=== PATIENT | female | born 1950 | race Caucasian/White ===

== ENCOUNTER 2016-11-11 14:39 | Inpatient (IN) | payer OTHER ==
[~2016-11-11] VITALS: Ht 160 cm; Wt 49.4 kg
[~2016-11-11 14:39] MED LIST: ACET325T96 PO; ALBUAER2 INH; ASPI81TA28 PO; CARV3.122 PO; ERGO1CAP35 PO; FLUT1INH INH; LVQ750 PO; MULT-506 PO; PANT40TA PO; TIOTCAP INH; VENL150C56 PO; VITACAP26 PO; WLLXL300 PO
[2016-11-11] MEDS ORDERED: FENTANYL CITRATE INJ 50 MCG/1 ML 2 ML VIAL IV STA ×2 (14:48→16:26)
[2016-11-11] MEDS ORDERED: VENL225T27 PO (15:14)
[2016-11-11] MEDS ORDERED: VTMD PO (15:14)
[2016-11-11] MEDS ORDERED: CRG625 PO (15:14)
[2016-11-11] MEDS ORDERED: ARFO15NE NEB (15:14)
[2016-11-11 15:21] LABS: BASO % 0.1 %; BASO ABS # 0.01 K/uL (0-0.2); COMPLETE YES; IG% 0.3 %; LYMPH % 3.1 %; MEAN CELL VOLUME 100.3 fL (80-100); MEAN CORPUSCULAR HEMOGLOBIN 30.9 pg (25-34); MEAN CORPUSCULAR HGB CONC 30.8 g/dl (32-36); MEAN PLATELET VOLUME 9.8 fL (7.4-10.4); MONO % 6.9 %; NEUT % 89.6 %; PLATELET COUNT 261 K/uL (130-400); RED BLOOD COUNT 3.59 M/uL (4.2-5.4); WHITE BLOOD COUNT 19.07 K/uL (4.8-10.8)
[2016-11-11 15:40] LABS: ALT/SGPT 21 U/L (12-78); BLOOD UREA NITROGEN 24 mg/dl (7-18); BUN/CREATININE RATIO 47.5 (10-20); CALCIUM 9.6 mg/dl (8.5-10.1); CARBON DIOXIDE 40 mmol/L (21-32); CHLORIDE 91 mmol/L (98-107); CREATININE 0.51 mg/dl (0.60-1.20); GLUCOSE 174 mg/dl (70-99); POTASSIUM 4.5 mmol/L (3.5-5.1); SODIUM 139 mmol/L (136-145)
[2016-11-11 15:43] LABS: ALKALINE PHOSPHATASE 82 U/L (45-117); AST/SGOT 23 U/L (15-37)
--- NOTE | 2016-11-11 15:58 | DIAGNOSTIC IMAGING REPORT ---
CHEST ONE VIEW PORTABLE CLINICAL HISTORY: Fall. COMPARISON STUDY: Chest CT August 08, 2016. FINDINGS: The patient is rotated. Allowing for patient rotation, the cardiomediastinal silhouette is stable. No pneumothorax or pleural effusion is present. Mild interstitial thickening persists. The appearance of the chest is similar to prior exam. IMPRESSION: No change in appearance of the chest. Stable mild reticular interstitial thickening. Electronically signed by: Grzegorz Hernández M.D. 11/11/2016 3:56 PM Dictated Date/Time: 11/11/2016 3:54 PM
--- NOTE | 2016-11-11 16:00 | DIAGNOSTIC IMAGING REPORT ---
AP PELVIS AND RIGHT HIP 3 VIEWS CLINICAL HISTORY: Right hip pain status post trauma COMPARISON STUDY: No previous studies for comparison. FINDINGS: There is an acute intertrochanteric right hip fracture with secondary varus angulation. IMPRESSION: Angulated acute intertrochanteric right hip fracture Electronically signed by: Marco A Romero M.D. 11/11/2016 3:58 PM Dictated Date/Time: 11/11/2016 3:58 PM
[2016-11-11] MEDS ORDERED: ONDANSETRON INJ 2 MG/ML 2 ML VIAL IV PRN (17:15)
[2016-11-11 17:16] LABS: URINE APPEARANCE CLEAR (CLEAR); URINE BILIRUBIN NEG (NEG); URINE COLOR DK YELLOW; URINE EPITHELIAL CELL AUTO 20-30 /lpf (0-5); URINE NITRITE NEG (NEG); URINE PH 6.5 (4.5-7.5); URINE SPECIFIC GRAVITY 1.017 (1.000-1.030); UROBILINOGEN NEG (NEG)
[2016-11-11 17:17] LABS: MANUAL MICROSCOPIC REQUIRED? NO; REVIEW REQ? NO
[2016-11-11] MEDS ORDERED: ERGOCALCIFEROL 50,000 INTER.UNIT CAP PO SCH (18:00)
--- NOTE | 2016-11-11 18:03 | Medical Consult ---
Consultation Date of Consultation: Nov 11, 2016. Attending Physician: Dr. Hayes Reason for Consultation: Right hip fracture History of Present Illness Shante is a pleasant 66 year old female who I have evaluated with Dr. Hayes due to a right hip fracture. She had a ground level fall this morning at 7 am when she was trying to reach something. She denies head trauma and/loss of consciousness. Her pain is well controlled. Denies any numbness or tingling distally. Past Medical/Surgical History Medical Problems: (1) Pneumonia Status: Acute Family History FH: heart disease Hypertension Social History Smoking Status: Smoker Current Status UNK Smokeless Tobacco Use: No Alcohol Use: none Drug Use: none Marital Status: Housing Status: lives with significant other Occupation Status: retired Allergies Coded Allergies: Penicillins (Verified Allergy, Intermediate, HIVES, 01/19/16) LIKELY TOLERATES CEFEPIME, IMIPENEM (SEE ADMISSION 08/13/15) Current Inpatient Medications Current Inpatient Medications Medications (Trade) Dose Ordered Sig/José Miguel Route Start Time Stop Time Status Last Admin Dose Admin Acetaminophen (Tylenol Tab) 650 mg Q4H PRN PO 11/11/16 17:15 12/11/16 17:14 Ondansetron HCl (Zofran Inj) 4 mg Q6H PRN IV 11/11/16 17:15 12/11/16 17:14 Morphine Sulfate (MoRPHine SULFATE INJ) 3 mg Q3H PRN IV 11/11/16 17:30 11/25/16 17:29 UNV Arformoterol Tartrate (Brovana 15MCG/ 2ML Neb Soln) 15 mcg BID INH 11/11/16 21:00 12/11/16 20:59 UNV Aspirin (Ecotrin Tab) 81 mg QAM PO 11/12/16 09:00 12/12/16 08:59 UNV Bupropion HCl (Wellbutrin-Xl Tab) 300 mg QAM PO 11/12/16 09:00 12/12/16 08:59 UNV Carvedilol (Coreg Tab) 6.25 mg BID PO 11/11/16 21:00 12/11/16 20:59 UNV Ergocalciferol (Vitamin D Cap) 50,000 interunit UD PO 11/11/16 17:30 12/11/16 17:29 UNV Multivitamins (Multivitamin Tab) 1 tab QAM PO 11/12/16 09:00 12/12/16 08:59 UNV Pantoprazole Sodium (Protonix Tab) 40 mg HS PO 11/11/16 21:00 12/11/16 20:59 UNV Non-Formulary Medication (Fluticasone Furoate-Vilanterol (Breo Ellipta)) 1 puff BID INH 11/11/16 21:00 12/11/16 20:59 UNV Non-Formulary Medication (Venlafaxine Hcl (Venlafaxine Hcl Er)) 225 mg DAILY PO 11/12/16 09:00 12/12/16 08:59 UNV Heparin Sodium (Porcine) (Heparin Sq 5000 Unit/0.5ml) 5,000 unit Q12 SQ 11/11/16 21:00 12/11/16 20:59 UNV Review of Systems Constitutional: No chills, No fever Respiratory: No shortness of breath Cardiovascular: No chest pain Abdomen: No pain Musculoskeletal: + joint pain, + muscle pain Neurologic: + memory loss Physical Exam Date Time Temp Pulse Resp B/P Pulse Ox O2 Delivery O2 Flow Rate FiO2 11/11/16 16:32 122 20 141/103 100 Nasal Cannula 4.5 11/11/16 14:53 37.5 28 22 150/94 100 Nasal Cannula General Appearance: WD/WN, no apparent distress Head: normocephalic, atraumatic ENT: normal ENT inspection Cardiovascular: regular rate, rhythm, normal peripheral pulses Back: normal inspection Extremities/Musculoskelatal: pelvis stable Neurologic/Psych: no motor/sensory deficits, oriented x 3 Skin: normal color Laboratory Results Last 24 Hours Test 11/11/16 15:05 11/11/16 16:30 White Blood Count 19.07 K/uL Red Blood Count 3.59 M/uL Hemoglobin 11.1 g/dL Hematocrit 36.0 % Mean Corpuscular Volume 100.3 fL Mean Corpuscular Hemoglobin 30.9 pg Mean Corpuscular Hemoglobin Concent 30.8 g/dl Platelet Count 261 K/uL Mean Platelet Volume 9.8 fL Neutrophils (%) (Auto) 89.6 % Lymphocytes (%) (Auto) 3.1 % Monocytes (%) (Auto) 6.9 % Eosinophils (%) (Auto) 0.0 % Basophils (%) (Auto) 0.1 % Neutrophils # (Auto) 17.08 K/uL Lymphocytes # (Auto) 0.60 K/uL Monocytes # (Auto) 1.32 K/uL Eosinophils # (Auto) 0.00 K/uL Basophils # (Auto) 0.01 K/uL RDW Standard Deviation 53.4 fL RDW Coefficient of Variation 14.6 % Immature Granulocyte % (Auto) 0.3 % Immature Granulocyte # (Auto) 0.06 K/uL Sodium Level 139 mmol/L Potassium Level 4.5 mmol/L Chloride Level 91 mmol/L Carbon Dioxide Level 40 mmol/L Anion Gap 8.0 mmol/L Blood Urea Nitrogen 24 mg/dl Creatinine 0.51 mg/dl Est Creatinine Clear Calc Drug Dose 75.0 ml/min Estimated GFR () 114.5 Estimated GFR (Non- 98.8 BUN/Creatinine Ratio 47.5 Random Glucose 174 mg/dl Calcium Level 9.6 mg/dl Total Bilirubin 0.3 mg/dl Direct Bilirubin < 0.1 mg/dl Aspartate Amino Transf (AST/SGOT) 23 U/L Alanine Aminotransferase (ALT/SGPT) 21 U/L Alkaline Phosphatase 82 U/L Total Protein 7.3 gm/dl Albumin 3.1 gm/dl Lipase 74 U/L Urine Color DK YELLOW Urine Appearance CLEAR Urine pH 6.5 Urine Specific [place] 1.017 Urine Protein TRACE Urine Glucose (UA) NEG Urine Ketones TRACE Urine Occult Blood 1+ Urine Nitrite NEG Urine Bilirubin NEG Urine Urobilinogen NEG Urine Leukocyte Esterase NEG Urine WBC (Auto) 1-5 /hpf Urine RBC (Auto) >30 /hpf Urine Hyaline Casts (Auto) 5-10 /lpf Urine Epithelial Cells (Auto) 20-30 /lpf Urine Bacteria (Auto) NEG Assessment & Plan Plan for ORIF with a trochanteric nail tomorrow when clear from medicine. Additional Copies To Hemal Hayes M.D.
--- NOTE | 2016-11-11 18:39 | History and Physical ---
History & Physical Date & Time of Service: Nov 11, 2016 at 18:12 Chief Complaint: Fall, Right Hip Pain Primary Care Physician: Matheus Kirk M.D. History of Present Illness 66 year old female who presents to the ER after suffering a fall and having right hip pain. Patient's memory is poor and history is obtained from the . Patient was walking to the bathroom this morning when she suffered a fall. reports he a heard a thud and found her on the floor. He believes she tripped over her oxygen tubing. Patient denies lightheadedness, dizziness, or loss of coconsciousness. No associated chest pain. Patient has chronic shortness of breath at baseline which is unchanged. She also has a chronic productive cough at baseline which is unchanged. No fevers or chills recently. Patient has a ileostomy in place, output is unchanged. No abdominal pain, nausea , or vomiting. In the ER, patient is found to have right intertrochanteric hip fracture. WBC is 19K, no obvious source of infection is identified. Vitals are stable. Past Medical/Surgical History Medical Problems: (1) CAD (coronary artery disease) Permanent Comment: s/p RCA stent 1998 cath 05/2011 - PDA stenosis 60% Status: Chronic (2) Chronic obstructive lung disease Permanent Comment: severe Status: Chronic (3) COPD, severe Permanent Comment: on chronic 4L O2 Status: Chronic (4) Depression Status: Chronic (5) Diverticulosis of sigmoid colon Permanent Comment: Noted on colonoscopy 2005. Status: Chronic (6) Hyperlipidemia Status: Chronic (7) MRSA bacteremia Status: Resolved (8) Paroxysmal a-fib Status: Chronic (9) Respiratory failure Status: Chronic Surgical Problems: (1) H/O ileostomy Status: Chronic (2) History of cardiac catheterization Status: Resolved (3) History of tonsillectomy Status: Resolved (4) S/P partial colectomy Permanent Comment: for ischemic bowel Status: Chronic (5) S/P splenectomy Status: Chronic (6) Status post tracheostomy Status: Chronic Family History FH: heart disease FATHER ([place] at age 47) FH: pulmonary embolism MOTHER (at age 48) Social History Smoking Status: Former Smoker Alcohol Use: none Marital Status: Housing status: other Immunizations History of Influenza Vaccine: Yes Influenza Vaccine Date: Jul 17, 2016 History of Tetanus Vaccine?: Yes Tetanus Immunization Date: Feb 10, 2014 History of Pneumococcal: Yes Pneumococcal Date: Aug 18, 2007 Multi-Drug Resistant Organisms History of MDRO: Yes Type of MDRO: MRSA Allergies Coded Allergies: Penicillins (Verified Allergy, Intermediate, HIVES, 01/19/16) LIKELY TOLERATES CEFEPIME, IMIPENEM (SEE ADMISSION 08/13/15) Home Medications Scheduled Arformoterol Tartrate (Brovana), 1 VIAL NEB BID Aspirin (Aspirin Ec), 81 MG PO QAM Bupropion HCl (Bupropion HCl Xl), 300 MG PO QAM Carvedilol (Carvedilol), 6.25 MG PO BID Ergocalciferol (Vitamin D), 50,000 UNITS PO WK Fluticasone Furoate-Vilanterol (Breo Ellipta), 1 PUFF INH BID Multivitamin (Multivitamin), 1 TAB PO QAM Pantoprazole (Protonix), 40 MG PO HS Venlafaxine Hcl (Venlafaxine Hcl Er), 225 MG PO DAILY Review of Systems 10 point review of systems was completed with the pertinent positives and negatives noted per the HPI Physical Exam Vital Signs Date Time Temp Pulse Resp B/P Pulse Ox O2 Delivery O2 Flow Rate FiO2 11/11/16 16:32 122 20 141/103 100 Nasal Cannula 4.5 11/11/16 14:53 37.5 28 22 150/94 100 Nasal Cannula General Appearance: no apparent distress Head: normocephalic Eyes: normal inspection ENT: hearing grossly normal Neck: supple, no JVD Respiratory/Chest: no respiratory distress, + crackles (BL bases) Cardiovascular: regular rate, rhythm, no edema, normal peripheral pulses Abdomen/GI: normal bowel sounds, non tender, soft, + pertinent finding ( ileostomy in place, stoma pink, green/brown liquid stool present) Extremities/Musculoskelatal: + pertinent finding (right hip pain with minimal movement) Neurologic/Psych: no motor/sensory deficits, alert, normal mood/affect, oriented x 3, + pertinent finding (forgetful) Skin: normal color, warm/dry Diagnostics Laboratory Results Results Past 24 Hours Test 11/11/16 15:05 11/11/16 16:30 11/11/16 17:47 Range/Units White Blood Count 19.07 4.8-10.8 K/uL Red Blood Count 3.59 4.2-5.4 M/uL Hemoglobin 11.1 12.0-16.0 g/dL Hematocrit 36.0 37-47 % Mean Corpuscular Volume 100.3 80-100 fL Mean Corpuscular Hemoglobin 30.9 25-34 pg Mean Corpuscular Hemoglobin Concent 30.8 32-36 g/dl Platelet Count 261 130-400 K/uL Mean Platelet Volume 9.8 7.4-10.4 fL Neutrophils (%) (Auto) 89.6 % Lymphocytes (%) (Auto) 3.1 % Monocytes (%) (Auto) 6.9 % Eosinophils (%) (Auto) 0.0 % Basophils (%) (Auto) 0.1 % Neutrophils # (Auto) 17.08 1.4-6.5 K/uL Lymphocytes # (Auto) 0.60 1.2-3.4 K/uL Monocytes # (Auto) 1.32 0.11-0.59 K/uL Eosinophils # (Auto) 0.00 0-0.5 K/uL Basophils # (Auto) 0.01 0-0.2 K/uL RDW Standard Deviation 53.4 36.4-46.3 fL RDW Coefficient of Variation 14.6 11.5-14.5 % Immature Granulocyte % (Auto) 0.3 % Immature Granulocyte # (Auto) 0.06 0.00-0.02 K/uL Sodium Level 139 136-145 mmol/L Potassium Level 4.5 3.5-5.1 mmol/L Chloride Level 91 98-107 mmol/L Carbon Dioxide Level 40 21-32 mmol/L Anion Gap 8.0 3-11 mmol/L Blood Urea Nitrogen 24 7-18 mg/dl Creatinine 0.51 0.60-1.20 mg/dl Est Creatinine Clear Calc Drug Dose 75.0 ml/min Estimated GFR () 114.5 Estimated GFR (Non- 98.8 BUN/Creatinine Ratio 47.5 10-20 Random Glucose 174 70-99 mg/dl Calcium Level 9.6 8.5-10.1 mg/dl Total Bilirubin 0.3 0.2-1 mg/dl Direct Bilirubin < 0.1 0-0.2 mg/dl Aspartate Amino Transf (AST/SGOT) 23 15-37 U/L Alanine Aminotransferase (ALT/SGPT) 21 12-78 U/L Alkaline Phosphatase 82 45-117 U/L Total Protein 7.3 6.4-8.2 gm/dl Albumin 3.1 3.4-5.0 gm/dl Lipase 74 73-393 U/L Urine Color DK YELLOW Urine Appearance CLEAR CLEAR Urine pH 6.5 4.5-7.5 Urine Specific [place] 1.017 1.000-1.030 Urine Protein TRACE NEG Urine Glucose (UA) NEG NEG Urine Ketones TRACE NEG Urine Occult Blood 1+ NEG Urine Nitrite NEG NEG Urine Bilirubin NEG NEG Urine Urobilinogen NEG NEG Urine Leukocyte Esterase NEG NEG Urine WBC (Auto) 1-5 0-5 /hpf Urine RBC (Auto) >30 0-4 /hpf Urine Hyaline Casts (Auto) 5-10 0-5 /lpf Urine Epithelial Cells (Auto) 20-30 0-5 /lpf Urine Bacteria (Auto) NEG NEG Microbiology Results 11/11/16 Blood Culture, Concha Batch Pending 11/11/16 Blood Culture, Concha Batch Pending 11/11/16 Urine Culture, Received Pending Diagnostic Radiology HIP/PELVIS XR IMPRESSION: Angulated acute intertrochanteric right hip fracture CXR IMPRESSION: No change in appearance of the chest. Stable mild reticular interstitial thickening. EKG EKG: sinus tachycardia with PACs Impression Assessment and Plan RIGHT HIP FRACTURE - admit to med/surg - fall seems to be mechanical - ortho consulted - patient moderate risk for surgery due to underlying oxygen dependent COPD and CAD - anesthesia and cardio consults placed for pre op evaluation - resting echo ordered, EKG LEUKOCYTOSIS - WBC 19K - no obvious source of infection identified on work up; history negative for suspected infection - CXR unchanged from prior, U/A does not appear infected - urine and blood cultures - ? due to stress response from fall/fracture CAD - no reports of chest pain - s/p RCA stent 1998, cath 2010 - 60% PDA stenosis - continue ASA and beta maycol COPD - saturating well on chronic 4L - no wheezing on exam - continue home inhalers DVT PROPHYLAXIS - SQ heparin, hold after midnight for possible surgery CODE STATUS - Patient is a full code as per my discussion with her and her who is at the bedside. DISPO - In my clinical judgment this beneficiary meets acute admission criteria, established by [facility], that includes being hospitalized through two midnights. Attending Note: Patient is a 66 yr old female with PMH of CAD S/P stent, COPD, chronic Oxygen dependency, HLP, depression presents with history of right hip pain secondary to fall. X ray showed right intertrochanteric hip fracture. She has leucocytosis of 19K with no obvious source of infection. Physical Exam: Vitals signs as noted above General Appearance:Thin, fragile, chronically ill appearing, no apparent distress Head: normocephalic, Atraumatic Eyes: normal inspection, EOMI, PERRL Neck: supple, no JVD, Trachea midline Respiratory/Chest: Decreased breath sounds, mild creps positive. No accessory muscle use Cardiovascular: Tachycardia, S1, S2, No murmur Abdomen/GI:Soft, Non tender, Bowel sounds present Extremities/Musculoskelatal:R hip tenderness, decreased ROM secondary to pain. Neurologic/Psych:AAOX3, grossly no focal neurological deficits Skin:normal color,warm Assessment and Plan: Right Intertrochanteric fracture S/P fall Pain control Gentle IV fluids Ortho consulted Given history of COPD on chronic oxygen dependency, CAD S/p stent Will request for Cardiology and Pulm eval prior to surgery Leukocytosis- no obvious source of infection Check lactate, echo, EKG, cultures I personally reviewed the record. Patient is interviewed and examined at bedside. Patient's care is coordinated with Dannielle Tan CONCRETE MASON. Please refer to the documentation above for details of patient's presentation and for discussion of other issues. VTE Prophylaxis VTE Risk Assessment Done? Y/N: Yes Risk Level: Moderate
[2016-11-11] MEDS: MoRPHine SULFATE 4 MG/ML 1 ML CARP\\VIAL IV PRN ×2 (19:41→22:59)
[2016-11-11 19:45] VITALS: BP 129/87; PULSE 124; TEMP 37.1; O2SAT 99
[2016-11-11 19:48] VITALS: BP 129/87; PULSE 124; TEMP 37.1; O2SAT 99; Ht 160 cm; Wt 49.4 kg
[2016-11-11] MEDS: ARFORMOTEROL TART 15MCG/2ML VIAL INH SCH (20:00)
[2016-11-11 20:15] VITALS: BP 138/83; PULSE 126; O2SAT 100
[2016-11-11] MEDS ORDERED: METOPROLOL TARTRATE 1 MG/ML VIAL IV PRN (20:30)
--- NOTE | 2016-11-11 20:50 | Anesthesiology Progress Note ---
Anesthesia Progress Note Date of Service Nov 11, 2016. Progress Notes The patient is a 66 y/o scheduled for R troch nail tomorrow. The patient fell after tripping while going to the bathroom with no LOC. Her PMH is significant for severe COPD requiring 4 L continuous oxygen, CAD s/p stent, hx afib, dyslipidemia, aortic stenosis, diverticulitis, anemia, and depression. She was admitted in July 2015 with mesenteric ischemia, sepsis, acute on chronic respiratory failure, and had a cardiopulmonary arrest. She had a tracheostomy and PEG tube placed during that admission. She underwent a splenectomy and had an ileostomy as well. The patient is on continuous oxygen but continues to smoke 4 cigarettes/day and has a 50 year smoking history. The patient has no chest pain, but easily becomes SOB and has poor functional status. Her CXR shows NAD with stable interstitial thickening. EKG shows ST with PACs and a rate of 124. An echocardiogram from 03/04 shows EF 60-65, mild LVH, and moderate . Labs are significant for WBC 19, hgb 11.1, Cl 90, bicarb 40, and BUN 24. Current vitals include HR 122, SpO2 99 on 4 L NC, RR 16, temp 37.1, BP 138/83. On exam the patient was lying in bed and appeared to be in mild pain. She has a MP 1 view with slightly limited neck extension. She has dentures. Lungs have decreased BS bilaterally. Heart is tachycardic but muffled. No carotid bruit noted. Her R leg is in traction. The patient is an ASA 4. The patient was consented for both general anesthesia and neuraxial anesthesia as well as invasive monitoring. The risk of prolonged intubation must be weighed against hypotension from neuraxial anesthesia with aortic stenosis. Since the patient was tachycardic, Dr. Ordoñez was called to evaluate the patient. He will treat her tachycardia with beta blockers and transfer her to telemetry for closer monitoring overnight. The patient was counseled to remain NPO after midnight except for sips of water with pills. The medicine team ordered a cardiac consult as well as an echocardiogram which are both pending.
[2016-11-11] MEDS: SODIUM CHLORIDE 0.9% 1000ML 1,000 ML IV SCH (20:59)
[2016-11-11] MEDS ORDERED: HEPARIN SOD 5000 UNIT/0.5 ML CARP SQ SCH (21:00)
[2016-11-11] MEDS: ACETAMINOPHEN 325 MG TAB PO PRN (21:01)
--- NOTE | 2016-11-11 21:01 | EMERGENCY ROOM VISIT NOTE ---
History Report prepared by Edwina: Lindsay Pisano Under the Supervision of: Dr. Chevy Montgomery D.O. First contact with patient: 14:42 Stated Complaint: FALL/ HIP PAIN History of Present Illness The patient is a 66 year old female who presents to the Emergency Room with complaints of right hip pain that has been somewhat constant since a fall that occurred this morning at 7AM. Her pain is worsened with any movement of her right leg. The patient states that she was reaching for something and fell on her backside. She did not hit her head or lose consciousness. The patient wears 4.5 L oxygen at home due to a history of COPD. Pt denies headache, change in vision, fevers, chest pain, nausea, vomiting, diarrhea, pain with urination, and melena. Source of History: patient Onset: this morning at 7AM Position: other (right hip) Timing: constant Modifying Factors (Worsening): movement Associated Symptoms: No LOC, No chest pain, No diarrhea, No fevers, No headache, No nausea, No urinary symptoms, No vomiting Review of Systems See HPI for pertinent positives & negatives. A total of 10 systems reviewed and were otherwise negative. Past Medical & Surgical Medical Problems: (1) CAD (coronary artery disease) (2) Chronic obstructive lung disease (3) COPD, severe (4) Depression (5) Diverticulosis of sigmoid colon (6) Hyperlipidemia (7) MRSA bacteremia (8) Paroxysmal a-fib (9) Respiratory failure Surgical Problems: (1) H/O ileostomy (2) History of cardiac catheterization (3) History of tonsillectomy (4) S/P partial colectomy (5) S/P splenectomy (6) Status post tracheostomy Family History FH: heart disease Hypertension Social History Smoking Status: Current Every Day Smoker Alcohol Use: occasionally Drug Use: none Marital Status: Housing Status: lives with significant other Occupation Status: retired Current/Historical Medications Scheduled Arformoterol Tartrate (Brovana), 1 VIAL NEB BID Aspirin (Aspirin Ec), 81 MG PO QAM Bupropion HCl (Bupropion HCl Xl), 300 MG PO QAM Carvedilol (Carvedilol), 6.25 MG PO BID Ergocalciferol (Vitamin D), 50,000 UNITS PO WK Fluticasone Furoate-Vilanterol (Breo Ellipta), 1 PUFF INH BID Multivitamin (Multivitamin), 1 TAB PO QAM Pantoprazole (Protonix), 40 MG PO HS Venlafaxine Hcl (Venlafaxine Hcl Er), 225 MG PO DAILY Allergies Coded Allergies: Penicillins (Verified Allergy, Intermediate, HIVES, 01/19/16) LIKELY TOLERATES CEFEPIME, IMIPENEM (SEE ADMISSION 08/13/15) Physical Exam Vital Signs Date Time Temp Pulse Resp B/P Pulse Ox O2 Delivery O2 Flow Rate FiO2 11/11/16 17:00 105 18 149/96 99 Nasal Cannula 4.5 11/11/16 16:32 122 20 141/103 100 Nasal Cannula 4.5 11/11/16 14:53 37.5 28 22 150/94 100 Nasal Cannula Physical Exam GENERAL: Laying in bed, moderate distress, holding right hip, on nasal canula oxygen HEAD: normal cephalic, atraumatic EYE EXAM: normal conjunctiva, PERRL and EOM's intact OROPHARYNX: no exudate, no erythema, lips, buccal mucosa, and tongue normal and mucous membranes are moist EARS: TMs clear b/l NECK: supple, no nuchal rigidity, no adenopathy, non-tender CHEST: stable to compression anteriorly and posteriorly LUNGS: clear to auscultation. Normal chest wall mechanics HEART: no murmurs, S1 normal and S2 normal ABDOMEN: abdomen soft, non-tender, normo-active bowel sounds, no masses, no rebound or guarding. PELVIS: Pain to palpation over the right hip. BACK: Back is symmetrical on inspection and there is no deformity, no midline tenderness, no CVA tenderness. UPPER EXTREMITIES: full active and passive range of motion of all joints without tenderness to palpation LOWER EXTREMITIES: Right lower extremity is externally rotated and shortened. Able to plantar and dorsiflex toes. PT is 2/4. Gross sensation is intact. Acute tenderness over the right hip. Left lower extremity - full active and passive range of motion of all joints without tenderness to palpation NEURO EXAM: Alert, follows commands, oriented to year. Medical Decision & Procedures ER Provider Diagnostic Interpretation: Xray results per the radiologist and my interpretation. AP PELVIS AND RIGHT HIP 3 VIEWS CLINICAL HISTORY: Right hip pain status post trauma COMPARISON STUDY: No previous studies for comparison. FINDINGS: There is an acute intertrochanteric right hip fracture with secondary varus angulation. IMPRESSION: Angulated acute intertrochanteric right hip fracture Electronically signed by: Marco A Romero M.D. 11/11/2016 3:58 PM Dictated Date/Time: 11/11/2016 3:58 PM CHEST ONE VIEW PORTABLE CLINICAL HISTORY: Fall. COMPARISON STUDY: Chest CT August 08, 2016. FINDINGS: The patient is rotated. Allowing for patient rotation, the cardiomediastinal silhouette is stable. No pneumothorax or pleural effusion is present. Mild interstitial thickening persists. The appearance of the chest is similar to prior exam. IMPRESSION: No change in appearance of the chest. Stable mild reticular interstitial thickening. Electronically signed by: Grzegorz Hernández M.D. 11/11/2016 3:56 PM Dictated Date/Time: 11/11/2016 3:54 PM Laboratory Results 11/11/16 15:05 Red Blood Count 3.59, Mean Corpuscular Volume 100.3, Mean Corpuscular Hemoglobin 30.9, Mean Corpuscular Hemoglobin Concent 30.8, Mean Platelet Volume 9.8, Neutrophils (%) (Auto) 89.6, Lymphocytes (%) (Auto) 3.1, Monocytes (%) ( Auto) 6.9, Eosinophils (%) (Auto) 0.0, Basophils (%) (Auto) 0.1, Neutrophils # ( Auto) 17.08, Lymphocytes # (Auto) 0.60, Monocytes # (Auto) 1.32, Eosinophils # ( Auto) 0.00, Basophils # (Auto) 0.01 11/11/16 15:05 Test 11/11/16 15:05 11/11/16 16:30 White Blood Count 19.07 K/uL (4.8-10.8) Red Blood Count 3.59 M/uL (4.2-5.4) Hemoglobin 11.1 g/dL (12.0-16.0) Hematocrit 36.0 % (37-47) Mean Corpuscular Volume 100.3 fL (80-100) Mean Corpuscular Hemoglobin 30.9 pg (25-34) Mean Corpuscular Hemoglobin Concent 30.8 g/dl (32-36) Platelet Count 261 K/uL (130-400) Mean Platelet Volume 9.8 fL (7.4-10.4) Neutrophils (%) (Auto) 89.6 % Lymphocytes (%) (Auto) 3.1 % Monocytes (%) (Auto) 6.9 % Eosinophils (%) (Auto) 0.0 % Basophils (%) (Auto) 0.1 % Neutrophils # (Auto) 17.08 K/uL (1.4-6.5) Lymphocytes # (Auto) 0.60 K/uL (1.2-3.4) Monocytes # (Auto) 1.32 K/uL (0.11-0.59) Eosinophils # (Auto) 0.00 K/uL (0-0.5) Basophils # (Auto) 0.01 K/uL (0-0.2) RDW Standard Deviation 53.4 fL (36.4-46.3) RDW Coefficient of Variation 14.6 % (11.5-14.5) Immature Granulocyte % (Auto) 0.3 % Immature Granulocyte # (Auto) 0.06 K/uL (0.00-0.02) Anion Gap 8.0 mmol/L (3-11) Est Creatinine Clear Calc Drug Dose 75.0 ml/min Estimated GFR () 114.5 Estimated GFR (Non- 98.8 BUN/Creatinine Ratio 47.5 (10-20) Calcium Level 9.6 mg/dl (8.5-10.1) Total Bilirubin 0.3 mg/dl (0.2-1) Direct Bilirubin < 0.1 mg/dl (0-0.2) Aspartate Amino Transf (AST/SGOT) 23 U/L (15-37) Alanine Aminotransferase (ALT/SGPT) 21 U/L (12-78) Alkaline Phosphatase 82 U/L (45-117) Total Protein 7.3 gm/dl (6.4-8.2) Albumin 3.1 gm/dl (3.4-5.0) Lipase 74 U/L (73-393) Urine Color DK YELLOW Urine Appearance CLEAR (CLEAR) Urine pH 6.5 (4.5-7.5) Urine Specific [place] 1.017 (1.000-1.030) Urine Protein TRACE (NEG) Urine Glucose (UA) NEG (NEG) Urine Ketones TRACE (NEG) Urine Occult Blood 1+ (NEG) Urine Nitrite NEG (NEG) Urine Bilirubin NEG (NEG) Urine Urobilinogen NEG (NEG) Urine Leukocyte Esterase NEG (NEG) Urine WBC (Auto) 1-5 /hpf (0-5) Urine RBC (Auto) >30 /hpf (0-4) Urine Hyaline Casts (Auto) 5-10 /lpf (0-5) Urine Epithelial Cells (Auto) 20-30 /lpf (0-5) Urine Bacteria (Auto) NEG (NEG) Laboratory results per my review. Medications Administered Medications (Trade) Dose Ordered Sig/José Miguel Route Start Time Stop Time Status Last Admin Dose Admin Fentanyl Citrate (Fentanyl Inj) 75 mcg NOW STAT IV 11/11/16 14:48 11/11/16 14:49 DC 11/11/16 15:27 75 MCG Fentanyl Citrate (Fentanyl Inj) 50 mcg NOW STAT IV 11/11/16 16:26 11/11/16 16:27 DC 11/11/16 17:02 50 MCG ED Course ED COURSE: Vital signs were reviewed and showed tachycardia. The patients medical record was reviewed The above diagnostic studies were performed and reviewed. ED treatments and interventions as stated above. 1442: The patient was evaluated in room B7. A complete history and physical examination was performed. 1448: Ordered Fentanyl Inj 75 mcg IV. 1615: I discussed the case with Dr. Hayes - Orthopedic Surgery. He will evaluate the patient. 1620: Upon reevaluation, the patient is feeling better.I discussed my findings with the patient and she understands and agrees with the treatment plan. Ordered Fentanyl Citrate 50 mcg IV. Based on the patients age, coexisting illnesses, exam and lab findings the decision to treat as an inpatient was made. The patient remained stable while under my care. The patient will be evaluated for further management. 1625: I discussed the case with IVONNE Diana - [facility]. The patient will be evaluated for further management. Medical Decision Differential diagnoses include major intracranial, cervical, spinal, thoracic, abdominal, pelvic and neurologic injury. Fracture, contusion, sprain, strain, laceration, abrasions included as well. Patient is a 58-year-old female who presents the ER status post mechanical fall with severe right hip pain via ALS. On exam she has a shortened and externally rotated right lower extremity. Neurovascularly intact. X-ray show acute right hip fracture. Patient has no other complaints otherwise. No headache or neck pain. No blood thinners. CT head was not performed as she had no loss consciousness and no complaints. Chest x-ray was unremarkable. Labs remarkable for a leukocytosis of 19,000. BMP along with LFTs was unremarkable. Lipase is normal. UA was contaminated but she had no urinary complaints and will not pursue any further. She was on 4.5 L nasal cannula which is her baseline. Case was discussed with orthopedics and admitted to internal medicine for right hip fracture. Consults Time Called: 1610 Consulting Physician: Dr. Hayes - Orthopedic Surgery Returned Call: 1615 I discussed the case with him. He will evaluate the patient. Additional Consults: Time Called: 1620 Consulted Physician: IVONNE Diana - [facility] Returned Call: 1625 Additional Comments: I discussed the case with her. The patient will be evaluated for further management. Impression Primary Impression: Hip fracture, right Additional Impression: Anemia Scribe Attestation The scribe's documentation has been prepared under my direction and personally reviewed by me in its entirety. I confirm that the note above accurately reflects all work, treatment, procedures, and medical decision making performed by me. Departure Information Dispostion Being Evaluated By Hospitalist Referrals Matheus Kirk M.D. (PCP) Problem Qualifiers Primary Impression: Hip fracture, right Encounter type: initial encounter Fracture type: closed Qualified Codes: S72.001A - Fracture of unspecified part of neck of right femur, initial encounter for closed fracture Additional Impression: Anemia Anemia type: unspecified type Qualified Codes: D64.9 - Anemia, unspecified
[2016-11-11 21:35] VITALS: BP 138/83; PULSE 126; TEMP 37.1; O2SAT 100
[2016-11-11] MEDS: CARVEDILOL 6.25 MG TAB PO SCH (22:26)
[2016-11-11] MEDS: PANTOprazole SOD 40 MG TAB PO SCH (22:27)
--- NOTE | 2016-11-11 22:54 | DIAGNOSTIC IMAGING REPORT ---
SINGLE VIEW RIGHT HIP CLINICAL HISTORY: Fracture. FINDINGS: An AP portable view of the right hip is compared to study performed earlier the same day 11/11/2016. The skeletal structures are osteopenic. Again seen is an angulated and comminuted intertrochanteric fracture of the right hip. This is not significantly changed from today's earlier examination. The visualized right hemipelvis appears intact. Overlying soft tissue edema is noted. Mild arthritic change is present in the hip. There is atherosclerotic calcification in the right femoral artery. IMPRESSION: Again seen is a comminuted and angulated intertrochanteric fracture of the right femur with overlying soft tissue edema. Alignment has not significant changed from earlier today. Electronically signed by: True Virgen M.D. 11/11/2016 10:52 PM Dictated Date/Time: 11/11/2016 10:50 PM
--- NOTE | 2016-11-11 22:59 | ORTHOPEDIC CONSULTATION ---
DATE OF CONSULTATION: 11/11/2016 The patient seen and examined with Dr. Majano, orthopedic fellow. For further details, refer to his dictation. He and I saw and evaluated this patient together, and I am in agreement with the plan. Shante is a 66-year-old female who fell at home earlier today. She was brought to the Emergency Room where she was found to have a right hip intertrochanteric fracture. She is currently being admitted to the hospital by medicine. She was not lightheaded or dizzy and denied having any prior history of injuries to the right hip. She complains of pain in the right hip and buttock area. She has a past medical history that is significant for MRSA, severe COPD, bowel obstruction that required an external diversion. She has also had coronary artery disease and has had several heart attacks. ALLERGIES: SHE IS ALLERGIC TO PENICILLIN. She does not recall what surgeries she has had; however, review of the record indicates she has had a tracheostomy, splenectomy, ileostomy and partial colectomy performed. Discussing with her , she also has mild dementia and depression. She continues to smoke, but she does not drink significantly. She was on the ventilator for an extended period of time due to prior lung issues. Her medications are noted on hospital chart. She is not on any blood thinners. PHYSICAL EXAMINATION: GENERAL: She is awake, alert, and oriented to person and time. She knows that she is in the hospital but does not know the name of the hospital. ORTHOPEDIC: She moves all extremities freely except for her right lower extremity which is shortened and externally rotated. Her pulses are dopplerable. Sensation and motor strength is intact ankle and toe plantar flexion and dorsiflexion. She has pain on the right hip. The right leg is shortened and externally rotated. Her thoracic and lumbar spine are nontender. Both upper extremities move freely. The left lower extremity shows good range of motion without pain. There is a colostomy bag over the right lower quadrant of the abdomen. A Benítez catheter is in place. VITAL SIGNS: She is afebrile. Her vital signs are stable. LABORATORY DATA: White count is 19, likely secondary to stress. Hemoglobin 11, hematocrit 36, and platelet count is 261. Her PRP is noted, she has increased CO2 and BUN. Her chest x-ray report is noted. Her hip x-ray shows a shortened fracture involving the intertrochanteric region. This appears to be a simple intertrochanteric fracture. There is generalized osteopenia. There is no arthritis or dislocation present. IMPRESSION: Right intertrochanteric hip fracture. PLAN: She will be admitted to the hospital by medicine. I spoke to the hospitalist, discussed with him recommendation is to perform surgery whenever she is medically stabilized, hopefully this will be tomorrow by afternoon. We will hold her subQ heparin as she has just had a fracture and we will likely be doing surgery sometime early tomorrow. The hospitalist has indicated a cardiology consult. I would also like anesthesia to see the patient at the time. Because she has a history of MRSA, I have ordered vancomycin preoperatively. She will be placed on decubitus precautions, bed rest and will be n.p.o. after midnight. I spoke with the and reviewed with him my findings and recommendations. We reviewed the pros and cons of surgery. Without surgery, she has an increased risk of bedsores, blood clots, embolisms, pain and particularly pneumonia given her compromised pulmonary status. Surgery will help promote upright posture and early mobility. Without surgery, she would have a difficult time ambulating. We reviewed the risks of infection, bleeding, pain, scarring, nerve and blood vessel damage, blood clot, embolism, heart attack, stroke, , malunion, nonunion, hardware failure, fracture. He is in agreement to proceed and will be in tomorrow to sign the permission slip. The patient is booked in the OR provisionally for tomorrow for a long trochanteric nail on her right hip.
[2016-11-11 23:20] VITALS: BP 126/84; PULSE 117; TEMP 37.1; O2SAT 100
[2016-11-11] MEDS: RASPBERRY SYRUP 5 ML UDP PO SCH (23:38)
[2016-11-11] MEDS: VANCOMYCIN HCL 125 MG/2.5ML SOLN PO SCH (23:38)
[2016-11-12] VITALS (11 sets, daily range): BP systolic 99–128; BP diastolic 59–84; PULSE 98–113; TEMP 36.6–37; O2SAT 88–100
[2016-11-12] MEDS ORDERED: OPTIRAY 320 IV PRN
[2016-11-12] MEDS: ACETAMINOPHEN 325 MG TAB PO PRN (00:54)
[2016-11-12] MEDS: MoRPHine SULFATE 4 MG/ML 1 ML CARP\\VIAL IV PRN ×3 (03:33→11:11)
[2016-11-12] MEDS: VANCOMYCIN HCL 125 MG/2.5ML SOLN PO SCH ×3 (05:45→19:34)
[2016-11-12] MEDS: RASPBERRY SYRUP 5 ML UDP PO SCH ×3 (05:45→19:36)
[2016-11-12] MEDS ORDERED: SODIUM CHLORIDE 0.9% IV SCH (06:00)
[2016-11-12] MEDS ORDERED: VANCOMYCIN IV SCH (06:00)
[2016-11-12] MEDS ORDERED: VANCOMYCIN INJ 0 MG in SODIUM CHLORIDE 0.9% 500ML 500 ML IV SCH (06:00)
[2016-11-12] MEDS: ARFORMOTEROL TART 15MCG/2ML VIAL INH SCH ×3 (07:03→19:45)
[2016-11-12 07:21] LABS: HEMATOCRIT 30.6 % (37-47); MEAN CELL VOLUME 97.5 fL (80-100); MEAN CORPUSCULAR HEMOGLOBIN 29.9 pg (25-34); MEAN CORPUSCULAR HGB CONC 30.7 g/dl (32-36); MEAN PLATELET VOLUME 10.1 fL (7.4-10.4); PLATELET COUNT 217 K/uL (130-400); RED BLOOD COUNT 3.14 M/uL (4.2-5.4); WHITE BLOOD COUNT 12.85 K/uL (4.8-10.8)
--- NOTE | 2016-11-12 07:42 | DIAGNOSTIC IMAGING REPORT ---
CT ANGIOGRAM OF THE CHEST CLINICAL HISTORY: Chest pain and tachycardia. History of hip fracture. Possible pulmonary embolus. COMPARISON STUDY: Noncontrast chest CT dated 08/08/2016 TECHNIQUE: Following the IV administration of 93 mL of Optiray-320, CT angiogram of the thorax was performed from the thoracic inlet to the lung bases utilizing the pulmonary embolus protocol. Images are reviewed in the axial, sagittal, and coronal planes. IV contrast was administered without complication. MIP imaging was performed. CT DOSE: 237.38 mGy.cm FINDINGS: There is a 3 mm left renal calculus. No pathologically enlarged axillary mediastinal or hilar lymph nodes were visualized. There was no evidence of thoracic aortic dilatation. There were no pulmonary artery filling defects to indicate acute pulmonary embolism. No pleural effusions are visualized. There is severe pulmonary emphysema. There are areas of bronchial wall thickening and mucous plugging most pronounced within the right lower lobe. There is a tiny right-sided pneumothorax. There are multifocal interstitial and nodular opacities. There is slight increased prominence in a 26 x 9 mm area of architectural distortion involving the superior segment left lower lobe. The previous identified 14 mm left lower lobe pulmonary nodule remains stable. A 14 mm area of architectural distortion within the right upper lobe, is also minimally more prominent. There is a right ninth rib fracture. IMPRESSION: 1. Right ninth rib fracture (not described in the pulmonary report) 2. Small right apical pneumothorax 3. No CT evidence of acute pulmonary embolism 4. Severe pulmonary emphysema 5. There is bronchial wall thickening and mucous plugging most pronounced in the right lower lobe 6. Multifocal interstitial and nodular opacities. Increased prominence of the 26 x 9 mm area of architectural distortion involving the superior segment the left lower lobe. 14 mm area of architectural distortion within the right upper lobe, also slightly more prominent. Stable 14 mm left lower lobe pulmonary nodule. Electronically signed by: Marco A Romero M.D. 11/12/2016 7:40 AM Dictated Date/Time: 11/12/2016 7:31 AM
[2016-11-12 07:50] LABS: CREATININE 0.47 mg/dl (0.60-1.20); POTASSIUM 4.8 mmol/L (3.5-5.1)
[2016-11-12 08:31] LABS: ARTERIAL BLD GAS O2 SATURATION 93.7 % (90-95); ARTERIAL BLOOD GAS BASE EXCESS 14.7 mEq/L (-9-1.8); ARTERIAL BLOOD GAS HCO3 42 mmol/L (19-24); ARTERIAL BLOOD GAS PO2 75 mm/Hg (80-95); ARTERIAL BLOOD GAS pH 7.39 (7.35-7.45)
[2016-11-12 08:32] LABS: ALLEN TEST POS (POS); O2 ADMINISTRATION 2L
--- NOTE | 2016-11-12 08:36 | ECHOCARDIOGRAM REPORT ---
*NOTICE TO RECEIVING DEMOCRAT AGENCY This information is strictly Confidential and protected under [place] law. [place] law prohibits you from making any further disclosure of this information unless further disclosure is expressly permitted by the written consent of the person to whom it pertains or is authorized by law. A general authorization for the release of medical or other information is not sufficient for this purpose. Hospital accepts no responsibility if the information is made available to any other person, INCLUDING THE PATIENT. Interpretation Summary * Name: DANELLE LAURENT Study Date: 11/12/2016 06:27 AM BP: 121/84 mmHg * Patient Location: 33 HR: 106 * : 1950 (M/d/yyyy) Gender: Female Height: 63 in * Age: 66 yrs Ethnicity: [place] Weight: 99 lb * Ordering Physician: SABINE CAMACHO CRNP * Performed By: Odilia Doyle RCS * * Reason For Study: PRE-OP / R HIP FX * BSA: 1.4 m2 * -- Conclusions -- * The left ventricle is normal in size. * There is normal left ventricular wall thickness. * The left ventricular wall motion is normal. * Left ventricular systolic function is normal. * Ejection Fraction = 55-60%. * Aortic valve sclerosis moderate, without significant aortic valvular stenosis. * There is trace mitral regurgitation. * There is mild to moderate tricuspid regurgitation. * There is indirect evidence of mild elevation in right heart pressures. Procedure Details * A complete two-dimensional transthoracic echocardiogram was performed (2D, M-mode, Doppler and color flow Doppler). Left Ventricle * The left ventricle is normal in size. * There is normal left ventricular wall thickness. * Left ventricular systolic function is normal. * Ejection Fraction = 55-60%. * The left ventricular wall motion is normal. Right Ventricle * The right ventricle is normal in size and function. Atria * The left atrial size is normal. * Right atrial size is normal. * No ASD detected; PFO is not assessed. Mitral Valve * The mitral valve anatomy is normal. * There is no mitral valve stenosis. * There is trace mitral regurgitation. Tricuspid Valve * The tricuspid valve anatomy is normal. * There is no tricuspid stenosis. * There is mild to moderate tricuspid regurgitation. * There is indirect evidence of mild elevation in right heart pressures. Aortic Valve * The aortic valve is trileaflet. * Aortic valve sclerosis moderate, without significant aortic valvular stenosis. * No hemodynamically significant valvular aortic stenosis. * No aortic regurgitation is present. Pulmonic Valve * The pulmonic valve is not well visualized. Great Vessels * The aortic root is normal size. Pericardium/Pleural * There is no pericardial effusion. Great Vessels * Normal inferior vena cava diameter and respiratory variation suggests normal central venous pressure. MMode 2D Measurements and Calculations IVSd 0.90 cm IVSs 1.1 cm LVIDd 4.2 cm LVIDs 3.1 cm LVPWd 0.80 cm LVPWs 1.0 cm IVS/LVPW 1.1 FS 24.8 % EDV(Teich) 78.1 ml ESV(Teich) 39.4 ml EF(Teich) 49.6 % EDV(cubed) 73.5 ml ESV(cubed) 31.2 ml EF(cubed) 57.5 % % IVS thick 23.9 % % LVPW thick 26.3 % LV mass(C)d 109.1 grams LV mass(C)dI 76.1 grams/m\S\2 LV mass(C)s 96.4 grams LV mass(C)sI 67.2 grams/m\S\2 SV(Teich) 38.7 ml SI(Teich) 27.0 ml/m\S\2 SV(cubed) 42.3 ml SI(cubed) 29.5 ml/m\S\2 Ao root diam 3.4 cm Ao root area 9.0 cm\S\2 ACS 1.7 cm LA dimension 2.4 cm LA/Ao 0.72 LVOT diam 2.0 cm LVOT area 3.1 cm\S\2 LVAd ap4 19.9 cm\S\2 LVLd ap4 7.1 cm EDV(MOD-sp4) 47.6 ml EDV(sp4-el) 47.6 ml LVAs ap4 13.5 cm\S\2 LVLs ap4 6.0 cm ESV(MOD-sp4) 27.4 ml ESV(sp4-el) 26.1 ml EF(MOD-sp4) 42.4 % EF(sp4-el) 45.3 % LVAd ap2 26.0 cm\S\2 LVLd ap2 7.2 cm EDV(MOD-sp2) 78.6 ml EDV(sp2-el) 79.0 ml LVAs ap2 18.4 cm\S\2 LVLs ap2 6.6 cm ESV(MOD-sp2) 43.6 ml ESV(sp2-el) 43.5 ml EF(MOD-sp2) 44.6 % EF(sp2-el) 44.9 % LVLd %diff 2.5 % EDV(MOD-bp) 60.4 ml LVLs %diff 9.1 % ESV(MOD-bp) 35.0 ml EF(MOD-bp) 42.0 % SV(MOD-sp4) 20.2 ml SI(MOD-sp4) 14.1 ml/m\S\2 SV(MOD-sp2) 35.0 ml SI(MOD-sp2) 24.4 ml/m\S\2 SV(MOD-bp) 25.4 ml SI(MOD-bp) 17.7 ml/m\S\2 SV(sp4-el) 21.5 ml SI(sp4-el) 15.0 ml/m\S\2 SV(sp2-el) 35.5 ml SI(sp2-el) 24.8 ml/m\S\2 Doppler Measurements and Calculations MV E max sharmila 73.2 cm/sec MV A max sharmila 76.2 cm/sec MV E/A 0.96 MV P1/2t max sharmila 88.6 cm/sec MV P1/2t 47.0 msec MVA(P1/2t) 4.7 cm\S\2 MV dec slope 552.4 cm/sec\S\2 MV dec time 0.15 sec Ao V2 max 137.1 cm/sec Ao max PG 7.5 mmHg Ao max PG (full) 5.2 mmHg ARCHIE(V,A) 1.7 cm\S\2 ARCHIE(V,D) 1.7 cm\S\2 AI max sharmila 346.1 cm/sec AI max PG 48.0 mmHg AI dec slope 206.8 cm/sec\S\2 AI P1/2t 490.3 msec LV V1 max PG 2.3 mmHg LV V1 max 76.2 cm/sec PA V2 max 109.9 cm/sec PA max PG 4.8 mmHg TR max sharmila 258.6 cm/sec
[2016-11-12] MEDS ORDERED: LEVALBUTEROL 0.63MG/3 ML NEB INH PRN (08:45)
[2016-11-12] MEDS ORDERED: VENLAFAXINE HCL XR 75 MG CAPXR PO SCH (09:00)
[2016-11-12] MEDS ORDERED: ERGOCALCIFEROL 50,000 INTER.UNIT CAP PO SCH (09:00)
--- NOTE | 2016-11-12 09:14 | PULMONARY CONSULTATION ---
DATE OF CONSULTATION: 11/12/2016 DATE OF CONSULTATION: 11/12/2016. TIME: 8:15 a.m. REPORT OF CONSULTATION: The patient was seen in room 233. She is a 66-year-old female who presented yesterday after suffering a fall. She reportedly was walking into the bathroom when she may have tripped on her oxygen cord. She had severe pain in the area of the right hip. Her heard a thud and found her on the floor. The patient had denied lightheadedness, dizziness or loss of consciousness. She is found to have a right hip fracture. Pulmonary consultation is requested to evaluate preoperatively. The patient has severe COPD. She has oxygen at home that she tells me she does not wear very much. She is not the best historian. Reportedly, her memory is poor. She also has nebulizer treatments that she tells me she does not take regularly. She does take Breo Ellipta regularly. She denies any recent colds. She denies pain on the right side of her chest. In fact, she denies chest pains at all. She is having significant right hip pain. The chart states that the patient has a chronic cough. She denied that to me. She tells me she very seldom coughs. She denies sputum production or hemoptysis. She apparently has had lung disease for many years. She thinks she saw a smash hand in the past but she could not tell me who it was. Her oxygen at home is listed as 4 liters. The patient has been a long-term smoker. She is still smoking approximately 4 cigarettes per day. Much of her life she smoked 1 pack per day for about 50 years. Alcohol use reportedly is none. PAST SURGICAL HISTORY: 1. Cardiac stent. 2. Ileostomy that may have been done for ischemic bowel. 3. Tonsillectomy. 4. Tracheostomy done 2014 when she had an ME reportedly. 5. Questionable history of splenectomy. This was found in her record, but the patient denies having a splenectomy to me. PAST MEDICAL HISTORY: 1. Coronary artery disease. 2. Hyperlipidemia. 3. COPD as noted. 4. Depression. 5. Diverticular disease. 6. History of MRSA bacteremia 7. Paroxysmal atrial fibrillation. 8. Ischemic bowel. FAMILY HISTORY: Father had coronary artery disease at a young age of 47 and mother had a pulmonary embolism at 48. ALLERGIES: PENICILLIN. REVIEW OF SYSTEMS: The patient is a very poor historian. She states she is hungry. She denies nausea or vomiting. Denies urinary complaints. Denies ENT complaints. The other systems have been outlined in the history of present illness. Ten systems were reviewed as much as feasible with this patient. MEDICATIONS AT HOME: 1. Brovana b.i.d. -- patient denies that she takes it regularly. 2. Aspirin 81 mg daily. 3. Bupropion 300 mg daily. 4. Carvedilol 6.25 mg b.i.d. 5. Vitamin D 50,000 units weekly. 6. Breo Ellipta 1 puff b.i.d. 7. Pantoprazole 40 mg at bedtime. 8. Venlafaxine 225 mg daily. PHYSICAL EXAMINATION: GENERAL: The patient is a somewhat cachectic appearing 66-year-old female who was cooperative. She was a bit lethargic but readily arousable. She seemed oriented for the most part. She did give me her wrong age, but she just had a birthday within the past couple of days. HEAD, EYES, EARS, NOSE, AND THROAT: Her pupils were reactive. It appears that she has had cataract surgery, at least on the left. She could not tell me if she did or did not. She may have had right-sided cataract surgery as well. I cannot definitely see a lens. Nares were clear. Mouth exam showed dentures top and bottom. NECK: Palpation of the neck reveals no lymph nodes. CHEST: Was of normal development. There was no apparent palpatory pain on the chest despite the report of a rib fracture. There was no ecchymosis as far as I can see, but I could not examine her posteriorly. She is lying supine and in traction. Temperature is 37. HEART: Rate is 103 per minute. The rhythm is regular. LUNG: Johnson reveal diffusely diminished breath sounds and more so on the right. There is a faint wheeze heard on the right. No wheeze heard on the left. VITAL SIGNS: Saturation was 100% on 4 liter nasal cannula. Her respiratory rate was 14 breaths per minute. Blood pressure most recently was 121/84. ABDOMEN: Inspection of the abdomen reveals a prominent scar and she has an ileostomy in place. Bowel sounds were present. There was no tenderness to palpation. She does have some traction involving the right leg. EXTREMITIES: There was no edema noted. No cyanosis or clubbing was noted. The patient's chest x-ray shows mild reticular interstitial thickening. CAT scan, however, is much more significant. There is a right 9th rib fracture. She has a small right apical pneumothorax. She has severe emphysema. No evidence of pulmonary embolic disease was seen. Bilateral interstitial and nodular opacities are noted. In the area of the left lower lobe was an increased opacification which could reflect atelectasis or infiltrate, however this apparently had been seen previously as per the report. I did not have prior CAT scans available for my review when I saw this CAT scan. She does have stable 14 mm left lower lobe nodule. There appeared to be a calcified granuloma in the right lower lobe. Arterial blood gas has been drawn and is pending. White count today is 12.85. Hemoglobin is 9.4. This reflects a decrease from yesterday's 11.1. Platelets are 217,000. D-dimer was 35,200. Urinalysis showed +1 blood with greater than 30 RBCs. Sodium is 138, potassium 4.8, chloride 93, bicarb 39. BUN was 27 with a creatinine of 0.47. Blood sugar 112. EKG showed a sinus tachycardia. Premature atrial complex was seen. IMPRESSIONS: 1. Right hip fracture. 2. Emphysema -- severe. 3. Chronic respiratory failure. 4. Right pneumothorax. 5. Right ninth rib fracture. 6. Multiple lung nodules. COMMENTS: I am suspecting the patient developed a small pneumothorax after her fall. It may have been related to the rib fracture. She has a history of chronic respiratory failure and at one time had been on a ventilator for an extended stay. Tracheostomy had been done at that time. She obviously is very marginal. Blood gas is pending. I would not recommend doing surgery with general anesthesia. If it is done, it would need to be done with spinal. This may need to wait as she has been on aspirin. I am suspecting she will have a high carbon dioxide level based upon her CO2 on the electrolytes which has been very high. She should have some p.r.n. respiratory treatments ordered. She only has the Brovana at present I believe. I am assuming her blood gases will be abnormal. I think she might benefit from some short-term steroid use around the time of the surgery from a pulmonary perspective. She is not cleared yet until we see the results of the blood gas. Again, I believe she should have this done with spinal anesthesia. Thank you for asking me to assist in her care. We will follow with you postoperatively.
[2016-11-12] MEDS ORDERED: MAGNESIUM SULFATE 1GM / D5W 1 GM in PREMIXED IN D5W 100 ML IV STA (09:34)
[2016-11-12] MEDS ORDERED: METOPROLOL TARTRATE 1 MG/ML VIAL IV STA (10:07)
[2016-11-12] MEDS ORDERED: ASPIRIN 81 MG CHEW PO STA (10:08)
[2016-11-12] MEDS: METHYLPREDNISOLONE IV 40 MG in SYRINGE 0 ML IV SCH ×2 (10:17→20:24)
[2016-11-12] MEDS: BuPROPion XL 300 MG TABCR PO SCH (10:18)
[2016-11-12] MEDS: MULTIVITAMIN TAB PO SCH (10:18)
[2016-11-12] MEDS: CARVEDILOL 6.25 MG TAB PO SCH ×2 (10:19→20:24)
--- NOTE | 2016-11-12 10:23 | CARDIOLOGY CONSULTATION ---
DATE OF CONSULTATION: 11/12/2016 REFERRING PHYSICIAN: Theron Ordoñez MD REASON FOR CONSULTATION: Preoperative risk stratification. CHIEF COMPLAINT ON ADMISSION: Fall, right hip pain. HISTORY OF PRESENT ILLNESS: Shante Ventura is a 66-year-old female who presented to the Emergency Department yesterday after suffering a fall and right hip pain. She is a poor historian, having received intravenous narcotics. According to review of medical record, her heard her hit the ground. He believes that she had tripped over her oxygen tubing. No loss of consciousness, syncope or near syncope reported. The patient denies any recent exertional chest pain or use of sublingual nitroglycerin. She carries a history of prior right coronary artery stenting in 2008 with most recent cardiac catheterization performed in 2010, demonstrating a 60% PDA stenosis. A repeat echo performed during this hospitalization demonstrates normal wall motion. Her ECG demonstrates sinus tachycardia versus ectopic atrial tachycardia with heart rates of approximately 100-110 beats per minute. She noted to have leukocytosis without an obvious source of infection. The patient currently complains of right hip pain. Her CTA of the chest demonstrates a right-sided rib fracture and a small pneumothorax. She denies any chest discomfort. No respiratory distress at rest. Offers no other complaints at this time. REVIEW OF SYSTEMS: The pertinent positives noted above, a comprehensive 10-system review is otherwise negative. PAST MEDICAL HISTORY: 1. Coronary artery disease, status post percutaneous intervention of right coronary artery. 2. Residual 60% right posterior descending artery stenosis noted. 3. Severe underlying chronic obstructive pulmonary disease with active tobacco abuse. 4. Dyslipidemia. 5. Chronic bronchitis. 6. History of GI bleed. 7. Chart history of paroxysmal atrial fibrillation. PAST SURGICAL HISTORY: 1. Ileostomy. 2. Cardiac catheterization. 3. Tonsillectomy. 4. Colectomy, partial. 5. Splenectomy. 6. Tracheostomy. FAMILY HISTORY: Father with myocardial infarction at age 47. Mother with a pulmonary embolus at age 48. SOCIAL HISTORY: Active tobacco abuse, smoking 3-4 cigarettes daily. She is . ALLERGIES: LISTED TO PENICILLIN. HOME MEDICATIONS: 1. Brovana inhaled twice daily. 2. Aspirin 81 mg daily. 3. Bupropion 300 mg daily. 4. Carvedilol 6.25 mg twice daily. 5. Vitamin D 50,000 units weekly. 6. Breo 1 puff b.i.d. 7. Multivitamin daily. 8. Protonix 40 mg daily. 9. Effexor 225 mg daily. LABORATORY DATA: White blood cell count 12.85, hemoglobin is 9.4, and platelet count is 217. ABG, 7.39/71/75/93.7% on 2 liters. Sodium 138, potassium 4.8, chloride 93, CO2 is 39, BUN is 27, and creatinine 0.47. PHYSICAL EXAMINATION: VITAL SIGNS: Temperature is 37 degrees centigrade; pulse 105 beats per minute, tachycardic, and regular; respiratory rate is 18 breaths per minute; blood pressure 128/80 and SaO2 is 100% on 4 liters nasal cannula. GENERAL: NAD, chronically ill and underweight. HEENT: Mucous membranes are dry. No scleral icterus. Conjunctivae are pink. NECK: Supple. There is no JVD, no HJR, and no carotid bruit. HEART: Regular and borderline tachycardic with a normal S1 and S2. There is a 1/6 holosystolic murmur heard at the left sternal border. LUNGS: Demonstrate diminished breath sounds bilaterally without rales, rhonchi, or wheeze. ABDOMEN: Soft and nontender. No rebound or guarding. Normal bowel sounds. EXTREMITIES: Warm and dry. There is no clubbing, cyanosis, or edema. NEUROLOGIC: Demonstrates no focal deficit. Cranial nerves grossly intact. FINAL IMPRESSION: 1. A 66-year-old female considered moderate perioperative cardiovascular risk due to underlying coronary artery disease, which has been clinically stable. No recent angina or use of sublingual nitroglycerin; however, pulmonary status is also a concern due to her severe underlying chronic obstructive pulmonary disease on home oxygen. 2. Preserved left ventricular systolic function with repeat 2D echo, demonstrating no new regional wall motion abnormalities on repeat echo. 3. Elevated resting heart rate with ECG demonstrates ectopic atrial rhythm. 4. Severe underlying chronic obstructive pulmonary disease with active tobacco abuse. 5. Dyslipidemia. PLAN AND RECOMMENDATIONS: The patient will be given 5 mg of IV Lopressor as well as her a.m. dose of aspirin. She has an acute hip fracture, which requires repair. There is no cardiovascular contraindication to surgery at this time; however, heart rate should be monitored closely with the use of intravenous Lopressor for episodes of tachycardia with heart rates in excess of 120 beats per minute. I suspect her heart rate will improve when her pain is controlled. Echocardiogram is stable. No further cardiac testing at this time would lower the patient's overall perioperative risk. I would recommend aspirin be given due to her history of coronary stenting. Thank you for allowing me to take part in the care of your patient. ROCÍO
--- NOTE | 2016-11-12 10:26 | Orthopedic Progress Note ---
Orthopedic Progress Note Date of Service Nov 12, 2016. Subjective Reports: complaints (Hungry, wants to eat.), Denies: SOB, calf pain, chest pain , light headedness, nausea / vomiting Additional Notes: lying in bed, conversive, right thigh hurts. No other areas of pain. Objective N/V intact, capillary refill less than 2 sec., A&O x3, toes mobile, CMS intact traction in place. Date Time Temp Pulse Resp B/P Pulse Ox O2 Delivery O2 Flow Rate FiO2 11/12/16 08:44 37.0 105 18 128/80 100 Nasal Cannula 4.0 11/12/16 07:30 103 14 100 Nasal Cannula 4.0 11/12/16 05:02 Nasal Cannula 4.0 11/12/16 04:02 Nasal Cannula 4.0 11/12/16 03:35 37.0 112 18 121/84 100 Nasal Cannula 4.0 11/12/16 00:02 Nasal Cannula 4.0 11/11/16 23:20 37.1 117 20 126/84 100 Nasal Cannula 4.0 11/11/16 21:35 37.1 126 16 100 4.0 11/11/16 20:15 126 16 138/83 100 Nasal Cannula 4.0 11/11/16 19:48 37.1 124 18 129/87 99 Nasal Cannula 4.0 11/11/16 19:45 37.1 124 18 129/87 99 Nasal Cannula 4.0 11/11/16 18:36 105 18 149/96 100 11/11/16 18:17 122 20 165/93 99 11/11/16 17:00 105 18 149/96 99 Nasal Cannula 4.5 11/11/16 16:32 122 20 141/103 100 Nasal Cannula 4.5 11/11/16 14:53 37.5 28 22 150/94 100 Nasal Cannula Laboratory Results 24 Hours: Test 11/11/16 15:05 11/12/16 06:50 White Blood Count 19.07 K/uL Red Blood Count 3.59 M/uL Hemoglobin 11.1 g/dL 9.4 g/dL Hematocrit 36.0 % 30.6 % Mean Corpuscular Volume 100.3 fL Mean Corpuscular Hemoglobin 30.9 pg Mean Corpuscular Hemoglobin Concent 30.8 g/dl Platelet Count 261 K/uL Mean Platelet Volume 9.8 fL Neutrophils (%) (Auto) 89.6 % Lymphocytes (%) (Auto) 3.1 % Monocytes (%) (Auto) 6.9 % Eosinophils (%) (Auto) 0.0 % Basophils (%) (Auto) 0.1 % Neutrophils # (Auto) 17.08 K/uL Lymphocytes # (Auto) 0.60 K/uL Monocytes # (Auto) 1.32 K/uL Eosinophils # (Auto) 0.00 K/uL Basophils # (Auto) 0.01 K/uL Assessment & Plan Assessment: Right intertrochanteric femur fracture Plan: keep NPO. awaiting cardiology clearance for surgery CT of chest shows rib fracture with small pneumothorax Spoke with anesthesia to make them aware of the pneumothorax and rib fx. continue traction Discharge Planning Discharge Planning: uncertain Pain Management: Morphine
[2016-11-12] MEDS ORDERED: FENTANYL CITRATE INJ 50 MCG/1 ML 2 ML VIAL ONE ×2 (13:05→16:44)
--- NOTE | 2016-11-12 13:22 | Progress Note ---
Medicine Progress Note Date & Time of Visit: Nov 12, 2016 at 13:09. Subjective 66 yo smoker with severe COPD presents with R hip fracture s/p mechanical fall at home She is NPO in preparation for the OR this afternoon, and aside from feeling hungry, her pain is present but controlled. She denies any other symptoms at this time. Objective Last 8 Hrs Date Time Temp Pulse Resp B/P Pulse Ox O2 Delivery O2 Flow Rate FiO2 11/12/16 11:12 36.8 98 18 121/76 95 Nasal Cannula 2.0 11/12/16 10:32 94 2.0 11/12/16 10:22 105 128/80 11/12/16 08:44 37.0 105 18 128/80 100 Nasal Cannula 4.0 11/12/16 08:00 Nasal Cannula 11/12/16 07:30 103 14 100 Nasal Cannula 4.0 Physical Exam: GEN: frail, thin, in no acute distress, alert and appropriate HEENT: NC/AT, normal sclerae CARDIO: tachy, S1/2 heard without m/g/r LUNGS: CTA bilaterally, no crackles, rales or wheezes, good diaphragmatic excursion ABD: +BS, soft, non-tender, non-distended, no rebound or guarding, Colostomy bag in place with foul-smelling odor and loose brown stool EXTREMITY: RP and DP palpable 2+ bilat, no LE swelling or edema, extremities are warm and well-perfused, R leg in traction. Right heel TTP NEURO: CN 2-12 grossly intact, sensation intact throughout, limited exam 2/2 patient in traction MUSC: 5/5 in left leg, could not assess in right leg as it is in traction. Moves upper extremities equally and without restriction. SKIN: warm and dry, some scattered well-healed abrasions on her right forearm. Laboratory Results: Last 24 Hours Test 11/11/16 15:05 11/11/16 16:30 11/11/16 19:00 11/11/16 22:00 White Blood Count 19.07 K/uL Red Blood Count 3.59 M/uL Hemoglobin 11.1 g/dL Hematocrit 36.0 % Mean Corpuscular Volume 100.3 fL Mean Corpuscular Hemoglobin 30.9 pg Mean Corpuscular Hemoglobin Concent 30.8 g/dl Platelet Count 261 K/uL Mean Platelet Volume 9.8 fL Neutrophils (%) (Auto) 89.6 % Lymphocytes (%) (Auto) 3.1 % Monocytes (%) (Auto) 6.9 % Eosinophils (%) (Auto) 0.0 % Basophils (%) (Auto) 0.1 % Neutrophils # (Auto) 17.08 K/uL Lymphocytes # (Auto) 0.60 K/uL Monocytes # (Auto) 1.32 K/uL Eosinophils # (Auto) 0.00 K/uL Basophils # (Auto) 0.01 K/uL RDW Standard Deviation 53.4 fL RDW Coefficient of Variation 14.6 % Immature Granulocyte % (Auto) 0.3 % Immature Granulocyte # (Auto) 0.06 K/uL Sodium Level 139 mmol/L Potassium Level 4.5 mmol/L Chloride Level 91 mmol/L Carbon Dioxide Level 40 mmol/L Anion Gap 8.0 mmol/L Blood Urea Nitrogen 24 mg/dl Creatinine 0.51 mg/dl Est Creatinine Clear Calc Drug Dose 75.0 ml/min Estimated GFR () 114.5 Estimated GFR (Non- 98.8 BUN/Creatinine Ratio 47.5 Random Glucose 174 mg/dl Calcium Level 9.6 mg/dl Total Bilirubin 0.3 mg/dl Direct Bilirubin < 0.1 mg/dl Aspartate Amino Transf (AST/SGOT) 23 U/L Alanine Aminotransferase (ALT/SGPT) 21 U/L Alkaline Phosphatase 82 U/L Total Protein 7.3 gm/dl Albumin 3.1 gm/dl Lipase 74 U/L Urine Color DK YELLOW Urine Appearance CLEAR Urine pH 6.5 Urine Specific Isabella 1.017 Urine Protein TRACE Urine Glucose (UA) NEG Urine Ketones TRACE Urine Occult Blood 1+ Urine Nitrite NEG Urine Bilirubin NEG Urine Urobilinogen NEG Urine Leukocyte Esterase NEG Urine WBC (Auto) 1-5 /hpf Urine RBC (Auto) >30 /hpf Urine Hyaline Casts (Auto) 5-10 /lpf Urine Epithelial Cells (Auto) 20-30 /lpf Urine Bacteria (Auto) NEG 25-Hydroxy Vitamin D Total 81.2 ng/ml D-Dimer > 70214 ug/L FEU Test 11/11/16 22:29 11/12/16 06:50 11/12/16 08:14 Lactic Acid Level 1.3 mmol/L White Blood Count 12.85 K/uL Red Blood Count 3.14 M/uL Hemoglobin 9.4 g/dL Hematocrit 30.6 % Mean Corpuscular Volume 97.5 fL Mean Corpuscular Hemoglobin 29.9 pg Mean Corpuscular Hemoglobin Concent 30.7 g/dl RDW Standard Deviation 52.6 fL RDW Coefficient of Variation 14.6 % Platelet Count 217 K/uL Mean Platelet Volume 10.1 fL Sodium Level 138 mmol/L Potassium Level 4.8 mmol/L Chloride Level 93 mmol/L Carbon Dioxide Level 39 mmol/L Anion Gap 6.0 mmol/L Blood Urea Nitrogen 27 mg/dl Creatinine 0.47 mg/dl Est Creatinine Clear Calc Drug Dose 89.3 ml/min Estimated GFR () 117.6 Estimated GFR (Non- 101.5 BUN/Creatinine Ratio 57.0 Random Glucose 112 mg/dl Calcium Level 9.0 mg/dl Magnesium Level 2.2 mg/dl Arterial Blood pH 7.39 Arterial Blood Partial Pressure CO2 71 mmHg Arterial Blood Partial Pressure O2 75 mm/Hg Arterial Blood HCO3 42 mmol/L Arterial Blood Oxygen Saturation 93.7 % Arterial Blood Base Excess 14.7 mEq/L Arterial Blood Gas Delivery 2L Tristan Test POS Date/Time Source Procedure Growth Status 11/11/16 19:10 Blood Blood Culture Pending Received 11/11/16 19:00 Blood Blood Culture Pending Received 11/11/16 16:30 Urine,Catheterized Urine Culture - Preliminary NO GROWTH - LESS THAN 1,000 COLONIES/... Resulted Assessment & Plan RIGHT HIP FRACTURE - fall seems to be mechanical - ortho consulted and plans for OR this afternoon - patient moderate risk for surgery due to underlying oxygen dependent COPD and CAD - anesthesia, cardio and pulm consults placed for pre op evaluation --she is cleared with recs from all specialists -per pulm q12h steroids ordered abraham-op/DuoNebs PRN -per Cards restarted her aspirin in setting of CAD with prior stent placement. CDIFF INFECTION- cont Vanc PO LEUKOCYTOSIS - WBC 19K improved to 13K today on Vanc PO for c-diff - CXR unchanged from prior, U/A does not appear infected - blood cultures pending - UCx negative - stress from fall/fracture may also be contributing. CAD - no reports of chest pain - s/p RCA stent 1998, cath 2010 - 60% PDA stenosis - continue ASA and beta maycol - Cards consulted and agrees with this plan COPD - saturating well on chronic 4L - no wheezing on exam - management per pulm recs above DVT PROPHYLAXIS - SQ heparin, held for upcoming surgery CODE STATUS Full DO Iraida Dodge Hospitalist Consultants: Pulluis alfredo, Jonathan, Ortho Current Inpatient Medications: Current Inpatient Medications Medications (Trade) Dose Ordered Sig/José Miguel Route Start Time Stop Time Status Last Admin Dose Admin Acetaminophen (Tylenol Tab) 650 mg Q4H PRN PO 11/11/16 17:15 12/11/16 17:14 11/12/16 00:54 650 MG Ondansetron HCl (Zofran Inj) 4 mg Q6H PRN IV 11/11/16 17:15 12/11/16 17:14 Morphine Sulfate (MoRPHine SULFATE INJ) 3 mg Q3H PRN IV 11/11/16 17:30 11/25/16 17:29 11/12/16 11:11 3 MG Arformoterol Tartrate (Brovana 15MCG/ 2ML Neb Soln) 15 mcg BIDR INH 11/11/16 20:00 12/11/16 19:59 11/12/16 07:30 15 MCG Aspirin (Ecotrin Tab) 81 mg QAM PO 11/12/16 09:00 12/12/16 08:59 Future Hold Bupropion HCl (Wellbutrin-Xl Tab) 300 mg QAM PO 11/12/16 09:00 12/12/16 08:59 11/12/16 10:18 300 MG Carvedilol (Coreg Tab) 6.25 mg BID PO 11/11/16 21:00 12/11/16 20:59 11/12/16 10:19 6.25 MG Ergocalciferol (Vitamin D Cap) 50,000 interunit Tu@0900 PO 11/12/16 09:00 12/12/16 08:59 11/12/16 10:20 50,000 INTERUNIT Multivitamins (Multivitamin Tab) 1 tab QAM PO 11/12/16 09:00 12/12/16 08:59 11/12/16 10:18 1 TAB Pantoprazole Sodium (Protonix Tab) 40 mg HS PO 11/11/16 21:00 12/11/16 20:59 11/11/16 22:27 40 MG Miscellaneous Information 1 ea 1 ea QS N/A 11/12/16 00:00 12/12/16 00:00 Vancomycin HCl/ Sodium Chloride (Vancomycin Inj/ Nss 250ml) 263.5 ml @ 125 mls/hr 0600 IV 11/12/16 06:00 11/12/16 18:00 Metoprolol Tartrate 5 mg 5 mg Q6 PRN IV 11/11/16 20:30 12/11/16 20:29 Sodium Chloride (Nss 1000ml) 1,000 ml @ 50 mls/hr Q20H IV 11/11/16 20:30 12/11/16 20:29 11/11/16 20:59 50 MLS/HR Vancomycin HCl (Vancomycin Oral Soln) 125 mg Q6H PO 11/11/16 23:00 11/25/16 22:59 11/12/16 10:17 125 MG Raspberry (Raspberry Syrup 5ml Cup) 5 ml Q6H PO 11/11/16 23:00 11/21/16 22:59 11/12/16 10:17 5 ML Ioversol (Optiray 320) 100 ml UD PRN IV 11/12/16 00:00 11/16/16 00:00 Levalbuterol 0.63 mg 0.63 mg Q4 PRN INH 11/12/16 08:45 12/12/16 08:44 Methylprednisolone Sodium Succinate/ Syringe (Solu-Medrol IV/ Syringe) 0.64 ml @ 1.5 mls/min Q12H IV 11/12/16 09:00 12/12/16 08:59 11/12/16 10:17 1.5 MLS/MIN Venlafaxine HCl (effeXOR EXTENDED REL CAP) 150 mg DAILY PO 11/13/16 09:00 12/13/16 08:59
[2016-11-12] MEDS ORDERED: ALBUMIN HUMAN 5% 12.5 GM/250 ML VIAL IV ONE (15:53)
[2016-11-12] MEDS ORDERED: VASOPRESSIN 20 UNIT/ML VIAL ONE (16:01)
[2016-11-12] MEDS ORDERED: PHENYLEPHRINE HCL INJ 10 MG/ML VIAL ONE (16:15)
[2016-11-12] MEDS ORDERED: BUPIVACAINE 0.5 % 5 MG/1 ML PF 10ML VIAL ONE (16:15)
[2016-11-12] MEDS ORDERED: LIDOCAINE HCL 2% 2 ML VIAL (20MG/ML) ONE (16:22)
[2016-11-12] MEDS ORDERED: PROPOFOL IV EMULSION 10 MG/ML 20 ML VIAL IV ONE (16:22)
--- NOTE | 2016-11-12 17:38 | [facility] Post Operative Brief Note ---
Immediate Operative Summary Operative Date Nov 12, 2016. Pre-Operative Diagnosis RIGHT FRACTURE HIP, intertroch Post-Operative Diagnosis same Procedure(s) Performed TROCHANTERIC NAIL RIGHT FRMUR L0NG. Surgeon DR OLIVER Machine Set Up Technician Surgeon(s) ALEE SLATER Estimated Blood Loss 75 Findings intertroch fracture Specimens 0 Drains 0 Anesthesia spinal with sedation Complication(s) None Disposition Recovery Room / PACU
[2016-11-12] MEDS ORDERED: MAGNESIUM HYDROXIDE SUSP 30 ML UDC PO PRN (18:00)
[2016-11-12] MEDS ORDERED: DiphenhydrAMINE HCL 50 MG/ML VIAL IV PRN (18:00)
[2016-11-12] MEDS ORDERED: ACETAMINOPHEN 325 MG TAB PO PRN (18:00)
[2016-11-12] MEDS ORDERED: METOCLOPRAMIDE HCL INJ 5 MG/ML 2 ML VIAL IV PRN (18:00)
[2016-11-12] MEDS ORDERED: ALUMINUM/MAGNESIUM/SIMETH (MAALOX MAX) 30 ML UDC PO PRN (18:00)
[2016-11-12] MEDS ORDERED: MoRPHine SULFATE 2 MG/ML CARP IV PRN (18:30)
--- NOTE | 2016-11-12 18:41 | Anesthesiology Progress Note ---
Anesthesia Post Op Note Date & Time Nov 12, 2016 at 18:41 Vital Signs Pain Intensity: 0 Vital Signs Past 12 Hours Date Time Temp Pulse Resp B/P Pulse Ox O2 Delivery O2 Flow Rate FiO2 11/12/16 18:25 37.2 97 14 105/68 93 Nasal Cannula 4 11/12/16 18:15 90 15 109/64 99 Nasal Cannula 4 11/12/16 18:05 90 14 114/66 100 Mask 10 11/12/16 17:55 89 18 117/67 100 Mask 10 11/12/16 17:52 36.5 90 12 100 Mask 10 11/12/16 15:11 100 16 105/68 96 Room Air 11/12/16 14:12 Nasal Cannula 2.0 11/12/16 12:00 Nasal Cannula 11/12/16 11:12 36.8 98 18 121/76 95 Nasal Cannula 2.0 11/12/16 10:32 94 2.0 11/12/16 10:22 105 128/80 11/12/16 08:44 37.0 105 18 128/80 100 Nasal Cannula 4.0 11/12/16 08:00 Nasal Cannula 11/12/16 07:30 103 14 100 Nasal Cannula 4.0 Notes Mental Status: alert / awake / arousable, participated in evaluation Pt Amnestic to Procedure: Yes Nausea / Vomiting: adequately controlled Pain: adequately controlled Airway Patency, RR, SpO2: stable & adequate BP & HR: stable & adequate Hydration State: stable & adequate Anesthetic Complications: no major complications apparent
[2016-11-12] MEDS ORDERED: HYDROmorphone INJ 2 MG/ML SYR/VIAL IV PRN (18:45)
[2016-11-12] MEDS ORDERED: ATROPINE SULFATE 0.1 MG/ML 5ML SYR IV PRN (18:45)
[2016-11-12] MEDS ORDERED: ONDANSETRON INJ 2 MG/ML 2 ML VIAL IV PRN (18:45)
[2016-11-12] MEDS: SODIUM CHLORIDE 0.9% 1000ML 1,000 ML IV SCH (19:33)
[2016-11-12] MEDS: ACETAMINOPHEN IV 1,000 MG in EMPTY BAG 0 ML IV SCH (19:36)
[2016-11-12] MEDS: KETOROLAC TROMETHAMINE 15 MG/ML VIAL IV. SCH (19:37)
--- NOTE | 2016-11-12 19:50 | DIAGNOSTIC IMAGING REPORT ---
INTRAOPERATIVE FLUOROSCOPIC IMAGES OF THE RIGHT HIP CLINICAL HISTORY: Right long trochanteric nail. COMPARISON: Pelvis and right hip radiographs November 11, 2016. Fluoroscopy time: 1 minute and 38 seconds. FINDINGS: These 4 fluoroscopic images demonstrate placement of a right femoral internal fixation with trochanteric nail with intramedullary brigid. There is a distal screw. Hardware is intact. Hardware fixates the intertrochanteric fracture of the right femur. Fracture alignment has markedly improved and appears near anatomic. IMPRESSION: Expected findings following internal fixation of the intertrochanteric fracture of the right femur. Electronically signed by: Grzegorz Hernández M.D. 11/12/2016 7:49 PM Dictated Date/Time: 11/12/2016 7:47 PM
[2016-11-12] MEDS: PANTOprazole SOD 40 MG TAB PO SCH (20:25)
[2016-11-12] MEDS: OXYCODONE HCL IR 5 MG TAB (IMMEDIATE RELEASE) PO PRN (20:35)
--- NOTE | 2016-11-12 20:41 | PROGRESS NOTE ---
DATE: 11/12/2016 Postop check. She is afebrile. Her vital signs are stable. She is slightly tachycardic. Her sats are 80-100% on 2 to 5 liters. She is making some urine. There are no new labs. She is resting comfortably in bed. Her dressing is clean and dry. She offers no significant complaint. She does not have palpable pedal pulses that required doppler before. Her right foot is warm and she has normal sensation. She can flex and extend her toes and ankle normally against resistance. IMPRESSION: Chronic obstructive pulmonary disease, severe right hip fracture, coronary artery disease. PLAN: She is doing very well. Continue routine postoperative care, pulmonary toilet. She can be upright sit in a chair, weightbear as tolerated. PT and OT. She will complete a routine course of postop IV antibiotics. DVT prophylaxis with Lovenox. We will continue to monitor. MTDD
--- NOTE | 2016-11-12 21:03 | OPERATIVE REPORT ---
DATE OF OPERATION: 11/12/2016 PREOPERATIVE DIAGNOSIS: Right hip intertrochanteric fracture. POSTOPERATIVE DIAGNOSIS: Same. PROCEDURE: Long trochanteric femoral nail. SURGEON: Dr. Hayes. CONSTRUCTION ESTIMATOR: Robinson Cohn PA-C. No resident or fellow available. ANESTHESIA: Spinal with sedation. INDICATIONS OF PROCEDURE: The patient is a 66-year-old female, status post fall at home resulting in the aforementioned injury. She has a significant health history including C. difficile, history of MRSA, severe COPD, coronary artery disease. She has been seen preoperatively by medicine, pulmonary and cardiology as well as anesthesia. At this time, she is optimized for surgical intervention. PROCEDURE IN DETAIL: Informed consent was obtained. The patient identified as Shante Ventura. She identified the operative site as the right hip. I marked it with my initials. A preop surgical timeout was performed. Her gave verbal consent. She was positioned supine on the OR table after administration of a spinal anesthetic. The left leg was able to be flexed to about 90 degrees comfortably, externally rotated and abducted to allow this type of positioning. The right leg was placed into longitudinal traction with a padded foot boot. A padded perineal post was utilized. The torso was secured to the table with tape. The fracture table was utilized. DVT prophylaxis was not possible intraoperatively, secondary to patient positioning; however, postoperatively, we will begin with chemoprophylaxis under the guidance of medicine and mechanical devices as well as early mobility. Longitudinal traction and slight internal rotation resulted in anatomic alignment of the fracture in both the AP and lateral planes. The patient had a right lower quadrant colostomy bag, which was secured out of the field with a plastic U-drape. The entire right hip and surgical area was then scrubbed for several minutes with chlorhexidine. A shower curtain was utilized after a double prep with ChloraPrep. She received a preop dose of IV vancomycin due to her history of MRSA and ALLERGY TO PENICILLIN. The tip of the greater trochanter was localized and then a longitudinal incision was made extending several centimeters proximal to it. The tip of the greater trochanter was identified fluoroscopically and a guidepin was introduced into the tip of the trochanter in line with the shaft in both the AP and lateral planes and adjusted x1. Thereafter, the large reamer was utilized down to the level of the lesser trochanter. This was followed by insertion of an intramedullary guidewire, which is located within the femur centrally in AP and lateral views. Length was selected at 360. The brigid ended up slightly short, probably because of her increased valgus neck shaft angle. The 12-mm reamer was introduced down the shaft to prepare the way and was easily advanced. The implant was then inserted under hand power and finished off with blows from the mallet. An accessory incision was made and the triple trocar was advanced through the outrigger down to the bone. This was adjusted x2 to be in the center-center position on both the AP and lateral planes, confirmed fluoroscopically. The pin was just below center on the AP, but essentially center on the lateral. Length was selected to be 95. The lateral cortical reamer was utilized followed by the triple reamer and the implant was inserted, within a couple of millimeters of being fully implanted. The tip-apex distance looked to be about 20 and the overall positioning and reduction of the fracture were adequate. The locking bolt was advanced and the proximal jewel gauger was removed. A single distal interlocking screw was inserted in the dynamic slot using the percutaneous perfect twenty-nine palms technique, confirmed AP and lateral fluoroscopically. All wounds were copiously irrigated with sterile saline. The proximal two incisions were closed in layers with 0 for the fascia, 3-0 on the skin. The patient was fairly cachectic. The distal incision was closed with 3-0 Vicryl, prince were utilized on the skin followed by a soft sterile dressing. The patient was then awakened from anesthesia without difficulty and taken to recovery room in stable condition. There were no specimens or complications. Counts were correct at the end of case. Blood loss was approximately 75 mL. At the conclusion of the operation, I spoke to patient's via phone and informed him of my findings. She will be a planned transfer back to the PCU or ICU, depending on what anesthesia thinks is necessary. She will be able to weightbear as tolerated and will have a routine course of postop IV antibiotics, DVT prophylaxis with Lovenox beginning 12 hours postoperatively, if this is okay with her other healthcare providers. The fracture was well reduced in both the AP and lateral planes. The brigid was centrally located. Some compression was applied across the fracture after the implant had been inserted. I attest to the content of the Intraoperative Record and any orders documented therein. Any exceptio ns are noted below.
--- NOTE | 2016-11-12 22:08 | OPERATIVE REPORT ---
DATE OF OPERATION: 11/12/2016 PREOPERATIVE DIAGNOSIS: Right hip intertrochanteric fracture. POSTOPERATIVE DIAGNOSIS: Right hip same. PROCEDURE: Right hip ORIF using trochanteric nail. SURGEON: Dr. Hayes. OIL DEVELOPER: Robinson Cohn PA-C. HISTORY OF PRESENT ILLNESS: This 66-year-old white female presented through the ED on 11/11/2016 after falling at home and tripping over her oxygen cord. Risks and benefits were discussed and she elected to proceed with surgical intervention in hopes of improving her ambulatory outcome. Informed written consent was obtained. OPERATION: The patient was administered spinal anesthetic and then taken to the operating room where she was given sedation. She was prepped and draped in the usual sterile fashion. Please see Dr. Hayes's operative report for specifics of the procedure. I was present for the entire case from initial patient positioning through final wound closure. Assistance was provided in patient positioning, fracture reduction, hemostasis, hardware placement and final wound closure. The patient was taken to the recovery room in satisfactory condition. I attest to the content of the Intraoperative Record and any orders documented therein. Any exceptio ns are noted below.
[2016-11-13] VITALS (14 sets, daily range): BP systolic 105–137; BP diastolic 63–78; PULSE 89–110; TEMP 36.5–37.2; O2SAT 92–99
[2016-11-13] MEDS: VANCOMYCIN HCL 125 MG/2.5ML SOLN PO SCH ×5 (01:25→20:55)
[2016-11-13] MEDS: RASPBERRY SYRUP 5 ML UDP PO SCH ×5 (01:25→20:55)
[2016-11-13] MEDS: KETOROLAC TROMETHAMINE 15 MG/ML VIAL IV. SCH ×3 (01:26→14:46)
[2016-11-13] MEDS ORDERED: VANCOMYCIN IV ONE (02:00)
[2016-11-13] MEDS ORDERED: SODIUM CHLORIDE 0.9% IV ONE (02:00)
[2016-11-13] MEDS: ACETAMINOPHEN IV 1,000 MG in EMPTY BAG 0 ML IV SCH ×2 (05:18→10:44)
[2016-11-13] MEDS: ARFORMOTEROL TART 15MCG/2ML VIAL INH SCH ×2 (07:03→18:57)
[2016-11-13 07:12] LABS: HEMATOCRIT 22.9 % (37-47); MEAN CELL VOLUME 96.2 fL (80-100); MEAN CORPUSCULAR HEMOGLOBIN 30.7 pg (25-34); MEAN CORPUSCULAR HGB CONC 31.9 g/dl (32-36); MEAN PLATELET VOLUME 9.7 fL (7.4-10.4); PLATELET COUNT 167 K/uL (130-400); RED BLOOD COUNT 2.38 M/uL (4.2-5.4); WHITE BLOOD COUNT 14.86 K/uL (4.8-10.8)
[2016-11-13 07:21] LABS: PARTIAL THROMBOPLASTIN RATIO 1.1; PROTHROMBIN TIME (PATIENT) 10.8 SECONDS (9.0-12.0)
[2016-11-13] MEDS: METHYLPREDNISOLONE IV 40 MG in SYRINGE 0 ML IV SCH ×2 (07:33→20:55)
[2016-11-13] MEDS: VENLAFAXINE HCL XR 150 MG CAPXR PO SCH (07:33)
[2016-11-13] MEDS: MULTIVITAMIN TAB PO SCH (07:33)
[2016-11-13] MEDS: BuPROPion XL 300 MG TABCR PO SCH (07:33)
[2016-11-13] MEDS: CARVEDILOL 6.25 MG TAB PO SCH ×2 (07:34→20:55)
[2016-11-13 07:50] LABS: BUN/CREATININE RATIO 47.4 (10-20); CALCIUM 8.2 mg/dl (8.5-10.1); CREATININE 0.38 mg/dl (0.60-1.20); POTASSIUM 4.5 mmol/L (3.5-5.1)
[2016-11-13] MEDS: BOOST PLUS VANILLA PO SCH ×4 (09:08→20:51)
--- NOTE | 2016-11-13 09:30 | PULMONARY PROGRESS NOTE ---
DATE: 11/13/2016 DATE: 11/13/2016. TIME: 9:00 a.m. SUBJECTIVE: The patient feels reasonably well. She underwent her orthopedic surgery for hip repair yesterday and had no major problems as per nursing staff. The patient is slightly short of breath. She has some mild cough. She is bringing up a little yellow mucus. She is not complaining of chest pain. She states she sat up and ate breakfast this morning. OBJECTIVE: GENERAL: The patient looks reasonably comfortable. She appears weak, but she was this way previously. Temperature is 37 degrees. EARS, NOSE, THROAT: Exam is unremarkable. VITAL SIGNS: Heart rate is 92 beats per minute. The rhythm is regular. Blood pressure 127/70. CHEST: Right chest has some mild wheezing. This is more than heard on the left. The breath sounds are somewhat diminished bilaterally. Respiratory rate was only 18 breaths per minute. Saturation this morning was 99% on 2 liters. She has been cut down to 1 liter in order to keep her saturations more towards 90%. We want to stimulate her ventilation. ABDOMEN: Soft and nontender. Bowel sounds were present. She does have an ileostomy. EXTREMITIES: Showed no cyanosis, clubbing or edema. She has not had a chest x-ray postoperatively. White count today is 14.86. Hemoglobin is down to 7.3. Yesterday the hemoglobin was 9.4. Platelets are 167,000. Coags are normal. Electrolytes show sodium 139, potassium 4.5, chloride 97, bicarbonate 38. BUN was 18 with a creatinine of 0.38. IMPRESSIONS: 1. Status post right hip repair. 2. Emphysema. 3. Chronic respiratory failure. 4. Right pneumothorax. 5. Right 9th rib fracture. 6. Lung nodules. 7. Anemia. COMMENTS AND RECOMMENDATIONS: I am going to check an x-ray today to be sure the pneumothorax has not increased. Will continue with the nebulizer treatments, which includes Brovana b.i.d. and levalbuterol p.r.n. We will continue to try and keep her saturations approximately 90%. She is still on methylprednisolone 40 IV q. 12 hours and would continue that.
--- NOTE | 2016-11-13 09:31 | Orthopedic Progress Note ---
Orthopedic Progress Note Date of Service Nov 13, 2016. Subjective Post OP Day: 1 Reports: feeling well, pain controlled w PO medications, Denies: SOB, calf pain , chest pain, complaints, light headedness, nausea / vomiting, using LITERACY EDUCATION PROFESSOR Objective calves soft nontender, N/V intact, capillary refill less than 2 sec., dressing C /D/I, incision C/D/I, A&O x3, toes mobile Date Time Temp Pulse Resp B/P Pulse Ox O2 Delivery O2 Flow Rate FiO2 11/13/16 08:00 37.0 103 18 127/70 99 11/13/16 07:04 102 16 99 Nasal Cannula 2.0 11/13/16 04:25 Nasal Cannula 3.0 11/13/16 03:53 36.7 107 19 105/63 98 Nasal Cannula 3.0 11/13/16 00:40 Nasal Cannula 3.0 11/12/16 23:53 36.6 113 20 99/59 95 Nasal Cannula 3.0 11/12/16 20:18 108 111/80 97 Nasal Cannula 11/12/16 20:00 97 Nasal Cannula 11/12/16 19:45 108 14 100 Nasal Cannula 5.0 11/12/16 19:17 111 104/61 96 Nasal Cannula 4.0 11/12/16 18:45 91 Nasal Cannula 4.0 11/12/16 18:45 36.8 105 16 111/81 88 Nasal Cannula 11/12/16 18:44 97 16 122/70 94 Nasal Cannula 2 11/12/16 18:35 96 16 112/63 95 Nasal Cannula 2 11/12/16 18:25 37.2 97 14 105/68 93 Nasal Cannula 2 11/12/16 18:15 90 15 109/64 99 Nasal Cannula 4 11/12/16 18:05 90 14 114/66 100 Mask 10 11/12/16 17:55 89 18 117/67 100 Mask 10 11/12/16 17:52 36.5 90 12 100 Mask 10 11/12/16 15:11 100 16 105/68 96 Room Air 11/12/16 14:12 Nasal Cannula 2.0 11/12/16 12:00 Nasal Cannula 11/12/16 11:12 36.8 98 18 121/76 95 Nasal Cannula 2.0 11/12/16 10:32 94 2.0 11/12/16 10:22 105 128/80 Laboratory Results 24 Hours: Test 11/13/16 06:56 Hematocrit 22.9 % Hemoglobin 7.3 g/dL Prothromb Time International Ratio 1.0 Prothrombin Time 10.8 SECONDS Assessment & Plan Assessment: Status post Right intertrochanteric femur fracture ORIF POD1 doing well Plan: Continue post op care WBAT Ice right hip PT/OT Resume diet Pain control DVT prophylaxis (Lovenox 30 mg Q24) Dressing changes Discharge planning Discharge Planning Discharge Planning: uncertain Pain Management: Morphine
[2016-11-13] MEDS ORDERED: ACETAMINOPHEN 325 MG TAB PO SCH (10:15)
--- NOTE | 2016-11-13 10:20 | Anesthesiology Progress Note ---
Anesthesia Post Op Note Date & Time Nov 13, 2016 at 10:19 Vital Signs Pain Intensity: 5.0 Vital Signs Past 12 Hours Date Time Temp Pulse Resp B/P Pulse Ox O2 Delivery O2 Flow Rate FiO2 11/13/16 08:00 Nasal Cannula 11/13/16 08:00 37.0 103 18 127/70 99 11/13/16 07:04 102 16 99 Nasal Cannula 2.0 11/13/16 04:25 Nasal Cannula 3.0 11/13/16 03:53 36.7 107 19 105/63 98 Nasal Cannula 3.0 11/13/16 00:40 Nasal Cannula 3.0 11/12/16 23:53 36.6 113 20 99/59 95 Nasal Cannula 3.0 Notes Mental Status: alert / awake / arousable, participated in evaluation Pt Amnestic to Procedure: Yes Nausea / Vomiting: adequately controlled Pain: adequately controlled Airway Patency, RR, SpO2: stable & adequate BP & HR: stable & adequate Hydration State: stable & adequate Neuraxial Anesthesia: was administered, sensory block resolved Anesthetic Complications: no major complications apparent
[2016-11-13] MEDS ORDERED: FUROSEMIDE INJ 20 MG in SYRINGE 0 ML IV SCH (10:30)
[2016-11-13] MEDS: ENOXAPARIN 30 MG/0.3 ML SYR SQ SCH (10:45)
--- NOTE | 2016-11-13 11:08 | DIAGNOSTIC IMAGING REPORT ---
CHEST ONE VIEW PORTABLE HISTORY: f/u on small right pneumothorax COMPARISON: Chest 11/11/2016. FINDINGS: There is again noted a right posterior lateral ninth rib fracture. No pneumothorax is identified. Emphysema. The heart is normal in size. Stable blunting of the bilateral costophrenic sulci. Right lower lobe interstitial thickening persists. IMPRESSION: 1. No pneumothorax identified. Right lateral ninth rib fracture is again noted. 2. Emphysema. 3. Right lower lobe interstitial thickening remains unchanged. Electronically signed by: Bret Wong M.D. 11/13/2016 11:06 AM Dictated Date/Time: 11/13/2016 11:04 AM
--- NOTE | 2016-11-13 12:51 | Progress Note ---
Medicine Progress Note Date & Time of Visit: Nov 13, 2016 at 12:36. Subjective feels well today denies CP, SOB, lightheadedness, abdominal pain Tolerating PO Pain in hip is controlled post-op Objective Last 8 Hrs Date Time Temp Pulse Resp B/P Pulse Ox O2 Delivery O2 Flow Rate FiO2 11/13/16 12:00 Nasal Cannula 11/13/16 11:46 36.8 96 20 105/67 98 11/13/16 08:00 Nasal Cannula 11/13/16 08:00 37.0 103 18 127/70 99 11/13/16 07:04 102 16 99 Nasal Cannula 2.0 Physical Exam: GEN: frail, thin, in no acute distress, alert and appropriate HEENT: NC/AT, normal sclerae CARDIO: tachy, S1/2 heard without m/g/r LUNGS: CTA bilaterally, no crackles, rales or wheezes, good diaphragmatic excursion ABD: +BS, soft, non-tender, non-distended, no rebound or guarding, Colostomy bag in place with formed stool EXTREMITY: RP and DP palpable 2+ bilat, no LE swelling or edema, extremities are warm and well-perfused, R leg in traction. NEURO: CN 2-12 grossly intact, no gross focal deficit MUSC: 5/5 throughout SKIN: warm and dry, some scattered well-healed abrasions on her right forearm. Laboratory Results: Last 24 Hours Test 11/13/16 06:56 White Blood Count 14.86 K/uL Red Blood Count 2.38 M/uL Hemoglobin 7.3 g/dL Hematocrit 22.9 % Mean Corpuscular Volume 96.2 fL Mean Corpuscular Hemoglobin 30.7 pg Mean Corpuscular Hemoglobin Concent 31.9 g/dl RDW Standard Deviation 51.9 fL RDW Coefficient of Variation 14.9 % Platelet Count 167 K/uL Mean Platelet Volume 9.7 fL Nucleated RBC Absolute Count (auto) 0.02 K/uL Nucleated Red Blood Cells % 0.2 % Prothrombin Time 10.8 SECONDS Prothromb Time International Ratio 1.0 Activated Partial Thromboplast Time 28.3 SECONDS Partial Thromboplastin Ratio 1.1 Sodium Level 139 mmol/L Potassium Level 4.5 mmol/L Chloride Level 97 mmol/L Carbon Dioxide Level 38 mmol/L Anion Gap 4.0 mmol/L Blood Urea Nitrogen 18 mg/dl Creatinine 0.38 mg/dl Est Creatinine Clear Calc Drug Dose 115.2 ml/min Estimated GFR () 126.2 Estimated GFR (Non- 108.8 BUN/Creatinine Ratio 47.4 Random Glucose 113 mg/dl Calcium Level 8.2 mg/dl Vitamin B12 Level 283 pg/mL 25-Hydroxy Vitamin D Total 74.0 ng/ml Assessment & Plan RIGHT HIP FRACTURE - s/p mechanical fall--rib fracture - POD#1 ORIF R hip - doing well, acute anemia so will need 2 units of blood this am, however, is asymptomatic - pain is controlled-->on scheduled APAP and PRN Toradol -per pulm q12h steroids ordered abraham-op/DuoNebs PRN -per Cards restarted her aspirin in setting of CAD with prior stent placement--> held in setting of post op anemia PTX s/p fall -possibly 2/2 trauma with assoc rib fracture -stable on oxygen -pulm recs appreciated ANEMIA- -2/2 blood loss post-op -tx 2 U this am with Lasix 20 in between units -also may be some element of dilution with IVF running overnight -pt is eating/drinking well at this time, stopping IVF -trend CBC in am CDIFF INFECTION- cont Vanc PO formed stool seen in colostomy today denies abdominal pain tolerating PO afebrile LEUKOCYTOSIS - WBC 14K in setting of infection, post op stress and steroid use CAD - no reports of chest pain - s/p RCA stent 1998, cath 2010 - 60% PDA stenosis - continue Coreg, hold ASA with plans to restart in am after H/H stable - Cards consulted-appreciate recs COPD-severe - saturating well on chronic 4L - no wheezing on exam - management per pulm recs as above DVT PROPHYLAXIS - Lovenox CODE STATUS Full DO Iraida Dodge Hospitalist Consultants: Pulm, Jonathan, Ortho Current Inpatient Medications: Current Inpatient Medications Medications (Trade) Dose Ordered Sig/José Miguel Route Start Time Stop Time Status Last Admin Dose Admin Acetaminophen (Tylenol Tab) 650 mg Q4H PRN PO 11/11/16 17:15 12/11/16 17:14 11/12/16 00:54 650 MG Ondansetron HCl (Zofran Inj) 4 mg Q6H PRN IV 11/11/16 17:15 12/11/16 17:14 Arformoterol Tartrate (Brovana 15MCG/ 2ML Neb Soln) 15 mcg BIDR INH 11/11/16 20:00 12/11/16 19:59 11/13/16 07:03 15 MCG Aspirin (Ecotrin Tab) 81 mg QAM PO 11/12/16 09:00 12/12/16 08:59 Future Hold Bupropion HCl (Wellbutrin-Xl Tab) 300 mg QAM PO 11/12/16 09:00 12/12/16 08:59 11/13/16 07:33 300 MG Carvedilol (Coreg Tab) 6.25 mg BID PO 11/11/16 21:00 12/11/16 20:59 11/13/16 07:34 6.25 MG Ergocalciferol (Vitamin D Cap) 50,000 interunit Tu@0900 PO 11/12/16 09:00 12/12/16 08:59 11/12/16 10:20 50,000 INTERUNIT Multivitamins (Multivitamin Tab) 1 tab QAM PO 11/12/16 09:00 12/12/16 08:59 11/13/16 07:33 1 TAB Pantoprazole Sodium (Protonix Tab) 40 mg HS PO 11/11/16 21:00 12/11/16 20:59 11/12/16 20:25 40 MG Metoprolol Tartrate 5 mg 5 mg Q6 PRN IV 11/11/16 20:30 12/11/16 20:29 Sodium Chloride (Nss 1000ml) 1,000 ml @ 50 mls/hr Q20H IV 11/11/16 20:30 12/11/16 20:29 11/12/16 19:33 50 MLS/HR Vancomycin HCl (Vancomycin Oral Soln) 125 mg Q6H PO 11/11/16 23:00 11/25/16 22:59 11/13/16 11:33 125 MG Raspberry (Raspberry Syrup 5ml Cup) 5 ml Q6H PO 11/11/16 23:00 11/21/16 22:59 11/13/16 11:33 5 ML Levalbuterol 0.63 mg 0.63 mg Q4 PRN INH 11/12/16 08:45 12/12/16 08:44 Methylprednisolone Sodium Succinate/ Syringe (Solu-Medrol IV/ Syringe) 0.64 ml @ 1.5 mls/min Q12H IV 11/12/16 09:00 12/12/16 08:59 11/13/16 07:33 1.5 MLS/MIN Venlafaxine HCl (effeXOR EXTENDED REL CAP) 150 mg DAILY PO 11/13/16 09:00 12/13/16 08:59 11/13/16 07:33 150 MG Enteral Nutritional Formula (Boost Plus Vanilla) 1 can BID17 PO 11/13/16 09:00 12/13/16 08:59 11/13/16 09:08 1 CAN Ketorolac Tromethamine (Toradol Inj) 15 mg Q6H IV. 11/12/16 19:00 11/13/16 18:59 11/13/16 07:32 15 MG Oxycodone HCl (Roxicodone Immediate Rel Tab) 1-2 TABS FOR PAIN 1 TABLET ... Q4H PRN PO 11/12/16 18:00 11/26/16 17:59 11/12/16 20:35 5 MG Morphine Sulfate 2 mg 2 mg Q1H PRN IV 11/12/16 18:00 11/26/16 17:59 Acetaminophen/ Empty Bag (Ofirmev Iv/ Empty Iv Bag 100ml) 100 ml @ 400 mls/hr Q8H IV 11/12/16 19:00 11/13/16 18:59 11/13/16 10:44 400 MLS/HR Magnesium Hydroxide (Milk Of Magnesia Susp) 30 ml Q6H PRN PO 11/12/16 18:00 12/12/16 17:59 Diphenhydramine HCl (Benadryl Inj) 25 mg Q8H PRN IV 11/12/16 18:00 12/12/16 17:59 Al Hydrox/Mg Hydrox/Simethicone (Maalox Max Susp) 15 ml Q4H PRN PO 11/12/16 18:00 12/12/16 17:59 Metoclopramide HCl (Reglan Inj) 10 mg Q6H PRN IV 11/12/16 18:00 12/12/16 17:59 Enoxaparin Sodium (Lovenox Inj) 30 mg Q24H SQ 11/13/16 08:00 12/13/16 07:59 11/13/16 10:45 30 MG Morphine Sulfate 4 mg 4 mg Q1H PRN IV 11/12/16 18:30 11/26/16 18:29 Furosemide/Syringe (Lasix Inj/ Syringe) 2 ml @ 4 mls/min TODAY@1030 IV 11/13/16 10:30 11/13/16 18:00
--- NOTE | 2016-11-13 14:41 | CARDIOLOGY PROGRESS NOTE ---
DATE: 11/13/2016 DATE: 11/13/2016. SUBJECTIVE: The patient is seen and examined at the bedside. Tolerated surgery. Postoperative anemia noted. Currently receiving transfusion of packed red blood cells. The patient denies chest pain or unusual shortness of breath. Telemetry demonstrates ectopic atrial rhythm. REVIEW OF SYSTEMS: Pertinent positives noted above. Four system review including cardiovascular, pulmonary, gastroenterologic and neurologic systems otherwise negative. LABORATORY DATA: Sodium 139, potassium 4.5, chloride 97, CO2 38, BUN is 18, creatinine is 0.38. PT is 10.8, INR is 1.0. White blood cell count 14.86, hemoglobin is 7.3, platelet count is 167. PHYSICAL EXAMINATION: VITAL SIGNS: Temperature is 36.8 degrees centigrade, pulse is 95 beats per minute and regular, respiratory rate is 12 breaths per minute, blood pressure 107/67. SAO2 is 98% on 3 liters nasal cannula. GENERAL: Chronically ill, cachectic. HEAD, EYES, EARS, NOSE, AND THROAT: Mucous membranes dry. No scleral icterus. Conjunctivae pink. NECK: Supple without JVD or HJR. No carotid bruit. HEART: Regular with a borderline tachycardic with a normal S1 and S2. No murmur, rub or gallop. LUNGS: Demonstrate diminished breath sounds bilaterally with mild end expiratory wheezing. ABDOMEN: Soft, nontender. No rebound or guarding. EXTREMITIES: Warm and dry without clubbing, cyanosis or edema. NEUROLOGIC EXAMINATION: Demonstrates no focal motor deficit. FINAL IMPRESSION: 1. A 66-year-old female who is postoperative day 1 right hip open reduction and internal fixation. 2. Postoperative anemia -- currently receiving transfusion of packed red blood cells. 3. Ectopic atrial rhythm. 4. Chronic coronary disease with history of prior right coronary artery stenting and residual right posterior descending artery stenosis -- clinically stable. 5. Severe chronic obstructive pulmonary disease with active tobacco abuse. PLAN AND RECOMMENDATIONS: Recommend beta-maycol be continued uninterrupted in addition to aspirin. It appears aspirin has been placed on hold. We will restart if hemoglobin stabilizes post transfusion. Recommend maintaining hemoglobin greater than 8.0 grams per deciliter given history of underlying coronary disease. No further cardiac testing or medication changes at this time.
--- NOTE | 2016-11-13 18:46 | PROGRESS NOTE ---
DATE: 11/13/2016 Subjective: Resting comfortably in bed. She was able to get out of bed and stand with assistance. Her pain is well controlled. Otherwise, no problems are noted. She is afebrile. Her vital signs are stable. Her O2 sats are greater than 94% on 3 liters. She is significantly anemic today and received 2 units of blood. Her hematocrit was 23. White count is 14, likely secondary to stress and steroids. PHYSICAL EXAMINATION: Her thigh is soft, dressing is clean and dry. There is no abnormal swelling. Both feet are warm. Pulses are not palpable. This is preexisting preoperatively. She has intact sensation and can flex and extend her ankle and toes normally against resistance. IMPRESSION: Severe chronic obstructive pulmonary disease, right hip intertrochanteric fracture, coronary artery disease. PLAN: Continues to do well. She can weightbear as tolerated using a walker. Will plan on changing her dressing tomorrow. Lovenox is being used for DVT prophylaxis.
[2016-11-13] MEDS: PANTOprazole SOD 40 MG TAB PO SCH (20:55)
[2016-11-13] MEDS: OXYCODONE HCL IR 5 MG TAB (IMMEDIATE RELEASE) PO PRN (21:30)
[2016-11-14] VITALS (7 sets, daily range): BP systolic 121–169; BP diastolic 70–92; PULSE 72–118; TEMP 36.5–36.8; O2SAT 92–100
[2016-11-14] MEDS: VANCOMYCIN HCL 125 MG/2.5ML SOLN PO SCH ×4 (05:37→23:57)
[2016-11-14] MEDS: RASPBERRY SYRUP 5 ML UDP PO SCH ×4 (05:37→23:57)
--- NOTE | 2016-11-14 06:27 | Clinical Documentation Query ---
NEREIDA Newberry : CLINICAL DOCUMENTATION QUERY Patient is a 66 year old female who on 11/12 underwent trochanteric nailing of right femur. Preoperative hemoglobin and hematocrit were 11.1 g/dl and 36.0%. POD #1 repeat values were 7.3 g/dl and 22.9%. Patient was transfused 2 units of PRBC's. Documentation of this matter includes "She is significantly anemic today and received 2 units of blood." Please clarify as clinically appropriate. Thank you. In your clinical opinion is this patient being managed for: (xx ) Acute blood loss anemia ( ) Other explanation of clinical findings (Please Explain) ( ) Unable to determine (Please Define) ( ) Need to Discuss ( ) Not Agree The medical record reflects the following clinical findings, treatment, and risk factors. Clinical Indicators: As above Treatment: Transfusion of PRBC's, serial hematology, I/O Risk Factors: Fracture, trauma, surgery Please clarify and document your clinical opinion in the progress notes and discharge summary. Terms such as "probable", "suspected", "likely", "questionable", "possible", or "still to be ruled out" are acceptable. IF IN AGREEMENT, YOU MUST DOCUMENT ABOVE DIAGNOSTIC STATEMENT IN DAILY PROGRESS NOTES AND DISCHARGE SUMMARY. This document is not part of the patient's record. Thank You, César Pennington RN [phone]
[2016-11-14 06:39] LABS: HEMATOCRIT 31.8 % (37-47); MEAN CORPUSCULAR HGB CONC 33.3 g/dl (32-36); MEAN PLATELET VOLUME 10.5 fL (7.4-10.4); PLATELET COUNT 173 K/uL (130-400); RED BLOOD COUNT 3.42 M/uL (4.2-5.4); WHITE BLOOD COUNT 16.07 K/uL (4.8-10.8)
[2016-11-14] MEDS: ARFORMOTEROL TART 15MCG/2ML VIAL INH SCH ×2 (07:04→19:08)
[2016-11-14] MEDS: BuPROPion XL 300 MG TABCR PO SCH (07:33)
[2016-11-14] MEDS: CARVEDILOL 6.25 MG TAB PO SCH ×2 (07:33→20:17)
[2016-11-14] MEDS: CYANOCOBALAMIN 100 MCG TAB (VIT B-12) PO SCH (07:33)
[2016-11-14] MEDS: MULTIVITAMIN TAB PO SCH (07:33)
[2016-11-14] MEDS: VENLAFAXINE HCL XR 150 MG CAPXR PO SCH (07:33)
[2016-11-14] MEDS: OXYCODONE HCL IR 5 MG TAB (IMMEDIATE RELEASE) PO PRN (07:37)
[2016-11-14] MEDS: ASPIRIN 81 MG ECTAB PO SCH (09:00)
--- NOTE | 2016-11-14 10:46 | PULMONARY PROGRESS NOTE ---
DATE: 11/14/2016 TIME: 10:15 a.m. SUBJECTIVE: The patient is generally feeling well. She denies any respiratory distress. She does notice now pain in the right lateral chest area. I suspect this is from the rib fracture that was found on the right ninth rib. She had not noticed this previously, but I think she is noticing it more now because she is not on as many pain medicines. She has some cough with very little sputum production. She has not done anything in terms of significant exertion. She has set up off the side of the bed, but otherwise nothing. OBJECTIVE: GENERAL: The patient appears comfortable. She is more alert than she had been. VITAL SIGNS: She is afebrile. Temperature is 36.5. EARS, NOSE, THROAT: Unremarkable. Heart rate is 94 per minute. The rhythm is regular. Blood pressure is 151/87. LUNGS: Auscultation of the lung vásquez revealed wheezes, greater on the left today than on the right. The right-sided breath sounds are modestly diminished. Oxygen saturation is 99% on 3 liters. We still need to try and keep the oxygen saturations more towards 90. ABDOMEN: Soft and nontender. Good bowel sounds are heard. EXTREMITIES: Shows no edema, cyanosis or clubbing. White count today is 16.07. Hemoglobin is 10.6. This is increased from yesterday 7.3 after transfusions. Chest x-ray done yesterday demonstrated the right 9th rib fracture and there was no pneumothorax seen. IMPRESSIONS: 1. Status post right hip fracture -- repaired. 2. Emphysema. 3. Chronic respiratory failure. 4. Right pneumothorax. 5. Right 9th rib fracture. 6. Lung nodules. RECOMMENDATIONS: Would continue with her nebulizer treatments as currently ordered. I believe she needs the treatments regularly and p.r.n. I believe the steroids could be changed to oral and I will make that change. Continue with good overall pulmonary toilet including incentive spirometry. ROCÍO
--- NOTE | 2016-11-14 11:45 | Orthopedic Progress Note ---
Orthopedic Progress Note Date of Service Nov 14, 2016. Subjective Post OP Day: 2 Reports: complaints (Rght thigh pain), Denies: SOB, calf pain, chest pain, light headedness, nausea / vomiting Additional Notes: Has not been out of bed yet today, but was out yesterday. Objective calves soft nontender, N/V intact, capillary refill less than 2 sec., dressing C /D/I, A&O x3, toes mobile, CMS intact Pt is laying in bed Date Time Temp Pulse Resp B/P Pulse Ox O2 Delivery O2 Flow Rate FiO2 11/14/16 08:00 Nasal Cannula 3.0 11/14/16 07:37 36.5 94 22 151/87 99 Nasal Cannula 3.0 11/14/16 07:01 72 16 98 Nasal Cannula 2.0 11/14/16 04:15 Nasal Cannula 3.0 11/14/16 04:00 36.6 94 18 146/79 99 Nasal Cannula 3.0 11/14/16 00:10 Nasal Cannula 3.0 11/13/16 23:53 36.9 97 18 133/63 92 Nasal Cannula 3.0 11/13/16 20:50 Nasal Cannula 3.0 11/13/16 19:32 36.8 109 20 135/74 96 Nasal Cannula 2.0 11/13/16 18:57 110 16 97 Nasal Cannula 2.0 11/13/16 16:34 36.5 89 18 118/76 96 11/13/16 16:00 Nasal Cannula 11/13/16 15:34 36.6 105 18 137/71 97 11/13/16 15:09 36.6 106 20 133/78 97 Nasal Cannula 2.0 11/13/16 15:04 37.2 97 18 125/77 96 11/13/16 14:16 36.7 97 18 117/70 11/13/16 13:16 36.5 96 18 129/75 94 11/13/16 12:16 36.8 106 18 107/67 98 11/13/16 12:00 Nasal Cannula 11/13/16 11:46 36.8 96 20 105/67 98 Laboratory Results 24 Hours: Test 11/14/16 05:30 Hematocrit 31.8 % Hemoglobin 10.6 g/dL Assessment & Plan Assessment: Status post Right intertrochanteric femur fracture ORIF POD2 Plan: Continue post op care WBAT Ice right hip PT/OT Resume diet Pain control DVT prophylaxis (Lovenox 30 mg Q24) Dressing changes Discharge planning Discharge Planning Discharge Planning: uncertain Pain Management: Morphine
[2016-11-14] MEDS: METHYLPREDNISOLONE IV 40 MG in SYRINGE 0 ML IV SCH (11:57)
[2016-11-14] MEDS: BOOST PLUS VANILLA PO SCH ×4 (11:57→18:24)
--- NOTE | 2016-11-14 16:17 | Progress Note ---
Medicine Progress Note Date & Time of Visit: Nov 14, 2016 at 16:07. Subjective Doing well today Mentions that her hip is more sore after recent manipulation by therapist Feeling improved Denies trouble breathing overnight-on reduced oxygen level, pulm following. Denies abdominal discomfort Tolerating PO Objective Last 8 Hrs Date Time Temp Pulse Resp B/P Pulse Ox O2 Delivery O2 Flow Rate FiO2 11/14/16 12:00 Nasal Cannula 3.0 11/14/16 11:50 36.8 84 28 121/70 97 Nasal Cannula 3.0 Physical Exam: GEN: frail, thin, in no acute distress, alert and appropriate HEENT: NC/AT, normal sclerae CARDIO: tachy, S1/2 heard without m/g/r LUNGS: CTA bilaterally, no crackles, rales or wheezes, good diaphragmatic excursion ABD: +BS, soft, non-tender, non-distended, no rebound or guarding, Colostomy bag in place with formed stool EXTREMITY: RP and DP palpable 2+ bilat, no LE swelling or edema, extremities are warm and well-perfused. Gauze dressing covering incision on lateral right leg, wound appears to be healing well. Xeroform gauze over wound. NEURO: CN 2-12 grossly intact, no gross focal deficit MUSC: no gross focal deficit SKIN: warm and dry, some scattered well-healed abrasions on her right forearm. Laboratory Results: Last 24 Hours Test 11/14/16 05:30 White Blood Count 16.07 K/uL Red Blood Count 3.42 M/uL Hemoglobin 10.6 g/dL Hematocrit 31.8 % Mean Corpuscular Volume 93.0 fL Mean Corpuscular Hemoglobin 31.0 pg Mean Corpuscular Hemoglobin Concent 33.3 g/dl RDW Standard Deviation 53.2 fL RDW Coefficient of Variation 15.7 % Platelet Count 173 K/uL Mean Platelet Volume 10.5 fL Nucleated RBC Absolute Count (auto) 0.06 K/uL Nucleated Red Blood Cells % 0.3 % Assessment & Plan RIGHT HIP FRACTURE - s/p mechanical fall--rib fracture - POD#2 ORIF R hip - doing well, acute anemia - 2 units of blood 11/13. Good response, 7.01/09--> 10.6/32 and tachycardia has improved. - pain is controlled-->on scheduled APAP and PRN Toradol -per pulm IV steroids changed to pred 40mg PO daily -cont sched and PRN Duonebs -per Cards restarted her aspirin in setting of CAD with prior stent placement COPD-severe - saturating well on chronic 2-3L - no wheezing on exam - management per pulm recs as above PTX s/p fall -possibly 2/2 trauma with assoc rib fracture -stable on oxygen -pulm recs appreciated ANEMIA- -2/2 blood loss post-op -tx 2 U with good response as above. -also may be some element of dilution with IVF -good response as noted above. CDIFF INFECTION- cont Vanc PO formed stool seen in colostomy today denies abdominal pain tolerating PO afebrile LEUKOCYTOSIS - WBC 16K from 14K yest in setting of infection, post-op stress and steroid use CAD - no reports of chest pain - s/p RCA stent 1998, cath 2010 - 60% PDA stenosis - continue Coreg, cont ASA - Cards consulted-appreciate recs DVT PROPHYLAXIS - Lovenox CODE STATUS Full [facility] Consultants: Herb, Jonathan, Ortho Current Inpatient Medications: Current Inpatient Medications Medications (Trade) Dose Ordered Sig/José Miguel Route Start Time Stop Time Status Last Admin Dose Admin Acetaminophen (Tylenol Tab) 650 mg Q4H PRN PO 11/11/16 17:15 12/11/16 17:14 11/12/16 00:54 650 MG Ondansetron HCl (Zofran Inj) 4 mg Q6H PRN IV 11/11/16 17:15 12/11/16 17:14 Arformoterol Tartrate (Brovana 15MCG/ 2ML Neb Soln) 15 mcg BIDR INH 11/11/16 20:00 12/11/16 19:59 11/14/16 07:04 15 MCG Aspirin (Ecotrin Tab) 81 mg QAM PO 11/12/16 09:00 12/12/16 08:59 Future hold Bupropion HCl (Wellbutrin-Xl Tab) 300 mg QAM PO 11/12/16 09:00 12/12/16 08:59 11/14/16 07:33 300 MG Carvedilol (Coreg Tab) 6.25 mg BID PO 11/11/16 21:00 12/11/16 20:59 11/14/16 07:33 6.25 MG Ergocalciferol (Vitamin D Cap) 50,000 interunit Tu@0900 PO 11/12/16 09:00 12/12/16 08:59 11/12/16 10:20 50,000 INTERUNIT Multivitamins (Multivitamin Tab) 1 tab QAM PO 11/12/16 09:00 12/12/16 08:59 11/14/16 07:33 1 TAB Pantoprazole Sodium (Protonix Tab) 40 mg HS PO 11/11/16 21:00 12/11/16 20:59 11/13/16 20:55 40 MG Metoprolol Tartrate (Lopressor Iv) 5 mg Q6 PRN IV 11/11/16 20:30 12/11/16 20:29 Vancomycin HCl (Vancomycin Oral Soln) 125 mg Q6H PO 11/11/16 23:00 11/25/16 22:59 11/14/16 11:53 125 MG Raspberry (Raspberry Syrup 5ml Cup) 5 ml Q6H PO 11/11/16 23:00 11/21/16 22:59 11/14/16 11:53 5 ML Levalbuterol 0.63 mg 0.63 mg Q4 PRN INH 11/12/16 08:45 12/12/16 08:44 Methylprednisolone Sodium Succinate/ Syringe (Solu-Medrol IV/ Syringe) 0.64 ml @ 1.5 mls/min Q12H IV 11/12/16 09:00 11/14/16 23:00 11/14/16 11:57 1.5 MLS/MIN Venlafaxine HCl (effeXOR EXTENDED REL CAP) 150 mg DAILY PO 11/13/16 09:00 12/13/16 08:59 11/14/16 07:33 150 MG Enteral Nutritional Formula (Boost Plus Vanilla) 1 can BID17 PO 11/13/16 09:00 12/13/16 08:59 11/14/16 11:57 1 CAN Oxycodone HCl (Roxicodone Immediate Rel Tab) 1-2 TABS FOR PAIN 1 TABLET ... Q4H PRN PO 11/12/16 18:00 11/26/16 17:59 11/14/16 07:37 10 MG Morphine Sulfate (MoRPHine SULFATE INJ) 2 mg Q1H PRN IV 11/12/16 18:00 11/26/16 17:59 Magnesium Hydroxide (Milk Of Magnesia Susp) 30 ml Q6H PRN PO 11/12/16 18:00 12/12/16 17:59 Diphenhydramine HCl (Benadryl Inj) 25 mg Q8H PRN IV 11/12/16 18:00 12/12/16 17:59 Al Hydrox/Mg Hydrox/Simethicone (Maalox Max Susp) 15 ml Q4H PRN PO 11/12/16 18:00 12/12/16 17:59 Metoclopramide HCl (Reglan Inj) 10 mg Q6H PRN IV 11/12/16 18:00 12/12/16 17:59 Enoxaparin Sodium (Lovenox Inj) 30 mg Q24H SQ 11/13/16 08:00 12/13/16 07:59 Future hold 11/13/16 10:45 30 MG Morphine Sulfate (MoRPHine SULFATE INJ) 4 mg Q1H PRN IV 11/12/16 18:30 11/26/16 18:29 Cyanocobalamin (Vitamin B-12 Tab) 100 mcg QAM PO 11/14/16 09:00 12/14/16 08:59 11/14/16 07:33 100 MCG Prednisone (PredniSONE TAB) 40 mg DAILY PO 11/15/16 09:00 12/15/16 08:59
[2016-11-14] MEDS ORDERED: OXYC-57 PO (16:42)
[2016-11-14] MEDS ORDERED: LVNIS30 SQ (16:42)
--- NOTE | 2016-11-14 16:53 | Discharge Instructions ---
Discharge Instructions Admission Reason for Admission: Hip Fracture Discharge Discharge Diagnosis / Problem: s/p right long troch femoral nail Discharge Goals Goal(s): Decrease discomfort, Improve function, Increase independence Activity Recommendations Activity Level: Up Ad Damaris, Ambulates in room, Self Positioning, OOB In Chair, Assistance Required, Bedside Commode Therapies: Physical Therapy, Weight Bearing Status (as tolerated with walker), Occupational Therapy Weightbearing Status: Right weightbearing (as tolerated) Exercise/Sports Limitations: none Shower/Bathe: keep incision dry . 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 Percocet - Take, as directed, when you need it, every four to six hours to control your pain. 2. Iron Sulfate - Take two times each day for two weeks after surgery, to help you replace the blood loss from surgery. 3. Lovenox - Thins your blood to lessen the chance of forming a blood clot. * The most common side effects of pain medicine and iron are nausea and constipation. If nausea or constipation is too much of a problem or if you have any questions about your new medicines or doses, call [facility] at . We will try to help you manage these issues. Narcotic Pain Medication Post-Operatively has a high tendency to cause constipation. Signs, Symptoms, and Causes Constipation is when you are not passing stool as often as you normally do. Your stool becomes hard and dry, and it is difficult to pass. You might feel bloated and have pain, or you might have to strain when you try to go. Some medicines, including narcotics, can make you constipated. You can also get constipated if you are not getting enough fiber, using the bathroom as soon as you feel the urge to go, or getting enough exercise. Try to get to know your normal bowel movement pattern, so that you can keep constipation from getting worse. How to Prevent Constipation Drink more water and eat more fiber. Try these things to relieve your constipation: * Do not skip meals. * Avoid processed or fast foods, such as white breads, pastries, doughnuts, sausage. fast-food burgers, potato chips, and Georgian fries. Many foods are good natural "laxatives" that will help you move your bowels. High-fiber foods help waste move through your body. Add foods with fiber to your diet slowly because eating more fiber can cause gas Drink 8 to10 cups of liquids, especially water, every day. Most fruits will help ease constipation. Berries, peaches, apricots, plums, raisins, rhubarb, and prunes are just some that may help. Do not peel fruits that have edible skins, since a lot of the fiber is in their skins. Choose breads, crackers, pasta, pancakes, and waffles made with whole grains, or make your own. Use brown rice or wild rice instead of white rice. Eat high- fiber cereals. Vegetables can also add fiber to your diet. Some high-fiber vegetables are asparagus, broccoli, corn. squash, and potatoes (with the skin still on). Salads made with lettuce, spinach, and cabbage will also help. Legumes (navy beans, kidney beans, chick peas, soy beans, and lentils), peanuts , walnuts, and almonds will also add fiber to your diet. Other foods you can eat are: * Fish, chicken, turkey, or other lean meats. These do not have fiber, but they will not make constipation worse. * Snacks such as raisin cookies, fig bars, and popcorn. You can also sprinkle 1 or 2 teaspoons of bran flakes, ground flax seeds, wheat bran, or psyllium on foods such as yogurt, cereal, and soup. Or, add them to your smoothie. Immediately after surgery, if you are taking pain medications, we recommend that you start taking stool softeners and a gentle laxative. You can buy stool softeners at any pharmacy. They will help you pass stool more easily. Your doctor may prescribe a laxative to relieve your constipation. It may be a pill or liquid. Do NOT take it if you have severe stomach pain, nausea, or vomiting. It should start to work in 2 to 5 days. * As long as you take pain medication, you will most likely need to take a laxative. * Always drink plenty of water (8 to 10 cups a day) when you are using laxatives. * Store your laxative medicine safely in a medicine cabinet, where children cannot get to it. * Take the laxative as directed, daily as needed. Try to stop laxatives within 2 -3 weeks after surgery. Some Examples: * Stool Softeners: Colace, vegetables, Metamucil, Citrucel, any type of food roughage. * Laxatives: Sennakot tablets, Miralax, Milk of Magnesia, Dulcolax, and so on. We recommend trying the gentle laxatives before going to the strong ones (i.e. ExLax). Some people get a rash, nausea, or sore throat while taking laxatives. Women who are or breast-feeding and children under age 6 should NOT take laxatives. Bulk-forming laxatives such as Metamucil or Perdiem can help pull water into your intestines and make your stools more bulky. VERY IMPORTANT TO READ AND REVIEW" Blood Clots and Blood Thinning Medicine: * You are given Lovenox during the immediate post-operative period to lessen the risk of blood clots forming in your legs and/or lungs. Pain: * You are given a prescription for pain medicine. You should take it, as directed, when you need it, especially before physical therapy and before going to bed. Pain that interferes with sleep is very common and can last several months. * You will likely need pain medicine for the first two to four weeks. It will not stop all of the pain. The pain will lessen and as you feel better, you may change to milder pain medicine such as Tylenol. * The most common side effects of pain medicine are nausea and constipation, so don't take more than you need. Physical Therapy: * Aggressive physical therapy is not usually needed. You will learn to take care of yourself safely and walk. * In some cases, the public health social worker at the hospital will arrange to have a therapist come to your house for the first couple of weeks to help you learn these skills. * You need to practice on your own or with the help of a family member as needed. * When you learn these skills, most of the therapy can be done on your own. Home Exercise: * You were shown a series of exercises in the hospital. Do these exercises three to four times each day including the exercises you were shown in physical therapy. Walking: * Get up and walk several times each day. For the first four weeks, try not to stand or walk for more than one hour at a time. If you do stand or walk for more than one hour, you will not hurt anything, but your leg will likely swell. * As you feel comfortable, you may change from the walker or crutches to a cane and then to independent walking. SELF CARE INSTRUCTIONS AFTER HIP SURGERY car riding to a minimum for at least one month after surgery. B. Your balance may be shaky for a while. Use crutches or a walker until directed by your doctor. C. Use hand rails when walking on stairs. D. Wear low heeled shoes with non-slip soles. E. Be sure that your floors are free of things that could trip you - throw rugs , electrical cords, small objects. Avoid wet and waxed floors, especially with crutches and canes. F. Try to walk several times a day with rest periods between. G. Continue with all the exercises taught to you in the hospital. Again, make walking a part of your daily routine. TEDs/Elastic Stockings: * The white elastic stockings help limit swelling and prevent blood clots from forming in your legs. The more you wear them, the more they work. * Wear them for two weeks. It is OK to remove them to rest your legs or bathe. Prevention of Infection: * Take antibiotics one hour before any dental cleaning, dental work, urological procedure, gastrointestinal procedure or any invasive surgery in order to prevent your new joint from getting infected. (See pre-op instruction sheet ) * You may get the antibiotics from the doctor performing the procedure or you may call our office at before and we will call in a prescription to the pharmacy of your choice. Things to Watch For: * Drainage from the incision site that starts three or more days after your surgery. * Severely increased leg pain or swelling. * Increased redness at the incision site. * Fever above 102 degrees Fahrenheit. * Unusual chest pain or shortness of breath. * Unusual pain or burning with urination. Call [facility] at with any of the above problems or if you have any questions about your medicines or recovery. Follow-up Visit: Make an appointment to see your doctor about two weeks after surgery for a progress check and staple removal by calling the office at . Avoid all tobacco products. If you need help to stop smoking, call [facility] FREE QUITLINE at . This is a free call. Current Hospital Diet Patient's current hospital diet: AHA Diet (Heart Healthy) Discharge Diet Recommended Diet: AHA Diet (Heart Healthy) Procedures Procedures Performed: TROCHANTERIC NAIL RIGHT FEMUR L0NG. Pending Studies Studies pending at discharge: no Physician Orders On Transfer Dressing Changes: please perform daily dressing changes POLST Discussion: without POLST completion Medical Emergencies . Who to Call and When: Medical Emergencies: If at any time you feel your situation is an emergency, please call 911 immediately. . Non-Emergent Contact Non-Emergency issues call your: Primary Care Provider . . "Provider Documentation" section prepared by Juan Ibanez. Core Measure Problem Core Measures: VTE VTE Core Measures Date of VTE Diagnosis: Nov 14, 2016 Time of VTE Diagnosis: 17:00 Reason no anticoag overlap I/P: Treatment provided - N/A Reason no anticoag overlap @DC: Treatment provided - N/A [place] Drug Monitoring Program Search Results: no issues identified
--- NOTE | 2016-11-14 18:14 | PROGRESS NOTE ---
DATE: 11/14/2016 SUBJECTIVE: The patient is resting comfortably in bed. No problems are noted. She is afebrile. Her vital signs are stable. Urine output is adequate. White count is 16, decreasing; hemoglobin up to 11; hematocrit 32; platelets 173. She can bend her knee to 90 degrees, but cannot do a leg raise. Her foot is warm. Her distal neurovascular function and strength otherwise are intact. Her thigh is soft. Dressing is changed. The incisions are benign. There is some scant bloody drainage, no erythema or swelling. IMPRESSION: Chronic obstructive pulmonary disease, coronary artery disease, right hip fracture, acute blood loss anemia requiring a transfusion. PLAN: The patient is doing well. She has been up with physical therapy. I would recommend that she go to [facility] or [facility]. She will need to follow up with my office 2 weeks post-discharge for wound check and staple removal. She can weightbear as tolerated using a walker and should not ambulate independently. Will continue Lovenox for DVT prophylaxis for a period of 4-6 weeks, depending on her activity level.
--- NOTE | 2016-11-14 18:25 | PROGRESS NOTE ---
DATE: 11/14/2016 CARDIOLOGY FOLLOWUP SUBJECTIVE: The patient is seen and examined at the bedside. She received 2 units of packed red blood cells yesterday. Her hemoglobin is stable today. Notes significant dyspnea when transferring from commode to the bed. Nursing concern regarding fall risk. Denies chest pain at this time. Telemetry demonstrates ectopic atrial rhythm. REVIEW OF SYSTEMS: Pertinent positives noted above and a 4-system reviewed including cardiovascular, pulmonary, musculoskeletal, and neurologic systems otherwise negative. LABORATORY DATA: White blood cell count 16.07, hemoglobin 10.6, platelet count is 173. Sodium 139, potassium 4.5, chloride 97, CO2 is 38, BUN is 18, creatinine is 0.38. PHYSICAL EXAMINATION: VITAL SIGNS: Temperature is 36.5 degrees centigrade, pulse is 85 beats per minute and regular, respiratory rate is 24 breaths per minute, blood pressure 169/92. SaO2 92% on 2 liters nasal cannula. GENERAL: NAD, cachectic, awake and alert. HEENT: Mucous membranes are dry. No scleral icterus. NECK: Supple without JVD or hepatojugular reflux. No carotid bruit. HEART: Regular with a normal S1 and S2; no murmur, rub or gallop. LUNGS: Demonstrate diminished breath sounds bilaterally without rales, rhonchi, or wheeze. ABDOMEN: Soft, nontender. No rebound or guarding. EXTREMITIES: Warm and dry without clubbing or cyanosis. No edema noted. NEUROLOGIC: Demonstrates no focal motor deficit. FINAL IMPRESSION: 1. Postoperative day #2 right hand open reduction and internal fixation. 2. Postoperative anemia - resolved status post transfusion 2 units packed red blood cells. 3. Ectopic atrial rhythm - stable. 4. Chronic coronary artery disease - clinically stable. 5. Severe chronic obstructive pulmonary disease with active tobacco abuse. PLAN AND RECOMMENDATIONS: Continue current cardiovascular medications including beta-maycol, aspirin. Effexor has been reduced to 150 mg daily due to tachycardia. Recommend she continue this reduced dose as an outpatient. A repeat ECG will be performed in the a.m. Otherwise, no further cardiac testing is indicated. I will sign off at this time. Please call with questions. Thank you for allowing me to take part in the care of your patient.
[2016-11-14] MEDS: PANTOprazole SOD 40 MG TAB PO SCH (20:17)
[2016-11-14] MEDS: MoRPHine SULFATE 2 MG/ML CARP IV PRN (23:59)
[2016-11-15] VITALS (12 sets, daily range): BP systolic 117–161; BP diastolic 73–92; PULSE 94–113; TEMP 36.5–36.9; O2SAT 92–100
[2016-11-15] MEDS: VANCOMYCIN HCL 125 MG/2.5ML SOLN PO SCH ×4 (05:03→22:34)
[2016-11-15] MEDS: RASPBERRY SYRUP 5 ML UDP PO SCH ×4 (05:03→22:34)
[2016-11-15] MEDS: MoRPHine SULFATE 2 MG/ML CARP IV PRN ×2 (05:15→08:22)
[2016-11-15 06:10] LABS: HEMATOCRIT 32.5 % (37-47); MEAN CELL VOLUME 94.8 fL (80-100); MEAN CORPUSCULAR HEMOGLOBIN 31.5 pg (25-34); MEAN CORPUSCULAR HGB CONC 33.2 g/dl (32-36); MEAN PLATELET VOLUME 10.2 fL (7.4-10.4); PLATELET COUNT 217 K/uL (130-400); RED BLOOD COUNT 3.43 M/uL (4.2-5.4); WHITE BLOOD COUNT 15.36 K/uL (4.8-10.8)
[2016-11-15 06:46] LABS: BUN/CREATININE RATIO 47.4 (10-20); CALCIUM 8.6 mg/dl (8.5-10.1); CREATININE 0.36 mg/dl (0.60-1.20); POTASSIUM 3.9 mmol/L (3.5-5.1)
[2016-11-15] MEDS: ARFORMOTEROL TART 15MCG/2ML VIAL INH SCH (07:27)
[2016-11-15] MEDS: VENLAFAXINE HCL XR 150 MG CAPXR PO SCH (08:12)
[2016-11-15] MEDS: CARVEDILOL 6.25 MG TAB PO SCH ×2 (08:13→20:38)
[2016-11-15] MEDS: BuPROPion XL 300 MG TABCR PO SCH (08:13)
[2016-11-15] MEDS: ASPIRIN 81 MG ECTAB PO SCH (08:13)
[2016-11-15] MEDS: CYANOCOBALAMIN 100 MCG TAB (VIT B-12) PO SCH (08:13)
[2016-11-15] MEDS: ENOXAPARIN 30 MG/0.3 ML SYR SQ SCH (08:14)
[2016-11-15] MEDS: MULTIVITAMIN TAB PO SCH (08:14)
[2016-11-15] MEDS: BOOST PLUS VANILLA PO SCH ×4 (08:14→18:59)
[2016-11-15] MEDS ORDERED: LVNIS30 SQ (08:24)
--- NOTE | 2016-11-15 08:32 | Progress Note ---
Orthopedic SOAP Note Subjective Date of Service: Nov 15, 2016. Post OP Day: 3 Reports: feeling well, pain controlled w PO medications, Denies: SOB, calf pain , chest pain, complaints, light headedness, nausea / vomiting, using BATH TESTER Problem List Medical Problems: (1) Anemia Status: Acute (2) Hip fracture, right Status: Acute (3) Pneumonia Status: Acute Objective calves soft nontender, N/V intact, capillary refill less than 2 sec., dressing C /D/I, incision C/D/I, A&O x3, toes mobile Date Time Temp Pulse Resp B/P Pulse Ox O2 Delivery O2 Flow Rate FiO2 11/15/16 07:33 36.6 105 20 148/92 97 Nasal Cannula 2.0 11/15/16 07:27 105 16 98 Nasal Cannula 2.0 11/15/16 04:00 Nasal Cannula 1.0 11/15/16 03:59 36.6 98 19 161/73 98 Nasal Cannula 2.0 11/15/16 00:28 36.8 99 19 148/84 98 Nasal Cannula 2.0 11/14/16 23:59 Nasal Cannula 1.0 11/14/16 20:03 Nasal Cannula 3.0 11/14/16 19:46 36.5 108 24 151/90 100 Nasal Cannula 2.0 11/14/16 19:08 118 16 96 Nasal Cannula 3.0 11/14/16 16:00 Nasal Cannula 3.0 11/14/16 15:19 36.5 108 24 169/92 92 Nasal Cannula 2.0 11/14/16 12:00 Nasal Cannula 3.0 11/14/16 11:50 36.8 84 28 121/70 97 Nasal Cannula 3.0 Laboratory Results 24 Hours: Test 11/15/16 05:32 Hematocrit 32.5 % Hemoglobin 10.8 g/dL Assessment Status post Right intertrochanteric femur fracture ORIF POD3 Plan Continue post op care WBAT with walker and assist Ice right hip PT/OT Resume diet Pain control DVT prophylaxis (Lovenox 30 mg Q24) x 4-6 weeks Dressing changed Discharge planning 2 week follow up with Dr. Hayes at [facility] for staple removal Transfer on Friday11/16/16 after PT and approval to facility
[2016-11-15] MEDS: OXYCODONE HCL IR 5 MG TAB (IMMEDIATE RELEASE) PO PRN ×2 (10:07→18:58)
--- NOTE | 2016-11-15 11:00 | Cardiology Follow-Up ---
Subjective General Date of Service: Nov 15, 2016. Pt evaluation today including: conversation w/ patient, conversation w/ family , physical exam, chart review, lab review, review of studies, review of inpatient medication list History of Present Illness The patient is a 66 year old female seen in follow-up. Denies chest discomfort. Chronic dyspnea on exertion and baseline shortness of breath unchanged. Remains in an ectopic atrial rhythm both on telemetry and ECG. No signs of further blood loss. Offers no complaints this time. Allergies Coded Allergies: Penicillins (Verified Allergy, Intermediate, HIVES, 01/19/16) LIKELY TOLERATES CEFEPIME, IMIPENEM (SEE ADMISSION 08/13/15) Social History Smoking Status: Current Every Day Smoker Hx Tobacco Use In Past Year?: Yes Hx Alcohol Use - Type And Amou: No Hx Substance Use - Type And Am: No Problem List Medical Problems: (1) Anemia Status: Acute (2) Hip fracture, right Status: Acute (3) Pneumonia Status: Acute Review of Systems Respiratory: + dyspnea on exertion, No cough, No dyspnea at rest, No hemoptysis , No shortness of breath, No sputum, No wheezing Cardiac: No PND, No chest pain, No claudication, No edema, No orthopnea Physical Exam Vital Signs Last Vital Signs Documentation Date Time Temp Pulse Resp B/P Pulse Ox O2 Delivery O2 Flow Rate FiO2 11/15/16 08:00 97 Nasal Cannula 2.0 11/15/16 07:33 36.6 105 20 148/92 Physical Exam Constitutional: General Apperance: cachectic Level of Distress: chronically ill Ambulation: ambulating normally ENMT: normal ENT inspection Neck: supple, trachea midline Lungs: Auscultation: no wheezing, no rales/crackles, no rhonchi, decreased breath sounds Cardiovascular: Heart Auscultation: RRR, normal S1, normal S2, no murmurs Abdomen: Inspection & Palpation: soft, non-distended, no tenderness, guarding & rebound Extremities: no cyanosis, no edema, no clubbing, no ulcers Neurologic: Gait & Station: pertinent finding (no focal motor deficit) Cranial Nerves: grossly intact Assessment and Plan Assessment and Plan FINAL IMPRESSION: 1. Postoperative day #3 right hand open reduction and internal fixation. 2. Postoperative anemia - resolved status post transfusion 2 units packed red blood cells. 3. Ectopic atrial rhythm - stable. 4. Chronic coronary artery disease - stable without recurrent angina. 5. Severe chronic obstructive pulmonary disease with active tobacco abuse. PLAN AND RECOMMENDATIONS: Patient will continue current cardiovascular medications including beta maycol and aspirin. Recommend Effexor be continued at a reduced dose of 150 mg daily as an outpatient due to intermittent tachycardia. No further cardiac testing at this time. Smoking cessation advised. I will see her for routine outpatient follow-up in the cardiology clinic in one month. No further cardiac testing at this time. Laboratory Results Last 24 Hours Test 11/15/16 05:32 White Blood Count 15.36 K/uL Red Blood Count 3.43 M/uL Hemoglobin 10.8 g/dL Hematocrit 32.5 % Mean Corpuscular Volume 94.8 fL Mean Corpuscular Hemoglobin 31.5 pg Mean Corpuscular Hemoglobin Concent 33.2 g/dl RDW Standard Deviation 53.6 fL RDW Coefficient of Variation 15.4 % Platelet Count 217 K/uL Mean Platelet Volume 10.2 fL Sodium Level 138 mmol/L Potassium Level 3.9 mmol/L Chloride Level 95 mmol/L Carbon Dioxide Level 38 mmol/L Anion Gap 5.0 mmol/L Blood Urea Nitrogen 17 mg/dl Creatinine 0.36 mg/dl Est Creatinine Clear Calc Drug Dose 116.6 ml/min Estimated GFR () 128.4 Estimated GFR (Non- 110.8 BUN/Creatinine Ratio 47.4 Random Glucose 79 mg/dl Calcium Level 8.6 mg/dl
--- NOTE | 2016-11-15 11:04 | Progress Note ---
Medicine Progress Note Date & Time of Visit: Nov 15, 2016 at 10:58. Subjective Having more right rib pain with coughing Pt is a chronic cougher 2/2 COPD and this is her chronic cough without any changes She denies increased work of breathing on 2L NC currently She reports pain in her ribs>hip pain. She had some morphine this morning. She denies abdominal pain She is otherwise doing well Awaiting authorization at rehab Objective Last 8 Hrs Date Time Temp Pulse Resp B/P Pulse Ox O2 Delivery O2 Flow Rate FiO2 11/15/16 08:00 97 Nasal Cannula 2.0 11/15/16 07:33 36.6 105 20 148/92 97 Nasal Cannula 2.0 11/15/16 07:27 105 16 98 Nasal Cannula 2.0 11/15/16 04:00 Nasal Cannula 1.0 11/15/16 03:59 36.6 98 19 161/73 98 Nasal Cannula 2.0 Physical Exam: GEN: frail, thin, in no acute distress, alert and appropriate, sitting at bedside chair HEENT: NC/AT, normal sclerae CARDIO: tachy, S1/2 heard without m/g/r LUNGS: CTA bilaterally, no crackles, rales or wheezes, good diaphragmatic excursion ABD: +BS, soft, non-tender, non-distended, no rebound or guarding, Colostomy bag in place with formed stool EXTREMITY: RP and DP palpable 2+ bilat, no LE swelling or edema, extremities are warm and well-perfused. Gauze dressing covering incision on lateral right leg, wound appears to be healing well. Xeroform gauze over wound. NEURO: CN 2-12 grossly intact, no gross focal deficit MUSC: no gross focal deficit SKIN: warm and dry, some scattered well-healed abrasions on her right forearm. Laboratory Results: Last 24 Hours Test 11/15/16 05:32 White Blood Count 15.36 K/uL Red Blood Count 3.43 M/uL Hemoglobin 10.8 g/dL Hematocrit 32.5 % Mean Corpuscular Volume 94.8 fL Mean Corpuscular Hemoglobin 31.5 pg Mean Corpuscular Hemoglobin Concent 33.2 g/dl RDW Standard Deviation 53.6 fL RDW Coefficient of Variation 15.4 % Platelet Count 217 K/uL Mean Platelet Volume 10.2 fL Sodium Level 138 mmol/L Potassium Level 3.9 mmol/L Chloride Level 95 mmol/L Carbon Dioxide Level 38 mmol/L Anion Gap 5.0 mmol/L Blood Urea Nitrogen 17 mg/dl Creatinine 0.36 mg/dl Est Creatinine Clear Calc Drug Dose 116.6 ml/min Estimated GFR () 128.4 Estimated GFR (Non- 110.8 BUN/Creatinine Ratio 47.4 Random Glucose 79 mg/dl Calcium Level 8.6 mg/dl Assessment & Plan RIGHT HIP FRACTURE - s/p mechanical fall--rib fracture - POD#3 ORIF R hip - doing well, acute anemia - 2 units of blood 11/13. Good response, 7.3--> 10.6/32 and tachycardia has improved. Hb stable - pain is worse 2/2 chronic cough irritating the ribs-->on scheduled APAP and PRN Toradol and was given morphine today--asking for more, gave PO narc -cont pred 40mg PO daily per Pulm -cont sched and PRN Duonebs -per Cards restarted her aspirin in setting of CAD with prior stent placement COPD-severe - saturating well on chronic 2-3L - no wheezing on exam - management per pulm recs as above PTX s/p fall -possibly 2/2 trauma with assoc rib fracture -stable on oxygen -appreciate pulm following ANEMIA- -2/2 blood loss post-op -tx 2 U with good response as above. Stable -also may have been some element of dilution with IVF given prior to recheck -good response as noted above. CDIFF INFECTION- cont Vanc PO formed stool seen in colostomy today denies abdominal pain tolerating PO afebrile LEUKOCYTOSIS - WBC 16K from 15K today in setting of infection, post-op stress and steroid use CAD - no reports of chest pain - s/p RCA stent 1998, cath 2010 - 60% PDA stenosis - continue Coreg, cont ASA - Cards consulted-appreciate recs DVT PROPHYLAXIS - Lovenox CODE STATUS Full Dispo: to medical floor, to rehab tomorrow DO Iraida Dodge Hospitalist Consultants: Pulm, Jonathan, Ortho Current Inpatient Medications: Current Inpatient Medications Medications (Trade) Dose Ordered Sig/José Miguel Route Start Time Stop Time Status Last Admin Dose Admin Acetaminophen (Tylenol Tab) 650 mg Q4H PRN PO 11/11/16 17:15 12/11/16 17:14 11/12/16 00:54 650 MG Ondansetron HCl (Zofran Inj) 4 mg Q6H PRN IV 11/11/16 17:15 12/11/16 17:14 Arformoterol Tartrate (Brovana 15MCG/ 2ML Neb Soln) 15 mcg BIDR INH 11/11/16 20:00 12/11/16 19:59 11/15/16 07:27 15 MCG Aspirin (Ecotrin Tab) 81 mg QAM PO 11/12/16 09:00 12/12/16 08:59 Future hold 11/15/16 08:13 81 MG Bupropion HCl (Wellbutrin-Xl Tab) 300 mg QAM PO 11/12/16 09:00 12/12/16 08:59 11/15/16 08:13 300 MG Carvedilol (Coreg Tab) 6.25 mg BID PO 11/11/16 21:00 12/11/16 20:59 11/15/16 08:13 6.25 MG Ergocalciferol (Vitamin D Cap) 50,000 interunit Tu@0900 PO 11/12/16 09:00 12/12/16 08:59 11/12/16 10:20 50,000 INTERUNIT Multivitamins (Multivitamin Tab) 1 tab QAM PO 11/12/16 09:00 12/12/16 08:59 11/15/16 08:14 1 TAB Pantoprazole Sodium (Protonix Tab) 40 mg HS PO 11/11/16 21:00 12/11/16 20:59 11/14/16 20:17 40 MG Metoprolol Tartrate (Lopressor Iv) 5 mg Q6 PRN IV 11/11/16 20:30 12/11/16 20:29 Vancomycin HCl (Vancomycin Oral Soln) 125 mg Q6H PO 11/11/16 23:00 11/25/16 22:59 11/15/16 05:03 125 MG Raspberry (Raspberry Syrup 5ml Cup) 5 ml Q6H PO 11/11/16 23:00 11/21/16 22:59 11/15/16 05:03 5 ML Levalbuterol (Xopenex 0.63 Mg/ 3 Ml Neb) 0.63 mg Q4 PRN INH 11/12/16 08:45 12/12/16 08:44 Venlafaxine HCl (effeXOR EXTENDED REL CAP) 150 mg DAILY PO 11/13/16 09:00 12/13/16 08:59 11/15/16 08:12 150 MG Enteral Nutritional Formula (Boost Plus Vanilla) 1 can BID17 PO 11/13/16 09:00 12/13/16 08:59 11/15/16 08:14 1 CAN Oxycodone HCl (Roxicodone Immediate Rel Tab) 1-2 TABS FOR PAIN 1 TABLET ... Q4H PRN PO 11/12/16 18:00 11/26/16 17:59 11/15/16 10:07 10 MG Morphine Sulfate (MoRPHine SULFATE INJ) 2 mg Q1H PRN IV 11/12/16 18:00 11/26/16 17:59 11/15/16 08:22 2 MG Magnesium Hydroxide (Milk Of Magnesia Susp) 30 ml Q6H PRN PO 11/12/16 18:00 12/12/16 17:59 Diphenhydramine HCl (Benadryl Inj) 25 mg Q8H PRN IV 11/12/16 18:00 12/12/16 17:59 Al Hydrox/Mg Hydrox/Simethicone (Maalox Max Susp) 15 ml Q4H PRN PO 11/12/16 18:00 12/12/16 17:59 Metoclopramide HCl (Reglan Inj) 10 mg Q6H PRN IV 11/12/16 18:00 12/12/16 17:59 Enoxaparin Sodium (Lovenox Inj) 30 mg Q24H SQ 11/13/16 08:00 12/13/16 07:59 Future hold 11/15/16 08:14 30 MG Morphine Sulfate (MoRPHine SULFATE INJ) 4 mg Q1H PRN IV 11/12/16 18:30 11/26/16 18:29 Cyanocobalamin (Vitamin B-12 Tab) 100 mcg QAM PO 11/14/16 09:00 12/14/16 08:59 11/15/16 08:13 100 MCG Prednisone (PredniSONE TAB) 40 mg DAILY PO 11/15/16 09:00 12/15/16 08:59 11/15/16 08:13 40 MG
--- NOTE | 2016-11-15 12:09 | PULMONARY PROGRESS NOTE ---
DATE: 11/15/2016 DATE: 11/15/2016. TIME: 11:45 a.m. SUBJECTIVE: The patient is still having a lot of pain in the area of the right rib fracture. This is primarily with coughing. She states she is still expectorating mucus. She does not feel more short of breath than normal. Nurses believe she has been a little more congested today. OBJECTIVE: GENERAL: The patient is comfortable at rest. VITAL SIGNS: Temperature 36.9. EARS, NOSE, THROAT: Unremarkable. HEART: Heart rate 94 per minute. Lung vásquez were showing mild to moderate rhonchi bilaterally. CHEST: Respiratory rate 20 breaths per minute. Blood pressure 117/76. Saturation 96% on 2 liters. EXTREMITIES: Showed no peripheral edema. There was no cyanosis or clubbing. White count today is 15.36. Hemoglobin 10.8. Platelets 217,000. Electrolytes show sodium 138, potassium 3.9, chloride 95, bicarbonate 38. BUN is 17 with a creatinine of 0.36. IMPRESSIONS: 1. Status post right hip fracture -- repaired. 2. Emphysema. 3. Chronic respiratory failure. 4. Small right pneumothorax. 5. Right 9th rib fracture. 6. Lung nodules. COMMENTS: The patient's respiratory status is not quite as good as it had been. She feels she is still about at her baseline. She is a bit congested. I suggested that she try and support the right side of her chest when she is getting ready to cough in order to diminish her pain. She will need pain medications on a fairly regular basis. A little bit of pain medicine will certainly help her to tolerate her coughing better and thereby clear her secretions. On the other hand, we must be cautious because of her chronic CO2 elevation. Overall, she is reasonably stable. I would continue with the prednisone for now at 40 mg daily. She is on the Brovana. She also has levalbuterol as needed and I would have a low threshold to give her treatments if she is tight.
[2016-11-15] MEDS: PANTOprazole SOD 40 MG TAB PO SCH (20:38)
[2016-11-15 22:07] LABS: BUN/CREATININE RATIO 47.4 (10-20); CALCIUM 8.3 mg/dl (8.5-10.1); CREATININE 0.53 mg/dl (0.60-1.20); POTASSIUM 4.3 mmol/L (3.5-5.1)
[2016-11-16] MEDS: VANCOMYCIN HCL 125 MG/2.5ML SOLN PO SCH ×4 (05:34→22:40)
[2016-11-16] MEDS: RASPBERRY SYRUP 5 ML UDP PO SCH ×4 (05:34→22:40)
[2016-11-16] MEDS: OXYCODONE HCL IR 5 MG TAB (IMMEDIATE RELEASE) PO PRN (06:27)
[2016-11-16] MEDS: ARFORMOTEROL TART 15MCG/2ML VIAL INH SCH ×2 (07:26→20:38)
[2016-11-16] MEDS: ENOXAPARIN 30 MG/0.3 ML SYR SQ SCH (07:27)
[2016-11-16] MEDS: CARVEDILOL 6.25 MG TAB PO SCH ×2 (07:28→21:48)
[2016-11-16] MEDS: VENLAFAXINE HCL XR 150 MG CAPXR PO SCH (07:29)
[2016-11-16] MEDS: CYANOCOBALAMIN 100 MCG TAB (VIT B-12) PO SCH (07:29)
[2016-11-16] MEDS: MULTIVITAMIN TAB PO SCH (07:29)
[2016-11-16] MEDS: ASPIRIN 81 MG ECTAB PO SCH (07:29)
[2016-11-16] MEDS: BuPROPion XL 300 MG TABCR PO SCH (07:29)
[2016-11-16 07:30] VITALS: BP 138/83; PULSE 93; PULSE 96; TEMP 36.9; O2SAT 99
[2016-11-16] MEDS: BOOST PLUS VANILLA PO SCH ×4 (07:50→19:00)
[2016-11-16 08:13] LABS: HEMATOCRIT 34.7 % (37-47); MEAN CELL VOLUME 96.1 fL (80-100); MEAN CORPUSCULAR HEMOGLOBIN 31.3 pg (25-34); MEAN CORPUSCULAR HGB CONC 32.6 g/dl (32-36); PLATELET COUNT 269 K/uL (130-400); RED BLOOD COUNT 3.61 M/uL (4.2-5.4); WHITE BLOOD COUNT 13.86 K/uL (4.8-10.8)
[2016-11-16] MEDS: MoRPHine SULFATE 2 MG/ML CARP IV PRN (09:06)
--- NOTE | 2016-11-16 11:55 | Orthopedic Progress Note ---
Orthopedic Progress Note Date of Service Nov 16, 2016. Subjective Post OP Day: 4 Reports: feeling well, Denies: SOB, calf pain, chest pain, complaints, light headedness, nausea / vomiting Additional Notes: sitting in bed with hip and knee flexed at bedside Objective calves soft nontender, N/V intact, capillary refill less than 2 sec., dressing C /D/I, incision C/D/I, A&O x3, toes mobile, CMS intact wounds are dry Date Time Temp Pulse Resp B/P Pulse Ox O2 Delivery O2 Flow Rate FiO2 11/16/16 08:00 Nasal Cannula 2.0 11/16/16 07:30 96 16 99 Nasal Cannula 3.5 11/16/16 07:30 36.9 93 20 138/83 99 Nasal Cannula 2.0 11/16/16 00:30 Nasal Cannula 3.0 11/15/16 23:52 36.5 94 14 120/76 100 Nasal Cannula 3.0 11/15/16 21:04 94 18 96 Nasal Cannula 2.0 11/15/16 20:40 102 146/74 11/15/16 16:30 Nasal Cannula 2.0 11/15/16 15:28 36.7 100 18 130/79 97 Nasal Cannula 2.0 11/15/16 12:00 Nasal Cannula 2.0 Laboratory Results 24 Hours: Test 11/16/16 07:45 Hematocrit 34.7 % Hemoglobin 11.3 g/dL Assessment & Plan Assessment: Status post Right intertrochanteric femur fracture ORIF POD4 Plan: Continue post op care WBAT with walker and assist Ice right hip PT/OT Pain control po as needed DVT prophylaxis (Lovenox 30 mg Q24) x 4-6 weeks Dressing changed Discharge planning uncertain. waiting on insurance auth to determine placement [facility] 2 week follow up [address]. Hayes at [facility] for staple removal Discharge Planning Discharge Planning: uncertain Pain Management: Morphine
[2016-11-16] MEDS: OXYCODONE/ACETAMINOPHEN 7.5-325 TAB PO PRN ×2 (12:08→19:00)
--- NOTE | 2016-11-16 14:40 | Progress Note ---
Medicine Progress Note Date & Time of Visit: Nov 16, 2016 at 13:01. Subjective 66 yo F with severe COPD, apical PTX, depression dependent on medications, who is s/p R hip ORIF performed on 11/12 Breathing is at baseline Rib pain worsened by chronic cough in setting of severe COPD Hip pain is controlled and she has been WB with assistance. Blood counts have remained stable since transfusion a couple of days ago Denies any other issues at this time She is tolerating the reduced dose of Effexor will recommend stopping her ergocalciferol as 25OH is 74. Spoke with CM who are still working on authorization to rehab Still denies abdominal pain in setting of c-diff and tolerating PO Objective Last 8 Hrs Date Time Temp Pulse Resp B/P Pulse Ox O2 Delivery O2 Flow Rate FiO2 11/16/16 08:00 Nasal Cannula 2.0 11/16/16 07:30 96 16 99 Nasal Cannula 3.5 11/16/16 07:30 36.9 93 20 138/83 99 Nasal Cannula 2.0 Physical Exam: GEN: frail, thin, in no acute distress, alert and appropriate, sitting at bedside chair HEENT: NC/AT, normal sclerae CARDIO: reg rate, S1/2 heard without m/g/r LUNGS: CTA bilaterally, no crackles, rales or wheezes, good diaphragmatic excursion but poor air movement ABD: +BS, soft, non-tender, non-distended, no rebound or guarding, Colostomy bag in place with formed stool EXTREMITY: no LE swelling or edema, extremities are warm and well-perfused. Gauze dressing covering incision on lateral right leg, c/d/i NEURO: CN 2-12 grossly intact, no gross focal deficit MUSC: no gross focal deficit SKIN: warm and dry, some scattered well-healed abrasions on her right forearm. Laboratory Results: Last 24 Hours Test 11/15/16 21:30 11/16/16 07:45 Sodium Level 140 mmol/L Potassium Level 4.3 mmol/L Chloride Level 94 mmol/L Carbon Dioxide Level 40 mmol/L Anion Gap 6.0 mmol/L Blood Urea Nitrogen 25 mg/dl Creatinine 0.53 mg/dl Est Creatinine Clear Calc Drug Dose 79.2 ml/min Estimated GFR () 113.1 Estimated GFR (Non- 97.6 BUN/Creatinine Ratio 47.4 Random Glucose 82 mg/dl Calcium Level 8.3 mg/dl White Blood Count 13.86 K/uL Red Blood Count 3.61 M/uL Hemoglobin 11.3 g/dL Hematocrit 34.7 % Mean Corpuscular Volume 96.1 fL Mean Corpuscular Hemoglobin 31.3 pg Mean Corpuscular Hemoglobin Concent 32.6 g/dl RDW Standard Deviation 52.7 fL RDW Coefficient of Variation 15.0 % Platelet Count 269 K/uL Mean Platelet Volume 10.0 fL Nucleated RBC Absolute Count (auto) 0.05 K/uL Nucleated Red Blood Cells % 0.4 % Assessment & Plan RIGHT HIP FRACTURE - s/p mechanical fall--rib fracture - POD#4 ORIF R hip - doing well, acute anemia - 2 units of blood 11/13. Good response, 7.3/--> 10.6/32 and tachycardia has improved. Hb stable at 11.3/34.7 - pain is worse 2/2 chronic cough irritating the ribs-->had problem with morphine yesterday but Oxy and APAP have been helpful. Changed pain control to Percocet PRN -cont pred 40mg PO daily per Pulm with q5day taper wean down as outpatient -cont sched and PRN Duonebs -per Cards restarted her aspirin in setting of CAD with prior stent placement COPD-severe - saturating well on chronic 2L - keep O2 between 90-92% at goal, wean down on oxygen if saturation is >94% - no wheezing on exam - management per pulm recs as above PTX s/p fall -possibly 2/2 trauma with assoc rib fracture -stable on oxygen -appreciate pulm following ANEMIA- -2/2 blood loss post-op -tx 2 U with good response as above. Stable -also may have been some element of dilution with IVF given prior to recheck CDIFF INFECTION- cont Vanc PO formed stool seen in colostomy today denies abdominal pain tolerating PO afebrile LEUKOCYTOSIS - WBC 15K from 14K today in setting of infection, post-op stress and steroid use CAD-stable - no reports of chest pain - s/p RCA stent 1998, cath 2010 - 60% PDA stenosis - continue Coreg, cont ASA - Cards consulted-appreciate recs DVT PROPHYLAXIS - Lovenox CODE STATUS Full Dispo: to rehab once approved DO Iraida Dodge Hospitalist Consultants: Pulm, Cards, Ortho Current Inpatient Medications: Current Inpatient Medications Medications (Trade) Dose Ordered Sig/José Miguel Route Start Time Stop Time Status Last Admin Dose Admin Acetaminophen (Tylenol Tab) 650 mg Q4H PRN PO 11/11/16 17:15 12/11/16 17:14 11/12/16 00:54 650 MG Ondansetron HCl (Zofran Inj) 4 mg Q6H PRN IV 11/11/16 17:15 12/11/16 17:14 Arformoterol Tartrate (Brovana 15MCG/ 2ML Neb Soln) 15 mcg BIDR INH 11/11/16 20:00 12/11/16 19:59 11/16/16 07:26 15 MCG Aspirin (Ecotrin Tab) 81 mg QAM PO 11/12/16 09:00 12/12/16 08:59 Future hold 11/16/16 07:29 81 MG Bupropion HCl (Wellbutrin-Xl Tab) 300 mg QAM PO 11/12/16 09:00 12/12/16 08:59 11/16/16 07:29 300 MG Carvedilol (Coreg Tab) 6.25 mg BID PO 11/11/16 21:00 12/11/16 20:59 11/16/16 07:28 6.25 MG Ergocalciferol (Vitamin D Cap) 50,000 interunit Tu@0900 PO 11/12/16 09:00 12/12/16 08:59 11/12/16 10:20 50,000 INTERUNIT Multivitamins (Multivitamin Tab) 1 tab QAM PO 11/12/16 09:00 12/12/16 08:59 11/16/16 07:29 1 TAB Pantoprazole Sodium (Protonix Tab) 40 mg HS PO 11/11/16 21:00 12/11/16 20:59 11/15/16 20:38 40 MG Metoprolol Tartrate (Lopressor Iv) 5 mg Q6 PRN IV 11/11/16 20:30 12/11/16 20:29 Vancomycin HCl (Vancomycin Oral Soln) 125 mg Q6H PO 11/11/16 23:00 11/25/16 22:59 11/16/16 10:39 125 MG Raspberry (Raspberry Syrup 5ml Cup) 5 ml Q6H PO 11/11/16 23:00 11/21/16 22:59 11/16/16 10:39 5 ML Levalbuterol (Xopenex 0.63 Mg/ 3 Ml Neb) 0.63 mg Q4 PRN INH 11/12/16 08:45 12/12/16 08:44 Venlafaxine HCl (effeXOR EXTENDED REL CAP) 150 mg DAILY PO 11/13/16 09:00 12/13/16 08:59 11/16/16 07:29 150 MG Morphine Sulfate (MoRPHine SULFATE INJ) 2 mg Q1H PRN IV 11/12/16 18:00 11/26/16 17:59 11/16/16 09:06 2 MG Magnesium Hydroxide (Milk Of Magnesia Susp) 30 ml Q6H PRN PO 11/12/16 18:00 12/12/16 17:59 Diphenhydramine HCl (Benadryl Inj) 25 mg Q8H PRN IV 11/12/16 18:00 12/12/16 17:59 Al Hydrox/Mg Hydrox/Simethicone (Maalox Max Susp) 15 ml Q4H PRN PO 11/12/16 18:00 12/12/16 17:59 Metoclopramide HCl (Reglan Inj) 10 mg Q6H PRN IV 11/12/16 18:00 12/12/16 17:59 Enoxaparin Sodium (Lovenox Inj) 30 mg Q24H SQ 11/13/16 08:00 12/13/16 07:59 Future hold 11/16/16 07:27 30 MG Morphine Sulfate (MoRPHine SULFATE INJ) 4 mg Q1H PRN IV 11/12/16 18:30 11/26/16 18:29 Cyanocobalamin (Vitamin B-12 Tab) 100 mcg QAM PO 11/14/16 09:00 12/14/16 08:59 11/16/16 07:29 100 MCG Prednisone (PredniSONE TAB) 40 mg DAILY PO 11/15/16 09:00 12/15/16 08:59 11/16/16 07:28 40 MG Enteral Nutritional Formula (Boost Plus Vanilla) 1 can BIDM PO 11/15/16 17:45 12/15/16 17:44 11/16/16 07:50 1 CAN Oxycodone/ Acetaminophen (Percocet 7.5-325MG Tab) 1 tab Q6H PRN PO 11/16/16 12:00 11/30/16 11:59 11/16/16 12:08 1 TAB
[2016-11-16 14:41] VITALS: BP 123/74; PULSE 94; O2SAT 98
[2016-11-16 16:10] VITALS: O2SAT 98
[2016-11-16] MEDS: ACETAMINOPHEN 325 MG TAB PO PRN (16:16)
[2016-11-16 21:47] VITALS: BP 115/71; PULSE 99
[2016-11-16] MEDS: PANTOprazole SOD 40 MG TAB PO SCH (21:48)
[2016-11-16 23:38] VITALS: BP 112/71; PULSE 95; TEMP 37.1; O2SAT 97
[2016-11-17] MEDS: OXYCODONE/ACETAMINOPHEN 7.5-325 TAB PO PRN ×2 (02:40→08:49)
[2016-11-17] MEDS: VANCOMYCIN HCL 125 MG/2.5ML SOLN PO SCH ×4 (04:15→22:40)
[2016-11-17] MEDS: RASPBERRY SYRUP 5 ML UDP PO SCH ×4 (04:15→22:40)
[2016-11-17 07:32] VITALS: PULSE 96; O2SAT 97
[2016-11-17 07:50] VITALS: BP 102/68; PULSE 96; TEMP 36.8; O2SAT 95
[2016-11-17] MEDS: ARFORMOTEROL TART 15MCG/2ML VIAL INH SCH ×2 (08:11→19:40)
[2016-11-17] MEDS: BOOST PLUS VANILLA PO SCH ×4 (08:43→18:39)
[2016-11-17] MEDS: ASPIRIN 81 MG ECTAB PO SCH (08:43)
[2016-11-17] MEDS: ENOXAPARIN 30 MG/0.3 ML SYR SQ SCH (08:43)
[2016-11-17] MEDS: CARVEDILOL 6.25 MG TAB PO SCH (08:45)
[2016-11-17] MEDS: BuPROPion XL 300 MG TABCR PO SCH (08:45)
[2016-11-17] MEDS: VENLAFAXINE HCL XR 150 MG CAPXR PO SCH (08:45)
[2016-11-17] MEDS: CYANOCOBALAMIN 100 MCG TAB (VIT B-12) PO SCH (08:45)
[2016-11-17] MEDS: MULTIVITAMIN TAB PO SCH (08:45)
--- NOTE | 2016-11-17 13:23 | PULMONARY PROGRESS NOTE ---
DATE: 11/17/2016 TIME: 12:50 p.m. SUBJECTIVE: The patient remains a little bit short of breath. She feels that she is about like she usually as at home. She is somewhat congested. She has some cough with no significant sputum. She is still bothered by the rib pain on the right side related to her fracture. She is hoping to get out to rehab tomorrow. OBJECTIVE: VITAL SIGNS: Temperature is 36.8. Last evening, temperature was 37.1. Heart rate 96 per minute. Blood pressure 102/68. Respiratory rate 20 breaths per minute. ENT: Unremarkable. CHEST: Mild wheeze and rhonchi are heard bilaterally with prolongation to the expiratory phase of respirations. Oxygen saturation is 95% on 2 liters. ABDOMEN: Soft and nontender. EXTREMITIES: Showing no edema. There is a dressing over the right hip area. LABORATORY STUDIES: No laboratory studies are done today. IMPRESSIONS: 1. Status post right hip fracture and open reduction internal fixation. 2. Emphysema. 3. Chronic respiratory failure. 4. Small right pneumothorax. 5. Right 9th rib fracture. 6. Lung nodules. COMMENTS AND RECOMMENDATIONS: The patient remains modestly congested. She, however, feels that she is at her baseline. If she stays this well, I have no objection to her going to an outpatient rehab facility soon. I discussed her case yesterday with Dr. Lew. The steroids can be tapered gradually. She likely should have a follow up CAT scan of the chest in about 3 months because of the lung nodules noted previously. Perhaps this has already been arranged, that is unknown with certainty. She did have a CAT scan done previously on 08/08/2016, I do not know the circumstances of that. She should continue with her nebulizer treatments after she is discharged. She has been on Brovana twice a day and levalbuterol as needed.
--- NOTE | 2016-11-17 14:13 | Progress Note ---
Medicine Progress Note Date & Time of Visit: Nov 17, 2016 at 13:02. Subjective Pt reports persistent pain from her ribs Pain in hip is there but controlled She is feeling a headache, also, and we discussed that her posture is hunched and she is holding her shoulder up in a tense posture--this may be contributing? Percocet 7.5 was added for pain yesterday, however, the patient is saying this is not very effective She denies abdominal pain and reports that her breathing and cough are at baseline Seen by pulm this morning who agrees with current plan of lond-term steroid taper Tolerating PO AFebrile overnight Ambulating with assistance Objective Last 8 Hrs Date Time Temp Pulse Resp B/P Pulse Ox O2 Delivery O2 Flow Rate FiO2 11/17/16 08:19 Room Air 11/17/16 07:50 36.8 96 20 102/68 95 Nasal Cannula 2.0 11/17/16 07:32 96 16 97 Nasal Cannula 2.0 Physical Exam: GEN: frail, thin, in no acute distress, alert and appropriate, sitting at bedside chair HEENT: NC/AT, normal sclerae CARDIO: tachy, S1/2 heard without m/g/r LUNGS: CTA bilaterally, no crackles, rales or wheezes, good diaphragmatic excursion but poor air movement ABD: +BS, soft, non-tender, non-distended, no rebound or guarding, Colostomy bag in place EXTREMITY: no LE swelling or edema, extremities are warm and well-perfused. Gauze dressing covering incision on lateral right leg, c/d/i NEURO: CN 2-12 grossly intact, no gross focal deficit MUSC: no gross focal deficit SKIN: warm and dry and as above Assessment & Plan RIGHT HIP FRACTURE - s/p mechanical fall--rib fracture - POD#5 ORIF R hip - doing well, acute anemia - 2 units of blood 11/13. Good response, 7.3/23--> 10.6/32 and tachycardia has improved. Hb stable at 11.3/34.7 - pain is worse 2/2 chronic cough irritating the ribs-->had problem with morphine but Oxy and APAP have been helpful. Changed pain control to Percocet 7.5 PRN on 11/17-->pt states this is effective but not lasting very long--> increased to 10 q4h prn. Also giving her one shot of toradol to see if this helps some with her discomfort. -cont pred 40mg PO daily per Pulm with q5day taper wean down as outpatient -cont sched and PRN Duonebs -per Cards restarted her aspirin in setting of CAD with prior stent placement -cont ambulating/PT efforts per Ortho TACHYCARDIA: likely multifactorial 2/2 pain and discomfort from current rib fracture, high dose steroid use, side effect of velafaxine (already reduced this admission to 150mg daily). As patient is expected to have pain long-term ( 4-6 weeks) and she will be on steroids long-term, I have increased her Coreg to 12.5mg PO BID. Cont to monitor. HEADACHE: intermittent, patient is holding her shoulders in a tense posture and has been for the last several days. Ordered K-pad as I feel this is related to tension. May also be a side effect from the steroids, however, we need to continue these. COPD-severe - saturating well on chronic 2L - keep O2 between 90-92% at goal, wean down on oxygen if saturation is >94% - no wheezing on exam - management per pulm recs as above PTX s/p fall -possibly 2/2 trauma with assoc rib fracture -stable on oxygen -appreciate pulm following ANEMIA- -2/2 blood loss post-op -tx 2 U with good response as above. Stable -also may have been some element of dilution with IVF given prior to recheck CDIFF INFECTION- cont Vanc PO formed stool seen in colostomy today denies abdominal pain tolerating PO afebrile LEUKOCYTOSIS: Improved in setting of infection, post-op stress and steroid use CAD-stable - no reports of chest pain - s/p RCA stent 1998, cath 2010 - 60% PDA stenosis - continue Coreg, cont ASA -Cards following DVT PROPHYLAXIS - Lovenox CODE STATUS Full Dispo: to rehab once approved DO Iraida Dodge Hospitalist Consultants: Pulm, Jonathan, Ortho Current Inpatient Medications: Current Inpatient Medications Medications (Trade) Dose Ordered Sig/José Miguel Route Start Time Stop Time Status Last Admin Dose Admin Acetaminophen (Tylenol Tab) 650 mg Q4H PRN PO 11/11/16 17:15 12/11/16 17:14 11/16/16 16:16 650 MG Ondansetron HCl (Zofran Inj) 4 mg Q6H PRN IV 11/11/16 17:15 12/11/16 17:14 Arformoterol Tartrate (Brovana 15MCG/ 2ML Neb Soln) 15 mcg BIDR INH 11/11/16 20:00 12/11/16 19:59 11/17/16 08:11 15 MCG Aspirin (Ecotrin Tab) 81 mg QAM PO 11/12/16 09:00 12/12/16 08:59 Future hold 11/17/16 08:43 81 MG Bupropion HCl (Wellbutrin-Xl Tab) 300 mg QAM PO 11/12/16 09:00 12/12/16 08:59 11/17/16 08:45 300 MG Multivitamins (Multivitamin Tab) 1 tab QAM PO 11/12/16 09:00 12/12/16 08:59 11/17/16 08:45 1 TAB Pantoprazole Sodium (Protonix Tab) 40 mg HS PO 11/11/16 21:00 12/11/16 20:59 11/16/16 21:48 40 MG Vancomycin HCl (Vancomycin Oral Soln) 125 mg Q6H PO 11/11/16 23:00 11/25/16 22:59 11/17/16 12:50 125 MG Raspberry (Raspberry Syrup 5ml Cup) 5 ml Q6H PO 11/11/16 23:00 11/21/16 22:59 11/17/16 12:50 5 ML Levalbuterol (Xopenex 0.63 Mg/ 3 Ml Neb) 0.63 mg Q4 PRN INH 11/12/16 08:45 12/12/16 08:44 Venlafaxine HCl (effeXOR EXTENDED REL CAP) 150 mg DAILY PO 11/13/16 09:00 12/13/16 08:59 11/17/16 08:45 150 MG Magnesium Hydroxide (Milk Of Magnesia Susp) 30 ml Q6H PRN PO 11/12/16 18:00 12/12/16 17:59 Diphenhydramine HCl (Benadryl Inj) 25 mg Q8H PRN IV 11/12/16 18:00 12/12/16 17:59 Al Hydrox/Mg Hydrox/Simethicone (Maalox Max Susp) 15 ml Q4H PRN PO 11/12/16 18:00 12/12/16 17:59 Metoclopramide HCl (Reglan Inj) 10 mg Q6H PRN IV 11/12/16 18:00 12/12/16 17:59 Enoxaparin Sodium (Lovenox Inj) 30 mg Q24H SQ 11/13/16 08:00 12/13/16 07:59 Future hold 11/17/16 08:43 30 MG Cyanocobalamin (Vitamin B-12 Tab) 100 mcg QAM PO 11/14/16 09:00 12/14/16 08:59 11/17/16 08:45 100 MCG Prednisone (PredniSONE TAB) 40 mg DAILY PO 11/15/16 09:00 12/15/16 08:59 11/17/16 08:45 40 MG Enteral Nutritional Formula (Boost Plus Vanilla) 1 can BIDM PO 11/15/16 17:45 12/15/16 17:44 11/17/16 08:43 1 CAN Oxycodone/ Acetaminophen (Percocet 7.5-325MG Tab) 1 tab Q6H PRN PO 11/16/16 12:00 11/30/16 11:59 11/17/16 08:49 1 TAB Carvedilol (Coreg Tab) 12.5 mg BID PO 11/17/16 21:00 12/17/16 20:59
[2016-11-17] MEDS ORDERED: KETOROLAC TROMETHAMINE 30 MG/ML VIAL IV STA (14:21)
[2016-11-17 14:52] VITALS: BP 99/64; PULSE 95; TEMP 37; O2SAT 95
[2016-11-17 19:41] VITALS: PULSE 110; O2SAT 95
[2016-11-17] MEDS: CARVEDILOL 12.5 MG TAB PO SCH (21:00)
[2016-11-17 21:17] VITALS: BP 95/63; PULSE 98
[2016-11-17] MEDS: PANTOprazole SOD 40 MG TAB PO SCH (21:19)
[2016-11-17 22:58] VITALS: BP 131/75; PULSE 103; TEMP 37.2; O2SAT 96
[2016-11-17] MEDS: ACETAMINOPHEN 325 MG TAB PO PRN (23:43)
[2016-11-18] MEDS: OXYCODONE/ACETAMINOPHEN 10/325MG TAB PO PRN ×3 (02:19→14:03)
[2016-11-18] MEDS: VANCOMYCIN HCL 125 MG/2.5ML SOLN PO SCH ×2 (05:37→14:28)
[2016-11-18] MEDS: RASPBERRY SYRUP 5 ML UDP PO SCH ×2 (05:37→14:28)
[2016-11-18 08:06] VITALS: PULSE 96; O2SAT 97
[2016-11-18] MEDS: ARFORMOTEROL TART 15MCG/2ML VIAL INH SCH (08:08)
[2016-11-18 08:26] VITALS: BP 117/68; PULSE 90; TEMP 37.2; O2SAT 95
[2016-11-18] MEDS: BOOST PLUS VANILLA PO SCH ×2 (08:44)
[2016-11-18] MEDS: ENOXAPARIN 30 MG/0.3 ML SYR SQ SCH (08:44)
[2016-11-18] MEDS: CARVEDILOL 12.5 MG TAB PO SCH (08:45)
[2016-11-18] MEDS: VENLAFAXINE HCL XR 150 MG CAPXR PO SCH (08:45)
[2016-11-18] MEDS: ASPIRIN 81 MG ECTAB PO SCH (08:45)
[2016-11-18] MEDS: MULTIVITAMIN TAB PO SCH (08:46)
[2016-11-18] MEDS: CYANOCOBALAMIN 100 MCG TAB (VIT B-12) PO SCH (08:46)
[2016-11-18] MEDS: BuPROPion XL 300 MG TABCR PO SCH (08:46)
--- NOTE | 2016-11-18 11:34 | Pulmonology Progress Note ---
Pulmonary Progress Note Date of Service Nov 18, 2016. Attending Remberto Cerda Subjective Patient notes sever fatigue and pleurisy with SOB with excerption Objective Patient with no signs of respirtory failure/fatiuge during our converastion but on changing psotions in bed notable pain and associated SOB VS: reviewed and WNL RESP: mild-moderate rhnochi greatest at the basis CARD: RRR no M/R/G ABD: soft non tender Medications: 1.Prednisone 40mg QD 2.Xopenex Neb 3.Vancomycin 4.Bronvana PFT 01/18/15 FEV1/FVC: 59 FEV1: 0.42/19% RV: 5.55/306% Assessment & Plan 66y/o female with very sever COPD FEV1: 19%: 1) Pulmonary Nodules/Infiltrates: Notable change in patient's CT of the thorax since 07/2016 with small right sided PTX, and diffuse infiltrates/nodules greatest change in the superior segment on the LLL. These will require f/u by CT in the next 6-8 weeks for evaluation of resolution or possible 3 months with work-up if still present. 2) PTX: < 5% of the right sabra-thorax involved with no acute intervention required but f/u with repeat CT of the thorax is indicated. 3) COPD: continue current regimen but will add MANA at this time. Data Medications: Current Inpatient Medications Medications (Trade) Dose Ordered Sig/José Miguel Route Start Time Stop Time Status Last Admin Dose Admin Acetaminophen (Tylenol Tab) 650 mg Q4H PRN PO 11/11/16 17:15 12/11/16 17:14 11/17/16 23:43 650 MG Ondansetron HCl (Zofran Inj) 4 mg Q6H PRN IV 11/11/16 17:15 12/11/16 17:14 Arformoterol Tartrate (Brovana 15MCG/ 2ML Neb Soln) 15 mcg BIDR INH 11/11/16 20:00 12/11/16 19:59 11/18/16 08:08 15 MCG Aspirin (Ecotrin Tab) 81 mg QAM PO 11/12/16 09:00 12/12/16 08:59 Future hold 11/18/16 08:45 81 MG Bupropion HCl (Wellbutrin-Xl Tab) 300 mg QAM PO 11/12/16 09:00 12/12/16 08:59 11/18/16 08:46 300 MG Multivitamins (Multivitamin Tab) 1 tab QAM PO 11/12/16 09:00 12/12/16 08:59 11/18/16 08:46 1 TAB Pantoprazole Sodium (Protonix Tab) 40 mg HS PO 11/11/16 21:00 12/11/16 20:59 11/17/16 21:19 40 MG Vancomycin HCl (Vancomycin Oral Soln) 125 mg Q6H PO 11/11/16 23:00 11/25/16 22:59 11/18/16 05:37 125 MG Raspberry (Raspberry Syrup 5ml Cup) 5 ml Q6H PO 11/11/16 23:00 11/21/16 22:59 11/18/16 05:37 5 ML Levalbuterol (Xopenex 0.63 Mg/ 3 Ml Neb) 0.63 mg Q4 PRN INH 11/12/16 08:45 12/12/16 08:44 Venlafaxine HCl (effeXOR EXTENDED REL CAP) 150 mg DAILY PO 11/13/16 09:00 12/13/16 08:59 11/18/16 08:45 150 MG Magnesium Hydroxide (Milk Of Magnesia Susp) 30 ml Q6H PRN PO 11/12/16 18:00 12/12/16 17:59 Diphenhydramine HCl (Benadryl Inj) 25 mg Q8H PRN IV 11/12/16 18:00 12/12/16 17:59 11/17/16 21:24 25 MG Al Hydrox/Mg Hydrox/Simethicone (Maalox Max Susp) 15 ml Q4H PRN PO 11/12/16 18:00 12/12/16 17:59 Metoclopramide HCl (Reglan Inj) 10 mg Q6H PRN IV 11/12/16 18:00 12/12/16 17:59 Enoxaparin Sodium (Lovenox Inj) 30 mg Q24H SQ 11/13/16 08:00 12/13/16 07:59 Future hold 11/18/16 08:44 30 MG Cyanocobalamin (Vitamin B-12 Tab) 100 mcg QAM PO 11/14/16 09:00 12/14/16 08:59 11/18/16 08:46 100 MCG Prednisone (PredniSONE TAB) 40 mg DAILY PO 11/15/16 09:00 12/15/16 08:59 11/18/16 08:45 40 MG Enteral Nutritional Formula (Boost Plus Vanilla) 1 can BIDM PO 11/15/16 17:45 12/15/16 17:44 11/18/16 08:44 1 CAN Carvedilol (Coreg Tab) 12.5 mg BID PO 11/17/16 21:00 12/17/16 20:59 11/18/16 08:45 12.5 MG Oxycodone/ Acetaminophen (Percocet 10-325MG Tab) 1 tab Q4H PRN PO 11/17/16 14:00 12/01/16 13:59 11/18/16 08:57 1 TAB I & O: 24-Hour Column 11/18/16 08:00 Intake Total 300 ml Output Total 1075 ml Balance -775 ml Vital Signs: Date Time Temp Pulse Resp B/P Pulse Ox O2 Delivery O2 Flow Rate FiO2 11/18/16 08:26 37.2 90 18 117/68 95 Nasal Cannula 2.0 11/18/16 08:06 96 16 97 Nasal Cannula 2.0 11/17/16 23:15 Nasal Cannula 2.0 11/17/16 22:58 37.2 103 16 131/75 96 Nasal Cannula 2.0 11/17/16 21:17 98 95/63 11/17/16 19:41 110 16 95 Nasal Cannula 2.0 11/17/16 15:15 Nasal Cannula 2.0 11/17/16 14:52 37.0 95 18 99/64 95 Nasal Cannula 2.0
[2016-11-18] MEDS ORDERED: PRD20 PO (12:33)
[2016-11-18] MEDS ORDERED: OXYC-88 PO (12:33)
[2016-11-18] MEDS ORDERED: CRG125 PO (12:33)
[2016-11-18] MEDS ORDERED: VNCS125 PO (12:33)
[2016-11-18] MEDS ORDERED: EFFSR150 PO (12:33)
[2016-11-18] MEDS ORDERED: NUTR-977 PO (12:33)
[2016-11-18] MEDS ORDERED: VTMB12100 PO (12:33)
[2016-11-18] MEDS ORDERED: XPNINS1255 INH (12:37)
[2016-11-18] MEDS ORDERED: ATRINS INH (12:37)
--- NOTE | 2016-11-18 12:49 | Discharge Instructions ---
Discharge Instructions Admission Reason for Admission: Hip Fracture Discharge Discharge Diagnosis / Problem: Hip fracture, COPD, Pneumothorax, C. difficile colitis Discharge Goals Goal(s): Improve function, Increase independence, Prevent Disease Progression Activity Recommendations Activity Limitations: as noted below (per rehab staff and Ortho instructions on activity) . Instructions / Follow-Up Instructions / Follow-Up Please take all medications as prescribed. Per Pulmonology (Dr. Bertrand) you will need a prolonged taper of prednisone and good followup within 1-2 weeks after discharge from rehab facility. Additionally, it was recommended that your nebulizer treatments be continued. You will need a repeat Chest CT scan in 6-8 weeks to re-evaluate some nodules in your lungs. Your PCP or lung doctor will be able to set this up for you. Smoking cessation is STRONGLY advised at this point Continue oxygen at current dose to maintain saturation between 90%-92% at rest. You will need to follow up with Cardiology with in one month of discharge (Dr. Ayon). Follow all Orthopedic recommendations attached in additional instruction sheet including continue weight-bearing as tolerated with walker and assist, ice applied to right hip as instructed, PT/OT daily, Lovenox shots daily to prevent blood clots post-operatively for designated length of time, follow-up in [address] Hemal Hayes to get prince removed from incision site. Please call [facility] to get this appointment set up. You have an appointment with Dr. Kirk for 11/22 @ 5490 to review all changes made during this hospitalization and ensure you are progressing well. Please bring all paperwork with you and arrive 15 minutes early. It was a pleasure taking care of you! Call if you have any questions or problems. You can reach a [facility] hospitalist on duty at [facility] 24 hours a day by calling [phone]. Take care of yourself. Carrol Lew, [facility] Hospitalist Current Hospital Diet Patient's current hospital diet: AHA Diet (Heart Healthy) Discharge Diet Recommended Diet: AHA Diet (Heart Healthy) Procedures Procedures Performed: TROCHANTERIC NAIL RIGHT FEMUR L0NG. Pending Studies Studies pending at discharge: no Medical Emergencies . Who to Call and When: Medical Emergencies: If at any time you feel your situation is an emergency, please call 911 immediately. . Non-Emergent Contact Non-Emergency issues call your: Primary Care Provider . . "Provider Documentation" section prepared by Carrol Lew. VTE Core Measure Inpt VTE Proph given/why not?: Enoxaparin (Lovenox)SQ [place] Drug Monitoring Program Search Results: patient reviewed within database, no issues identified
[2016-11-18] MEDS ORDERED: IPRATROPIUM BROMIDE NEB SOLN 0.02% 2.5 ML VIAL INH SCH (15:00)
[2016-11-18] MEDS ORDERED: LEVALBUTEROL 1.25MG/0.5ML NEB INH SCH (15:00)
[2016-11-18] MEDS ORDERED: LEVALBUTEROL/IPRATROPIUM NEB INH SCH (15:00)
[2016-11-18 16:00] VITALS: BP 117/68; PULSE 90; TEMP 37.2; O2SAT 95
[2016-11-18 16:17] VITALS: BP 121/71; PULSE 91; TEMP 36.7; O2SAT 95
[2016-11-18] MEDS: ACETAMINOPHEN 325 MG TAB PO PRN (16:30)
--- NOTE | 2016-11-24 10:15 | Discharge Summary ---
Discharge Summary Admission Date: Nov 11, 2016 at 17:10 Discharge Date: Nov 16, 2016 Discharge Disposition: care home facility Principal Diagnosis: Mechanical fall with subsequent R hip fracture and R rib fracture with pneumothorax R hip fracture s/p R hip ORIF using trochanteric nail on 11/12/16 Anemia 2/2 acute blood loss post-op Tachycardia-resolved Severe COPD-on chronic oxygen Clostridium difficile infection Leukocytosis Chronic CAD Procedures: Right hip ORIF with trochanteric nail on 11/12/16 Vaccinations: None. Consultations: Pulm, Cards, Ortho Pending Studies/Follow-Up: See instructions below Medication Reconciliation New Medications: Carvedilol (Carvedilol) 12.5 Mg Tab 12.5 MG PO BID for 30 Days, #60 TAB Cyanocobalamin (Vitamin B-12) 100 Mcg Tab 100 MCG PO QAM for 30 Days, #30 TAB Enoxaparin (Lovenox) 30 Mg/0.3 Ml Inj 30 MG SQ Q24H for 35 Days Enteral Nutrition Formula (Ensure Plus Vanilla) 1 Can Liqd 1 CAN PO BIDM for 7 Days, #14 CAN Ipratropium [place] (Ipratropium Zelienople) 0.5 Mg/2.5 Ml Nebu 0.5 MG INH Q6R for 7 Days, #28 EA Levalbuterol (Levalbuterol) 1.25 Mg/0.5 Ml Nebu 1.25 MG INH Q6R for 7 Days, #28 Oxycodone/Acetaminophen 10MG/325MG (Oxycodone/Acetaminophen 10MG/325MG) 1 Tab Tab 1 TAB PO Q6H PRN for Pain for 7 Days, #28 TAB Do not exceed more than 3000mg of Acetaminophen from all sources. Prednisone (Prednisone) 20 Mg Tab 40 MG PO UD for 20 Days, #30 TAB 40mg daily x 5 days, then 30mg daily x 5 days, then 20mg x 5 days, then 10mg x 5 days, then stop. Vancomycin HCl (Vancomycin HCl) 125 Mg/2.5 Ml Susp 125 MG PO Q6H for 7 Days, #28 EA please cont for 7 more days, then stop, thx Venlafaxine Hcl (Effexor Extended Rel) 150 Mg Capcr 150 MG PO DAILY for 30 Days, #30 CAP Continued Medications: Arformoterol Tartrate (Brovana) 15 Mcg/2 Ml Neb 1 VIAL NEB BID, 11 Refills Aspirin (Aspirin Ec) 81 Mg Tab 81 MG PO QAM Bupropion HCl (Bupropion HCl Xl) 300 Mg Tabcr 300 MG PO QAM for 30 Days, #30 TAB 0 Refills Fluticasone Furoate-Vilanterol (Breo Ellipta) 1 Inh Inh 1 PUFF INH BID Multivitamin (Multivitamin) Tab 1 TAB PO QAM, TAB Pantoprazole (Protonix) 40 Mg Tab 40 MG PO HS, TAB Discontinued Medications: Carvedilol (Carvedilol) 6.25 Mg Tab 6.25 MG PO BID, #60 Ergocalciferol (Vitamin D) 50,000 Interunit Cap 81471 UNITS PO WK, #4 TAKES ON TUESDAYS Venlafaxine Hcl (Venlafaxine Hcl Er) 225 Mg Tab 225 MG PO DAILY, #30 Admission Information HPI (per Admitting provider): 66 year old female who presents to the ER after suffering a fall and having right hip pain. Patient's memory is poor and history is obtained from the . Patient was walking to the bathroom this morning when she suffered a fall. reports he a heard a thud and found her on the floor. He believes she tripped over her oxygen tubing. Patient denies lightheadedness, dizziness, or loss of coconsciousness. No associated chest pain. Patient has chronic shortness of breath at baseline which is unchanged. She also has a chronic productive cough at baseline which is unchanged. No fevers or chills recently. Patient has a ileostomy in place, output is unchanged. No abdominal pain, nausea , or vomiting. In the ER, patient is found to have right intertrochanteric hip fracture. WBC is 19K, no obvious source of infection is identified. Vitals are stable. Physical Exam (per Admitting): General Appearance: no apparent distress Head: normocephalic Eyes: normal inspection ENT: hearing grossly normal Neck: supple, no JVD Respiratory/Chest: no respiratory distress, + crackles (BL bases) Cardiovascular: regular rate, rhythm, no edema, normal peripheral pulses Abdomen/GI: normal bowel sounds, non tender, soft, + pertinent finding ( ileostomy in place, stoma pink, green/brown liquid stool present) Extremities/Musculoskelatal: + pertinent finding (right hip pain with minimal movement) Neurologic/Psych: no motor/sensory deficits, alert, normal mood/affect, oriented x 3, + pertinent finding (forgetful) Skin: normal color, warm/dry Hospital Course RIGHT HIP FRACTURE - s/p mechanical fall--rib fracture - s/p Right hip ORIF using trochanteric nail on 11/12 - doing well, acute anemia post-op- 2 units of blood 11/13. Good response, 7.3/ 23-->10.6/32 and tachycardia has improved. Hb stable at 11.3/34.7 - pain is worse 2/2 chronic cough irritating the ribs-->had problem with morphine but Oxy and APAP have been helpful. Changed pain control to Percocet 7.5 PRN on 11/17-->pt states this is effective but not lasting very long--> increased to 10 q4h prn. Also giving her one shot of toradol to see if this helps some with her discomfort-->stayed with the increased percocet as preferred by pt -cont pred 40mg PO daily per Pulm with q5day taper wean down as outpatient -cont sched and PRN Duonebs -per Cards restarted her aspirin in setting of CAD with prior stent placement -cont ambulating/PT efforts per Ortho TACHYCARDIA: likely multifactorial 2/2 pain and discomfort from current rib fracture, high dose steroid use, side effect of velafaxine (already reduced this admission to 150mg daily). As patient is expected to have pain long-term ( 4-6 weeks) and she will be on steroids long-term, I have increased her Coreg to 12.5mg PO BID. Cont to monitor. HEADACHE: intermittent, patient is holding her shoulders in a tense posture and has been for the last several days. Ordered K-pad as I feel this is related to tension. May also be a side effect from the steroids, however, we need to continue these in the setting of severe lung disease COPD-severe - saturating well on chronic 2L - keep O2 between 90-92% at goal, wean down on oxygen if saturation is >94% - no wheezing on exam - management per pulm recs as above PTX s/p fall -possibly 2/2 trauma with assoc rib fracture -stable on oxygen -appreciate pulm following -she will need outpatient pulm follow-up at discharge from SNF ANEMIA- -2/2 blood loss post-op -tx 2 U with good response as above. Stable -also may have been some element of dilution with IVF given prior to recheck -H/H at discharge was 11.3/34.7 CDIFF INFECTION- cont Vanc PO formed stool seen in colostomy today denies abdominal pain tolerating PO afebrile LEUKOCYTOSIS: Improved in setting of infection, post-op stress and steroid use CAD-stable - no reports of chest pain - s/p RCA stent 1998, cath 2010 - 60% PDA stenosis - continue Coreg, cont ASA -Cards following On day of discharge she was hemodynamycally stable and afebrile. She was asymptomatic aside from her expected rib pain with coughing to clear secretions (at baseline) and expected incisional pain post-op. Her physical exam revealed lungs that were clear to auscultation bilaterally and normal heart exam. She was frail and appeared older than her stated age. She was ambulatory with a walker and assistance and was tolerating PO with formed stool in colostomy bag. She was discharged to SNF in good condition for additional rehab efforts post op. Total time spent on discharge = 60 minutes This includes examination of the patient, discharge planning, medication reconciliation, and communication with other providers. Discharge Instructions Discharge Instructions Admission Reason for Admission: Hip Fracture Discharge Discharge Diagnosis / Problem: Hip fracture, COPD, Pneumothorax, C. difficile colitis Discharge Goals Goal(s): Improve function, Increase independence, Prevent Disease Progression Activity Recommendations Activity Limitations: as noted below (per rehab staff and Ortho instructions on activity) . Instructions / Follow-Up Instructions / Follow-Up Please take all medications as prescribed. Per Pulmonology (Dr. Bertrand) you will need a prolonged taper of prednisone and good followup within 1-2 weeks after discharge from rehab facility. Additionally, it was recommended that your nebulizer treatments be continued. You will need a repeat Chest CT scan in 6-8 weeks to re-evaluate some nodules in your lungs. Your PCP or lung doctor will be able to set this up for you. Smoking cessation is STRONGLY advised at this point Continue oxygen at current dose to maintain saturation between 90%-92% at rest. You will need to follow up with Cardiology with in one month of discharge (Dr. Ayon). Follow all Orthopedic recommendations attached in additional instruction sheet including continue weight-bearing as tolerated with walker and assist, ice applied to right hip as instructed, PT/OT daily, Lovenox shots daily to prevent blood clots post-operatively for designated length of time, follow-up in [address] Hemal Hayes to get prince removed from incision site. Please call [facility] to get this appointment set up. You have an appointment with Dr. Kirk for 11/22 @ 1050 to review all changes made during this hospitalization and ensure you are progressing well. Please bring all paperwork with you and arrive 15 minutes early. It was a pleasure taking care of you! Call if you have any questions or problems. You can reach a [facility] hospitalist on duty at [facility] 24 hours a day by calling [phone]. Take care of yourself. Carrol Lew, DO [facility] Hospitalist Additional Copies To Matheus Kirk M.D.
[2017-02-25] MEDS ORDERED: TIOT1SPR PO (23:39)
[2017-02-25] MEDS ORDERED: FLUT1INH7 PO (23:41)
[2017-02-25] MEDS ORDERED: OMEP20CA9 PO (23:42)
[2017-02-25] MEDS ORDERED: VNTHFA/IN INH (23:57)
[2017-02-26] MEDS ORDERED: ASCO500C43 PO
[2017-02-26] MEDS ORDERED: NITR0.4S UT
[2017-02-26] MEDS ORDERED: MULT-506 PO
[2017-02-26] MEDS ORDERED: CYAN100T6 PO (00:02)
== END 2016-11-18 17:00 | DRG 956 ==
LOC: ENRESERVDT → ENRESERVTM → EDBD 14:39 → C.EDB 14:41 → C.MSN 17:10 → C.2T 22:00 → EDBEDREQSVC 11-15 11:24 → C.MSN 11-15 14:41
PROVIDERS: ADMIT Internal Medicine; ATTEND Hospitalist
PROC: 0QS606Z Reposition Right Upper Femur with Intramedullary Internal Fixation Device, Open Approach (ICD-10-PCS; principal; 2016-11-12 08:00)
DX: S72.144A Nondisplaced intertrochanteric fracture of right femur, initial encounter for closed fracture (principal); S27.0XXA Traumatic pneumothorax, initial encounter; J96.10 Chronic respiratory failure, unspecified whether with hypoxia or hypercapnia; S22.31XA Fracture of one rib, right side, initial encounter for closed fracture; A04.7 Enterocolitis due to Clostridium difficile; D62 Acute posthemorrhagic anemia; I25.10 Atherosclerotic heart disease of native coronary artery without angina pectoris; F32.9 Major depressive disorder, single episode, unspecified; I48.0 Paroxysmal atrial fibrillation; E78.5 Hyperlipidemia, unspecified; D72.829 Elevated white blood cell count, unspecified; J44.9 Chronic obstructive pulmonary disease, unspecified; I25.2 Old myocardial infarction; R91.8 Other nonspecific abnormal finding of lung field; W01.0XXA Fall on same level from slipping, tripping and stumbling without subsequent striking against object, initial encounter; Y92.009 Unspecified place in unspecified non-institutional (private) residence as the place of occurrence of the external cause; F17.210 Nicotine dependence, cigarettes, uncomplicated; R00.0 Tachycardia, unspecified; R51 Headache; T43.215A Adverse effect of selective serotonin and norepinephrine reuptake inhibitors, initial encounter; T38.0X5A Adverse effect of glucocorticoids and synthetic analogues, initial encounter; I49.1 Atrial premature depolarization; I25.82 Chronic total occlusion of coronary artery; F03.90 Unspecified dementia, unspecified severity, without behavioral disturbance, psychotic disturbance, mood disturbance, and anxiety; Z93.3 Colostomy status; Z88.0 Allergy status to penicillin; Z87.19 Personal history of other diseases of the digestive system; Z86.14 Personal history of Methicillin resistant Staphylococcus aureus infection; Z99.81 Dependence on supplemental oxygen; Z90.49 Acquired absence of other specified parts of digestive tract; Z90.81 Acquired absence of spleen; Z95.5 Presence of coronary angioplasty implant and graft; Z93.0 Tracheostomy status; Z79.82 Long term (current) use of aspirin; Z79.51 Long term (current) use of inhaled steroids; Z79.899 Other long term (current) drug therapy

== ENCOUNTER → 2016-11-26 | Outpatient (CLI) | payer OTHER ==
[~2016-11-26] MED LIST changes: -ACET325T96 PO; -ALBUAER2 INH; +ARFO15NE INH; +ARFO15NE NEB; +ASCO500C43 PO; +ATRINS INH; -CARV3.122 PO; +CRG125 PO; +CYAN100T6 PO; +EFFSR150 PO; -ERGO1CAP35 PO; +FLUT1INH7 PO; +LVNIS30 SQ; -LVQ750 PO; +MIRT15TA3 PO; +NITR0.4S UT; +NUTR-1048 PO; +NUTR-977 PO; +OMEP20CA9 PO; +OXYC-88 PO; +PRD20 PO; +PRED10TA PO; +TIOT1SPR PO; -TIOTCAP INH; -VENL150C56 PO; -VITACAP26 PO; +VNCS125 PO; +VNTHFA/IN INH; +VTMB12100 PO; +VTMD PO; +XPNINS NEB; +XPNINS1255 INH
== END | disposition home or self-care (01) ==
LOC: C.RDSM 07:29
PROVIDERS: ATTEND Physical Medicine & Rehabilitation Sports Medicine
DX: M25.551 Pain in right hip (principal)

== ENCOUNTER → 2016-11-27 | Outpatient (CLI) | payer OTHER ==
[2016-11-27 08:28] LABS: BASO % 0.1 %; BASO ABS # 0.02 K/uL (0-0.2); COMPLETE YES; EOS % 2.1 %; HEMATOCRIT 34.3 % (37-47); IG% 0.3 %; LYMPH % 15.5 %; LYMPH ABS # 2.31 K/uL (1.2-3.4); MEAN CORPUSCULAR HEMOGLOBIN 31.4 pg (25-34); MEAN CORPUSCULAR HGB CONC 32.1 g/dl (32-36); MONO % 10.9 %; NEUT % 71.1 %; PLATELET COUNT 504 K/uL (130-400)
== END ==
LOC: C.LABCC 08:15
PROVIDERS: ATTEND Internal Medicine
DX: D64.9 Anemia, unspecified (principal)

== ENCOUNTER → 2016-12-02 | Outpatient (CLI) | payer OTHER ==
[2016-12-02 09:30] LABS: BASO % 0.1 %; BASO ABS # 0.02 K/uL (0-0.2); COMPLETE YES; EOS % 1.9 %; HEMATOCRIT 34.9 % (37-47); IG% 0.3 %; LYMPH % 16.3 %; LYMPH ABS # 2.33 K/uL (1.2-3.4); MEAN CELL VOLUME 99.1 fL (80-100); MEAN CORPUSCULAR HEMOGLOBIN 32.1 pg (25-34); MEAN CORPUSCULAR HGB CONC 32.4 g/dl (32-36); MEAN PLATELET VOLUME 8.7 fL (7.4-10.4); NEUT % 71.4 %; PLATELET COUNT 428 K/uL (130-400); RED BLOOD COUNT 3.52 M/uL (4.2-5.4); WHITE BLOOD COUNT 14.27 K/uL (4.8-10.8)
== END ==
LOC: C.LABCC 08:50
PROVIDERS: ATTEND Internal Medicine
DX: D72.829 Elevated white blood cell count, unspecified (principal)

== ENCOUNTER → 2016-12-27 | Outpatient (CLI) | payer OTHER | END | disposition home or self-care (01) | LOC: C.RDSM 10:45 | PROVIDERS: ATTEND Physical Medicine & Rehabilitation Sports Medicine | DX: S72.141A Displaced intertrochanteric fracture of right femur, initial encounter for closed fracture (principal); X58.XXXA Exposure to other specified factors, initial encounter ==

== ENCOUNTER → 2017-01-16 | Outpatient (CLI) | payer OTHER ==
--- NOTE | 2017-01-16 10:02 | DIAGNOSTIC IMAGING REPORT ---
CT SCAN OF THE CHEST WITHOUT IV CONTRAST CLINICAL HISTORY: Pulmonary nodule follow-up. COMPARISON STUDY: Chest CT scans dated 11/12/2016 and 01/02/2015. TECHNIQUE: CT scan of the thorax was performed from the thoracic inlet to the upper abdomen. Images are reviewed in the axial, sagittal, and coronal planes. IV contrast was not administered for this examination. CT DOSE: 177.88 mGycm FINDINGS: Thyroid: Imaged portions of the thyroid gland are normal in size and attenuation. Thoracic aorta: There is atherosclerotic calcification of the thoracic aorta, which is normal in caliber and demonstrates standard 3-vessel arch anatomy. Heart: The heart is normal in size and without pericardial effusion. The coronary arteries are densely calcified. Lungs and pleural spaces: Advanced emphysema is observed with biapical scarring. The trachea is clear. Fluid/secretions are present within the right bronchus intermedius. There is patchy airspace consolidation at the right lung base and a trace right pleural effusion. Milder patchy changes are seen at the left lung base. There are numerous tiny calcified granulomas. An irregular linear opacity in the left lower lobe seen on image #149 has decreased in size from 11/12/2016, likely representing atelectasis and scar. Bilateral upper lobe opacities are similar to previous, greater on the right. These are nonmass-like, and the largest measures 1.8 cm as seen on image #96. Mediastinum: There are scattered subcentimeter mediastinal lymph nodes. These are not pathologically enlarged by size criteria. Katia: Not well assessed without IV contrast. Axillae: There is no axillary lymphadenopathy. Upper abdomen: A 3 mm nonobstructing calculus is noted in the right kidney. An additional punctate nonobstructing calculus is seen in the left kidney. Partially visualized upper abdominal viscera is otherwise within normal limits. Skeletal structures: The skeletal structures are osteopenic. There is a mild superior endplate compression deformity of L1. Mild degenerative change and hyperkyphosis is seen in the thoracic spine. No lytic or blastic bony lesions are seen. There is callous formation from a healing right-sided ninth rib fracture as seen on image #215. Soft tissues: The patient is cachectic. IMPRESSION: 1. Advanced emphysema. 2. There is patchy airspace consolidation at the right lung base, with additional patchy opacities identified at the left lung base. This suggests an infectious/inflammatory pneumonitis, possible related to aspiration. Clinical correlation will be required. 3. There is a trace right pleural effusion. 4. Irregular airspace opacities in the left lower lobe have decreased in size and thickness from 11/12/2016. Irregular bilateral upper lobe airspace opacities, greater on the right are nonmasslike and overall similar in appearance to previous. These likely represent foci of scarring/atelectasis. An additional precautionary follow-up examination in 3 months time is recommended for reassessment. 5. Small bilateral nonobstructing kidney stones. 6. Additional findings as above. Electronically signed by: True Virgen M.D. 01/16/2017 10:00 AM Dictated Date/Time: 01/16/2017 9:50 AM
== END | disposition home or self-care (01) ==
LOC: C.CTS 09:29
PROVIDERS: ATTEND Physician Assistant
DX: R91.8 Other nonspecific abnormal finding of lung field (principal)

== ENCOUNTER 2017-02-25 22:33 | Inpatient (IN) | payer OTHER ==
[~2017-02-25] VITALS: Ht 160 cm; Wt 92.7 kg
[~2017-02-25 22:33] MED LIST changes: -ARFO15NE INH; -ASCO500C43 PO; -ASPI81TA28 PO; -CYAN100T6 PO; -FLUT1INH7 PO; -MIRT15TA3 PO; -NITR0.4S UT; -NUTR-1048 PO; -OMEP20CA9 PO; -PRED10TA PO; -TIOT1SPR PO; -VNTHFA/IN INH; -VTMD PO; -XPNINS NEB
--- NOTE | 2017-02-25 23:00 | EMERGENCY ROOM VISIT NOTE ---
History Report prepared by Edwina: Newton Anderson Under the Supervision of: Dr. Himanshu Tena M.D. First contact with patient: 22:50 Chief Complaint: FALL Stated Complaint: FALL/NASAL PAIN History of Present Illness The patient is a 66 year old female who presents to the Emergency Room via ambulance with complaints of a sudden fall occurring prior to arrival. The patient states that she tripped and fell, and she was lying on the ground for about a minute, then her called the ambulance for her. The patient states that she fell and hit her face, though she denies any shoulder pain, knee pain, wrist pain, and urinary symptoms. The patient states that she does not really remember falling. She is currently on blood thinners. Source of History: patient Onset: prior to arrival Position: other (global) Quality: other (fall) Timing: other (sudden) Associated Symptoms: No urinary symptoms Review of Systems See HPI for pertinent positives & negatives. A total of 10 systems reviewed and were otherwise negative. Past Medical & Surgical Medical Problems: (1) CAD (coronary artery disease) (2) Chronic obstructive lung disease (3) CO2 retention (4) COPD, severe (5) Depression (6) Diverticulosis of sigmoid colon (7) Fall (8) Hyperlipidemia (9) MRSA bacteremia (10) Paroxysmal a-fib (11) Respiratory failure Surgical Problems: (1) H/O ileostomy (2) History of cardiac catheterization (3) History of tonsillectomy (4) S/P partial colectomy (5) S/P splenectomy (6) Status post tracheostomy Family History FH: heart disease FATHER ([place] at age 47) FH: pulmonary embolism MOTHER (at age 48) Social History Smoking Status: Current Every Day Smoker Alcohol Use: occasionally Drug Use: none Marital Status: Housing Status: lives with significant other Occupation Status: retired Current/Historical Medications Scheduled Arformoterol Tartrate (Brovana), 15 MCG INH BID Ascorbic Acid (Vitamin C 500 mg), 1 TAB PO DAILY Aspirin (Aspirin Ec), 81 MG PO QAM Bupropion HCl (Bupropion HCl Xl), 300 MG PO QAM Carvedilol (Carvedilol), 12.5 MG PO BID Cyanocobalamin (Vitamin B12 100 Mcg), 100 MCG PO DAILY Ergocalciferol (Vitamin D), 50,000 INTER.UNIT PO WK Fluticasone Furoate-Vilanterol (Breo Ellipta 200-25 Mcg/INH), 1 PUFF PO DAILY Mirtazapine (Remeron), 15 MG PO HS Multivitamin (Multivitamin), 1 TAB PO DAILY Nutritional Supplements (Prosource), 30 ML PO QID Omeprazole (Prilosec), 20 MG PO HS Tiotropium [place] Monohydrate (Spiriva Respimat), 2 PUFFS PO DAILY Venlafaxine Hcl (Effexor Extended Rel), 150 MG PO DAILY Scheduled PRN Albuterol Hfa (Ventolin Hfa), 2 PUFFS INH Q6 PRN for SOB/Wheezing Levalbuterol (Levalbuterol HCl), 1 AMP NEB Q6 PRN for SOB/Wheezing Nitroglycerin (Nitrostat), 0.4 MG UT UD PRN for Chest Pain Allergies Coded Allergies: Penicillins (Verified Allergy, Intermediate, HIVES, 02/25/17) LIKELY TOLERATES CEFEPIME, IMIPENEM (SEE ADMISSION 08/13/15) Physical Exam Vital Signs Date Time Temp Pulse Resp B/P Pulse Ox O2 Delivery O2 Flow Rate FiO2 02/26/17 03:35 92 93 30 02/26/17 03:30 90 22 131/84 91 BiPAP 02/26/17 02:12 80 02/26/17 02:00 83 20 96/58 99 02/26/17 01:36 88 18 90 Nasal Cannula 4.0 02/26/17 01:03 81 18 96 02/26/17 01:00 107/63 02/26/17 00:41 129/75 02/26/17 00:10 133/76 02/25/17 23:33 71 18 100 02/25/17 23:30 108/73 02/25/17 23:20 117/72 02/25/17 23:03 77 20 97 02/25/17 22:54 69 02/25/17 22:38 35.6 56 18 139/72 98 Nasal Cannula 3.0 02/25/17 22:36 139/72 Physical Exam GENERAL: Patient is elderly/frail appearing, mildly sleepy but awakens to verbal commands. HEENT: Bruising over the bridge of the nose and swelling, normocephalic atraumatic, mucous membranes moist, no nasal congestion, no scleral icterus. NECK: No stridor, no adenopathy, no meningismus, trachea is midline. LUNGS: Junky cough and mild bilateral wheezing (patient states chronic). No dyspnea. No wheeze, no rhonchi. HEART: Regular rate and rhythm. No murmurs, rubs, gallops appreciated. ABDOMEN: Ostomy. Soft, nontender, bowel sounds positive, no masses appreciated, no peritonitis. BACK: No midline tenderness, no CVA tenderness EXTREMITIES: Normal motion all extremities, no cyanosis, no edema. NEUROLOGIC: GCS 14. Alert and oriented, no acute motor or sensory deficits, no focal weakness, cranial nerves grossly intact. SKIN: Has a skin tear of the left wrist. No rash, no jaundice, no diaphoresis. Medical Decision & Procedures ER Provider Diagnostic Interpretation: X ray results are stated below per my interpretation. 1 View Chest: Emphysema/COPD findings. No infiltrate. No effusion 1 View Pelvis: Arthritic changes. No fracture. No dislocation. CT results as stated below per interpretation by me and the radiologist: CT HEAD: Evaluation slightly limited by motion/streak artifact. No evidence of acute intracranial hemorrhage or mass effect. Left forehead soft tissue swelling. No displaced skull fracture. CT FACIAL: Acute fracture right nasal bone. Small fracture fragment at anterior nasal spine. Paranasal sinuses and mastoid air cells are clear. CT C SPINE: No evidence of fracture. Multilevel degenerative changes. Mild retrolisthesis of C3 on C4 and C4 on C5. Carotid calcifications. Emphysema. Laboratory Results 02/26/17 00:08 Red Blood Count 3.96, Mean Corpuscular Volume 109.3, Mean Corpuscular Hemoglobin 31.3, Mean Corpuscular Hemoglobin Concent 28.6, Mean Platelet Volume 10.7, Neutrophils (%) (Auto) 73.6, Lymphocytes (%) (Auto) 14.7, Monocytes (%) ( Auto) 10.2, Eosinophils (%) (Auto) 1.1, Basophils (%) (Auto) 0.3, Neutrophils # (Auto) 5.86, Lymphocytes # (Auto) 1.17, Monocytes # (Auto) 0.81, Eosinophils # ( Auto) 0.09, Basophils # (Auto) 0.02 02/25/17 23:20 Test 02/25/17 23:20 02/26/17 00:08 02/26/17 00:47 Anion Gap -7.0 mmol/L (3-11) Est Creatinine Clear Calc Drug Dose 97.8 ml/min Estimated GFR () 122.1 Estimated GFR (Non- 105.3 BUN/Creatinine Ratio 53.5 (10-20) Calcium Level 9.9 mg/dl (8.5-10.1) Magnesium Level 1.8 mg/dl (1.8-2.4) Total Bilirubin 0.1 mg/dl (0.2-1) Direct Bilirubin < 0.1 mg/dl (0-0.2) Aspartate Amino Transf (AST/SGOT) 17 U/L (15-37) Alanine Aminotransferase (ALT/SGPT) 20 U/L (12-78) Alkaline Phosphatase 87 U/L (45-117) Total Creatine Kinase 63 U/L (26-192) Troponin I < 0.015 ng/ml (0-0.045) Total Protein 7.5 gm/dl (6.4-8.2) Albumin 3.0 gm/dl (3.4-5.0) Lipase 282 U/L (73-393) White Blood Count 7.96 K/uL (4.8-10.8) Red Blood Count 3.96 M/uL (4.2-5.4) Hemoglobin 12.4 g/dL (12.0-16.0) Hematocrit 43.3 % (37-47) Mean Corpuscular Volume 109.3 fL (80-100) Mean Corpuscular Hemoglobin 31.3 pg (25-34) Mean Corpuscular Hemoglobin Concent 28.6 g/dl (32-36) Platelet Count 204 K/uL (130-400) Mean Platelet Volume 10.7 fL (7.4-10.4) Neutrophils (%) (Auto) 73.6 % Lymphocytes (%) (Auto) 14.7 % Monocytes (%) (Auto) 10.2 % Eosinophils (%) (Auto) 1.1 % Basophils (%) (Auto) 0.3 % Neutrophils # (Auto) 5.86 K/uL (1.4-6.5) Lymphocytes # (Auto) 1.17 K/uL (1.2-3.4) Monocytes # (Auto) 0.81 K/uL (0.11-0.59) Eosinophils # (Auto) 0.09 K/uL (0-0.5) Basophils # (Auto) 0.02 K/uL (0-0.2) RDW Standard Deviation 57.2 fL (36.4-46.3) RDW Coefficient of Variation 14.3 % (11.5-14.5) Immature Granulocyte % (Auto) 0.1 % Immature Granulocyte # (Auto) 0.01 K/uL (0.00-0.02) Arterial Blood pH 7.25 (7.35-7.45) Arterial Blood Partial Pressure CO2 118 mmHg (35-46) Arterial Blood Partial Pressure O2 119 mm/Hg (80-95) Arterial Blood HCO3 50 mmol/L (19-24) Arterial Blood Oxygen Saturation 97.3 % (90-95) Arterial Blood Base Excess 17.7 mEq/L (-9-1.8) Arterial Blood Gas Delivery 3L Tristan Test POS (POS) Laboratory results as reviewed by me. Medications Administered Medications (Trade) Dose Ordered Sig/José Miguel Route Start Time Stop Time Status Last Admin Dose Admin Methylprednisolone Sodium Succinate (Solu-Medrol IV) 125 mg NOW STAT IV 02/26/17 01:25 02/26/17 01:26 DC 02/26/17 01:31 125 MG Albuterol/ Ipratropium (Duoneb) 12 ml ONE ONCE INH 02/26/17 01:30 02/26/17 01:31 DC 02/26/17 01:36 12 ML ED Course 2250: The patient was evaluated in room C3. A complete history and physical exam was performed. 0125: Solu-Medrol 125mg IV 0128: I reevaluated the patient, and she was resting 0130: DuoNeb 12ml INH 0135: I discussed the patient's case with Dr. Roman. He is going to evaluate the patient for further treatment. Medical Decision Differential: Sepsis, Infectious (UTI/Pneumonia/Meningitis/etc), Metabolic/ Electrolyte Abnormality, Cardiac, Hepatic, Endocrine, Toxicologic, Neurologic, amongst other pathologies entertained. 66 yr old unwell female arrives for evaluation s/p fall. Lung exam poor on arrival though she states she feels like her breathing is at baseline. Labs reveal hypercapnea confirmed by ABG with mild acidosis. Likely secondary to retaining with worsening COPD and would suspect this is cause of fall. CT head/ face/neck without acute findings other than nasal fracture. CXR without acute infiltrate. Mild hypothermia though no fever and not acutely septic appearing. Pelv xray without fracture. Will need to come in for further treatment. Will initially treat with nebs/steroids and with nasal fracture will try to avoid bipap unless nebs ineffective. Consults Time Called: 0128 Consulting Physician: Dr. Roman Returned Call: 0135 I discussed the patient's case with Dr. Roman. He is going to evaluate the patient for further treatment Impression Primary Impression: Hypercapnic respiratory failure Additional Impressions: Fall Nasal fracture Skin tear Scribe Attestation The scribe's documentation has been prepared under my direction and personally reviewed by me in its entirety. I confirm that the note above accurately reflects all work, treatment, procedures, and medical decision making performed by me. Departure Information Dispostion Being Evaluated By Hospitalist Matheus Mendieta M.D. (PCP) Patient Instructions My [facility] Problem Qualifiers Primary Impression: Hypercapnic respiratory failure Chronicity: acute on chronic Qualified Codes: J96.22 - Acute and chronic respiratory failure with hypercapnia Additional Impressions: Fall Encounter type: initial encounter Qualified Codes: W19.XXXA - Unspecified fall, initial encounter Nasal fracture Encounter type: initial encounter Fracture type: closed Qualified Codes: S02.2XXA - Fracture of nasal bones, initial encounter for closed fracture
[2017-02-25] MEDS ORDERED: MIRT15TA3 PO (23:39)
[2017-02-25 23:53] LABS: ALT/SGPT 20 U/L (12-78); AST/SGOT 17 U/L (15-37); BLOOD UREA NITROGEN 22 mg/dl (7-18); BUN/CREATININE RATIO 53.5 (10-20); CALCIUM 9.9 mg/dl (8.5-10.1); CHLORIDE 91 mmol/L (98-107); CREATININE 0.42 mg/dl (0.60-1.20); GLUCOSE 98 mg/dl (70-99); MAGNESIUM 1.8 mg/dl (1.8-2.4); POTASSIUM 4.3 mmol/L (3.5-5.1); SODIUM 141 mmol/L (136-145)
[2017-02-25 23:56] LABS: ALKALINE PHOSPHATASE 87 U/L (45-117)
[2017-02-25] MEDS ORDERED: VTMD PO (23:56)
[2017-02-26] VITALS (15 sets, daily range): BP systolic 87–164; BP diastolic 51–79; PULSE 88–110; TEMP 36.5–36.9; O2SAT 55–100; Ht 160 cm; Wt 92.7 kg
[2017-02-26] MEDS ORDERED: NUTR-1048 PO
[2017-02-26] MEDS ORDERED: XPNINS NEB (00:02)
[2017-02-26] MEDS ORDERED: ARFO15NE INH (00:02)
[2017-02-26 00:13] LABS: CARBON DIOXIDE 57 mmol/L (21-32)
[2017-02-26 00:34] LABS: BASO % 0.3 %; BASO ABS # 0.02 K/uL (0-0.2); COMPLETE YES; EOS % 1.1 %; HEMATOCRIT 43.3 % (37-47); IG% 0.1 %; LYMPH % 14.7 %; LYMPH ABS # 1.17 K/uL (1.2-3.4); MEAN CELL VOLUME 109.3 fL (80-100); MEAN CORPUSCULAR HEMOGLOBIN 31.3 pg (25-34); MEAN CORPUSCULAR HGB CONC 28.6 g/dl (32-36); MEAN PLATELET VOLUME 10.7 fL (7.4-10.4); MONO % 10.2 %; NEUT % 73.6 %; PLATELET COUNT 204 K/uL (130-400); RED BLOOD COUNT 3.96 M/uL (4.2-5.4); WHITE BLOOD COUNT 7.96 K/uL (4.8-10.8)
[2017-02-26 00:56] LABS: ARTERIAL BLD GAS O2 SATURATION 97.3 % (90-95); ARTERIAL BLOOD GAS BASE EXCESS 17.7 mEq/L (-9-1.8); ARTERIAL BLOOD GAS HCO3 50 mmol/L (19-24); ARTERIAL BLOOD GAS PO2 119 mm/Hg (80-95); ARTERIAL BLOOD GAS pH 7.25 (7.35-7.45)
[2017-02-26 00:57] LABS: ALLEN TEST POS (POS); O2 ADMINISTRATION 3L
[2017-02-26] MEDS ORDERED: METHYLPREDNISOLONE 125 MG VIAL IV STA (01:25)
[2017-02-26] MEDS ORDERED: ALBUT/IPRATROP 3MG/0.5MG NEB 3 ML VIAL INH ONE (01:30)
[2017-02-26] MEDS ORDERED: ALBUTEROL HFA 8 GM INHALER INH PRN (03:00)
[2017-02-26] MEDS ORDERED: LEVALBUTEROL/IPRATROPIUM NEB INH PRN (03:00)
[2017-02-26] MEDS ORDERED: ONDANSETRON INJ 2 MG/ML 2 ML VIAL IV PRN (03:00)
[2017-02-26] MEDS ORDERED: MAGNESIUM HYDROXIDE SUSP 30 ML UDC PO PRN (03:00)
[2017-02-26] MEDS ORDERED: NITROGLYCERIN 0.4 MG SL PER TAB CHARGE SL PRN (03:00)
[2017-02-26] MEDS ORDERED: NITROGLYCERIN 0.4 MG SL PER TAB CHARGE UT PRN (03:00)
[2017-02-26] MEDS ORDERED: ALUMINUM/MAGNESIUM/SIMETH (MAALOX MAX) 30 ML UDC PO PRN (03:00)
[2017-02-26] MEDS ORDERED: LEVALBUTEROL/IPRATROPIUM NEB INH SCH (03:00)
[2017-02-26] MEDS ORDERED: IPRATROPIUM BROMIDE NEB SOLN 0.02% 2.5 ML VIAL INH PRN (06:45)
[2017-02-26] MEDS ORDERED: LEVALBUTEROL 0.63MG/3 ML NEB INH PRN (06:45)
--- NOTE | 2017-02-26 06:57 | DIAGNOSTIC IMAGING REPORT ---
CHEST ONE VIEW PORTABLE CLINICAL HISTORY: Generalized Weakness COMPARISON STUDY: Chest radiograph January 16, 2017. FINDINGS: There is no pneumothorax or pleural effusion. Emphysema is noted. Cardiac size is normal. Mediastinal contours are normal. There is no evidence of pulmonary edema. Mild asymmetric interstitial thickening within the right lung is unchanged. A few irregular densities are unchanged. A minimally displaced right ninth rib fracture is noted. IMPRESSION: 1. No significant change in asymmetric interstitial thickening and irregular opacities within the right lung since chest CT of January 16, 2017. 2. Minimally displaced right ninth rib fracture, likely subacute to acute. Electronically signed by: Grzegorz Hernández M.D. 02/26/2017 6:55 AM Dictated Date/Time: 02/26/2017 6:51 AM
--- NOTE | 2017-02-26 06:58 | DIAGNOSTIC IMAGING REPORT ---
PELVIS 1 OR 2 VIEW ROUTINE CLINICAL HISTORY: Fall, trauma COMPARISON STUDY: Pelvis radiograph November 26, 2016. FINDINGS: The sacroiliac joints and symphysis pubis are intact. There is a right lower quadrant ostomy. A right femoral trochanteric nail is in place. Hardware is partially imaged. No acute fracture within the pelvis or hips is identified. IMPRESSION: No acute fracture within the pelvis or hips status post previous proximal right femoral internal fixation. Electronically signed by: Grzegorz Hernández M.D. 02/26/2017 6:56 AM Dictated Date/Time: 02/26/2017 6:55 AM
[2017-02-26 07:08] LABS: ARTERIAL BLD GAS O2 SATURATION 92.9 % (90-95); ARTERIAL BLOOD GAS BASE EXCESS 19.3 mEq/L (-9-1.8); ARTERIAL BLOOD GAS HCO3 49 mmol/L (19-24); ARTERIAL BLOOD GAS PO2 66 mm/Hg (80-95); ARTERIAL BLOOD GAS pH 7.39 (7.35-7.45)
--- NOTE | 2017-02-26 07:09 | HISTORY & PHYSICAL EXAMINATION ---
DATE OF ADMISSION: 02/26/2017 CHIEF COMPLAINT: Status post fall and injury to the face. HISTORY OF PRESENT ILLNESS: This is a 66-year-old female with past medical history significant for severe COPD; CAD, status post RCA stent; depression; hyperlipidemia; MRSA bacteremia; paroxysmal atrial fibrillation; history of chronic respiratory failure presents with a fall at home. The patient says she was trying to get up from the bed and fell on her face. She did not lose consciousness. Denies any chest pain or shortness of breath or nausea. The patient is somewhat lethargic, but opens her eyes on calling, can tell her name and can tell place but cannot tell the date and time. ABGs show CO2 retention in the ER. Currently saturating okay on oxygen, hemodynamically stable. Denies any complaints at this time, could not get much history from the patient as the patient is going back to sleep. ALLERGIES: TO PENICILLIN. PAST MEDICAL HISTORY: As mentioned above. PAST SURGICAL HISTORY: Status post ileostomy, history of cardiac catheterization, history of tonsillectomy, status post partial colectomy for ischemic bowel, status post splenectomy, and status post tracheostomy. MEDICATIONS: The patient is on Spiriva, Respimat 2.5 mcg 2 puffs b.i.d., Coreg 12.5 mg p.o. b.i.d., omeprazole 20 mg p.o. daily, mirtazapine 15 mg p.o. at bedtime, cyanocobalamin 100 mcg p.o. daily, albuterol 0.63 nebulization every 6 hours p.r.n., Brovana 15 mcg inhalation b.i.d.,venlafaxine 150 mg p.o. daily, vitamin D 50,000 units p.o. q. weekly, prednisone rescue kit, Breo Ellipta 100/25 mcg inhalation daily, Wellbutrin-XL 300 mg p.o. daily, Ventolin HFA 2 puffs p.r.n., aspirin 81 mg p.o. daily, nutrition supplements ProSource 30 mL p.o. q.i.d., nitroglycerin 0.4 mg sublingual p.r.n., multivitamins p.o. daily, and vitamin C 500 mg p.o. daily. FAMILY HISTORY: Father had ND at age of 47. Mother had pulmonary embolism at the age of 48. SOCIAL HISTORY: Former smoker. No alcohol use. . REVIEW OF SYSTEMS: As per HPI. Rest of review of systems is not obtainable. PHYSICAL EXAMINATION: GENERAL: The patient seems old and frail. VITAL SIGNS: Temperature 35.6, pulse 80, respiratory rate 18, blood pressure 107/76, oxygen 90% on 4 liters. HEENT: No pallor, no icterus. Pupils equal, round, and reactive to light. Head showing some blood in the nostrils and the mouth region. NECK: No JVD, no neck masses, no carotid bruits. CARDIOVASCULAR: S1, S2 heard, regular rate and rhythm, no murmur, no gallop. RESPIRATORY SYSTEM: Clear to auscultation bilaterally. Bilateral diminished breath sounds. No wheezing, no crackles. ABDOMEN: Soft, bowel sounds present. Nontender. No distention. CENTRAL NERVOUS SYSTEM: Drowsy, oriented x2. Nonfocal. EXTREMITIES: No edema. No erythema. LABS: WBC 7.9, hemoglobin 12.4, hematocrit 43.3, platelets 204. Sodium 141, potassium 4.8, chloride 91, bicarbonate 27, BUN 22, creatinine 0.4, serum glucose 98, calcium 9.9, magnesium 1.8, total bilirubin 0.1, direct bilirubin 0.1, direct bilirubin 0.1, AST 70, ALT 20, alkaline phosphatase 87. Troponin less than 0.015. Lipase 282. ABG; pH 7.25, pCO2 118, pO2 119, bicarb 50, on 3 liters 97%. Chest x-ray, no acute findings seen. CT head, cervical spine CT, pelvis x-ray the maxillofacial CT unofficial report is unremarkable. EKG shows sinus rhythm sinus rhythm with sins arrhythmia at a rate of 68, no acute ST changes seen. ASSESSMENT AND PLAN: This is a 66-year-old female who presents with fall, most likely secondary to CO2 retention. lethargy, mostly CO2 narcosis; chronic obstructive pulmonary disease, possible exacerbation. Continue Brovana, Ellipta, Spiriva, neb Xopenex atc and p.r.n., IV Solu-Medrol 40 b.i.d. BiPAP as tolerated. The patient has some facial injuries. Repeat ABG in the a.m. Consult pulmonary for further recommendations. 2 Acute on chronic respiratory failure secondary to chronic obstructive pulmonary disease exacerbation, treatment and management as above. 3 History of coronary artery disease, status post stent placement. Continue Coreg and aspirin. 4 Depression on Effexor, and Wellbutrin. 5 Hypertension, on Coreg. Monitor the blood pressure. 6 History of ischemic colon, status post colectomy and placement of ileostomy. 7 History of falls in the past with closed hip fracture. PT, OT when patient is more stable. 8. Deep venous thrombosis prophylaxis, SCDs for now. Disposition: Admit to tele floor. PT and OT prior to discharge. Social service for discharge planning. Code status, level 1 for now. To be discussed when the patient is more awake. MTDD
[2017-02-26] MEDS: LEVALBUTEROL 1.25MG/0.5ML NEB INH SCH ×3 (07:10→19:52)
[2017-02-26] MEDS: IPRATROPIUM BROMIDE NEB SOLN 0.02% 2.5 ML VIAL INH SCH ×3 (07:10→19:52)
[2017-02-26 07:12] LABS: ALLEN TEST POS (POS); O2 ADMINISTRATION 3L
--- NOTE | 2017-02-26 07:12 | DIAGNOSTIC IMAGING REPORT ---
CT OF THE HEAD WITHOUT CONTRAST CLINICAL HISTORY: Generalized weakness. Fall. COMPARISON STUDY: No previous studies for comparison. TECHNIQUE: Helical axial images of the head were obtained without IV contrast. Automated exposure control was utilized for the study. FINDINGS: This study is mildly compromised by motion artifact. No acute intracranial hemorrhage, midline shift or mass effect is present. Ventricular system is normal. Basilar cisterns are patent. There are no extra-axial collections. Periventricular white matter hypodensity suggests small vessel disease. There is no calvarial fracture. Mastoid air cells are clear. Minimally displaced acute right nasal bone fracture. IMPRESSION: 1. No acute intracranial findings. 2. No calvarial fracture. 3. Acute minimally displaced right nasal bone fracture. Electronically signed by: Grzegorz Hernández M.D. 02/26/2017 7:11 AM Dictated Date/Time: 02/26/2017 7:07 AM
--- NOTE | 2017-02-26 07:20 | DIAGNOSTIC IMAGING REPORT ---
MAXILLOFACIAL CT WITHOUT CONTRAST CLINICAL HISTORY: Fall, significant nasal contusion COMPARISON STUDY: Sinus CT September 10, 2015. TECHNIQUE: A maxillofacial CT was performed without IV contrast. Coronal and sagittal reformats were viewed. FINDINGS: There is an acute minimally displaced right nasal bone fracture. There is mild soft tissue swelling. Orbital floors are intact. Alignment of the temporomandibular joints is anatomic. No skull base fractures are identified. IMPRESSION: Acute minimally displaced right nasal bone fracture. Electronically signed by: Grzegorz Hernández M.D. 02/26/2017 7:19 AM Dictated Date/Time: 02/26/2017 7:17 AM
--- NOTE | 2017-02-26 07:29 | DIAGNOSTIC IMAGING REPORT ---
CERVICAL SPINE CT CT DOSE: HISTORY: Neck pain. fall, head injury TECHNIQUE: Multiaxial CT images of the cervical spine were performed and reformatted in the sagittal and coronal plane without the use of contrast. COMPARISON: None. FINDINGS: No fractures. Moderate degenerative disease throughout the majority of the cervical spine with 2 mm of retrolisthesis of C3 on C4 and C4 on C5. This is likely due to long-standing degenerative change. Emphysema. Prevertebral soft tissues and the C1-C2 interval are intact. No pneumothorax. IMPRESSION: No fractures within the cervical spine. Electronically signed by: Bret Wong M.D. 02/26/2017 7:27 AM Dictated Date/Time: 02/26/2017 7:24 AM
[2017-02-26] MEDS ORDERED: ARFORMOTEROL TART 15MCG/2ML VIAL INH SCH (08:00)
[2017-02-26] MEDS: METHYLPREDNISOLONE IV 40 MG in SYRINGE 0 ML IV SCH ×2 (08:51→20:36)
[2017-02-26] MEDS: VENLAFAXINE HCL XR 150 MG CAPXR PO SCH (08:52)
[2017-02-26] MEDS: CYANOCOBALAMIN 100 MCG TAB (VIT B-12) PO SCH (08:52)
[2017-02-26] MEDS: MULTIVITAMIN TAB PO SCH (08:52)
[2017-02-26] MEDS: ASPIRIN 81 MG ECTAB PO SCH (08:53)
[2017-02-26] MEDS: BuPROPion XL 300 MG TABCR PO SCH (08:56)
[2017-02-26] MEDS: CARVEDILOL 12.5 MG TAB PO SCH ×2 (08:56→20:35)
[2017-02-26] MEDS: PROSOURCE NOCARB 30ML/PKT PO SCH ×2 (08:57→13:16)
[2017-02-26] MEDS: TIOTROPIUM BROMIDE 5 PUFF/90 MCG INH INH SCH (08:57)
--- NOTE | 2017-02-26 09:32 | Progress Note ---
Internal Med Progress Note Date of Service: February 26, 2017. Provider Documentation: SUBJECTIVE: Patient is seen and examined at bedside. Reports having intermittent cough. Denies any chest pain, SOB. Has minimal left sided pleuritic pain at the site of rib fracture. Family at bedside. Mental status at baseline. Admits to missing meds intermittently and understands the consequence of continued smoking. OBJECTIVE: Vital Signs-as noted below Physical Exam: General Appearance:Thin, fragile, no apparent distress Head: normocephalic, Atraumatic Eyes: normal inspection, EOMI, PERRL ENT: R nasal bone mild tender, in bandage Neck: supple, Trachea midline Respiratory/Chest: Decreased breath sounds, Minimal wheezes Cardiovascular: S1, S2, No murmur Abdomen/GI:Soft, Non tender, Bowel sounds present Extremities/Musculoskelatal:normal inspection, no edema Neurologic/Psych:AAOX3, grossly no focal neurological deficits Skin: normal color, warm Lab data as noted below. ASSESSMENT & PLAN: Fall/Lethargy: Lethargy secondary to CO2 Narcosis:Resolved H/O multiple falls: Had closed hip fracture in the past Obtained Nasal fracture secondary to fall, denies LOC 9th R rib fracture: likely subacute CT head: No acute intracranial findings PT/OT Fall precautions Acute Hypercarbic respiratory failure Acute on chronic COPD exacerbation: Chronic Oxygen dependency: 3.5 L at baseline Admits to non compliance with meds and is current smoker Continue bronchodilators, Solu-Medrol, Oxygen support Pulmonology consulted Counselled to quit smoking H/O coronary artery disease, status post stent placement. Continue Coreg and aspirin. Depression: Stable Continue Effexor, Wellbutrin. Hypertension: Continue Coreg Monitor H/O Ischemic colon: S/P colectomy and placement of ileostomy Stable H/O Ectopic Atrial Rhythm: Continue Aspirin, BB DVT Px: SCDs for now CODE STATUS: Full Code Disposition: Social service consulted for discharge planning. PT/OT PROCEDURES: CT Head; 1. No acute intracranial findings. 2. No calvarial fracture. 3. Acute minimally displaced right nasal bone fracture. Vital Signs: Date Time Temp Pulse Resp B/P Pulse Ox O2 Delivery O2 Flow Rate FiO2 02/26/17 07:34 100 Nasal Cannula 3.0 02/26/17 07:16 36.7 104 18 117/70 100 Nasal Cannula 3.0 02/26/17 07:10 103 18 97 Nasal Cannula 3.0 02/26/17 06:00 36.6 110 24 132/74 94 Nasal Cannula 3.0 02/26/17 05:30 101 20 122/66 100 02/26/17 03:35 92 93 30 02/26/17 03:30 90 22 131/84 91 BiPAP 02/26/17 02:12 80 02/26/17 02:00 83 20 96/58 99 02/26/17 01:36 88 18 90 Nasal Cannula 4.0 02/26/17 01:03 81 18 96 02/26/17 01:00 107/63 02/26/17 00:41 129/75 02/26/17 00:10 133/76 02/25/17 23:33 71 18 100 02/25/17 23:30 108/73 02/25/17 23:20 117/72 02/25/17 23:03 77 20 97 02/25/17 22:54 69 02/25/17 22:38 35.6 56 18 139/72 98 Nasal Cannula 3.0 02/25/17 22:36 139/72 Lab Results: Results Past 24 Hours Test 02/25/17 23:20 02/26/17 00:08 02/26/17 00:47 02/26/17 06:57 Range/Units Sodium Level 141 136-145 mmol/L Potassium Level 4.3 3.5-5.1 mmol/L Chloride Level 91 98-107 mmol/L Carbon Dioxide Level 57 21-32 mmol/L Anion Gap -7.0 3-11 mmol/L Blood Urea Nitrogen 22 7-18 mg/dl Creatinine 0.42 0.60-1.20 mg/dl Est Creatinine Clear Calc Drug Dose 97.8 ml/min Estimated GFR () 122.1 Estimated GFR (Non- 105.3 BUN/Creatinine Ratio 53.5 10-20 Random Glucose 98 70-99 mg/dl Calcium Level 9.9 8.5-10.1 mg/dl Magnesium Level 1.8 1.8-2.4 mg/dl Total Bilirubin 0.1 0.2-1 mg/dl Direct Bilirubin < 0.1 0-0.2 mg/dl Aspartate Amino Transf (AST/SGOT) 17 15-37 U/L Alanine Aminotransferase (ALT/SGPT) 20 12-78 U/L Alkaline Phosphatase 87 45-117 U/L Total Creatine Kinase 63 26-192 U/L Troponin I < 0.015 0-0.045 ng/ml Total Protein 7.5 6.4-8.2 gm/dl Albumin 3.0 3.4-5.0 gm/dl Lipase 282 73-393 U/L White Blood Count 7.96 4.8-10.8 K/uL Red Blood Count 3.96 4.2-5.4 M/uL Hemoglobin 12.4 12.0-16.0 g/dL Hematocrit 43.3 37-47 % Mean Corpuscular Volume 109.3 80-100 fL Mean Corpuscular Hemoglobin 31.3 25-34 pg Mean Corpuscular Hemoglobin Concent 28.6 32-36 g/dl Platelet Count 204 130-400 K/uL Mean Platelet Volume 10.7 7.4-10.4 fL Neutrophils (%) (Auto) 73.6 % Lymphocytes (%) (Auto) 14.7 % Monocytes (%) (Auto) 10.2 % Eosinophils (%) (Auto) 1.1 % Basophils (%) (Auto) 0.3 % Neutrophils # (Auto) 5.86 1.4-6.5 K/uL Lymphocytes # (Auto) 1.17 1.2-3.4 K/uL Monocytes # (Auto) 0.81 0.11-0.59 K/uL Eosinophils # (Auto) 0.09 0-0.5 K/uL Basophils # (Auto) 0.02 0-0.2 K/uL RDW Standard Deviation 57.2 36.4-46.3 fL RDW Coefficient of Variation 14.3 11.5-14.5 % Immature Granulocyte % (Auto) 0.1 % Immature Granulocyte # (Auto) 0.01 0.00-0.02 K/uL Arterial Blood pH 7.25 7.39 7.35-7.45 Arterial Blood Partial Pressure CO2 118 82 35-46 mmHg Arterial Blood Partial Pressure O2 119 66 80-95 mm/Hg Arterial Blood HCO3 50 49 19-24 mmol/L Arterial Blood Oxygen Saturation 97.3 92.9 90-95 % Arterial Blood Base Excess 17.7 19.3 -9-1.8 mEq/L Arterial Blood Gas Delivery 3L 3L Tristan Test POS POS POS
[2017-02-26 11:38] LABS: CKMB/CK RATIO 5.4 (0-3.0)
--- NOTE | 2017-02-26 12:07 | PULMONARY CONSULTATION ---
DATE OF CONSULTATION: 02/26/2017 TIME: 10:20 a.m. REPORT OF CONSULTATION: The patient was seen in room 280, bed 2. She is a 66-year-old female who yesterday suffered a fall at home. She apparently had gotten out from her bed and was walking and she fell. She does not recall circumstances why she fell. She does not believe that she passed out. She was brought to the ER for evaluation. This is the second fall for this patient at least. In October of this year, she suffered a right hip fracture after falling at home. She had a right 9th rib fracture at the same time and a small right pneumothorax at that time. The patient has severe COPD. She has a longstanding history of smoking and she continues to smoke. She admits that she is noncompliant with her nebulizer at home. She was found to have a severely abnormal blood gas. Her pH was 7.25 with a pCO2 of 118 and a pO2 of 119 on 3 liter nasal cannula. BiPAP was tried in the ER, but she had marked difficulty tolerating it because of her nasal fracture. It is not clear how long she was on the BiPAP, but apparently not very long. However, her blood gases subsequently improved. A repeat blood gas at 07:00 a.m. showed a pH of 7.39 with a pCO2 of 82 and a pO2 of 66. Clearly, she has chronic elevation of the carbon dioxide levels due to severe COPD. The patient is a very poor historian. She is not oriented in certain aspects. She knows who she is and she actually recognizes my face from having seen me before. However, she could not tell me the day of the week, time of the month, or the year. She also was incorrect telling me her age. PAST SURGICAL HISTORY: 1. Cardiac stent. 2. Ileostomy. 3. Tonsillectomy. 4. Tracheostomy approximately 2014. PAST MEDICAL HISTORY: 1. Coronary artery disease. 2. Hyperlipidemia. 3. COPD. 4. Depression. 5. Diverticular disease. 6. History of MRSA. 7. Paroxysmal atrial fibrillation. 8. Ischemic bowel. FAMILY HISTORY: Father at age 47 of coronary artery disease. Mother at age 48 of pulmonary embolism. ALLERGIES: PENICILLIN. SOCIAL HISTORY: The patient has been a long-term smoker. I could not find out from her exact amount, but she says she is just having a few cigarettes per day now. Most of her life, she smoked about a pack a day for 50 years. Alcohol use is none. REVIEW OF SYSTEMS: This was not possible to obtain. The patient is a poor historian. I do not think she is a reliable historian. The only thing she is complaining about is the nasal pain. MEDICATIONS: At home, 1. Albuterol inhaler p.r.n. 2. Brovana b.i.d. - the patient is not complaint. 3. Ascorbic acid 1 daily. 4. Aspirin 81 mg daily. 5. Bupropion 300 mg daily. 6. Carvedilol 12.5 mg b.i.d. 7. B12 at 100 mcg daily. 8. Vitamin D 50,000 units weekly. 9. Breo Ellipta 1 puff daily - it is uncertain if she is taking this or not. 10. Nebs with levalbuterol -- apparently not taking. 11. Mirtazapine 15 mg at bedtime. 12. Nitro p.r.n. 13. Omeprazole 20 mg at bedtime. 14. Tiotropium daily. 15. Venlafaxine 150 mg daily. PHYSICAL EXAMINATION: GENERAL: The patient is a 66-year-old female who looks older than her chronologic age. She was disoriented as noted above. She did not appear in any distress. She was pleasant. VITAL SIGNS: Temperature is 36.7. Weight is only 41 kilograms with a BMI of 16. Heart rate is 96 per minute. The rhythm is regular. Blood pressure is 117/70. Respiratory rate is 22 breaths per minute. HEENT: Pupils were reactive. Nares were clear. Mouth exam showed an absence of teeth. Her nose has an area of bruise or ecchymosis on the bridge. Mouth exam showed no erythema or exudate. CHEST: Showed diminished excursions. Inspiratory and expiratory rhonchi were heard bilaterally both anteriorly and posteriorly, but she did not look in distress. Her oxygen saturation reportedly was 100% on 3 liters. However, she had an ear pulse oximeter that was not attached properly at least when I saw her. ABDOMEN: Soft. She has an ileostomy. Bowel sounds were present. No masses were palpable. EXTREMITIES: Showed no cyanosis, clubbing or edema. They do have heel boots on the patient. DIAGNOSTIC STUDIES: X-ray of the pelvis showed no fracture. There was evidence of prior right hip surgery. CAT scan of the maxillofacial area showed an acute minimally displaced right nasal bone fracture. CAT scan of the head showed no acute intracranial findings. Chest x-ray showed asymmetric interstitial thickening and irregular opacities in the right lung. There is a minimally displaced right rib fracture, but this had been seen as far back as October. Cervical spine CT showed no fractures. LABORATORY DATA: Blood study showed a white count of 7.96, hemoglobin 12.4, and platelets 204,000. Electrolytes show sodium 141, potassium 4.3, chloride 91, and bicarbonate 57. BUN is 22 with a creatinine of 0.42. Liver functions were normal. Total protein 7.5 with albumin 3.0. Lipase is 282, which is within the limits of normal. IMPRESSION: 1. Acute on chronic respiratory failure with hypercarbia. 2. Status post fall. 3. Chronic obstructive pulmonary disease -- severe. 4. Nasal fracture. 5. Ninth rib fracture -- likely chronic from October of 2006. COMMENTS AND RECOMMENDATIONS: The patient's blood gases were improved despite the fact that she apparently could not wear the BiPAP very much. Unfortunately, we likely do not have alternative masks that could be utilized for the BiPAP. I believe we should try this again later today. Perhaps some padding could be used on her nose as a trial. We would suggest the BiPAP at 12/6 and to put it on for 1 or 2 hours at that time during the day and then see if she tolerates it at night. She will probably need followup blood gases in a day or 2. I believe we should keep her oxygen saturations between 86% and 90%. This may help stimulate ventilation. I would suggest discontinuing the Brovana in light of the fact that we are giving her respiratory treatments on a regular basis every 6 hours. I do not believe that the Brovana will act much under those circumstances. The patient has been having abnormalities in the right chest seen on CAT scan. This was checked last in December and I believe this is supposed to be checked again in 3 months after that. Apparently there are questions if the patient can go home again in light of her debilitation and recurrent falls. Thank you for asking me to assist in her care. ROCÍO
[2017-02-26 16:17] LABS: URINE APPEARANCE CLEAR (CLEAR); URINE BILIRUBIN NEG (NEG); URINE COLOR DK YELLOW; URINE EPITHELIAL CELL AUTO >30 /lpf (0-5); URINE NITRITE NEG (NEG); URINE PH 6.5 (4.5-7.5); URINE SPECIFIC GRAVITY 1.025 (1.000-1.030); UROBILINOGEN NEG (NEG); ZZUR CULT IF INDIC CLEAN CATCH NO
[2017-02-26 16:23] LABS: MANUAL MICROSCOPIC REQUIRED? NO; REVIEW REQ? YES
[2017-02-26] MEDS: BOOST PLUS VANILLA PO SCH ×2 (17:18)
[2017-02-26] MEDS ORDERED: NON-FORMULARY PATIENT'S OWN MED PO PRN (18:15)
[2017-02-26 19:33] LABS: CKMB/CK RATIO 4.6 (0-3.0)
[2017-02-26] MEDS: PANTOprazole SOD 40 MG TAB PO SCH (20:35)
[2017-02-26] MEDS: MIRTAZAPINE TAB 15 MG TAB PO SCH (20:35)
[2017-02-27] VITALS (10 sets, daily range): BP systolic 122–159; BP diastolic 71–85; PULSE 76–95; TEMP 36.5–36.7; O2SAT 92–99
[2017-02-27] MEDS: LEVALBUTEROL 1.25MG/0.5ML NEB INH SCH ×4 (01:36→19:05)
[2017-02-27] MEDS: IPRATROPIUM BROMIDE NEB SOLN 0.02% 2.5 ML VIAL INH SCH ×4 (01:36→19:05)
[2017-02-27 06:56] LABS: COMPLETE YES; HEMATOCRIT 42.8 % (37-47); IG% 0.2 %; LYMPH % 9.5 %; LYMPH ABS # 1.14 K/uL (1.2-3.4); MEAN CELL VOLUME 102.6 fL (80-100); MEAN CORPUSCULAR HGB CONC 29.2 g/dl (32-36); MEAN PLATELET VOLUME 10.5 fL (7.4-10.4); MONO % 6.4 %; NEUT % 83.9 %; PLATELET COUNT 206 K/uL (130-400); RED BLOOD COUNT 4.17 M/uL (4.2-5.4); WHITE BLOOD COUNT 12.06 K/uL (4.8-10.8)
[2017-02-27 07:06] LABS: BUN/CREATININE RATIO 63.1 (10-20); CREATININE 0.36 mg/dl (0.60-1.20); MAGNESIUM 2.1 mg/dl (1.8-2.4); POTASSIUM 4.4 mmol/L (3.5-5.1)
[2017-02-27 07:10] LABS: CALCIUM 9.2 mg/dl (8.5-10.1)
[2017-02-27] MEDS: BOOST PLUS VANILLA PO SCH ×4 (08:00→17:54)
[2017-02-27] MEDS ORDERED: NON-FORMULARY PATIENT'S OWN MED PO SCH (09:00)
[2017-02-27] MEDS ORDERED: RAMIPRIL 10 MG CAP PO SCH (09:00)
[2017-02-27] MEDS: VENLAFAXINE HCL XR 150 MG CAPXR PO SCH (09:05)
[2017-02-27] MEDS: ASPIRIN 81 MG ECTAB PO SCH (09:05)
[2017-02-27] MEDS: BuPROPion XL 300 MG TABCR PO SCH (09:06)
[2017-02-27] MEDS: CARVEDILOL 12.5 MG TAB PO SCH ×2 (09:06→21:24)
[2017-02-27] MEDS: CYANOCOBALAMIN 100 MCG TAB (VIT B-12) PO SCH (09:06)
[2017-02-27] MEDS: TIOTROPIUM BROMIDE 5 PUFF/90 MCG INH INH SCH (09:06)
[2017-02-27] MEDS: FLUTICASONE FUROATE-VILANTEROL 60 PUFFS INH INH SCH (09:07)
--- NOTE | 2017-02-27 09:10 | Clinical Documentation Query ---
QUERY 1 OF [address] LIRIANO, In your clinical opinion is this patient being managed for: ( X ) Encephalopathy ( ) Other explanation of clinical findings (Please Explain) ( ) Unable to determine (Please Define) ( ) Need to Discuss ( ) Not Agree The medical record reflects the following clinical findings, treatment, and risk factors. Clinical Indicators: 66 yo female presented after a fall that she does not really remember. GCS 14 at time of ER arrival. H/P describes pt as somewhat lethargic/drowsy and oriented x 2. ABG 7.25/118/119. Treatment: tele monitoring, O2 support/BIPAP when tolerated, pulmonary consult, IV solumedrol, nebs, repeat ABG's Risk Factors: acute hypercapnic respiratory failure, severe COPD with exacerbation QUERY 2 OF 2 In your clinical opinion is this patient being managed for: (X ) Severe protein-calorie malnutrition ( ) Other explanation of clinical findings (Please Explain) ( ) Unable to determine (Please Define) ( ) Need to Discuss ( ) Not Agree The medical record reflects the following clinical findings, treatment, and risk factors. Clinical Indicators:Pt is described as frail/thin. Has had a 17% (19 lb) wt loss over the past 4 months. Dcs Engineer noted skin tenting and hypermetabolic state associated with severe COPD and pt with a decreased appetite. Treatment: dietary consult, regular diet with boost plus mixed with ice cream BID, provide multivitamins, B12 supplement. Risk Factors: chronic respiratory failure, COPD Chronic Severe Malnutrition Criteria: (2 criteria needed) Energy intake: <75% of estimated energy requirement for > 1 month Wt loss: >5% in 1 month, > 7.5% in 3 months, >10% in 6 months, >20% in 1 year Body fat: severe loss of SQ fat from the orbits, triceps or fat overlying the ribs Muscle mass: severe muscle wasting at the temples, clavicles, shoulders, interosseous spaces, scapula, thigh, calf Fluid accumulation: severe localized or generalized edema of the extremities, vulva, scrotum-wt loss may be masked by edema Please clarify and document your clinical opinion in the progress notes and discharge summary. Terms such as "probable", "suspected", "likely", "questionable", "possible", or "still to be ruled out" are acceptable. IF IN AGREEMENT, YOU MUST DOCUMENT ABOVE DIAGNOSTIC STATEMENT IN DAILY PROGRESS NOTES AND DISCHARGE SUMMARY. This document is not part of the patient's record. Thank You, Alize Naqvi RN [phone]
[2017-02-27] MEDS: METHYLPREDNISOLONE IV 40 MG in SYRINGE 0 ML IV SCH (09:35)
[2017-02-27] MEDS: MULTIVITAMIN TAB PO SCH (09:38)
--- NOTE | 2017-02-27 10:10 | PULMONARY PROGRESS NOTE ---
DATE: 02/27/2017 DATE: 02/27/2017. TIME: 9:50 a.m. SUBJECTIVE: The patient is feeling better today. She is less short of breath. The patient's memory remains poor. She cannot remember if they tried BiPAP on her or not. Nursing staff tells me that she would not wear the BiPAP either at all or not for very long. In general, she seems more alert today. She is not complaining of shortness of breath or cough. She claims her appetite is good. OBJECTIVE: GENERAL: The patient was sleeping when I entered the room, but she awakened readily. She was cooperative and alert. Temperature is 36.5. EARS, NOSE, THROAT: Exam is unchanged from yesterday. HEART: Heart rate is 91 per minute. VITAL SIGNS: Blood pressure is 159/85. LUNGS: Lung vásquez revealed mild rales and mild rhonchi bilaterally. The rhonchi was less than yesterday and she is not as tight as yesterday. Her oxygen saturation is 92% on 4 liters. Apparently they did have to increase her oxygen during the nighttime when she was desaturating. ABDOMEN: Soft and nontender. EXTREMITIES: Showed no cyanosis, clubbing or edema. The patient's nose still shows an area of ecchymosis on the bridge. LABORATORY DATA: White count today is 12.06. Hemoglobin is 12.5. Platelets are 206,000. Electrolytes show sodium 139, potassium 4.4, chloride 91, bicarb 49. BUN is 23 with a creatinine of 0.36. IMPRESSIONS: 1. Respiratory failure -- acute on chronic with hypercarbia. 2. Severe chronic obstructive pulmonary disease. 3. Nasal fracture. 4. Right 9th rib fracture -- likely occurred in October as it was seen on prior CAT scan. COMMENTS AND RECOMMENDATIONS: The patient is improving. We seemingly are not able to use the BiPAP. The patient is starting to get anxious about going home. Yesterday, however, she told me that she might not be able to go home. She does require a lot of care. Her [id number] spoke to me about her status. She is a [employer] employee. She indicates that the patient is not able to do anything much for herself at home. She does continue to smoke. She corroborates that the patient is noncompliant in using her nebulizer treatments at home. The patient is a full code. She previously had an extended episode of respiratory failure including tracheostomy. She would be at high risk for the same thing again if she would deteriorate and end up on a ventilator. The family may wish to consider the code status. I did not discuss this with the patient directly, but if she is alert tomorrow I think it is reasonable to try and do that. I think the steroids can again be decreased. Probably in 24 hours she could be tapered over to oral. Would continue the every 6 hour neb treatments.
--- NOTE | 2017-02-27 12:15 | Progress Note ---
Internal Med Progress Note Date of Service: February 27, 2017. Provider Documentation: SUBJECTIVE: Patient is seen and examined at bedside. Complains of intermittent productive cough. SOB is improving. Denies any chest pain. Mental status at baseline. Offers no other complaints. OBJECTIVE: Vital Signs-as noted below Physical Exam: General Appearance:Thin, fragile, no apparent distress Head: normocephalic, Atraumatic Eyes: normal inspection, EOMI, PERRL ENT: R nasal bone mild tender, in bandage Neck: supple, Trachea midline Respiratory/Chest: Decreased breath sounds, CTA Cardiovascular: S1, S2, No murmur Abdomen/GI:Soft, Non tender, Bowel sounds present Extremities/Musculoskelatal:normal inspection, no edema Neurologic/Psych:AAOX3, grossly no focal neurological deficits Skin: normal color, warm Lab data as noted below. ASSESSMENT & PLAN: Fall/Lethargy: Encephalopathy secondary to CO2 Narcosis:Resolved H/O multiple falls: Had closed hip fracture in the past Obtained Nasal fracture secondary to fall, denies LOC 9th R rib fracture: likely subacute (From Oct 2016) CT head: No acute intracranial findings PT/OT Fall precautions Acute Hypercarbic respiratory failure Acute on chronic COPD exacerbation: Chronic Oxygen dependency: 3.5 L at baseline Admits to non compliance with meds and is current smoker Continue bronchodilators, Solu-Medrol, Oxygen support Continue steroid taper Appreciate Pulmonology input Counselled to quit smoking Leukocytosis likely secondary to steroids H/O coronary artery disease, status post stent placement. Continue Coreg and aspirin. Depression: Stable Continue Effexor, Wellbutrin. Hypertension: Continue Coreg Monitor H/O Ischemic colon: S/P colectomy and placement of ileostomy Stable H/O Ectopic Atrial Rhythm: Continue Aspirin, BB Severe Protein Calorie Malnutrition: BMI:16.8 Continue Nutrition per French Teacher DVT Px: SCDs for now CODE STATUS: Full Code Disposition: Social service consulted for discharge planning. PT/OT PROCEDURES: CT Head; 1. No acute intracranial findings. 2. No calvarial fracture. 3. Acute minimally displaced right nasal bone fracture. Vital Signs: Date Time Temp Pulse Resp B/P Pulse Ox O2 Delivery O2 Flow Rate FiO2 02/27/17 15:26 36.5 82 18 126/71 96 Nasal Cannula 2.0 02/27/17 14:16 84 14 96 Nasal Cannula 2.0 02/27/17 12:00 95 Nasal Cannula 2.0 40 02/27/17 11:23 36.7 95 18 150/83 95 Nasal Cannula 2.0 02/27/17 08:00 Nasal Cannula 2.0 02/27/17 07:50 36.5 91 20 159/85 92 Nasal Cannula 4.0 02/27/17 07:27 81 14 99 Nasal Cannula 4.0 02/27/17 04:00 Nasal Cannula 5.0 02/27/17 03:10 36.5 85 18 150/82 95 Nasal Cannula 2.0 02/27/17 01:36 76 14 97 Nasal Cannula 2.0 02/27/17 00:00 Nasal Cannula 2.0 02/26/17 23:30 36.5 88 18 134/79 90 Nasal Cannula 2.0 02/26/17 20:12 100 Nasal Cannula 2.0 02/26/17 20:00 Nasal Cannula 2.0 02/26/17 19:52 104 15 55 Nasal Cannula 2.0 02/26/17 19:28 36.8 103 20 164/52 91 Nasal Cannula 2.0 Lab Results: Results Past 24 Hours Test 02/26/17 19:04 02/27/17 06:23 Range/Units Total Creatine Kinase 57 26-192 U/L Creatine Kinase MB 2.6 0.5-3.6 ng/ml Creatine Kinase MB Ratio 4.6 0-3.0 Troponin I < 0.015 0-0.045 ng/ml White Blood Count 12.06 4.8-10.8 K/uL Red Blood Count 4.17 4.2-5.4 M/uL Hemoglobin 12.5 12.0-16.0 g/dL Hematocrit 42.8 37-47 % Mean Corpuscular Volume 102.6 80-100 fL Mean Corpuscular Hemoglobin 30.0 25-34 pg Mean Corpuscular Hemoglobin Concent 29.2 32-36 g/dl Platelet Count 206 130-400 K/uL Mean Platelet Volume 10.5 7.4-10.4 fL Neutrophils (%) (Auto) 83.9 % Lymphocytes (%) (Auto) 9.5 % Monocytes (%) (Auto) 6.4 % Eosinophils (%) (Auto) 0.0 % Basophils (%) (Auto) 0.0 % Neutrophils # (Auto) 10.13 1.4-6.5 K/uL Lymphocytes # (Auto) 1.14 1.2-3.4 K/uL Monocytes # (Auto) 0.77 0.11-0.59 K/uL Eosinophils # (Auto) 0.00 0-0.5 K/uL Basophils # (Auto) 0.00 0-0.2 K/uL RDW Standard Deviation 55.3 36.4-46.3 fL RDW Coefficient of Variation 14.7 11.5-14.5 % Immature Granulocyte % (Auto) 0.2 % Immature Granulocyte # (Auto) 0.02 0.00-0.02 K/uL Nucleated RBC Absolute Count (auto) 0.02 0-0 K/uL Nucleated Red Blood Cells % 0.1 % Sodium Level 139 136-145 mmol/L Potassium Level 4.4 3.5-5.1 mmol/L Chloride Level 91 98-107 mmol/L Carbon Dioxide Level 49 21-32 mmol/L Anion Gap -1.0 3-11 mmol/L Blood Urea Nitrogen 23 7-18 mg/dl Creatinine 0.36 0.60-1.20 mg/dl Est Creatinine Clear Calc Drug Dose 101.5 ml/min Estimated GFR () 128.4 Estimated GFR (Non- 110.8 BUN/Creatinine Ratio 63.1 10-20 Random Glucose 108 70-99 mg/dl Calcium Level 9.2 8.5-10.1 mg/dl Magnesium Level 2.1 1.8-2.4 mg/dl
[2017-02-27] MEDS: ACETAMINOPHEN 325 MG TAB PO PRN (12:27)
[2017-02-27] MEDS: MIRTAZAPINE TAB 15 MG TAB PO SCH (21:24)
[2017-02-27] MEDS: METHYLPREDNISOLONE IV 20 MG in SYRINGE 0 ML IV SCH (21:24)
[2017-02-27] MEDS: PANTOprazole SOD 40 MG TAB PO SCH (21:24)
[2017-02-28] VITALS (10 sets, daily range): BP systolic 106–165; BP diastolic 64–89; PULSE 80–107; TEMP 36.3–36.7; O2SAT 90–100
[2017-02-28] MEDS: IPRATROPIUM BROMIDE NEB SOLN 0.02% 2.5 ML VIAL INH SCH ×3 (02:39→20:31)
[2017-02-28] MEDS: LEVALBUTEROL 1.25MG/0.5ML NEB INH SCH ×3 (02:40→20:31)
[2017-02-28 07:21] LABS: BASO % 0.1 %; BASO ABS # 0.01 K/uL (0-0.2); COMPLETE YES; HEMATOCRIT 40.6 % (37-47); IG% 0.2 %; LYMPH % 10.4 %; MEAN CELL VOLUME 101.5 fL (80-100); MEAN CORPUSCULAR HEMOGLOBIN 30.3 pg (25-34); MEAN CORPUSCULAR HGB CONC 29.8 g/dl (32-36); MEAN PLATELET VOLUME 10.4 fL (7.4-10.4); MONO % 9.2 %; NEUT % 80.1 %; PLATELET COUNT 182 K/uL (130-400); WHITE BLOOD COUNT 12.56 K/uL (4.8-10.8)
[2017-02-28 07:51] LABS: BUN/CREATININE RATIO 63.7 (10-20); CALCIUM 8.9 mg/dl (8.5-10.1); CREATININE 0.33 mg/dl (0.60-1.20); MAGNESIUM 2.1 mg/dl (1.8-2.4); POTASSIUM 4.4 mmol/L (3.5-5.1)
[2017-02-28] MEDS: BOOST PLUS VANILLA PO SCH ×4 (08:00→20:41)
[2017-02-28] MEDS: CYANOCOBALAMIN 100 MCG TAB (VIT B-12) PO SCH (08:44)
[2017-02-28] MEDS: ASPIRIN 81 MG ECTAB PO SCH (08:44)
[2017-02-28] MEDS: CARVEDILOL 12.5 MG TAB PO SCH ×2 (08:44→20:40)
[2017-02-28] MEDS: BuPROPion XL 300 MG TABCR PO SCH (08:44)
[2017-02-28] MEDS: MULTIVITAMIN TAB PO SCH (08:44)
[2017-02-28] MEDS: VENLAFAXINE HCL XR 150 MG CAPXR PO SCH (08:44)
[2017-02-28] MEDS: METHYLPREDNISOLONE IV 20 MG in SYRINGE 0 ML IV SCH (08:45)
[2017-02-28] MEDS: FLUTICASONE FUROATE-VILANTEROL 60 PUFFS INH INH SCH (08:46)
[2017-02-28] MEDS: TIOTROPIUM BROMIDE 5 PUFF/90 MCG INH INH SCH (08:47)
--- NOTE | 2017-02-28 10:50 | PULMONARY PROGRESS NOTE ---
DATE: 02/28/2017 PULMONARY PROGRESS NOTE TIME: 10:25 a.m. SUBJECTIVE: The patient does not offer any specific complaints. Her was with her during this evaluation. Apparently her appetite here is better than it had been at home. The patient has very little insight into the severity of her problems. She is not complaining of cough or shortness of breath. Her tells me that she has had multiple falls at home. She did fall in the winter and had a fractured hip and now she has fallen and has a broken nose. She has fallen on other times she states as well. He tells me that the patient essentially refuses to take her nebulizer treatments at home. In here, she has been refusing BiPAP. Her strength is obviously marginal. OBJECTIVE: GENERAL: The patient looks comfortable. She was cooperative and alert. VITAL SIGNS: Temperature is 36.5, heart rate is 90 per minute, blood pressure is 146/85, respiratory rate was 16 breaths per minute and not labored. Her oximetry showed saturations of 100% on 2 liters. EARS, NOSE, THROAT EXAMINATION: Unremarkable. HEART: The rhythm is regular and was normal sinus. LUNGS: Her breath sounds reveal wheezing on inspiration and expiration. BREASTS: Her breasts are more sallow than normal. ABDOMEN: Soft. She has an ileostomy bag. Bowel sounds were present. EXTREMITIES: Showed no cyanosis, clubbing or edema. LABORATORY DATA: White count today is 12.56. Hemoglobin is 12.1. Platelets are 182,000. Sodium is 140, potassium 4.4, chloride 94, bicarbonate 49. BUN is 21 with a creatinine of 0.33. ASSESSMENT: 1. Acute on chronic respiratory failure with hypercarbia. 2. Chronic obstructive pulmonary disease - severe. 3. Nasal fracture secondary to a fall. 4. Subacute 9th rib fracture. COMMENTS AND RECOMMENDATIONS: The patient is difficult to care for because she has been somewhat noncompliant historically and in here. She does not agree to wear BiPAP. I believe at this point we can change her steroids over to oral. We will start her on 40 mg of prednisone. We need to have physical therapy, increase her activity. She obviously has a high fall risk at home. The patient is asking when she can go home. Obviously, depends upon her strength level on how comfortable we feel that she is not going to fall. I think we should check another ABG tomorrow. I am doubtful she will be compliant with respiratory treatments, etc. at home. Case was discussed with the patient and her . Perhaps we should discuss with them the code status in light of the fact she is a full resuscitation at present.
--- NOTE | 2017-02-28 12:36 | Progress Note ---
Internal Med Progress Note Date of Service: February 28, 2017. Provider Documentation: SUBJECTIVE: Patient is seen and examined at bedside. Offers no complaints. Denies any chest pain, SOB, cough. Eager to get discharged. Non compliant with BiPAP use as recommended. OBJECTIVE: Vital Signs-as noted below Physical Exam: General Appearance:Thin, fragile, no apparent distress Head: normocephalic, Atraumatic Eyes: normal inspection, EOMI, PERRL ENT: R nasal bone mild tender, in bandage Neck: supple, Trachea midline Respiratory/Chest: Decreased breath sounds, CTA Cardiovascular: S1, S2, No murmur Abdomen/GI:Soft, Non tender, Bowel sounds present Extremities/Musculoskelatal:normal inspection, no edema Neurologic/Psych:AAOX3, grossly no focal neurological deficits Skin: normal color, warm Lab data as noted below. ASSESSMENT & PLAN: Fall/Lethargy: Encephalopathy secondary to CO2 Narcosis:Resolved H/O multiple falls: Had closed hip fracture in the past Obtained Nasal fracture secondary to fall, denies LOC 9th R rib fracture: likely subacute (From Oct 2016) CT head: No acute intracranial findings PT/OT Fall precautions Acute Hypercarbic respiratory failure Acute on chronic COPD exacerbation: Chronic Oxygen dependency: 3.5 L at baseline but non compliant Admits to non compliance with meds and is current smoker Continue bronchodilators, Solu-Medrol, Oxygen support Continue steroid taper Appreciate Pulmonology input Counselled to quit smoking Leukocytosis likely secondary to steroids: stable Non compliant with BiPAP Planned for ABG in AM Taper oxygen to maintain Sats: 88-92% H/O coronary artery disease, status post stent placement. Continue Coreg and aspirin. Depression: Stable Continue Effexor, Wellbutrin. 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 PT/OT Needs Placement: Likely to [facility] PROCEDURES: CT Head; 1. No acute intracranial findings. 2. No calvarial fracture. 3. Acute minimally displaced right nasal bone fracture. Vital Signs: Date Time Temp Pulse Resp B/P Pulse Ox O2 Delivery O2 Flow Rate FiO2 02/28/17 11:53 36.7 80 18 115/77 95 02/28/17 08:00 Nasal Cannula 2.0 02/28/17 07:41 36.5 90 16 146/85 100 2.0 02/28/17 07:34 91 18 98 Nasal Cannula 3.0 02/28/17 04:46 36.7 97 18 165/89 99 Nasal Cannula 3.0 02/28/17 04:00 Nasal Cannula 2.0 02/28/17 00:00 Nasal Cannula 2.0 02/28/17 00:00 36.4 91 18 119/72 98 Nasal Cannula 3.0 02/27/17 20:00 Nasal Cannula 2.0 02/27/17 19:55 36.7 91 18 122/75 98 Nasal Cannula 2.0 02/27/17 19:05 88 18 96 Nasal Cannula 2.0 02/27/17 16:00 Nasal Cannula 2.0 02/27/17 15:26 36.5 82 18 126/71 96 Nasal Cannula 2.0 02/27/17 14:16 84 14 96 Nasal Cannula 2.0 Lab Results: Results Past 24 Hours Test 02/28/17 06:46 Range/Units White Blood Count 12.56 4.8-10.8 K/uL Red Blood Count 4.00 4.2-5.4 M/uL Hemoglobin 12.1 12.0-16.0 g/dL Hematocrit 40.6 37-47 % Mean Corpuscular Volume 101.5 80-100 fL Mean Corpuscular Hemoglobin 30.3 25-34 pg Mean Corpuscular Hemoglobin Concent 29.8 32-36 g/dl Platelet Count 182 130-400 K/uL Mean Platelet Volume 10.4 7.4-10.4 fL Neutrophils (%) (Auto) 80.1 % Lymphocytes (%) (Auto) 10.4 % Monocytes (%) (Auto) 9.2 % Eosinophils (%) (Auto) 0.0 % Basophils (%) (Auto) 0.1 % Neutrophils # (Auto) 10.06 1.4-6.5 K/uL Lymphocytes # (Auto) 1.30 1.2-3.4 K/uL Monocytes # (Auto) 1.16 0.11-0.59 K/uL Eosinophils # (Auto) 0.00 0-0.5 K/uL Basophils # (Auto) 0.01 0-0.2 K/uL RDW Standard Deviation 56.4 36.4-46.3 fL RDW Coefficient of Variation 15.2 11.5-14.5 % Immature Granulocyte % (Auto) 0.2 % Immature Granulocyte # (Auto) 0.03 0.00-0.02 K/uL Nucleated RBC Absolute Count (auto) 0.03 0-0 K/uL Nucleated Red Blood Cells % 0.2 % Sodium Level 140 136-145 mmol/L Potassium Level 4.4 3.5-5.1 mmol/L Chloride Level 94 98-107 mmol/L Carbon Dioxide Level 49 21-32 mmol/L Anion Gap -3.0 3-11 mmol/L Blood Urea Nitrogen 21 7-18 mg/dl Creatinine 0.33 0.60-1.20 mg/dl Est Creatinine Clear Calc Drug Dose 116.7 ml/min Estimated GFR () 132.1 Estimated GFR (Non- 114.0 BUN/Creatinine Ratio 63.7 10-20 Random Glucose 80 70-99 mg/dl Calcium Level 8.9 8.5-10.1 mg/dl Magnesium Level 2.1 1.8-2.4 mg/dl
[2017-02-28] MEDS ORDERED: LEValbuterol HFA 15GM INHALER INH SCH (18:00)
[2017-02-28] MEDS ORDERED: IPRATROPIUM BROMIDE HFA INHALER INH SCH (18:00)
[2017-02-28] MEDS: MIRTAZAPINE TAB 15 MG TAB PO SCH (20:40)
[2017-02-28] MEDS: PANTOprazole SOD 40 MG TAB PO SCH (20:41)
[2017-02-28] MEDS ORDERED: IPRATROPIUM BROMIDE NEB SOLN 0.02% 2.5 ML VIAL INH SCH (21:00)
[2017-02-28] MEDS ORDERED: LEVALBUTEROL 1.25MG/0.5ML NEB INH SCH (21:00)
[2017-03-01] VITALS (11 sets, daily range): BP systolic 109–135; BP diastolic 73–86; PULSE 79–108; TEMP 36.3–37; O2SAT 92–93
[2017-03-01] MEDS: IPRATROPIUM BROMIDE NEB SOLN 0.02% 2.5 ML VIAL INH SCH ×4 (01:55→18:55)
[2017-03-01] MEDS: LEVALBUTEROL 1.25MG/0.5ML NEB INH SCH ×4 (01:55→18:55)
[2017-03-01] MEDS: FLUTICASONE FUROATE-VILANTEROL 60 PUFFS INH INH SCH (09:14)
[2017-03-01] MEDS: TIOTROPIUM BROMIDE 5 PUFF/90 MCG INH INH SCH (09:15)
[2017-03-01] MEDS: MULTIVITAMIN TAB PO SCH (09:16)
[2017-03-01] MEDS: CARVEDILOL 12.5 MG TAB PO SCH ×2 (09:16→19:56)
[2017-03-01] MEDS: VENLAFAXINE HCL XR 150 MG CAPXR PO SCH (09:16)
[2017-03-01] MEDS: ASPIRIN 81 MG ECTAB PO SCH (09:17)
[2017-03-01] MEDS: CYANOCOBALAMIN 100 MCG TAB (VIT B-12) PO SCH (09:17)
[2017-03-01] MEDS: BuPROPion XL 300 MG TABCR PO SCH (09:17)
[2017-03-01] MEDS: BOOST PLUS VANILLA PO SCH ×4 (09:31→17:36)
[2017-03-01 09:41] LABS: COMPLETE YES; EOS % 0.1 %; HEMATOCRIT 41.6 % (37-47); IG% 0.2 %; LYMPH % 11.8 %; LYMPH ABS # 1.54 K/uL (1.2-3.4); MEAN CELL VOLUME 99.8 fL (80-100); MEAN CORPUSCULAR HEMOGLOBIN 31.9 pg (25-34); MEAN PLATELET VOLUME 10.8 fL (7.4-10.4); MONO % 7.5 %; NEUT % 80.4 %; PLATELET COUNT 219 K/uL (130-400); RED BLOOD COUNT 4.17 M/uL (4.2-5.4)
[2017-03-01 09:52] LABS: ARTERIAL BLD GAS O2 SATURATION 92.5 % (90-95); ARTERIAL BLOOD GAS BASE EXCESS 10.1 mEq/L (-9-1.8); ARTERIAL BLOOD GAS HCO3 37 mmol/L (19-24); ARTERIAL BLOOD GAS PO2 68 mm/Hg (80-95); ARTERIAL BLOOD GAS pH 7.42 (7.35-7.45)
[2017-03-01 09:53] LABS: ALLEN TEST POS (POS); O2 ADMINISTRATION 1 L
[2017-03-01 10:21] LABS: BUN/CREATININE RATIO 45.8 (10-20); CREATININE 0.48 mg/dl (0.60-1.20); MAGNESIUM 1.8 mg/dl (1.8-2.4); POTASSIUM 3.7 mmol/L (3.5-5.1)
[2017-03-01 10:25] LABS: CALCIUM 9.2 mg/dl (8.5-10.1)
--- NOTE | 2017-03-01 13:32 | Progress Note ---
Internal Med Progress Note Date of Service: March 01, 2017. Provider Documentation: SUBJECTIVE: Patient is seen and examined at bedside. States feeling well. Offers no complaints. Denies chest pain, SOB, cough. Non compliant with BiPAP use as recommended. OBJECTIVE: Vital Signs-as noted below Physical Exam: General Appearance:Thin, fragile, no apparent distress Head: normocephalic, Atraumatic Eyes: normal inspection, EOMI, PERRL ENT: R nasal bone mild tender Neck: supple, Trachea midline Respiratory/Chest: Decreased breath sounds, CTA Cardiovascular: S1, S2, No murmur Abdomen/GI:Soft, Non tender, Bowel sounds present Extremities/Musculoskelatal:normal inspection, no edema Neurologic/Psych:AAOX3, grossly no focal neurological deficits Skin: normal color, warm Lab data as noted below. ASSESSMENT & PLAN: Fall/Lethargy: Encephalopathy secondary to CO2 Narcosis:Resolved H/O multiple falls: Had closed hip fracture in the past Obtained Nasal fracture secondary to fall, denies LOC 9th R rib fracture: likely subacute (From Oct 2016) CT head: No acute intracranial findings PT/OT Fall precautions Acute Hypercarbic respiratory failure Acute on chronic COPD exacerbation: Chronic Oxygen dependency: 3.5 L at baseline but non compliant Admits to non compliance with meds and is current smoker Continue bronchodilators, Solu-Medrol, Oxygen support Continue steroid taper Appreciate Pulmonology input Counselled to quit smoking Leukocytosis likely secondary to steroids: stable Non compliant with BiPAP Taper oxygen to maintain Sats: 88-92% May need to be discharged on nebulizers H/O coronary artery disease, status post stent placement. Continue Coreg and aspirin. Depression: Stable Continue Effexor, Wellbutrin. 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 PT/OT Plan to discharge to SNF once Insurance auth. approved. PROCEDURES: CT Head; 1. No acute intracranial findings. 2. No calvarial fracture. 3. Acute minimally displaced right nasal bone fracture. Vital Signs: Date Time Temp Pulse Resp B/P Pulse Ox O2 Delivery O2 Flow Rate FiO2 03/01/17 11:40 36.5 94 20 123/81 93 03/01/17 08:00 Nasal Cannula 1.0 03/01/17 07:39 36.4 88 20 135/83 93 03/01/17 07:10 88 18 93 Nasal Cannula 1.0 03/01/17 04:31 36.3 87 20 109/73 92 2.0 03/01/17 04:00 Nasal Cannula 1.0 03/01/17 01:55 79 18 93 Nasal Cannula 1.0 03/01/17 00:01 Nasal Cannula 1.0 02/28/17 23:30 36.3 95 19 106/64 90 Nasal Cannula 1.0 02/28/17 20:31 107 18 96 Nasal Cannula 2.0 02/28/17 20:00 Nasal Cannula 1.0 02/28/17 19:26 36.5 105 20 120/76 94 Nasal Cannula 2.0 02/28/17 16:00 Nasal Cannula 1.0 02/28/17 15:13 36.6 90 20 126/81 96 02/28/17 14:10 94 Lab Results: Results Past 24 Hours Test 03/01/17 09:30 Range/Units White Blood Count 13.00 4.8-10.8 K/uL Red Blood Count 4.17 4.2-5.4 M/uL Hemoglobin 13.3 12.0-16.0 g/dL Hematocrit 41.6 37-47 % Mean Corpuscular Volume 99.8 80-100 fL Mean Corpuscular Hemoglobin 31.9 25-34 pg Mean Corpuscular Hemoglobin Concent 32.0 32-36 g/dl Platelet Count 219 130-400 K/uL Mean Platelet Volume 10.8 7.4-10.4 fL Neutrophils (%) (Auto) 80.4 % Lymphocytes (%) (Auto) 11.8 % Monocytes (%) (Auto) 7.5 % Eosinophils (%) (Auto) 0.1 % Basophils (%) (Auto) 0.0 % Neutrophils # (Auto) 10.45 1.4-6.5 K/uL Lymphocytes # (Auto) 1.54 1.2-3.4 K/uL Monocytes # (Auto) 0.97 0.11-0.59 K/uL Eosinophils # (Auto) 0.01 0-0.5 K/uL Basophils # (Auto) 0.00 0-0.2 K/uL RDW Standard Deviation 54.2 36.4-46.3 fL RDW Coefficient of Variation 15.0 11.5-14.5 % Immature Granulocyte % (Auto) 0.2 % Immature Granulocyte # (Auto) 0.03 0.00-0.02 K/uL Arterial Blood pH 7.42 7.35-7.45 Arterial Blood Partial Pressure CO2 58 35-46 mmHg Arterial Blood Partial Pressure O2 68 80-95 mm/Hg Arterial Blood HCO3 37 19-24 mmol/L Arterial Blood Oxygen Saturation 92.5 90-95 % Arterial Blood Base Excess 10.1 -9-1.8 mEq/L Arterial Blood Gas Delivery 1 L Tristan Test POS POS Sodium Level 139 136-145 mmol/L Potassium Level 3.7 3.5-5.1 mmol/L Chloride Level 96 98-107 mmol/L Carbon Dioxide Level 36 21-32 mmol/L Anion Gap 7.0 3-11 mmol/L Blood Urea Nitrogen 22 7-18 mg/dl Creatinine 0.48 0.60-1.20 mg/dl Est Creatinine Clear Calc Drug Dose 121.3 ml/min Estimated GFR () 116.8 Estimated GFR (Non- 100.8 BUN/Creatinine Ratio 45.8 10-20 Random Glucose 184 70-99 mg/dl Calcium Level 9.2 8.5-10.1 mg/dl Magnesium Level 1.8 1.8-2.4 mg/dl
--- NOTE | 2017-03-01 14:10 | PULMONARY PROGRESS NOTE ---
DATE: 03/01/2017 DATE: 03/01/2017. TIME: 12:40 p.m. SUBJECTIVE: The patient is feeling better. She is just wishing she were home. She feels less short of breath. The patient has not ambulated with PT today. She said she walked just a short distance yesterday. Obviously strength is an important thing for her with her history of falling. OBJECTIVE: GENERAL: The patient appeared comfortable and in no distress. HEART: Heart rate was 90 per minute. The rhythm was regular and it was normal sinus on telemetry. VITAL SIGNS: Temperature was 36.5. Respiratory rate was 20 breaths per minute and not labored. Blood pressure 123/81. LUNGS: Lung vásquez revealed mild rhonchi bilaterally with some coarse rales. Saturation was 93% on nasal cannula at 1 liter. ABDOMEN: Soft and nontender. EXTREMITIES: Showed no edema. Her skin is getting dry. LABORATORY DATA: The patient did have an arterial blood gas this morning. This has continued to improve. The pH is normalized at 7.42. The pCO2 is 58 and it had been 82 on 02/26/2017 and as high as 118 when she was first admitted on 02/26/2017. The pO2 today is 68 and that was on 1 liter of oxygen. Electrolytes today show sodium of 139, potassium 3.7, chloride 96, bicarbonate 36. The previous bicarbonate was 49. The BUN is 22 with a creatinine of 0.48. IMPRESSIONS: 1. Acute on chronic respiratory failure with hypercarbia. 2. Chronic obstructive pulmonary disease with exacerbation. 3. Nasal fracture. COMMENTS AND RECOMMENDATIONS: The patient is overall much improved. Her blood gases are probably back to baseline. The patient will not wear the BiPAP. At this point in time, I believe she needs significant strengthening. She remains a fall risk. She wants to go home. The patient needs to be strongly encouraged to use her nebulizer treatments regularly. These should be 4 times per day when she goes home. I spoke with the patient about her code status. She wants to be a full code at this time. We discussed the fact that she had been on a tracheostomy in the past and that would be possible once again if she was on a respirator. Nonetheless, at this point she would like to have all measures taken. Her respiratory status is fairly stable. I will see her again only if specifically requested. We would be more than happy to see her again if requested.
[2017-03-01] MEDS: PANTOprazole SOD 40 MG TAB PO SCH (19:56)
[2017-03-01] MEDS: MIRTAZAPINE TAB 15 MG TAB PO SCH (21:43)
[2017-03-02] VITALS (8 sets, daily range): BP systolic 107–142; BP diastolic 72–84; PULSE 82–100; TEMP 36.5–36.8; O2SAT 90–95
[2017-03-02] MEDS: IPRATROPIUM BROMIDE NEB SOLN 0.02% 2.5 ML VIAL INH SCH ×4 (02:10→19:30)
[2017-03-02] MEDS: LEVALBUTEROL 1.25MG/0.5ML NEB INH SCH ×4 (02:11→19:30)
[2017-03-02 06:27] LABS: CREATININE 0.42 mg/dl (0.60-1.20); POTASSIUM 4.2 mmol/L (3.5-5.1)
[2017-03-02] MEDS: FLUTICASONE FUROATE-VILANTEROL 60 PUFFS INH INH SCH (08:27)
[2017-03-02] MEDS: TIOTROPIUM BROMIDE 5 PUFF/90 MCG INH INH SCH (08:28)
[2017-03-02] MEDS: CARVEDILOL 12.5 MG TAB PO SCH ×2 (08:29→20:31)
[2017-03-02] MEDS: VENLAFAXINE HCL XR 150 MG CAPXR PO SCH (08:29)
[2017-03-02] MEDS: ASPIRIN 81 MG ECTAB PO SCH (08:29)
[2017-03-02] MEDS: BOOST PLUS VANILLA PO SCH ×4 (08:29→17:22)
[2017-03-02] MEDS: CYANOCOBALAMIN 100 MCG TAB (VIT B-12) PO SCH (08:30)
[2017-03-02] MEDS: MULTIVITAMIN TAB PO SCH (08:30)
[2017-03-02] MEDS: BuPROPion XL 300 MG TABCR PO SCH (08:31)
[2017-03-02] MEDS: ACETAMINOPHEN 325 MG TAB PO PRN ×2 (08:42→20:35)
--- NOTE | 2017-03-02 15:20 | Progress Note ---
Internal Med Progress Note Date of Service: March 02, 2017. Provider Documentation: SUBJECTIVE: seen and examined at bedside. No significant change from yesterday. Offers no complaints. Denies chest pain. SOB and cough seemed to be at baseline. Po intake improved. Family at bedside. OBJECTIVE: Vital Signs-as noted below Physical Exam: General Appearance:Thin, fragile, no apparent distress Head: normocephalic, Atraumatic Eyes: normal inspection, EOMI, PERRL ENT: R nasal bone mild tender Neck: supple, Trachea midline Respiratory/Chest: Decreased breath sounds, mild expiratory wheezes Cardiovascular: S1, S2, No murmur Abdomen/GI:Soft, Non tender, Bowel sounds present Extremities/Musculoskelatal:normal inspection, no edema Neurologic/Psych:AAOX3, grossly no focal neurological deficits Skin: normal color, warm Lab data as noted below. ASSESSMENT & PLAN: Fall/Lethargy: Encephalopathy secondary to CO2 Narcosis:Resolved H/O multiple falls: Had closed hip fracture in the past Obtained Nasal fracture secondary to fall, denies LOC 9th R rib fracture: likely subacute (From Oct 2016) CT head: No acute intracranial findings PT/OT Fall precautions Acute Hypercarbic respiratory failure Acute on chronic COPD exacerbation: Chronic Oxygen dependency: 3.5 L at baseline but non compliant Admits to non compliance with meds and is current smoker Continue bronchodilators, Solu-Medrol, Oxygen support Continue steroid taper Appreciate Pulmonology input Counselled to quit smoking Leukocytosis likely secondary to steroids: stable Non compliant with BiPAP Taper oxygen to maintain Sats: 88-92% May need to be discharged on nebulizers Currently saturating 94% on 1L H/O coronary artery disease, status post stent placement. Continue Coreg and aspirin. Depression: Stable Continue Effexor, Wellbutrin. 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 PT/OT Plan to discharge to SNF once Insurance auth. approved. PROCEDURES: CT Head; 1. No acute intracranial findings. 2. No calvarial fracture. 3. Acute minimally displaced right nasal bone fracture. Vital Signs: Date Time Temp Pulse Resp B/P Pulse Ox O2 Delivery O2 Flow Rate FiO2 03/02/17 15:06 36.8 96 18 116/75 94 Nasal Cannula 1.0 03/02/17 14:10 92 18 94 Nasal Cannula 1.5 03/02/17 08:31 36.5 84 20 142/84 90 03/02/17 08:00 Nasal Cannula 1.0 03/02/17 07:21 82 18 95 Nasal Cannula 1.5 03/02/17 00:14 36.7 98 18 123/78 92 Nasal Cannula 2.0 03/01/17 23:59 Nasal Cannula 1.0 03/01/17 20:00 Nasal Cannula 1.0 03/01/17 19:56 108 123/75 03/01/17 18:55 84 18 93 Nasal Cannula 1.5 03/01/17 18:00 37.0 107 18 126/77 93 Nasal Cannula 1.0 03/01/17 16:37 36.7 90 20 93 1.0 03/01/17 16:00 Nasal Cannula 1.0 Lab Results: Results Past 24 Hours Test 03/02/17 05:09 Range/Units Sodium Level 140 136-145 mmol/L Potassium Level 4.2 3.5-5.1 mmol/L Chloride Level 97 98-107 mmol/L Carbon Dioxide Level 40 21-32 mmol/L Anion Gap 3.0 3-11 mmol/L Blood Urea Nitrogen 24 7-18 mg/dl Creatinine 0.42 0.60-1.20 mg/dl Est Creatinine Clear Calc Drug Dose 138.7 ml/min Estimated GFR () 122.1 Estimated GFR (Non- 105.3 BUN/Creatinine Ratio 56.0 10-20 Random Glucose 68 70-99 mg/dl Calcium Level 9.0 8.5-10.1 mg/dl Magnesium Level 2.0 1.8-2.4 mg/dl
[2017-03-02] MEDS: PANTOprazole SOD 40 MG TAB PO SCH (20:31)
[2017-03-02] MEDS: MIRTAZAPINE TAB 15 MG TAB PO SCH (20:42)
[2017-03-03] VITALS (7 sets, daily range): BP systolic 108–127; BP diastolic 73–82; PULSE 85–93; TEMP 36.9–37; O2SAT 93–96
[2017-03-03] MEDS: LEVALBUTEROL 1.25MG/0.5ML NEB INH SCH ×4 (01:51→19:06)
[2017-03-03] MEDS: IPRATROPIUM BROMIDE NEB SOLN 0.02% 2.5 ML VIAL INH SCH ×4 (01:51→19:06)
[2017-03-03] MEDS: CARVEDILOL 12.5 MG TAB PO SCH ×2 (08:57→20:32)
[2017-03-03] MEDS: MULTIVITAMIN TAB PO SCH (08:58)
[2017-03-03] MEDS: CYANOCOBALAMIN 100 MCG TAB (VIT B-12) PO SCH (08:58)
[2017-03-03] MEDS: VENLAFAXINE HCL XR 150 MG CAPXR PO SCH (08:58)
[2017-03-03] MEDS: ASPIRIN 81 MG ECTAB PO SCH (08:58)
[2017-03-03] MEDS: BuPROPion XL 300 MG TABCR PO SCH (08:58)
[2017-03-03] MEDS: BOOST PLUS VANILLA PO SCH ×4 (08:59→17:00)
[2017-03-03] MEDS: FLUTICASONE FUROATE-VILANTEROL 60 PUFFS INH INH SCH (08:59)
[2017-03-03] MEDS: TIOTROPIUM BROMIDE 5 PUFF/90 MCG INH INH SCH (08:59)
[2017-03-03] MEDS: ACETAMINOPHEN 325 MG TAB PO PRN ×2 (09:04→20:36)
--- NOTE | 2017-03-03 13:49 | Progress Note ---
Internal Med Progress Note Date of Service: March 03, 2017. Provider Documentation: SUBJECTIVE: seen and examined at bedside. States feeling well. Offers no complaints. States having chronic intermittent dry cough. Denies chest pain, SOB, wheezing. PO intake improved. OBJECTIVE: Vital Signs-as noted below Physical Exam: General Appearance:Thin, fragile, no apparent distress Head: normocephalic, Atraumatic Eyes: normal inspection, EOMI, PERRL ENT: R nasal bone mild tender Neck: supple, Trachea midline Respiratory/Chest: Decreased breath sounds, mild expiratory wheezes Cardiovascular: S1, S2, No murmur Abdomen/GI:Soft, Non tender, Bowel sounds present Extremities/Musculoskelatal:normal inspection, no edema Neurologic/Psych:AAOX3, grossly no focal neurological deficits Skin: normal color, warm Lab data as noted below. ASSESSMENT & PLAN: Fall/Lethargy: Encephalopathy secondary to CO2 Narcosis:Resolved H/O multiple falls: Had closed hip fracture in the past Obtained Nasal fracture secondary to fall, denies LOC 9th R rib fracture: likely subacute (From Oct 2016) CT head: No acute intracranial findings PT/OT Fall precautions Acute Hypercarbic respiratory failure Acute on chronic COPD exacerbation: Chronic Oxygen dependency: 3.5 L at baseline but non compliant Admits to non compliance with meds and is a current smoker Continue bronchodilators, Solu-Medrol, Oxygen support Continue steroid taper Appreciate Pulmonology input Counselled to quit smoking Leukocytosis likely secondary to steroids: stable Non compliant with BiPAP secondary to claustrophobia Taper oxygen to maintain Sats: 88-92% May need to be discharged on nebulizers Currently saturating 94-96% on 1L H/O coronary artery disease, status post stent placement. Continue Coreg and aspirin. Depression: Stable Continue Effexor, Wellbutrin. 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 PT/OT PROCEDURES: CT Head; 1. No acute intracranial findings. 2. No calvarial fracture. 3. Acute minimally displaced right nasal bone fracture. Vital Signs: Date Time Temp Pulse Resp B/P Pulse Ox O2 Delivery O2 Flow Rate FiO2 03/03/17 08:30 Nasal Cannula 1.0 03/03/17 07:31 36.9 93 16 122/82 96 Nasal Cannula 2.0 03/03/17 07:05 91 18 95 Nasal Cannula 1.5 03/02/17 23:59 Nasal Cannula 1.0 03/02/17 23:55 36.8 100 20 112/72 94 Nasal Cannula 2.0 03/02/17 20:30 107/74 03/02/17 20:26 90 18 94 Nasal Cannula 1.5 03/02/17 20:00 Nasal Cannula 1.0 03/02/17 16:00 Nasal Cannula 1.0 03/02/17 15:06 36.8 96 18 116/75 94 Nasal Cannula 1.0
[2017-03-03] MEDS ORDERED: PRED10TA PO (14:08)
--- NOTE | 2017-03-03 14:11 | Discharge Instructions ---
Discharge Instructions Date of Service March 03, 2017. Admission Reason for Admission: Co2 Retention, Fall Discharge Discharge Diagnosis / Problem: COPD Exacarbation, Fall Discharge Goals Goal(s): Decrease discomfort, Improve function Activity Recommendations Activity Limitations: resume your previous activity Exercise/Sports Limitations: as tolerated . Instructions / Follow-Up Instructions / Follow-Up Follow up with on 03/07/17 at 2:00pm Follow up with your Inside Account Executive on 03/07/17 at 11:00AM Use inhalers/Nebulizers regularly Quit smoking as advised Complete the prednisone taper course as prescribed Current Hospital Diet Patient's current hospital diet: Regular Diet Discharge Diet Recommended Diet: Regular Diet Pending Studies Studies pending at discharge: no Medical Emergencies . Who to Call and When: Medical Emergencies: If at any time you feel your situation is an emergency, please call 911 immediately. . Non-Emergent Contact Non-Emergency issues call your: Primary Care Provider, Inside Account Executive Call Non-Emergent contact if: you have a fever, your pain is not controlled, your pain is worsening, your pain is unusual for you, you have any medication questions . . "Provider Documentation" section prepared by Theron Ordoñez. . VTE Core Measure Inpt VTE Proph given/why not?: SCD's
[2017-03-03] MEDS ORDERED: ATRINS INH (14:25)
[2017-03-03] MEDS ORDERED: XPNINS1255 INH (14:25)
--- NOTE | 2017-03-03 14:36 | Discharge Summary ---
Discharge Summary Date of Service March 03, 2017. Discharge Summary Admission Date: February 26, 2017 at 03:04 Discharge Disposition: Home with services Principal Diagnosis: COPD Exacerbation, Fall Procedures: CT head: 1. No acute intracranial findings. 2. No calvarial fracture. 3. Acute minimally displaced right nasal bone fracture. Pelvic X ray: No acute fracture within the pelvis or hips status post previous proximal right femoral internal fixation. Maxillofacial CT: Acute minimally displaced right nasal bone fracture. CXR: 1. No significant change in asymmetric interstitial thickening and irregular opacities within the right lung since chest CT of January 16, 2017. 2. Minimally displaced right ninth rib fracture, likely subacute to acute C-Spine CT: No fractures within the cervical spine. Consultations: Pulmonology Pending Studies/Follow-Up: Follow up with on 03/07/17 at 2:00pm Follow up with your Analysis Analyst on 03/07/17 at 11:00AM Use inhalers/Nebulizers regularly Quit smoking as advised Complete the prednisone taper course as prescribed Medication Reconciliation New Medications: Prednisone Tab (Prednisone) 10 Mg Tab 10 MG PO UD for 10 Days, #10 TAB Start taking 20 mg daily for 3 days and then 10 mg daily for 3 days and 5mg daily for 4 days and stop Ipratropium [place] (Ipratropium [place]) 0.5 Mg/2.5 Ml Nebu 0.5 MG INH Q6R for 30 Days, #30 1 Refill Levalbuterol (Levalbuterol) 1.25 Mg/0.5 Ml Nebu 1.25 MG INH Q6R for 30 Days, #30 2 Refills Continued Medications: Albuterol Hfa (Ventolin Hfa) 200 Puffs/92219 Mcg Aers 2 PUFFS INH Q6 PRN for SOB/Wheezing, #1 INHALER Ascorbic Acid (Vitamin C 500 mg) 1 Chw Chw 1 TAB PO DAILY Aspirin (Aspirin Ec) 81 Mg Tab 81 MG PO QAM Bupropion HCl (Bupropion HCl Xl) 300 Mg Tabcr 300 MG PO QAM for 30 Days, #30 TAB 0 Refills Carvedilol (Carvedilol) 12.5 Mg Tab 12.5 MG PO BID for 30 Days, #60 TAB Cyanocobalamin (Vitamin B12 100 Mcg) 100 Mcg Tab 100 MCG PO DAILY, TAB Ergocalciferol (Vitamin D) 50,000 Interunit Cap 70246 INTER.UNIT PO WK tuesdays Fluticasone Furoate-Vilanterol (Breo Ellipta 200-25 Mcg/INH) 1 Inh Inh 1 PUFF PO DAILY Levalbuterol (Levalbuterol HCl) 0.63 Mg/3 Ml Nebu 1 AMP NEB Q6 PRN for SOB/Wheezing Mirtazapine (Remeron) 15 Mg Tab 15 MG PO HS Multivitamin (Multivitamin) Tab 1 TAB PO DAILY, TAB Nitroglycerin (Nitrostat) 0.4 Mg Sub 0.4 MG UT UD PRN for Chest Pain, BTL Nutritional Supplements (Prosource) 1 Liq Liq 30 ML PO QID Omeprazole (Prilosec) 20 Mg Cap 20 MG PO HS Tiotropium [place] Monohydrate (Spiriva Respimat) 2.5 Mcg/Act Spr 2 PUFFS PO DAILY Venlafaxine Hcl (Effexor Extended Rel) 150 Mg Capcr 150 MG PO DAILY for 30 Days, #30 CAP Discontinued Medications: Arformoterol Tartrate (Brovana) 15 Mcg/2 Ml Neb 15 MCG INH BID, INHALER Admission Information HPI (per Admitting provider): CHIEF COMPLAINT: Status post fall and injury to the face. HISTORY OF PRESENT ILLNESS: This is a 66-year-old female with past medical history significant for severe COPD; CAD, status post RCA stent; depression; hyperlipidemia; MRSA bacteremia; paroxysmal atrial fibrillation; history of chronic respiratory failure presents with a fall at home. The patient says she was trying to get up from the bed and fell on her face. She did not lose consciousness. Denies any chest pain or shortness of breath or nausea. The patient is somewhat lethargic, but opens her eyes on calling, can tell her name and can tell place but cannot tell the date and time. ABGs show CO2 retention in the ER. Currently saturating okay on oxygen, hemodynamically stable. Denies any complaints at this time, could not get much history from the patient as the patient is going back to sleep. Physical Exam (per Admitting): PHYSICAL EXAMINATION: GENERAL: The patient seems old and frail. VITAL SIGNS: Temperature 35.6, pulse 80, respiratory rate 18, blood pressure 107/76, oxygen 90% on 4 liters. HEENT: No pallor, no icterus. Pupils equal, round, and reactive to light. Head showing some blood in the nostrils and the mouth region. NECK: No JVD, no neck masses, no carotid bruits. CARDIOVASCULAR: S1, S2 heard, regular rate and rhythm, no murmur, no gallop. RESPIRATORY SYSTEM: Clear to auscultation bilaterally. Bilateral diminished breath sounds. No wheezing, no crackles. ABDOMEN: Soft, bowel sounds present. Nontender. No distention. CENTRAL NERVOUS SYSTEM: Drowsy, oriented x2. Nonfocal. EXTREMITIES: No edema. No erythema. Hospital Course Fall/Lethargy: Encephalopathy secondary to CO2 Narcosis:Resolved H/O multiple falls: Had closed hip fracture in the past Obtained Nasal fracture secondary to fall, denies LOC 9th R rib fracture: likely subacute (From Oct 2016) CT head: No acute intracranial findings PT/OT Fall precautions Denied for SNF placement. Plan to discharge home with home health and home PT Acute Hypercarbic respiratory failure Acute on chronic COPD exacerbation: Chronic Oxygen dependency: 3.5 L at baseline but non compliant Admits to non compliance with meds and is a current smoker Continue bronchodilators, Solu-Medrol, Oxygen support Continue steroid taper Appreciate Pulmonology input Counselled to quit smoking Leukocytosis likely secondary to steroids: stable Non compliant with BiPAP secondary to claustrophobia Taper oxygen to maintain Sats: 88-92% Plan to be discharged on nebulizers per recommendations from Pulmonology Currently saturating 96% on 1L H/O coronary artery disease, status post stent placement. Continue Coreg and aspirin. Depression: Stable Continue Effexor, Wellbutrin. Hypertension: Continue Coreg Monitor H/O Ischemic colon: S/P colectomy and placement of ileostomy Stable H/O Ectopic Atrial Rhythm: Continue Aspirin, BB Severe Protein Calorie Malnutrition: BMI:16.8 Continue Nutrition per Financial Institution Vice President DVT Px: SCDs for now CODE STATUS: Full Code Disposition: Patient was denied for SNF facility placement Plan to discharge home with home health and home PT today Follow up with on 03/07/17 at 2:00pm Follow up with your Analysis Analyst as advised Use inhalers regularly Quit smoking as advised Complete the prednisone taper course as prescribed PROCEDURES: CT Head; 1. No acute intracranial findings. 2. No calvarial fracture. 3. Acute minimally displaced right nasal bone fracture. Total time spent on discharge = 33 minutes This includes examination of the patient, discharge planning, medication reconciliation, and communication with other providers. Discharge Instructions Discharge Instructions Date of Service March 03, 2017. Admission Reason for Admission: Co2 Retention, Fall Discharge Discharge Diagnosis / Problem: COPD Exacerbation, Fall Discharge Goals Goal(s): Decrease discomfort, Improve function Activity Recommendations Activity Limitations: resume your previous activity Exercise/Sports Limitations: as tolerated . Instructions / Follow-Up Instructions / Follow-Up Follow up with on 03/07/17 at 2:00pm Follow up with your Analysis Analyst on 03/07/17 at 11:00AM Use inhalers/Nebulizers regularly Quit smoking as advised Complete the prednisone taper course as prescribed Current Hospital Diet Patient's current hospital diet: Regular Diet Discharge Diet Recommended Diet: Regular Diet Pending Studies Studies pending at discharge: no Medical Emergencies . Who to Call and When: Medical Emergencies: If at any time you feel your situation is an emergency, please call 911 immediately. . Non-Emergent Contact Non-Emergency issues call your: Primary Care Provider, Analysis Analyst Call Non-Emergent contact if: you have a fever, your pain is not controlled, your pain is worsening, your pain is unusual for you, you have any medication questions . . "Provider Documentation" section prepared by Theron Ordoñez. . VTE Core Measure Inpt VTE Proph given/why not?: SCD's <Electronically signed by Theron Ordoñez MD> Signed: 03/04/17 1111 Signed: The status of this report is Signed * If report status is Draft, the document has not been finalized by the responsible provider.
[2017-03-03] MEDS: PANTOprazole SOD 40 MG TAB PO SCH (20:31)
[2017-03-03] MEDS: MIRTAZAPINE TAB 15 MG TAB PO SCH (20:31)
[2017-03-04] VITALS: BP 111/69; PULSE 85; TEMP 36.5; O2SAT 94
[2017-03-04] MEDS: LEVALBUTEROL 1.25MG/0.5ML NEB INH SCH ×2 (01:36→08:09)
[2017-03-04] MEDS: IPRATROPIUM BROMIDE NEB SOLN 0.02% 2.5 ML VIAL INH SCH ×2 (01:36→08:09)
[2017-03-04 03:00] VITALS: O2SAT 94
[2017-03-04 07:14] LABS: BUN/CREATININE RATIO 111.8 (10-20); CALCIUM 8.8 mg/dl (8.5-10.1); CREATININE 0.25 mg/dl (0.60-1.20); MAGNESIUM 2.1 mg/dl (1.8-2.4)
[2017-03-04 07:31] VITALS: BP 127/79; PULSE 83; TEMP 36.9; O2SAT 93
[2017-03-04 08:09] VITALS: PULSE 88; O2SAT 96
[2017-03-04] MEDS: VENLAFAXINE HCL XR 150 MG CAPXR PO SCH (08:14)
[2017-03-04] MEDS: BOOST PLUS VANILLA PO SCH ×2 (08:15)
[2017-03-04] MEDS: CARVEDILOL 12.5 MG TAB PO SCH (08:15)
[2017-03-04] MEDS: BuPROPion XL 300 MG TABCR PO SCH (08:16)
[2017-03-04] MEDS: TIOTROPIUM BROMIDE 5 PUFF/90 MCG INH INH SCH (08:16)
[2017-03-04] MEDS: CYANOCOBALAMIN 100 MCG TAB (VIT B-12) PO SCH (08:16)
[2017-03-04] MEDS: MULTIVITAMIN TAB PO SCH (08:16)
[2017-03-04] MEDS: ASPIRIN 81 MG ECTAB PO SCH (08:17)
[2017-03-04] MEDS: FLUTICASONE FUROATE-VILANTEROL 60 PUFFS INH INH SCH (08:17)
--- NOTE | 2017-03-04 10:57 | Progress Note ---
Internal Med Progress Note Date of Service: March 04, 2017. Provider Documentation: SUBJECTIVE: seen and examined at bedside. Clinically no significant change from yesterday. Doing well. Offers no complaints. States having chronic intermittent dry cough. Denies chest pain, SOB, wheezing. Family at bedside. OBJECTIVE: Vital Signs-as noted below Physical Exam: General Appearance:Thin, fragile, no apparent distress Head: normocephalic, Atraumatic Eyes: normal inspection, EOMI, PERRL ENT: R nasal bone mild tender Neck: supple, Trachea midline Respiratory/Chest: Decreased breath sounds, mild expiratory wheezes Cardiovascular: S1, S2, No murmur Abdomen/GI:Soft, Non tender, Bowel sounds present Extremities/Musculoskelatal:normal inspection, no edema Neurologic/Psych:AAOX3, grossly no focal neurological deficits Skin: normal color, warm Lab data as noted below. ASSESSMENT & PLAN: Fall/Lethargy: Encephalopathy secondary to CO2 Narcosis:Resolved H/O multiple falls: Had closed hip fracture in the past Obtained Nasal fracture secondary to fall, denies LOC 9th R rib fracture: likely subacute (From Oct 2016) CT head: No acute intracranial findings PT/OT Fall precautions Denied for SNF placement. Plan to discharge home with home health and home PT Acute Hypercarbic respiratory failure Acute on chronic COPD exacerbation: Chronic Oxygen dependency: 3.5 L at baseline but non compliant Admits to non compliance with meds and is a current smoker Continue bronchodilators, Solu-Medrol, Oxygen support Continue steroid taper Appreciate Pulmonology input Counselled to quit smoking Leukocytosis likely secondary to steroids: stable Non compliant with BiPAP secondary to claustrophobia Taper oxygen to maintain Sats: 88-92% Plan to be discharged on nebulizers per recommendations from Pulmonology Currently saturating 96% on 1L H/O coronary artery disease, status post stent placement. Continue Coreg and aspirin. Depression: Stable Continue Effexor, Wellbutrin. Hypertension: Continue Coreg Monitor H/O Ischemic colon: S/P colectomy and placement of ileostomy Stable H/O Ectopic Atrial Rhythm: Continue Aspirin, BB Severe Protein Calorie Malnutrition: BMI:16.8 Continue Nutrition per Cash Applications Coordinator DVT Px: SCDs for now CODE STATUS: Full Code Disposition: Patient was denied for SNF facility placement Plan to discharge home with home health and home PT today Follow up with on 03/07/17 at 2:00pm Follow up with your Voyage Management System Operator as advised Use inhalers regularly Quit smoking as advised Complete the prednisone taper course as prescribed PROCEDURES: CT Head; 1. No acute intracranial findings. 2. No calvarial fracture. 3. Acute minimally displaced right nasal bone fracture. Vital Signs: Date Time Temp Pulse Resp B/P Pulse Ox O2 Delivery O2 Flow Rate FiO2 03/04/17 08:09 88 18 96 Nasal Cannula 1.0 03/04/17 07:31 36.9 83 16 127/79 93 Nasal Cannula 1.0 03/04/17 03:00 94 Nasal Cannula 1.0 03/04/17 03:00 94 Nasal Cannula 1.0 03/04/17 00:00 36.5 85 18 111/69 94 Nasal Cannula 1.5 03/04/17 00:00 Nasal Cannula 1.0 03/03/17 19:06 89 18 95 Nasal Cannula 1.0 03/03/17 16:00 93 Nasal Cannula 1.0 40 03/03/17 15:54 37.0 85 18 108/73 93 Nasal Cannula 1.0 03/03/17 14:38 36.9 87 18 95 Nasal Cannula 03/03/17 14:16 87 18 95 Nasal Cannula 1.0 Lab Results: Results Past 24 Hours Test 03/04/17 06:00 Range/Units Sodium Level 141 136-145 mmol/L Potassium Level 4.0 3.5-5.1 mmol/L Chloride Level 102 98-107 mmol/L Carbon Dioxide Level 36 21-32 mmol/L Anion Gap 3.0 3-11 mmol/L Blood Urea Nitrogen 28 7-18 mg/dl Creatinine 0.25 0.60-1.20 mg/dl Est Creatinine Clear Calc Drug Dose 233.0 ml/min Estimated GFR () 144.8 Estimated GFR (Non- 124.9 BUN/Creatinine Ratio 111.8 10-20 Random Glucose 71 70-99 mg/dl Calcium Level 8.8 8.5-10.1 mg/dl Magnesium Level 2.1 1.8-2.4 mg/dl
[2017-09-17] MEDS ORDERED: NITR0.4S UT
[2017-09-17] MEDS ORDERED: MULT-506 PO
[2017-09-17] MEDS ORDERED: ASCO500C43 PO
[2017-09-17] MEDS ORDERED: CYAN100T6 PO (00:02)
[2017-09-17] MEDS ORDERED: ASPI81TA28 PO (09:29)
[2017-09-22] MEDS ORDERED: PRD10 OR (15:06)
== END 2017-03-04 12:52 | disposition home health service (06) | DRG 189 ==
LOC: ENRESERVTM → ENRESERVDT → EDBD 22:33 → C.EDC 22:36 → UNDOADMIN 02-26 03:04 → C.MED 02-26 03:04 → C.4E 03-01 18:26 → C.MED 03-01 18:26
PROVIDERS: ADMIT Internal Medicine; ATTEND Internal Medicine
DX: J96.22 Acute and chronic respiratory failure with hypercapnia (principal); G93.49 Other encephalopathy; E43 Unspecified severe protein-calorie malnutrition; J44.1 Chronic obstructive pulmonary disease with (acute) exacerbation; Z68.1 Body mass index [BMI] 19.9 or less, adult; S02.2XXA Fracture of nasal bones, initial encounter for closed fracture; S61.512A Laceration without foreign body of left wrist, initial encounter; Z91.81 History of falling; Z99.81 Dependence on supplemental oxygen; Z91.14 Patient's other noncompliance with medication regimen; F17.200 Nicotine dependence, unspecified, uncomplicated; I25.10 Atherosclerotic heart disease of native coronary artery without angina pectoris; Z95.5 Presence of coronary angioplasty implant and graft; F32.9 Major depressive disorder, single episode, unspecified; Z79.899 Other long term (current) drug therapy; Z93.2 Ileostomy status; Z79.82 Long term (current) use of aspirin; I49.1 Atrial premature depolarization; I11.9 Hypertensive heart disease without heart failure; I48.0 Paroxysmal atrial fibrillation; Z86.14 Personal history of Methicillin resistant Staphylococcus aureus infection; Z82.49 Family history of ischemic heart disease and other diseases of the circulatory system; W18.09XA Striking against other object with subsequent fall, initial encounter; Y92.003 Bedroom of unspecified non-institutional (private) residence as the place of occurrence of the external cause; Y99.8 Other external cause status

== ENCOUNTER → 2017-03-07 | Outpatient (CLI) | payer OTHER ==
[~2017-03-07] MED LIST changes: -ARFO15NE NEB; +ASCO500C43 PO; +ASPI81TA28 PO; +ATRINSX INH; +BUPRTAB51 PO; +CALCTAB5 PO; +CARV12.5 PO; +CHOL100027 PO; +CYAN100T6 PO; -FLUT1INH INH; +FLUT1INH7 PO; +LPT40 PO; -LVNIS30 SQ; +MIRT15TA3 PO; +NITR0.4S UT; +NUTR-1048 PO; -NUTR-977 PO; +OMEP20CA9 PO; -OXYC-88 PO; -PANT40TA PO; +PRD10 OR; -PRD20 PO; +PRED10TA PO; +TIOT1SPR PO; +VENL150C56 PO; -VNCS125 PO; +VNTHFA/IN INH; -VTMB12100 PO; +VTMD PO; +XPNINS NEB; +XPNINS125 INFIL
--- NOTE | 2017-03-07 11:31 | DIAGNOSTIC IMAGING REPORT ---
CHEST 2 VIEWS ROUTINE CLINICAL HISTORY: J44.9 Advanced COPDR05 Chronic [id number] Abnormal chest xrayRAD cough. Dyspnea. COMPARISON STUDY: 02/26/2017 FINDINGS: Mild emphysematous change. Trace pleural fluid both lung bases. Fracture right ninth rib unchanged. No evidence for pneumothorax. IMPRESSION: Trace pleural fluid both lung bases combined with mild bibasilar atelectatic change. Mild chronic interstitial prominence unaltered. Electronically signed by: Matheus Russell M.D. 03/07/2017 11:30 AM Dictated Date/Time: 03/07/2017 11:28 AM
== END | disposition home or self-care (01) ==
LOC: C.RADBBURG 11:07
PROVIDERS: ATTEND Physician Assistant
DX: J44.9 Chronic obstructive pulmonary disease, unspecified (principal); R05 Cough; R93.8 Abnormal findings on diagnostic imaging of other specified body structures

== ENCOUNTER → 2017-07-07 | Outpatient (CLI) | payer OTHER ==
[~2017-07-07] MED LIST changes: -ATRINSX INH; -BUPRTAB51 PO; -CALCTAB5 PO; -CARV12.5 PO; -CHOL100027 PO; -LPT40 PO; -PRD10 OR; -PRED10TA PO; -VENL150C56 PO; -XPNINS125 INFIL
--- NOTE | 2017-07-07 12:49 | DIAGNOSTIC IMAGING REPORT ---
CT OF THE CHEST WITHOUT IV CONTRAST CLINICAL HISTORY: Respiratory distress. Shortness of breath. Pulmonary nodules. COMPARISON STUDY: Chest CT January 16, 2017 and chest radiograph March 07, 2017. CT DOSE: 205.79 mGycm TECHNIQUE: Axial images of the chest were obtained without IV contrast. Images were reviewed in the axial, sagittal, and coronal planes. IV contrast was not administered for this examination. A dose lowering technique was utilized adhering to the principles of ALARA. FINDINGS: No enlarged axillary, mediastinal or hilar lymph nodes are present. The size of the heart is normal. There is no pericardial effusion. The central airways are patent. Severe emphysema is noted. Lungs are suboptimally assessed due to respiratory motion. Mild multifocal airspace opacities are noted within the lower lobes, greater on the right. Slight improvement is noted when compared to exam of January 16, 2017. Previously described bilateral irregular upper lobe densities have slightly improved. The findings favor multifocal scarring. There are no new pulmonary nodules. No pneumothorax or pleural effusion is present. An old mild L1 compression fracture is present. Note is made of a 3 mm right renal calculus. IMPRESSION: 1. Severe emphysema. 2. Mild bilateral lower lobe airspace opacities with scattered tree-in-bud nodules, greater on the right. The findings favor a mild infectious process. 3. Slight improvement in previously described bilateral irregular upper lobe opacities which favor scarring. 4. Mild bronchial wall thickening and multifocal mucus plugging, more pronounced within the lower lobes. Electronically signed by: Grzegorz Hernández M.D. 07/07/2017 12:48 PM Dictated Date/Time: 07/07/2017 12:37 PM
== END | disposition home or self-care (01) ==
LOC: C.CTS 12:10
PROVIDERS: ATTEND Physician Assistant
DX: R06.02 Shortness of breath (principal); R06.00 Dyspnea, unspecified; R91.8 Other nonspecific abnormal finding of lung field; J43.9 Emphysema, unspecified

== ENCOUNTER 2017-09-17 17:55 | Inpatient (IN) | payer OTHER ==
[~2017-09-17] VITALS: Ht 160 cm; Wt 38.7 kg
[~2017-09-17 17:55] MED LIST changes: -FLUT1INH7 PO; -OMEP20CA9 PO; -TIOT1SPR PO; -VNTHFA/IN INH
--- NOTE | 2017-09-17 18:20 | EMERGENCY ROOM VISIT NOTE ---
History Report prepared by Edwina: Coy Villalta Under the Supervision of: Dr. Jasmyn Turner M.D. First contact with patient: 18:13 Chief Complaint: ELBOW PAIN/INJURY Stated Complaint: FALL, SKIN TEAR TO R WRIST & ARM, HIT HEAD History of Present Illness The patient is a 66 year old female with a history of MRSA who presents to the Emergency Room with complaints of a sudden mechanical fall that occurred this morning. Per the nursing staff, the fall was witnessed by family, and the patient fell onto the ground, hitting the left side of her head and face, and has resulting skin tears on her right elbow and wrist. The patient did fall 2 days ago, and hit the right side of her face. She denies any loss of consciousness or vomiting. Per the nursing staff, the patient's oxygen saturation is 99%. The patient takes an Aspirin daily. She does have an ostomy. Source of History: patient, nursing staff Onset: This morning Position: other (global - fall) Quality: other (mechanical) Timing: other (sudden) Associated Symptoms: No LOC, No vomiting Note: Associated symptoms: Hit left side of head and face. Skin tears to right elbow and wrist. Review of Systems See HPI for pertinent positives & negatives. A total of 10 systems reviewed and were otherwise negative. Past Medical & Surgical Medical Problems: (1) Ambulatory dysfunction (2) CAD (coronary artery disease) (3) Chronic obstructive lung disease (4) CO2 retention (5) COPD, severe (6) Depression (7) Diverticulosis of sigmoid colon (8) Fall (9) Hyperlipidemia (10) MRSA bacteremia (11) Paroxysmal a-fib (12) Respiratory failure Surgical Problems: (1) H/O ileostomy (2) History of cardiac catheterization (3) History of tonsillectomy (4) S/P partial colectomy (5) S/P splenectomy (6) Status post tracheostomy Family History FH: heart disease FATHER (MD at age 47) FH: pulmonary embolism MOTHER (at age 48) Social History Smoking Status: Current Every Day Smoker Alcohol Use: occasionally Drug Use: none Marital Status: Housing Status: lives with significant other Occupation Status: retired Current/Historical Medications Scheduled Ascorbic Acid (Vitamin C 500 mg), 1 TAB PO DAILY Aspirin (Aspirin Ec), 81 MG PO QAM Atorvastatin (Atorvastatin Calcium), 40 MG PO DAILY Bupropion (Wellbutrin-Xl), 300 MG PO DAILY Calcium Carbonate (Caltrate 600), 1 TAB PO DAILY Carvedilol (Coreg), 12.5 MG PO BID Cholecalciferol (Vitamin D 1000 Unit), 1,000 INTER.UNIT PO DAILY Cyanocobalamin (Vitamin B12 100 Mcg), 100 MCG PO DAILY Fluticasone Furoate-Vilanterol (Breo Ellipta 200-25 Mcg/INH), 1 PUFF PO DAILY Ipratropium [place] (Atrovent 0.02% Soln), 1 UNIT INH QID Levalbuterol (Levalbuterol HCl), 1 DOSE INFIL Q6 Multivitamin (Multivitamin), 1 TAB PO DAILY Omeprazole (Prilosec), 20 MG PO HS Tiotropium [place] (Spiriva Respimat), 2 PUFFS PO DAILY Venlafaxine Hcl (Effexor Extended Rel), 150 MG PO DAILY Scheduled PRN Albuterol Hfa (Ventolin Hfa), 2 PUFFS INH Q6 PRN for SOB/Wheezing Nitroglycerin (Nitrostat), 0.4 MG UT UD PRN for Chest Pain Allergies Coded Allergies: Penicillins (Verified Allergy, Intermediate, HIVES, 02/25/17) LIKELY TOLERATES CEFEPIME, IMIPENEM (SEE ADMISSION 08/13/15) Physical Exam Vital Signs Date Time Temp Pulse Resp B/P (MAP) Pulse Ox O2 Delivery O2 Flow Rate FiO2 09/17/17 23:46 98 20 108/70 97 Nasal Cannula 3.0 09/17/17 22:39 100 15 98 Nasal Cannula 3.0 09/17/17 22:27 100 09/17/17 22:00 101 22 116/65 97 Nasal Cannula 3.0 09/17/17 21:05 36.7 102 22 139/78 98 Nasal Cannula 3.0 09/17/17 19:05 99 22 124/68 90 Nasal Cannula 2.5 09/17/17 18:18 99 Nasal Cannula 4.0 09/17/17 18:08 36.4 84 18 108/84 99 Nasal Cannula 4.0 Physical Exam Vital signs reviewed. General: Chronically ill-appearing, thin, 66 year old female, on nasal cannula, in no significant distress. HEENT: No scleral icterus, PERRLA, neck supple. Atraumatic. Cardiovascular: Regular rate and rhythm, no extra sounds. Pulmonary: Distant lung sounds, otherwise clear. Abdomen: Soft, nontender, nondistended, positive bowel sounds. Colostomy noted to the right abdomen Musculoskeletal: Skin tear to right elbow with no active bleeding, left eyebrow hematoma. Neurologic: Patient awake alert and answers most questions appropriately, generally weak. Moves all extremities equally. Skin: Warm, dry, no rash Medical Decision & Procedures ER Provider Diagnostic Interpretation: Radiology results as stated below per my review and radiologist interpretation: HEAD WITHOUT CONTRAST (CT) CLINICAL HISTORY: 66 years-old Female with fall, CHI. Acute head injury status post fall TECHNIQUE: Multiple axial CT images of the head were obtained without contrast. A dose lowering technique was utilized adhering to the principles of ALARA. CT DOSE: 909.11 mGy.cm COMPARISON: CT head 02/26/2017. FINDINGS: Exam is mildly motion degraded. Note is made of cavum septum lucidum. Mild atrophy with chronic microvascular ischemic changes. No acute intracranial hemorrhage, midline shift, mass, large territorial ischemia or abnormal extra-axial collection. The calvarium is intact. The paranasal sinuses, mastoid air cells, and middle ear cavities are clear. Defect of the cartilaginous nasal septum is unchanged and may be postsurgical, or post traumatic. Prior bilateral cataract repair. IMPRESSION: 1. Mildly motion degraded study without acute intracranial abnormality. 2. No calvarial fracture. The above report was generated using voice recognition software. It may contain grammatical, syntax or spelling errors. Electronically signed by: Reid Odell M.D. 09/17/2017 7:47 PM Dictated Date/Time: 09/17/2017 7:43 PM R ELBOW MIN 3 VIEWS ROUTINE HISTORY: 66 years-old Female right elbow trauma acute right elbow pain status post fall COMPARISON: None available TECHNIQUE: 3 views of the right elbow FINDINGS: There is mild marginal spurring about the elbow, greatest at the medial epicondyles. Bones are mildly demineralized. No acute fracture, dislocation or joint effusion. IMPRESSION: Mild degenerative changes without acute fracture or dislocation. The above report was generated using voice recognition software. It may contain grammatical, syntax or spelling errors. Electronically signed by: Reid Odell M.D. 09/17/2017 7:22 PM Dictated Date/Time: 09/17/2017 7:21 PM CHEST ONE VIEW PORTABLE HISTORY: 66 years-old Female fall acute chest injury status post fall COMPARISON: Chest radiograph 03/07/2017, CT chest 07/07/2017 TECHNIQUE: Portable AP view of the chest FINDINGS: Patient is slightly rotated to the right. Cardiac silhouette is within normal limits. There is atherosclerosis of the aorta. Emphysema with chronic interstitial opacities and hyperinflation redemonstrated. Reticular opacities of the perihilar distributions and lung bases appear slightly progressed from comparison studies. Bones of the chest appear grossly intact. There are degenerative changes of the spine and shoulders. IMPRESSION: 1. Emphysema with chronic scarring. Interstitial opacities of the lung bases suggest areas of atelectasis/scarring or pneumonitis, slightly worsened from comparison studies. 2. No pneumothorax. The above report was generated using voice recognition software. It may contain grammatical, syntax or spelling errors. Electronically signed by: Reid Odell M.D. 09/17/2017 7:27 PM Dictated Date/Time: 09/17/2017 7:25 PM Laboratory Results Test 09/17/17 19:20 09/17/17 20:20 Magnesium Level 1.8 mg/dl (1.8-2.4) Total Bilirubin 0.3 mg/dl (0.2-1) Direct Bilirubin < 0.1 mg/dl (0-0.2) Aspartate Amino Transf (AST/SGOT) 17 U/L (15-37) Alanine Aminotransferase (ALT/SGPT) 21 U/L (12-78) Alkaline Phosphatase 110 U/L (45-117) Total Protein 7.2 gm/dl (6.4-8.2) Albumin 2.9 gm/dl (3.4-5.0) Urine Color YELLOW Urine Appearance CLOUDY (CLEAR) Urine pH 6.0 (4.5-7.5) Urine Specific [place] 1.020 (1.000-1.030) Urine Protein TRACE (NEG) Urine Glucose (UA) NEG (NEG) Urine Ketones NEG (NEG) Urine Occult Blood 2+ (NEG) Urine Nitrite NEG (NEG) Urine Bilirubin NEG (NEG) Urine Urobilinogen NEG (NEG) Urine Leukocyte Esterase MODERATE (NEG) Urine WBC (Auto) >30 /hpf (0-5) Urine RBC (Auto) 10-30 /hpf (0-4) Urine Hyaline Casts (Auto) 5-10 /lpf (0-5) Urine Epithelial Cells (Auto) 20-30 /lpf (0-5) Urine Bacteria (Auto) 4+ (NEG) Laboratory results per my review. Medications Administered Medications (Trade) Dose Ordered Sig/José Miguel Route Start Time Stop Time Status Last Admin Dose Admin Levofloxacin (Levaquin / D5W) 500 mg NOW ONCE IV 09/17/17 22:15 09/17/17 22:16 DC 09/17/17 22:21 500 MG Ipratropium [place] (Atrovent 0.02% 0.5MG/2.5ML Neb) 0.5 mg NOW STAT INH 09/17/17 22:09 09/17/17 22:10 DC 09/17/17 22:38 0.5 MG Levalbuterol (Xopenex 1.25MG/ 0.5ML Neb) 1.25 mg NOW STAT INH 09/17/17 22:09 09/17/17 22:10 DC 09/17/17 22:38 1.25 MG ECG Indication: other (fall) Rate (beats per minute): 97 Rhythm: normal sinus Findings: no acute ischemic change (no obvious), no ectopy (no obvious), other (poor quality baseline) ED Course 1813: Past medical records reviewed. The patient was evaluated in room C11B. A complete history and physical examination was performed. 2114: Ordered Levaquin Tab 500 mg PO. 2149: Upon reevaluation, the patient is resting comfortably. I discussed laboratory and radiographic results with her. She verbalized agreement of the treatment plan. The patient will be evaluated for further management and care. 2199: I reviewed the patient's case with Dr. Epi [place]. He will evaluate the patient for further management. Medical Decision Differential diagnosis: Intracranial injury, cervical spine injury, intrathoracic injury, intra- abdominal injury, musculoskeletal injury. This patient was evaluated and appeared to be in no significant distress. IV access was obtained and laboratory work was drawn. Patient was placed on the electronic device monitor and found to be in a normal sinus rhythm without evidence of acute ischemia. Laboratory work is fairly unrevealing. Urinalysis is concerning for infection. Chest x-ray reveals bilateral atelectasis versus infiltrate. She has severe COPD and continues to smoke. She does wear home oxygen. Patient has an allergy to penicillins. She was given 500 mg of IV Levaquin for both urinary and lung coverage. After case management discussed the situation with the patient's , he states she has been falling frequently and is total care. He does not think it is safe for her to return home. At this time the patient will be evaluated by the hospitalist service for further management. She may require placement after hospitalization. Medication Reconcilliation Current Medication List: was personally reviewed by me Blood Pressure Screening Patient's blood pressure: Normal blood pressure Consults Time Called: 2154 Consulting Physician: Dr. Epi [place] Returned Call: 2199 I reviewed the patient's case with Dr. Epi [place]. He will evaluate the patient for further management. Impression Primary Impression: Skin tear of right elbow without complication Additional Impressions: Closed head injury UTI (urinary tract infection) Scribe Attestation The scribe's documentation has been prepared under my direction and personally reviewed by me in its entirety. I confirm that the note above accurately reflects all work, treatment, procedures, and medical decision making performed by me. Departure Information Dispostion Being Evaluated By Hospitalist Referrals Matheus Kirk M.D. (PCP) Patient Instructions My [facility] Problem Qualifiers
[2017-09-17] MEDS ORDERED: CALCTAB5 PO (19:02)
[2017-09-17] MEDS ORDERED: CHOL100027 PO (19:02)
[2017-09-17] MEDS ORDERED: ATRINSX INH (19:02)
[2017-09-17] MEDS ORDERED: LPT40 PO (19:02)
[2017-09-17] MEDS ORDERED: VENL150C56 PO (19:02)
[2017-09-17] MEDS ORDERED: CARV12.5 PO (19:02)
[2017-09-17] MEDS ORDERED: BUPRTAB51 PO (19:02)
[2017-09-17] MEDS ORDERED: XPNINS125 INFIL (19:04)
--- NOTE | 2017-09-17 19:24 | DIAGNOSTIC IMAGING REPORT ---
R ELBOW MIN 3 VIEWS ROUTINE HISTORY: 66 years-old Female right elbow trauma acute right elbow pain status post fall COMPARISON: None available TECHNIQUE: 3 views of the right elbow FINDINGS: There is mild marginal spurring about the elbow, greatest at the medial epicondyles. Bones are mildly demineralized. No acute fracture, dislocation or joint effusion. IMPRESSION: Mild degenerative changes without acute fracture or dislocation. The above report was generated using voice recognition software. It may contain grammatical, syntax or spelling errors. Electronically signed by: Reid Odell M.D. 09/17/2017 7:22 PM Dictated Date/Time: 09/17/2017 7:21 PM
--- NOTE | 2017-09-17 19:28 | DIAGNOSTIC IMAGING REPORT ---
CHEST ONE VIEW PORTABLE HISTORY: 66 years-old Female fall acute chest injury status post fall COMPARISON: Chest radiograph 03/07/2017, CT chest 07/07/2017 TECHNIQUE: Portable AP view of the chest FINDINGS: Patient is slightly rotated to the right. Cardiac silhouette is within normal limits. There is atherosclerosis of the aorta. Emphysema with chronic interstitial opacities and hyperinflation redemonstrated. Reticular opacities of the perihilar distributions and lung bases appear slightly progressed from comparison studies. Bones of the chest appear grossly intact. There are degenerative changes of the spine and shoulders. IMPRESSION: 1. Emphysema with chronic scarring. Interstitial opacities of the lung bases suggest areas of atelectasis/scarring or pneumonitis, slightly worsened from comparison studies. 2. No pneumothorax. The above report was generated using voice recognition software. It may contain grammatical, syntax or spelling errors. Electronically signed by: Reid Odell M.D. 09/17/2017 7:27 PM Dictated Date/Time: 09/17/2017 7:25 PM
[2017-09-17 19:43] LABS: BASO % 0.1 %; BASO ABS # 0.01 K/uL (0-0.2); COMPLETE YES; EOS % 0.8 %; HEMATOCRIT 37.6 % (37-47); IG% 0.2 %; LYMPH % 10.1 %; LYMPH ABS # 0.96 K/uL (1.2-3.4); MEAN CELL VOLUME 105.9 fL (80-100); MEAN CORPUSCULAR HEMOGLOBIN 32.7 pg (25-34); MEAN CORPUSCULAR HGB CONC 30.9 g/dl (32-36); MEAN PLATELET VOLUME 10.1 fL (7.4-10.4); MONO % 10.2 %; NEUT % 78.6 %; PLATELET COUNT 269 K/uL (130-400); RED BLOOD COUNT 3.55 M/uL (4.2-5.4); WHITE BLOOD COUNT 9.48 K/uL (4.8-10.8)
--- NOTE | 2017-09-17 19:48 | DIAGNOSTIC IMAGING REPORT ---
HEAD WITHOUT CONTRAST (CT) CLINICAL HISTORY: 66 years-old Female with fall, CHI. Acute head injury status post fall TECHNIQUE: Multiple axial CT images of the head were obtained without contrast. A dose lowering technique was utilized adhering to the principles of ALARA. CT DOSE: 909.11 mGy.cm COMPARISON: CT head 02/26/2017. FINDINGS: Exam is mildly motion degraded. Note is made of cavum septum lucidum. Mild atrophy with chronic microvascular ischemic changes. No acute intracranial hemorrhage, midline shift, mass, large territorial ischemia or abnormal extra-axial collection. The calvarium is intact. The paranasal sinuses, mastoid air cells, and middle ear cavities are clear. Defect of the cartilaginous nasal septum is unchanged and may be postsurgical, or post traumatic. Prior bilateral cataract repair. IMPRESSION: 1. Mildly motion degraded study without acute intracranial abnormality. 2. No calvarial fracture. The above report was generated using voice recognition software. It may contain grammatical, syntax or spelling errors. Electronically signed by: Reid Odell M.D. 09/17/2017 7:47 PM Dictated Date/Time: 09/17/2017 7:43 PM
[2017-09-17 20:27] LABS: ALKALINE PHOSPHATASE 110 U/L (45-117); ALT/SGPT 21 U/L (12-78); AST/SGOT 17 U/L (15-37); BLOOD UREA NITROGEN 21 mg/dl (7-18); BUN/CREATININE RATIO 41.2 (10-20); CALCIUM 9.2 mg/dl (8.5-10.1); CHLORIDE 84 mmol/L (98-107); CREATININE 0.51 mg/dl (0.60-1.20); GLUCOSE 94 mg/dl (70-99); MAGNESIUM 1.8 mg/dl (1.8-2.4); POTASSIUM 4.6 mmol/L (3.5-5.1); SODIUM 132 mmol/L (136-145)
[2017-09-17 20:39] LABS: URINE APPEARANCE CLOUDY (CLEAR); URINE BILIRUBIN NEG (NEG); URINE COLOR YELLOW; URINE EPITHELIAL CELL AUTO 20-30 /lpf (0-5); URINE NITRITE NEG (NEG); UROBILINOGEN NEG (NEG); ZZUR CULT IF INDIC CLEAN CATCH YES
[2017-09-17 20:41] LABS: MANUAL MICROSCOPIC REQUIRED? NO; REVIEW REQ? NO
[2017-09-17 20:44] LABS: CARBON DIOXIDE 51 mmol/L (21-32)
[2017-09-17] MEDS ORDERED: LEVOFLOXACIN 250 MG TAB PO ONE (21:15)
[2017-09-17] MEDS ORDERED: LEVALBUTEROL/IPRATROPIUM NEB INH STA (22:03)
[2017-09-17] MEDS ORDERED: LEVALBUTEROL 1.25MG/0.5ML NEB INH STA (22:09)
[2017-09-17] MEDS ORDERED: IPRATROPIUM BROMIDE NEB SOLN 0.02% 2.5 ML VIAL INH STA (22:09)
[2017-09-17] MEDS ORDERED: LEVAQUIN 500MG / 100ML D5W IV ONE (22:15)
[2017-09-17 22:39] VITALS: PULSE 100; O2SAT 98
[2017-09-17] MEDS ORDERED: TIOT1SPR PO (23:39)
[2017-09-17] MEDS ORDERED: FLUT1INH7 PO (23:41)
[2017-09-17] MEDS ORDERED: OMEP20CA9 PO (23:42)
[2017-09-17] MEDS ORDERED: VNTHFA/IN INH (23:57)
[2017-09-18] VITALS (8 sets, daily range): BP systolic 102–137; BP diastolic 69–85; PULSE 88–101; TEMP 36.4–36.9; O2SAT 94–100; Ht 160 cm; Wt 38.7 kg
[2017-09-18 00:11] LABS: ARTERIAL BLD GAS O2 SATURATION 90.9 % (90-95); ARTERIAL BLOOD GAS BASE EXCESS 21.4 mEq/L (-9-1.8); ARTERIAL BLOOD GAS HCO3 51 mmol/L (19-24); ARTERIAL BLOOD GAS PO2 64 mm/Hg (80-95); ARTERIAL BLOOD GAS pH 7.37 (7.35-7.45)
[2017-09-18 00:12] LABS: ALLEN TEST POS (POS); O2 ADMINISTRATION 3 L
[2017-09-18] MEDS ORDERED: ACETAMINOPHEN 325 MG TAB PO PRN (00:30)
[2017-09-18] MEDS ORDERED: TRAMADOL HCL 50 MG TAB PO PRN (00:30)
[2017-09-18] MEDS ORDERED: IV FLUIDS COMPLETED PRN (00:30)
[2017-09-18] MEDS ORDERED: LEVALBUTEROL/IPRATROPIUM NEB INH PRN (00:30)
[2017-09-18] MEDS ORDERED: NITROGLYCERIN 0.4 MG SL PER TAB CHARGE UT PRN (00:30)
[2017-09-18] MEDS ORDERED: IPRATROPIUM BROMIDE NEB SOLN 0.02% 2.5 ML VIAL INH PRN (01:30)
[2017-09-18] MEDS ORDERED: LEVALBUTEROL 1.25MG/0.5ML NEB INH PRN (01:30)
[2017-09-18] MEDS: IPRATROPIUM BROMIDE NEB SOLN 0.02% 2.5 ML VIAL INH SCH ×6 (03:00→21:00)
[2017-09-18] MEDS: LEVALBUTEROL 1.25MG/0.5ML NEB INH SCH ×6 (03:00→21:00)
[2017-09-18] MEDS ORDERED: LEVALBUTEROL/IPRATROPIUM NEB INH SCH ×2 (03:00→09:00)
[2017-09-18] MEDS ORDERED: SODIUM CHLORIDE 0.9% 1000ML 1,000 ML IV ONE (03:30)
[2017-09-18] MEDS ORDERED: METHYLPREDNISOLONE IV 40 MG in SYRINGE 0 ML IV STA (03:32)
[2017-09-18] MEDS ORDERED: DOXYCYCLINE IV 100 MG in DEXTROSE 5% 100ML 100 ML IV STA (03:33)
[2017-09-18] MEDS ORDERED: LEVALBUTEROL/IPRATROPIUM NEB INH ONE (04:04)
[2017-09-18] MEDS ORDERED: IPRATROPIUM BROMIDE NEB SOLN 0.02% 2.5 ML VIAL INH STA (04:13)
[2017-09-18] MEDS ORDERED: LEVALBUTEROL 1.25MG/0.5ML NEB INH STA (04:13)
[2017-09-18 06:12] LABS: ARTERIAL BLD GAS O2 SATURATION 97.3 % (90-95); ARTERIAL BLOOD GAS BASE EXCESS 19.5 mEq/L (-9-1.8); ARTERIAL BLOOD GAS HCO3 49 mmol/L (19-24); ARTERIAL BLOOD GAS PO2 113 mm/Hg (80-95); ARTERIAL BLOOD GAS pH 7.36 (7.35-7.45)
[2017-09-18 06:13] LABS: ALLEN TEST POS (POS); O2 ADMINISTRATION 45%
[2017-09-18 06:26] LABS: BASO % 0.1 %; BASO ABS # 0.01 K/uL (0-0.2); COMPLETE YES; EOS % 0.4 %; IG% 0.3 %; LYMPH % 5.7 %; LYMPH ABS # 0.63 K/uL (1.2-3.4); MEAN CELL VOLUME 104.5 fL (80-100); MEAN CORPUSCULAR HEMOGLOBIN 30.7 pg (25-34); MEAN CORPUSCULAR HGB CONC 29.4 g/dl (32-36); MEAN PLATELET VOLUME 10.1 fL (7.4-10.4); NEUT % 88.5 %; PLATELET COUNT 249 K/uL (130-400); RED BLOOD COUNT 3.35 M/uL (4.2-5.4); WHITE BLOOD COUNT 10.99 K/uL (4.8-10.8)
[2017-09-18 06:49] LABS: CALCIUM 8.5 mg/dl (8.5-10.1); CREATININE 0.26 mg/dl (0.60-1.20); POTASSIUM 4.1 mmol/L (3.5-5.1)
[2017-09-18] MEDS: ASPIRIN 81 MG ECTAB PO SCH (08:51)
[2017-09-18] MEDS: MULTIVITAMIN TAB PO SCH (08:51)
[2017-09-18] MEDS: NICOTINE 7 MG/24 HR TDSY TD SCH (08:51)
[2017-09-18] MEDS: VENLAFAXINE HCL XR 150 MG CAPXR PO SCH (08:52)
[2017-09-18] MEDS: CARVEDILOL 12.5 MG TAB PO SCH ×2 (08:52→20:42)
[2017-09-18] MEDS: BuPROPion XL 300 MG TABCR PO SCH (08:52)
[2017-09-18] MEDS: ATORVASTATIN 40 MG TAB PO SCH (08:52)
[2017-09-18] MEDS: ENOXAPARIN 30 MG/0.3 ML SYR SQ SCH (08:55)
--- NOTE | 2017-09-18 10:20 | HISTORY & PHYSICAL EXAMINATION ---
DATE OF ADMISSION: 09/17/2017 PATIENT'S PRIMARY CARE DOCTOR: Dr. Kirk History was obtained from the patient's and records. Patient is not a reliable historian secondary to some disorientation. CHIEF COMPLAINT: Fall, as per patient. HISTORY OF PRESENT ILLNESS: Medical history is significant for chronic respiratory failure secondary to COPD on home O2, chronic diastolic heart failure with EF of 55%, CAD status post stenting, ongoing tobacco abuse, mood disorder, ischemic colitis status post surgery, chronic anemia (baseline hemoglobin of 11), hypertension, chronic hyponatremia as per records and history of MRSA. Recent confinement was in last February 2017 for COPD exacerbation. As per patient's , the patient has been falling a lot at home alone of late. Px has not been telling of falls. Patient sleeping all the time as per . Usual disorientation and refusing to eat. Patient's has been finding it increasingly difficult to take care of the patient at home. Patient's thinks the patient may have undiagnosed dementia. This morning , patient had a witnessed mechanical fall where she fell to the ground hitting the right side of her head and right arm. Patient noted bruising on the right upper extremity: Patient denies chest pain, shortness of breath or unusual cough symptoms. She denies bladder discomfort or burning. No syncope. At the Emergency Room, the patient was given Levaquin for possible UTI. MEDICAL HISTORY: As above. SURGERIES: She has had bowel surgery, tonsillectomy, and tracheostomy. HOME MEDICATIONS: Include; albuterol, cholecalciferol, cyanocobalamin, ipratropium bromide, albuterol ascorbic acid, calcium carbonate, Tiotropium aspirin, atorvastatin, bupropion, Coreg, fluticasone, multivitamins, nitroglycerin, omeprazole and Effexor. ALLERGIES: TO PENICILLIN. FAMILY HISTORY: Heart disease. 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 PHYSICAL EXAMINATION: VITAL SIGNS: Blood pressure was noted to be 124/68, pulse rate 99, RR 22, temperature 36.7 and sats 90 on two liters. GENERAL: Noted to be in minimal respiratory distress, hyposthenic and disoriented (chronic as per ) SKIN: Pallor, warm. HEENT: Pale palpebral conjuctivae. No ptosis. Dry buccal mucosa. Nasal cannula in place NECK: No JVD. Supple, healed tracheostomy scar. CHEST: Decreased breath sounds. Has occasional wheeze. HEART: Regular rate and rhythm. No murmur. ABDOMEN: Soft and nontender. Ostomy is noted. EXTREMITIES: Has dressing on the right upper extremity. No edema, no tenderness and gross deformities noted. NEUROLOGIC: Coherent, disoriented. No facial asymmetry. Gait and stance are not assessed. LABORATORIES: Hemoglobin was noted to be 11.6, hematocrit 37.6, white cell count 9.4 and platelets of 269. Sodium was noted to be 130, potassium 4.6, chloride 84, CO2 51, BUN 21, creatinine 0.5 and glucose was noted to be 94. ABG; pH 7.37, pCO2 91, pO2 64 and 90 on three liters Chest x-ray showed emphysema with chronic scarring, worsening pneumonitis lung bases. no pneumothorax. CT head; no acute pathology. R Elbow x-ray; mild degenerative changes. UA; WBCs, esterase positive, occult blood, epithelial cells and hyaline casts. ASSESSMENT: 1. Acute on chronic hypoxemic, hypercapnic respiratory failure secondary to chronic obstructive pulmonary disease exacerbation. Ongoing tobacco abuse. No sepsis. Patient presenting with some respiratory distress although denies symptoms. 2. Possible dementia as per . Worsening functional disability 3. Chronic diastolic heart failure as per records. Patient slightly on the dry side. 4. Coronary artery disease status post stenting. 5. hx ischemic colitis status post bowel surgery 6. Chronic anemia, hemoglobin at baseline. 7. Malnutrition, low body mass index. 8. Chronic hyponatremia 9. hx MRSA PLAN: F BiPAP trial, Follow-up ABG Doxycycline nebs, steroids, Pulmonary consult for respiratory failure Nicotine patch PT/OT evaluation Nutrition consult for low BMI. Social service RE discharge planning. Patient's is finding it increasingly difficult to take care of the patient at home. DVT prophylaxis, Lovenox subcu. Patient is a DNR as per . Patient's requesting for updates from providers. Mr. Christoph Ventura at [phone]. [facility]
--- NOTE | 2017-09-18 13:42 | PULMONARY CONSULTATION ---
DATE OF CONSULTATION: 09/18/2017 TIME: 12:50 p.m. HISTORY OF PRESENT ILLNESS: The patient was seen in room 455, bed 1. She is a 66-year-old female who was brought to the Emergency Room yesterday because of recurring falls. Reportedly, she has had 2 falls in the last few days. She on one occasion fell on to the ground and hit the left side of her head and face. Reportedly, the other time, 2 days earlier, she fell and hit the right side of her face. The patient tells me she cannot remember the falls. She does have a history of recurring falls from earlier this year. She had been hospitalized in October with a hip fracture. She was hospitalized in February after having had some falls. For sure on the last 2 occasions, the falls have been associated with very poor blood gases with extremely high elevations of pCO2. For instance during the February admission, her pCO2 was as high as 118 and by the time she was discharged, it had improved down to 68. Her blood gas this hospital stay also shows a severe elevation of pCO2. She denies significant shortness of breath, but I do not think she is a good historian. She is coughing frequently. She admits that her mucus is green. She has not seen any blood. Her energy level is poor. Her appetite is poor. At the time of her last hospitalization in February, her weight was listed as 92.7 kilograms. Her weight at the current time is listed as 38.7 kilograms. I suspect one of those is incorrect. She is very slim at the present time, however. The patient was not able to give me answers to a lot of questions. She says her memory is bad. She denies any vomiting. She admits that her appetite is poor. PAST PULMONARY HISTORY: Severe COPD with chronic respiratory failure. PAST SURGICAL HISTORY: 1. Cardiac stent. 2. Ileostomy. 3. Tonsillectomy. 4. Tracheostomy approximately 2014. PAST MEDICAL HISTORY: 1. Coronary artery disease. 2. Hyperlipidemia. 3. COPD. 4. Depression. 5. Diverticular disease. 6. History of MRSA. 7. Paroxysmal atrial fibrillation. 8. Ischemic bowel. SOCIAL HISTORY: The patient has been a long-term smoker for about a pack a day for 50 years. She tells me she is only smoking about 4 cigarettes per day currently. FAMILY HISTORY: Father at age 47 of coronary artery disease. Mother at age 48, pulmonary embolism. ALLERGIES: PENICILLIN. MEDICATIONS AT HOME: 1. Ventolin HFA p.r.n. 2. Ascorbic acid. 3. Aspirin 81 mg daily. 4. Atorvastatin 40 mg daily. 5. Wellbutrin-XL 300 mg daily. 6. Caltrate daily. 7. Carvedilol 12.5 mg b.i.d. 8. Vitamin D daily. 9. B12 daily. 10. Breo Ellipta 200/25 one puff daily. 11. Levalbuterol and ipratropium by nebulizer q. 6 hours. 12. Nitro p.r.n. 13. Omeprazole 20 mg at bedtime. 14. Tiotropium daily. 15. Venlafaxine 150 mg daily. REVIEW OF SYSTEMS: Very difficult to obtain due to the patient's poor memory. As far as I know, it is only as noted above. PHYSICAL EXAMINATION: GENERAL: The patient is a 66-year-old female who appears chronically ill. She did not appear in distress. Her skin diffusely was dry and scaly almost everywhere. HEENT: Pupils were reactive. Nares were clear. Mouth exam showed some black material on the tongue and in the pharynx. In the right circumstance, this could represent coffee-ground emesis. She denied any vomiting to me. Nursing staff states she has not had lunch yet. They do not know specifically what she might have had for breakfast, but it does not seem like she was eating anything black. NECK: No lymphadenopathy was noted in the neck. HEART: The heart rate was 100 per minute. The rhythm was regular. Blood pressure is 137/85. LUNGS: Auscultation of the lung vásquez revealed severely diminished breath sounds. There was very poor aeration. Respiratory rate was 20. Oxygen saturation was 95% with nasal cannula. I could not find out from the patient or nursing if she wore her BiPAP at all. She did not think so and she did not wear at the time of her other hospital stays. She had refused. ABDOMEN: Soft. She has an ileostomy bag. Good bowel sounds were heard. There was no tenderness to palpation. EXTREMITIES: Showed no cyanosis, clubbing or edema. CAT scan of the head was unremarkable. Chest x-ray showed emphysematous changes with chronic scarring. There were some increased interstitial markings at both bases. LABORATORY DATA: White count today is 10.99. Hemoglobin is 10.3, but yesterday it had been 11.6. Platelets are 249,000. Urinalysis showed +2 blood with 4+ bacteria. There were greater than 30 white cells and 10-30 RBCs. Blood gas done at mid night on September 18 showed a pH of 7.37 with a pCO2 of 91 and a pO2 of 64. Repeat at 06:00 a.m. showed a pH of 7.36 with a pCO2 of 88 and a pO2 of 113 on 45% oxygen. It is unknown if she was on BiPAP at that time. Electrolytes show sodium 130, potassium 4.1, chloride 85, and bicarbonate 46. BUN was 18 with a creatinine of 0.26. Serum albumin was 2.9. Liver functions were normal. The patient had an EKG done that showed sinus rhythm. There was movement artifact. IMPRESSIONS: 1. Respiratory failure -- acute on chronic with hypercarbia and hypoxia. 2. Chronic obstructive pulmonary disease exacerbation. 3. Emphysema. 4. Recurring falls. 5. Rule out coffee-ground emesis. 6. Weight loss. 7. Urinary tract infection. COMMENTS AND RECOMMENDATIONS: The patient is on prednisone 40 mg daily. We may need to be a little cautious if she is actually bleeding from the gut. I did ask her nurse to check on her throughout the course of the day with possible attention to coffee-ground emesis. She is on pantoprazole. She is on doxycycline. She is on neb treatments with levalbuterol and ipratropium. I am trying to verify if she is wearing BiPAP or not, but I doubt she would wear it much. It appears that the patient has lost a considerable amount of weight. The exact etiology of that is unknown. She apparently has dementia. The patient thought that we were in the month of March and she could not tell me the year. I do not think this is simply related to her hypercarbia in light of the fact that the pH is fairly normal, suggesting it is more chronic. I believe her prognosis is poor. She is listed as a DNR.
[2017-09-18 16:08] LABS: HEMATOCRIT 34.3 % (37-47); MEAN CELL VOLUME 103.3 fL (80-100); MEAN CORPUSCULAR HEMOGLOBIN 30.7 pg (25-34); PLATELET COUNT 240 K/uL (130-400); RED BLOOD COUNT 3.32 M/uL (4.2-5.4); WHITE BLOOD COUNT 10.14 K/uL (4.8-10.8)
[2017-09-18 16:13] LABS: MEAN CORPUSCULAR HGB CONC 29.7 g/dl (32-36)
[2017-09-18] MEDS: BOOST PLUS VANILLA PO SCH ×2 (17:42)
[2017-09-18] MEDS: PANTOprazole SOD 40 MG TAB PO SCH (20:43)
[2017-09-18] MEDS: DOXYCYCLINE HYCLATE 100 MG CAP PO SCH (20:43)
--- NOTE | 2017-09-18 21:11 | Progress Note ---
Progress Note Date of Service Sep 18, 2017. Progress Note Subjective: patient denies pain. reports breathing is okay Physical Exam: General: cachectic, no distress Lungs: good air entry, no wheezing Heart: RRR Abdomen: right side ostomy bag, abdomen soft nontender Extremities: no edema This is a patient who was admitted from night time of 09/17/17 after presenting with fall and apparently had respiratory symptoms consistent with 1. Respiratory failure -- acute on chronic with hypercarbia and hypoxia. 2. Chronic obstructive pulmonary disease exacerbation. 3. Emphysema. Chest X ray findings: Emphysema with chronic scarring. Interstitial opacities of the lung bases suggest areas of atelectasis/scarring or pneumonitis, slightly worsened from comparison studies Patient has been weaned off of BIPAP and on nasal cannula breathing comfortably at rest Since hospital presentation patient received nebulizer treatments, steroids, and antibiotics ; will continue these treatments for now to ensure respiratory stability Patient may have history of dementia vs failure to thrive as per family member at bedside. Patient is cachetic. On physical exam she has an ostomy bag. because of hx ischemic colitis status post bowel surgery History of depression: continue home medications Dr. Bertrand concerned that patient may have had coffee ground emesis based on his oral exam. However CBC stable. Will trend CBC History of Coronary artery disease status post stenting: continue carvedilol, statin, aspirin Patient is a DNR as per Mr. Christoph Ventura at [phone] according to admission note DVT ppx: Lovenox
[2017-09-19] VITALS (7 sets, daily range): BP systolic 112–130; BP diastolic 68–81; PULSE 81–101; TEMP 36.5–36.8; O2SAT 92–100
[2017-09-19] MEDS: IPRATROPIUM BROMIDE NEB SOLN 0.02% 2.5 ML VIAL INH SCH ×6 (01:44→21:11)
[2017-09-19] MEDS: LEVALBUTEROL 1.25MG/0.5ML NEB INH SCH ×4 (01:44→10:58)
[2017-09-19 07:29] LABS: BASO % 0.1 %; BASO ABS # 0.01 K/uL (0-0.2); COMPLETE YES; EOS % 0.5 %; HEMATOCRIT 34.9 % (37-47); IG% 0.2 %; LYMPH % 12.5 %; LYMPH ABS # 1.21 K/uL (1.2-3.4); MEAN CELL VOLUME 103.3 fL (80-100); MEAN CORPUSCULAR HEMOGLOBIN 30.8 pg (25-34); MEAN CORPUSCULAR HGB CONC 29.8 g/dl (32-36); MEAN PLATELET VOLUME 10.4 fL (7.4-10.4); MONO % 9.9 %; NEUT % 76.8 %; PLATELET COUNT 275 K/uL (130-400); RED BLOOD COUNT 3.38 M/uL (4.2-5.4)
[2017-09-19 07:55] LABS: BUN/CREATININE RATIO 48.2 (10-20); CALCIUM 9.1 mg/dl (8.5-10.1); CREATININE 0.38 mg/dl (0.60-1.20); POTASSIUM 4.4 mmol/L (3.5-5.1)
[2017-09-19 07:58] LABS: ALB/GLOB RATIO 0.7 (0.9-2)
[2017-09-19] MEDS: NICOTINE 7 MG/24 HR TDSY TD SCH (08:00)
[2017-09-19] MEDS: BOOST PLUS VANILLA PO SCH ×6 (08:03→17:27)
[2017-09-19] MEDS: MULTIVITAMIN TAB PO SCH (08:03)
[2017-09-19] MEDS: VENLAFAXINE HCL XR 150 MG CAPXR PO SCH (08:03)
[2017-09-19] MEDS: ATORVASTATIN 40 MG TAB PO SCH (08:03)
[2017-09-19] MEDS: DOXYCYCLINE HYCLATE 100 MG CAP PO SCH ×2 (08:03→19:45)
[2017-09-19] MEDS: BuPROPion XL 300 MG TABCR PO SCH (08:03)
[2017-09-19] MEDS: CARVEDILOL 12.5 MG TAB PO SCH ×2 (08:03→19:45)
[2017-09-19] MEDS: ASPIRIN 81 MG ECTAB PO SCH (08:03)
[2017-09-19] MEDS: ENOXAPARIN 30 MG/0.3 ML SYR SQ SCH (08:04)
[2017-09-19] MEDS ORDERED: NURSING VERBAL MED ORDER ONE (11:00)
--- NOTE | 2017-09-19 11:26 | PROGRESS NOTE ---
DATE: 09/19/2017 She was seen in room 455 at 1:00. SUBJECTIVE: The patient is a 66-year-old female who we started on the service yesterday. The patient apparently has a history of COPD as well as CO2 retention who was brought into the hospital for shortness of breath and acute respiratory failure. The patient was placed on steroids in the form of prednisone and started on antibiotic, doxycycline as well as aggressive pulmonary toilet. The patient does have some confusion. When I evaluated the patient today, the patient reports that she thinks that her breathing is doing well. She states that she does not feel like she is coughing much at all at this point. Unknown if she is bringing up any mucus. She has no chest discomfort when it. She has no abdominal discomfort with it. Unfortunately, the patient does not appear to be a good historian and answers are limited. I did discuss the use of BiPAP. She states that she thinks that she had it on last night but she is not certain. When I asked her if she would like that at home, she responded no. OBJECTIVE: GENERAL: The patient is a 66-year-old female in no acute distress. She is lying in bed. She is alert, interactive and cooperative. "DICTATION ENDS HERE."
--- NOTE | 2017-09-19 12:14 | PROGRESS NOTE ---
DATE: 09/19/2017 OBJECTIVE: GENERAL: The patient is a 66-year-old female lying in bed. She does appear to be interactive and cooperative, does respond to answers. She is oriented to person and place. She is cooperative at this time. She does not appear in any acute respiratory distress. No acute distress. She is able to complete her answers without appearing dyspneic. She does have oxygen cannula in place. VITAL SIGNS: Temp 36.5, pulse 90, respirations 16, blood pressure is 130/81, pulse ox 100% on 3 liters. HEAD, EYES, EARS, NOSE, AND THROAT: Normocephalic, atraumatic. Pupils equal, round and reactive to light and accommodation. Extraocular movements are intact. [place], warm, dry gingival and buccal mucosa. No evidence of black material that Dr. Bertrand had seen yesterday. NECK: Thin, almost cachectic. There is no mass. No adenopathy. No bruit. CHEST: Diminished breath sounds bilaterally. The patient does have few expiratory wheeze which clear with coughing. No rale or rhonchi noted. CARDIOVASCULAR: Regular rate and rhythm. No murmurs, gallops or rubs. ABDOMEN: Bowel sounds are present. Abdomen soft. The patient does have ileostomy bag in the right lower quadrant. Bowel sounds are heard throughout. EXTREMITIES: No erythema, no edema, no cyanosis or clubbing. NEUROLOGIC: Cranial nerves II-XII grossly intact. LABORATORY DATA: Shows white count 9,700, H&H 10.4 and 34.9, platelet count 275,000. Sodium 134, potassium 4.4, chloride 87, CO2 48, which is down from 51 on admission. BUN 18, creatinine 0.38. No new imaging. IMPRESSION: This is a 66-year-old female with underlying COPD who presented with acute respiratory failure with hypercarbia and hypoxia. ABG yesterday was showing compensated hypercarbia. At this time, patient appears to be relatively stable. It does look like she wore BiPAP last night in the hospital, unsure if she wears it at home or not, although this would be recommended. In regards to COPD exacerbation, recommend continue 40 mg of prednisone and doxycycline with taper down the prednisone as quickly as possible. It does appear that the patient may have a urinary tract infection, awaiting cultures. Coffee ground emesis which was questioned yesterday. No evidence today. The patient's abdominal exam was unremarkable. The patient did have a dropoff from her H&H from the th to the but this has leveled off . At this point, continue aggressive pulmonary toilet and meds as they are. ROCÍO
--- NOTE | 2017-09-19 17:57 | Progress Note ---
Internal Med Progress Note Date of Service: Sep 19, 2017. Provider Documentation: Subjective: patient denies pain. reports breathing is okay on nasal cannula Physical Exam: General: cachectic, no distress Lungs: good air entry, no wheezing Heart: RRR Abdomen: right side ostomy bag, abdomen soft nontender Extremities: no edema ASSESSMENT & PLAN: This is a patient who was admitted from night time of 09/17/17 after presenting with fall and apparently had respiratory symptoms consistent with 1. Respiratory failure -- acute on chronic with hypercarbia and hypoxia. 2. Chronic obstructive pulmonary disease exacerbation. 3. Emphysema. Chest X ray findings: Emphysema with chronic scarring. Interstitial opacities of the lung bases suggest areas of atelectasis/scarring or pneumonitis, slightly worsened from comparison studies Patient has been weaned off of BIPAP and on nasal cannula breathing comfortably at rest Since hospital presentation patient received nebulizer treatments, steroids, and antibiotics Patient may have history of dementia vs failure to thrive as per family member at bedside. Patient is cachetic. On physical exam she has an ostomy bag because of hx ischemic colitis status post bowel surgery History of depression: continue home medications Dr. Bertrand concerned that patient may have had coffee ground emesis based on his oral exam. However CBC stable. Follow up with Pulmonary team Dr. Bertrand and Vivek with assessment that patient' s respiratory problems are more likely to be chronic rather than acute. Still, pulmonary team asked to have nebulizers around the clock rather than prn because concern that patient will not ask for nebulizer treatments History of Coronary artery disease status post stenting: continue carvedilol, statin, aspirin Patient is a DNR as per Mr. Christoph Ventura at [phone] according to admission note DVT ppx: Lovenox Vital Signs: Date Time Temp Pulse Resp B/P (MAP) Pulse Ox O2 Delivery O2 Flow Rate FiO2 09/19/17 16:00 Nasal Cannula 2.0 09/19/17 15:29 36.8 99 16 112/68 (83) 95 1.0 09/19/17 11:53 81 94 09/19/17 08:00 Nasal Cannula 3.0 09/19/17 07:21 36.5 90 16 130/81 (97) 100 3.0 09/19/17 07:02 90 16 97 Nasal Cannula 3.0 09/19/17 01:44 92 16 98 Nasal Cannula 3.0 09/19/17 00:00 Nasal Cannula 3.0 09/18/17 22:58 36.8 88 16 102/69 (80) 100 Nasal Cannula 3.0 09/18/17 18:59 94 16 98 Nasal Cannula 3.0 Lab Results: Results Past 24 Hours Test 09/19/17 06:58 Range/Units White Blood Count 9.70 4.8-10.8 K/uL Red Blood Count 3.38 4.2-5.4 M/uL Hemoglobin 10.4 12.0-16.0 g/dL Hematocrit 34.9 37-47 % Mean Corpuscular Volume 103.3 80-100 fL Mean Corpuscular Hemoglobin 30.8 25-34 pg Mean Corpuscular Hemoglobin Concent 29.8 32-36 g/dl Platelet Count 275 130-400 K/uL Mean Platelet Volume 10.4 7.4-10.4 fL Neutrophils (%) (Auto) 76.8 % Lymphocytes (%) (Auto) 12.5 % Monocytes (%) (Auto) 9.9 % Eosinophils (%) (Auto) 0.5 % Basophils (%) (Auto) 0.1 % Neutrophils # (Auto) 7.45 1.4-6.5 K/uL Lymphocytes # (Auto) 1.21 1.2-3.4 K/uL Monocytes # (Auto) 0.96 0.11-0.59 K/uL Eosinophils # (Auto) 0.05 0-0.5 K/uL Basophils # (Auto) 0.01 0-0.2 K/uL RDW Standard Deviation 55.0 36.4-46.3 fL RDW Coefficient of Variation 14.6 11.5-14.5 % Immature Granulocyte % (Auto) 0.2 % Immature Granulocyte # (Auto) 0.02 0.00-0.02 K/uL Sodium Level 134 136-145 mmol/L Potassium Level 4.4 3.5-5.1 mmol/L Chloride Level 87 98-107 mmol/L Carbon Dioxide Level 48 21-32 mmol/L Anion Gap -1.0 3-11 mmol/L Blood Urea Nitrogen 18 7-18 mg/dl Creatinine 0.38 0.60-1.20 mg/dl Est Creatinine Clear Calc Drug Dose 86.6 ml/min Estimated GFR () 126.2 Estimated GFR (Non- 108.8 BUN/Creatinine Ratio 48.2 10-20 Random Glucose 78 70-99 mg/dl Calcium Level 9.1 8.5-10.1 mg/dl Total Bilirubin 0.3 0.2-1 mg/dl Aspartate Amino Transf (AST/SGOT) 16 15-37 U/L Alanine Aminotransferase (ALT/SGPT) 18 12-78 U/L Alkaline Phosphatase 119 45-117 U/L Total Protein 6.7 6.4-8.2 gm/dl Albumin 2.7 3.4-5.0 gm/dl Globulin 4.0 2.5-4.0 gm/dl Albumin/Globulin Ratio 0.7 0.9-2
[2017-09-19] MEDS: PANTOprazole SOD 40 MG TAB PO SCH (19:45)
[2017-09-20] VITALS (8 sets, daily range): BP systolic 146–165; BP diastolic 80–91; PULSE 91–103; TEMP 36.6–36.9; O2SAT 92–99
[2017-09-20] MEDS: IPRATROPIUM BROMIDE NEB SOLN 0.02% 2.5 ML VIAL INH SCH ×5 (03:12→18:55)
[2017-09-20] MEDS: BOOST PLUS VANILLA PO SCH ×6 (07:31→17:52)
[2017-09-20] MEDS: ATORVASTATIN 40 MG TAB PO SCH (07:34)
[2017-09-20] MEDS: DOXYCYCLINE HYCLATE 100 MG CAP PO SCH ×2 (07:34→21:43)
[2017-09-20] MEDS: MULTIVITAMIN TAB PO SCH (07:34)
[2017-09-20] MEDS: ASPIRIN 81 MG ECTAB PO SCH (07:34)
[2017-09-20] MEDS: VENLAFAXINE HCL XR 150 MG CAPXR PO SCH (07:34)
[2017-09-20] MEDS: CARVEDILOL 12.5 MG TAB PO SCH ×2 (07:34→21:43)
[2017-09-20] MEDS: NICOTINE 7 MG/24 HR TDSY TD SCH (07:34)
[2017-09-20] MEDS: BuPROPion XL 300 MG TABCR PO SCH (07:35)
[2017-09-20] MEDS: ENOXAPARIN 30 MG/0.3 ML SYR SQ SCH (07:35)
--- NOTE | 2017-09-20 13:53 | PULMONARY PROGRESS NOTE ---
DATE: 09/20/2017 TIME: 1:35 p.m. SUBJECTIVE: The patient says she is feeling better. She feels less short of breath. However, nursing staff feels that she is still very short of breath with any exertion at all. When she is lying in bed, she is fairly comfortable but just sitting up or moving at least little bit, she is winded and has some desaturations. The patient indicated she feels her appetite is better. She feels a little bit stronger. It is noticeable that she has an area of ecchymosis above the right eye. She denies any knowledge of trauma that might have caused this. OBJECTIVE: GENERAL: The patient looked comfortable. She still looks extremely emaciated. Temperature today was 36.6. ENT: Unchanged from prior exam. VITAL SIGNS: Heart rate was 95. The rhythm is regular. Blood pressure was 149/85. Respiratory rate was 16 breaths per minute. PULMONARY: Lung vásquez revealed decreased breath sounds. No active wheezing was heard. Saturation was 92% on 2 liters. EXTREMITIES: Showed trace edema of the lower extremities. This was mostly noted at the sock line. Nursing staff tells me that the patient has been refusing BiPAP. This is not surprising. It had been this way previously. IMPRESSIONS: 1. Respiratory failure - acute on chronic with hypercarbia and hypoxia. 2. Chronic obstructive pulmonary disease exacerbation. 3. Emphysema. 4. Recurring falls. COMMENTS AND RECOMMENDATIONS: The patient appears to be mostly chronically ill. She does not seem to be all that acute at present. I do not have too much hopes for her improving dramatically, based upon her history. She is currently on the prednisone at 40 mg daily. I would titrate this downward by 10 mg every 3 days or so. She is getting ipratropium every 4 hours. However, does not appear that she is getting levalbuterol regularly, just p.r.n. I believe she should be getting the levalbuterol on a regular basis as well. Perhaps every 6 hours would be enough now for both levalbuterol and ipratropium now that she has improved somewhat. We will sign off for now. Please call if you would wish to have her seen again.
[2017-09-20] MEDS ORDERED: LEVALBUTEROL 1.25MG/0.5ML NEB INH SCH (14:00)
--- NOTE | 2017-09-20 16:52 | Progress Note ---
Internal Med Progress Note Date of Service: Sep 20, 2017. Provider Documentation: Subjective: patient denies pain. reports breathing is okay on nasal cannula. Have conversation today with patient's and patient. The preference for disposition after hospital stay is physical rehab at a institution. Physical Exam: General: cachectic, no distress Lungs: good air entry, no wheezing Heart: RRR Abdomen: right side ostomy bag, abdomen soft nontender Extremities: no edema ASSESSMENT & PLAN: This is a patient who was admitted from night time of 09/17/17 after presenting with fall and apparently had respiratory symptoms consistent with 1. Respiratory failure -- acute on chronic with hypercarbia and hypoxia. 2. Chronic obstructive pulmonary disease exacerbation. 3. Emphysema. Chest X ray findings: Emphysema with chronic scarring. Interstitial opacities of the lung bases suggest areas of atelectasis/scarring or pneumonitis, slightly worsened from comparison studies Patient has been weaned off of BIPAP and on nasal cannula breathing comfortably at rest Since hospital presentation patient received nebulizer treatments, steroids, and antibiotics Pulmonary service followed the patient and signing off on 09/20/17 "The patient appears to be mostly chronically ill. She does not seem to be all that acute at present. I do not have too much hopes for her improving dramatically, based upon her history. She is currently on the prednisone at 40 mg daily. I would titrate this downward by 10 mg every 3 days or so. She is getting ipratropium every 4 hours. However, does not appear that she is getting levalbuterol regularly, just p.r.n. I believe she should be getting the levalbuterol on a regular basis as well. Perhaps every 6 hours would be enough now for both levalbuterol and ipratropium now that she has improved somewhat." Patient is cachetic. On physical exam she has an ostomy bag because of hx ischemic colitis status post bowel surgery. Possible failure to thrive at home History of depression: continue home medications History of Coronary artery disease status post stenting: continue carvedilol, statin, aspirin DVT ppx: Lovenox Patient is a DNR as per Mr. Christoph Ventura ([phone]) according to admission note Patient and Patient's prefers physical rehab at a institution after hospital stay Vital Signs: Date Time Temp Pulse Resp B/P (MAP) Pulse Ox O2 Delivery O2 Flow Rate FiO2 09/20/17 15:59 36.8 103 18 165/91 (115) 94 Room Air 09/20/17 11:33 95 16 92 Nasal Cannula 2.0 09/20/17 08:00 Nasal Cannula 2.0 09/20/17 07:43 96 16 97 Nasal Cannula 2.0 09/20/17 07:32 36.6 91 16 149/85 (106) 99 2.0 09/20/17 03:13 91 16 93 Nasal Cannula 1.0 09/20/17 00:00 Nasal Cannula 2.0 09/19/17 23:23 36.6 90 16 123/74 (90) 95 Nasal Cannula 2.0 09/19/17 21:14 101 16 92 Nasal Cannula 1.0
[2017-09-20] MEDS: LEVALBUTEROL 0.63MG/3 ML NEB INH SCH (18:55)
[2017-09-20] MEDS: PANTOprazole SOD 40 MG TAB PO SCH (21:43)
[2017-09-21] MEDS: LEVALBUTEROL 0.63MG/3 ML NEB INH SCH ×4 (01:18→19:07)
[2017-09-21 07:18] VITALS: BP 147/86; PULSE 95; TEMP 36.5; O2SAT 100
[2017-09-21] MEDS: NICOTINE 7 MG/24 HR TDSY TD SCH (07:28)
[2017-09-21] MEDS: BOOST PLUS VANILLA PO SCH ×6 (07:28→17:00)
[2017-09-21] MEDS: ATORVASTATIN 40 MG TAB PO SCH (07:30)
[2017-09-21] MEDS: CARVEDILOL 12.5 MG TAB PO SCH ×2 (07:30→21:14)
[2017-09-21] MEDS: BuPROPion XL 300 MG TABCR PO SCH (07:30)
[2017-09-21] MEDS: ASPIRIN 81 MG ECTAB PO SCH (07:30)
[2017-09-21] MEDS: DOXYCYCLINE HYCLATE 100 MG CAP PO SCH ×2 (07:30→21:15)
[2017-09-21] MEDS: MULTIVITAMIN TAB PO SCH (07:30)
[2017-09-21] MEDS: VENLAFAXINE HCL XR 150 MG CAPXR PO SCH (07:30)
[2017-09-21] MEDS: ENOXAPARIN 30 MG/0.3 ML SYR SQ SCH (07:31)
[2017-09-21] MEDS: IPRATROPIUM BROMIDE NEB SOLN 0.02% 2.5 ML VIAL INH SCH ×5 (07:36→19:07)
[2017-09-21 07:40] VITALS: PULSE 94; O2SAT 96
[2017-09-21 14:22] VITALS: PULSE 108; O2SAT 96
[2017-09-21 15:32] VITALS: BP 104/65; PULSE 108; TEMP 36.9; O2SAT 92
--- NOTE | 2017-09-21 16:38 | Progress Note ---
Internal Med Progress Note Date of Service: Sep 21, 2017. Provider Documentation: Subjective: patient denies pain. reports breathing is okay on nasal cannula. Have conversation today with patient's and patient. Patient has personal preference of going home but her reports that patient cannot take care of herself at home. Physical Exam: General: cachectic, no distress Lungs: good air entry, no wheezing Heart: RRR Abdomen: right side ostomy bag, abdomen soft nontender Extremities: no edema ASSESSMENT & PLAN: This is a patient who was admitted from night time of 09/17/17 after presenting with fall and apparently had respiratory symptoms consistent with 1. Respiratory failure -- acute on chronic with hypercarbia and hypoxia. 2. Chronic obstructive pulmonary disease exacerbation. 3. Emphysema. Chest X ray findings: Emphysema with chronic scarring. Interstitial opacities of the lung bases suggest areas of atelectasis/scarring or pneumonitis, slightly worsened from comparison studies Patient has been weaned off of BIPAP and on nasal cannula breathing comfortably at rest Since hospital presentation patient received nebulizer treatments, steroids, and antibiotics Pulmonary service followed the patient and signing off on 09/20/17: currently on the prednisone at 40 mg daily andtitrate this downward by 10 mg every 3 days, nebulizer treatments while inpatient Patient is cachetic. On physical exam she has an ostomy bag because of hx ischemic colitis status post bowel surgery. Possible failure to thrive at home History of depression: continue home medications History of Coronary artery disease status post stenting: continue carvedilol, statin, aspirin DVT ppx: Lovenox Patient is a DNR as per Mr. Christoph Ventura ([phone]) according to admission note Disposition: from a respiratory point of view, patient is stable to leave the hospital. However due to inability of patient to take care of herself at home, awaiting case management to assist in placement after discharge Vital Signs: Date Time Temp Pulse Resp B/P (MAP) Pulse Ox O2 Delivery O2 Flow Rate FiO2 09/21/17 15:32 36.9 108 16 104/65 (78) 92 2.0 09/21/17 14:22 108 16 96 Nasal Cannula 2.0 09/21/17 08:00 Nasal Cannula 2.0 09/21/17 07:40 94 16 96 Nasal Cannula 2.0 09/21/17 07:18 36.5 95 16 147/86 (106) 100 2.0 09/20/17 23:50 Nasal Cannula 09/20/17 23:08 36.9 100 16 146/80 (102) 92 Nasal Cannula 2.0 09/20/17 21:43 100 160/80 (106) 09/20/17 18:58 92 16 92 Nasal Cannula 2.0
[2017-09-21 19:07] VITALS: PULSE 98; O2SAT 96
[2017-09-21] MEDS: PANTOprazole SOD 40 MG TAB PO SCH (21:15)
[2017-09-21 22:42] VITALS: BP 166/78; PULSE 110; TEMP 36.8; O2SAT 95
[2017-09-22] MEDS: LEVALBUTEROL 0.63MG/3 ML NEB INH SCH ×3 (01:16→14:46)
[2017-09-22] MEDS: IPRATROPIUM BROMIDE NEB SOLN 0.02% 2.5 ML VIAL INH SCH ×3 (01:16→14:46)
[2017-09-22 07:03] VITALS: PULSE 96; O2SAT 97
[2017-09-22 07:18] VITALS: BP 145/77; PULSE 99; TEMP 36.5; O2SAT 98
[2017-09-22] MEDS: NICOTINE 7 MG/24 HR TDSY TD SCH (08:33)
[2017-09-22] MEDS: BOOST PLUS VANILLA PO SCH ×4 (08:33→11:39)
[2017-09-22] MEDS: VENLAFAXINE HCL XR 150 MG CAPXR PO SCH (08:36)
[2017-09-22] MEDS: ASPIRIN 81 MG ECTAB PO SCH (08:36)
[2017-09-22] MEDS: DOXYCYCLINE HYCLATE 100 MG CAP PO SCH (08:36)
[2017-09-22] MEDS: CARVEDILOL 12.5 MG TAB PO SCH (08:36)
[2017-09-22] MEDS: ATORVASTATIN 40 MG TAB PO SCH (08:36)
[2017-09-22] MEDS: MULTIVITAMIN TAB PO SCH (08:36)
[2017-09-22] MEDS: BuPROPion XL 300 MG TABCR PO SCH (08:36)
[2017-09-22] MEDS: ENOXAPARIN 30 MG/0.3 ML SYR SQ SCH (08:37)
[2017-09-22 10:17] VITALS: PULSE 135; O2SAT 92
[2017-09-22 14:48] VITALS: PULSE 97; O2SAT 97
[2017-09-22] MEDS ORDERED: PRD10 OR (15:06)
--- NOTE | 2017-09-22 15:10 | Progress Note ---
Internal Med Progress Note Date of Service: Sep 22, 2017. Provider Documentation: Subjective: patient denies pain. reports breathing is okay on nasal cannula. Patient ready to be discharged to [facility] Physical Exam: General: cachectic, no distress Lungs: good air entry, no wheezing Heart: RRR Abdomen: right side ostomy bag, abdomen soft nontender Extremities: no edema ASSESSMENT & PLAN: This is a patient who was admitted from night time of 09/17/17 after presenting with fall and apparently had respiratory symptoms consistent with 1. Respiratory failure -- acute on chronic with hypercarbia and hypoxia. 2. Chronic obstructive pulmonary disease exacerbation. 3. Emphysema. Chest X ray findings: Emphysema with chronic scarring. Interstitial opacities of the lung bases suggest areas of atelectasis/scarring or pneumonitis, slightly worsened from comparison studies Patient has been weaned off of BIPAP and on nasal cannula breathing comfortably at rest During hospital presentation patient received nebulizer treatments, steroids, and antibiotic doxycycline since from 09/18/17 to 09/22/17 Pulmonary service followed the patient and signing off on 09/20/17: currently on the prednisone at 40 mg daily and titrate this downward by 10 mg every 3 days, nebulizer treatments while inpatient Patient is cachetic. On physical exam she has an ostomy bag because of hx ischemic colitis status post bowel surgery. Possible failure to thrive at home History of depression: continue home medications History of Coronary artery disease status post stenting: continue carvedilol, statin, aspirin DVT ppx: Lovenox Patient is a DNR as per Mr. Christoph Ventura ([phone]) according to admission note Disposition: from a respiratory point of view, patient is stable to leave the hospital. However due to inability of patient to take care of herself at home, and needed case management to assist in placement after discharge Patient to be discharged to [facility] on prednisone taper regimen: 30 mg for 3 days, then 20 mg for 3 days, then 10 mg for 3 days Vital Signs: Date Time Temp Pulse Resp B/P (MAP) Pulse Ox O2 Delivery O2 Flow Rate FiO2 09/22/17 14:48 97 16 97 Nasal Cannula 2.0 09/22/17 10:17 135 92 09/22/17 08:00 Nasal Cannula 2.0 09/22/17 07:18 36.5 99 16 145/77 (99) 98 2.0 09/22/17 07:03 96 16 97 Nasal Cannula 2.0 09/21/17 23:55 Nasal Cannula 2.0 09/21/17 22:42 36.8 110 16 166/78 (107) 95 Nasal Cannula 2.0 09/21/17 19:07 98 16 96 Nasal Cannula 2.0 09/21/17 16:00 Nasal Cannula 2.0 09/21/17 15:32 36.9 108 16 104/65 (78) 92 2.0
--- NOTE | 2017-09-22 15:14 | Discharge Instructions ---
Discharge Instructions Date of Service Sep 22, 2017. Admission Reason for Admission: Ambulatory Dysfunction Discharge Discharge Diagnosis / Problem: Failure to Thrive, Respiratory Failure - COPD / emphysema Discharge Goals Goal(s): Improve function, Increase independence Activity Recommendations Activity Limitations: per Instructions/Follow-up section Lifting Limitations: until after follow-up appointment Exercise/Sports Limitations: until after follow-up appointment Shower/Bathe: no limitations . Instructions / Follow-Up Instructions / Follow-Up Disposition: from a respiratory point of view, patient is stable to leave the hospital for: 1. Respiratory failure -- acute on chronic with hypercarbia and hypoxia. 2. Chronic obstructive pulmonary disease exacerbation. 3. Emphysema. However due to inability of patient to take care of herself at home (Failure to Thrive), and needed case management to assist in placement after discharge Patient to be discharged to [facility] on prednisone taper regimen: 30 mg for 3 days, then 20 mg for 3 days, then 10 mg for 3 days Current Hospital Diet Patient's current hospital diet: Regular Diet Discharge Diet Recommended Diet: Regular Diet Pending Studies Studies pending at discharge: no Laboratory Results 09/19/17 06:58 Red Blood Count 3.38, Mean Corpuscular Volume 103.3, Mean Corpuscular Hemoglobin 30.8, Mean Corpuscular Hemoglobin Concent 29.8, Mean Platelet Volume 10.4, Neutrophils (%) (Auto) 76.8, Lymphocytes (%) (Auto) 12.5, Monocytes (%) ( Auto) 9.9, Eosinophils (%) (Auto) 0.5, Basophils (%) (Auto) 0.1, Neutrophils # ( Auto) 7.45, Lymphocytes # (Auto) 1.21, Monocytes # (Auto) 0.96, Eosinophils # ( Auto) 0.05, Basophils # (Auto) 0.01 09/19/17 06:58 Test 09/17/17 19:20 09/17/17 20:20 09/18/17 06:00 09/18/17 15:52 Magnesium Level 1.8 mg/dl (1.8-2.4) Direct Bilirubin < 0.1 mg/dl (0-0.2) Urine Color YELLOW Urine Appearance CLOUDY (CLEAR) Urine pH 6.0 (4.5-7.5) Urine Specific [place] 1.020 (1.000-1.030) Urine Protein TRACE (NEG) Urine Glucose (UA) NEG (NEG) Urine Ketones NEG (NEG) Urine Occult Blood 2+ (NEG) Urine Nitrite NEG (NEG) Urine Bilirubin NEG (NEG) Urine Urobilinogen NEG (NEG) Urine Leukocyte Esterase MODERATE (NEG) Urine WBC (Auto) >30 /hpf (0-5) Urine RBC (Auto) 10-30 /hpf (0-4) Urine Hyaline Casts (Auto) 5-10 /lpf (0-5) Urine Epithelial Cells (Auto) 20-30 /lpf (0-5) Urine Bacteria (Auto) 4+ (NEG) Arterial Blood pH 7.36 (7.35-7.45) Arterial Blood Partial Pressure CO2 88 mmHg (35-46) Arterial Blood Partial Pressure O2 113 mm/Hg (80-95) Arterial Blood HCO3 49 mmol/L (19-24) Arterial Blood Oxygen Saturation 97.3 % (90-95) Arterial Blood Base Excess 19.5 mEq/L (-9-1.8) Arterial Blood Gas Delivery 45% Tristan Test POS (POS) Nucleated RBC Absolute Count (auto) 0.02 K/uL (0-0) Nucleated Red Blood Cells % 0.2 % Test 09/19/17 06:58 White Blood Count 9.70 K/uL (4.8-10.8) Red Blood Count 3.38 M/uL (4.2-5.4) Hemoglobin 10.4 g/dL (12.0-16.0) Hematocrit 34.9 % (37-47) Mean Corpuscular Volume 103.3 fL (80-100) Mean Corpuscular Hemoglobin 30.8 pg (25-34) Mean Corpuscular Hemoglobin Concent 29.8 g/dl (32-36) Platelet Count 275 K/uL (130-400) Mean Platelet Volume 10.4 fL (7.4-10.4) Neutrophils (%) (Auto) 76.8 % Lymphocytes (%) (Auto) 12.5 % Monocytes (%) (Auto) 9.9 % Eosinophils (%) (Auto) 0.5 % Basophils (%) (Auto) 0.1 % Neutrophils # (Auto) 7.45 K/uL (1.4-6.5) Lymphocytes # (Auto) 1.21 K/uL (1.2-3.4) Monocytes # (Auto) 0.96 K/uL (0.11-0.59) Eosinophils # (Auto) 0.05 K/uL (0-0.5) Basophils # (Auto) 0.01 K/uL (0-0.2) RDW Standard Deviation 55.0 fL (36.4-46.3) RDW Coefficient of Variation 14.6 % (11.5-14.5) Immature Granulocyte % (Auto) 0.2 % Immature Granulocyte # (Auto) 0.02 K/uL (0.00-0.02) Anion Gap -1.0 mmol/L (3-11) Est Creatinine Clear Calc Drug Dose 86.6 ml/min Estimated GFR () 126.2 Estimated GFR (Non- 108.8 BUN/Creatinine Ratio 48.2 (10-20) Calcium Level 9.1 mg/dl (8.5-10.1) Total Bilirubin 0.3 mg/dl (0.2-1) Aspartate Amino Transf (AST/SGOT) 16 U/L (15-37) Alanine Aminotransferase (ALT/SGPT) 18 U/L (12-78) Alkaline Phosphatase 119 U/L (45-117) Total Protein 6.7 gm/dl (6.4-8.2) Albumin 2.7 gm/dl (3.4-5.0) Globulin 4.0 gm/dl (2.5-4.0) Albumin/Globulin Ratio 0.7 (0.9-2) Date/Time Source Procedure Growth Status 09/17/17 20:20 Urine , Clean Catch Urine Culture - Final THREE TYPES OF ORGANISMS PRESENT, ALL... Complete Medical Emergencies . Who to Call and When: Medical Emergencies: If at any time you feel your situation is an emergency, please call 911 immediately. . Non-Emergent Contact Non-Emergency issues call your: Primary Care Provider . . "Provider Documentation" section prepared by Constantine Simon. . VTE Core Measure Inpt VTE Proph given/why not?: Enoxaparin (Lovenox)SQ
--- NOTE | 2017-09-22 15:18 | Discharge Summary ---
Discharge Summary Date of Service Sep 22, 2017. Discharge Summary Admission Date: Sep 18, 2017 at 03:22 Discharge Date: Sep 22, 2017 Principal Diagnosis: 1. Respiratory failure -- acute on chronic with hypercarbia and hypoxia. 2. Chronic obstructive pulmonary disease exacerbation. 3. Emphysema. 4. Failure to Thrive Medication Reconciliation New Medications: Prednisone (Prednisone) 10 Mg Tab 1 TAB OR DIRECTED for 9 Days, #18 TAB take 30 mg for 3 days, then 20 mg for 3 days, then 10 mg for 3 days Continued Medications: Albuterol Hfa (Ventolin Hfa) 200 Puffs/80861 Mcg Aers 2 PUFFS INH Q6 PRN for SOB/Wheezing, #1 INHALER Ascorbic Acid (Vitamin C 500 mg) 1 Chw Chw 1 TAB PO DAILY Aspirin (Aspirin Ec) 81 Mg Tab 81 MG PO QAM Atorvastatin (Atorvastatin Calcium) 40 Mg Tab 40 MG PO DAILY Bupropion (Wellbutrin-Xl) 300 Mg Tabcr 300 MG PO DAILY, TAB Calcium Carbonate (Caltrate 600) 1,500 Mg Tab 1 TAB PO DAILY Carvedilol (Coreg) 12.5 Mg Tab 12.5 MG PO BID, TAB Cholecalciferol (Vitamin D 1000 Unit) 1,000 Unit Cap 1000 INTER.UNIT PO DAILY, CAP Cyanocobalamin (Vitamin B12 100 Mcg) 100 Mcg Tab 100 MCG PO DAILY, TAB Fluticasone Furoate-Vilanterol (Breo Ellipta 200-25 Mcg/INH) 1 Inh Inh 1 PUFF PO DAILY Ipratropium [place] (Atrovent 0.02% Soln) 2.5 Ml Nebu 1 UNIT INH QID Levalbuterol (Levalbuterol HCl) 1.25 Mg/3 Ml Nebu 1 DOSE INFIL Q6 Multivitamin (Multivitamin) Tab 1 TAB PO DAILY, TAB Nitroglycerin (Nitrostat) 0.4 Mg Sub 0.4 MG UT UD PRN for Chest Pain, BTL Omeprazole (Prilosec) 20 Mg Cap 20 MG PO HS Tiotropium [place] (Spiriva Respimat) 2.5 Mcg/Act Spr 2 PUFFS PO DAILY Venlafaxine Hcl (Effexor Extended Rel) 150 Mg Cap 150 MG PO DAILY, CAP Admission Information HPI (per Admitting provider): HISTORY OF PRESENT ILLNESS: Medical history is significant for chronic respiratory failure secondary to COPD on home O2, chronic diastolic heart failure with EF of 55%, CAD status post stenting, ongoing tobacco abuse, mood disorder, ischemic colitis status post surgery, chronic anemia (baseline hemoglobin of 11), hypertension, chronic hyponatremia as per records and history of MRSA. Recent confinement was in last February 2017 for COPD exacerbation. As per patient's , the patient has been falling a lot at home alone of late. Px has not been telling of falls. Patient sleeping all the time as per . Usual disorientation and refusing to eat. Patient's has been finding it increasingly difficult to take care of the patient at home. Patient's thinks the patient may have undiagnosed dementia. This morning , patient had a witnessed mechanical fall where she fell to the ground hitting the right side of her head and right arm. Patient noted bruising on the right upper extremity: Patient denies chest pain, shortness of breath or unusual cough symptoms. She denies bladder discomfort or burning. No syncope. At the Emergency Room, the patient was given Levaquin for possible UTI. MEDICAL HISTORY: As above. SURGERIES: She has had bowel surgery, tonsillectomy, and tracheostomy. HOME MEDICATIONS: Include; albuterol, cholecalciferol, cyanocobalamin, ipratropium bromide, albuterol ascorbic acid, calcium carbonate, Tiotropium aspirin, atorvastatin, bupropion, Coreg, fluticasone, multivitamins, nitroglycerin, omeprazole and Effexor. ALLERGIES: TO PENICILLIN. FAMILY HISTORY: Heart disease. 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 Physical Exam (per Admitting): PHYSICAL EXAMINATION: VITAL SIGNS: Blood pressure was noted to be 124/68, pulse rate 99, RR 22, temperature 36.7 and sats 90 on two liters. GENERAL: Noted to be in minimal respiratory distress, hyposthenic and disoriented (chronic as per ) SKIN: Pallor, warm. HEENT: Pale palpebral conjuctivae. No ptosis. Dry buccal mucosa. Nasal cannula in place NECK: No JVD. Supple, healed tracheostomy scar. CHEST: Decreased breath sounds. Has occasional wheeze. HEART: Regular rate and rhythm. No murmur. ABDOMEN: Soft and nontender. Ostomy is noted. EXTREMITIES: Has dressing on the right upper extremity. No edema, no tenderness and gross deformities noted. NEUROLOGIC: Coherent, disoriented. No facial asymmetry. Gait and stance are not assessed. Hospital Course This is a patient who was admitted from night time of 09/17/17 after presenting with fall and apparently had respiratory symptoms consistent with 1. Respiratory failure -- acute on chronic with hypercarbia and hypoxia. 2. Chronic obstructive pulmonary disease exacerbation. 3. Emphysema. Chest X ray findings: Emphysema with chronic scarring. Interstitial opacities of the lung bases suggest areas of atelectasis/scarring or pneumonitis, slightly worsened from comparison studies Patient has been weaned off of BIPAP and on nasal cannula breathing comfortably at rest During hospital presentation patient received nebulizer treatments, steroids, and antibiotic doxycycline since from 09/18/17 to 09/22/17 Pulmonary service followed the patient and signing off on 09/20/17: currently on the prednisone at 40 mg daily and titrate this downward by 10 mg every 3 days, nebulizer treatments while inpatient Patient is cachetic. On physical exam she has an ostomy bag because of hx ischemic colitis status post bowel surgery. Possible failure to thrive at home History of depression: continue home medications History of Coronary artery disease status post stenting: continue carvedilol, statin, aspirin DVT ppx: Lovenox Patient is a DNR as per Mr. Christoph Ventura ([phone]) according to admission note Disposition: from a respiratory point of view, patient is stable to leave the hospital. However due to inability of patient to take care of herself at home, and needed case management to assist in placement after discharge Patient to be discharged to [facility] on prednisone taper regimen: 30 mg for 3 days, then 20 mg for 3 days, then 10 mg for 3 days Total time spent on discharge = 60 minutes This includes examination of the patient, discharge planning, medication reconciliation, and communication with other providers. Discharge Instructions Disposition: from a respiratory point of view, patient is stable to leave the hospital for: 1. Respiratory failure -- acute on chronic with hypercarbia and hypoxia. 2. Chronic obstructive pulmonary disease exacerbation. 3. Emphysema. However due to inability of patient to take care of herself at home (Failure to Thrive), and needed case management to assist in placement after discharge Patient to be discharged to [facility] on prednisone taper regimen: 30 mg for 3 days, then 20 mg for 3 days, then 10 mg for 3 days
[2017-09-22 15:22] VITALS: BP 145/77; PULSE 97; TEMP 36.5; O2SAT 97
[2017-09-22 15:31] VITALS: BP 120/79; PULSE 95; TEMP 36.8; O2SAT 99
== END 2017-09-22 16:45 | DRG 190 ==
LOC: EDBD 17:55 → C.EDC 17:57 → C.MS4W 23:58 → ENRESERV 09-18 00:37 → OBSVTOIN 09-18 03:22
PROVIDERS: ADMIT Hospitalist; ATTEND Hospitalist
DX: J44.1 Chronic obstructive pulmonary disease with (acute) exacerbation (principal); J96.21 Acute and chronic respiratory failure with hypoxia; J96.22 Acute and chronic respiratory failure with hypercapnia; N39.0 Urinary tract infection, site not specified; R64 Cachexia; Z68.1 Body mass index [BMI] 19.9 or less, adult; I50.32 Chronic diastolic (congestive) heart failure; E87.1 Hypo-osmolality and hyponatremia; E46 Unspecified protein-calorie malnutrition; R62.7 Adult failure to thrive; S51.011A Laceration without foreign body of right elbow, initial encounter; S09.90XA Unspecified injury of head, initial encounter; I25.10 Atherosclerotic heart disease of native coronary artery without angina pectoris; I11.0 Hypertensive heart disease with heart failure; F32.9 Major depressive disorder, single episode, unspecified; I48.0 Paroxysmal atrial fibrillation; F17.210 Nicotine dependence, cigarettes, uncomplicated; E78.5 Hyperlipidemia, unspecified; Z51.81 Encounter for therapeutic drug level monitoring; Z79.899 Other long term (current) drug therapy; Z79.82 Long term (current) use of aspirin; Z99.81 Dependence on supplemental oxygen; Z91.81 History of falling; Z66 Do not resuscitate; Z95.5 Presence of coronary angioplasty implant and graft; Z86.14 Personal history of Methicillin resistant Staphylococcus aureus infection; Z93.2 Ileostomy status; Z82.49 Family history of ischemic heart disease and other diseases of the circulatory system; W18.30XA Fall on same level, unspecified, initial encounter; Y99.8 Other external cause status

== ENCOUNTER 2018-01-05 11:50 | Inpatient (IN) | payer OTHER ==
[~2018-01-05] VITALS: Ht 160 cm; Wt 36.0 kg
[~2018-01-05 11:50] MED LIST changes: -ATRINS INH; +ATRINSX INH; +BUPRTAB51 PO; +CALCTAB5 PO; +CARV12.5 PO; +CHOL100027 PO; -CRG125 PO; -EFFSR150 PO; +FLUT1INH7 PO; +LPT40 PO; -MIRT15TA3 PO; -NUTR-1048 PO; +OMEP20CA9 PO; +PRD10 OR; +TIOT1SPR PO; +VENL150C56 PO; +VNTHFA/IN INH; -VTMD PO; -WLLXL300 PO; -XPNINS NEB; +XPNINS125 INH; -XPNINS1255 INH
[2018-01-05] MEDS ORDERED: SODIUM CHLORIDE 0.9% 1000ML 1,000 ML IV STA (12:34)
[2018-01-05] MEDS ORDERED: ALBUT/IPRATROP 3MG/0.5MG NEB 3 ML VIAL INH STA (12:37)
--- NOTE | 2018-01-05 13:10 | DIAGNOSTIC IMAGING REPORT ---
CHEST ONE VIEW PORTABLE CLINICAL HISTORY: EVALUATE ALTERED MENTAL STATUS/WEAKNESS dyspnea COMPARISON STUDY: 09/17/2017 FINDINGS: Stable components of emphysematous change. Slight chronic blunting of costophrenic angles bilaterally. Potential minimal superimposed parenchymal infiltrate right base. Prominent central hilar shadows present most likely secondary to prominent hilar vasculature. IMPRESSION: Emphysematous change. Small superimposed parenchymal infiltrate right base. The above report was generated using voice recognition software. It may contain grammatical, syntax or spelling errors. Electronically signed by: Matheus Russell M.D. 01/05/2018 1:08 PM Dictated Date/Time: 01/05/2018 1:07 PM
[2018-01-05 13:18] LABS: EOS % 0.2 %; EOS ABS # 0.02 K/uL (0-0.5); HEMATOCRIT 42.2 % (37-47); HEMOGLOBIN 12.6 g/dL (12.0-16.0); IG# 0.04 K/uL (0.00-0.02); LYMPH % 6.2 %; LYMPH ABS # 0.71 K/uL (1.2-3.4); MEAN CELL VOLUME 101.4 fL (80-100); MEAN CORPUSCULAR HEMOGLOBIN 30.3 pg (25-34); MEAN CORPUSCULAR HGB CONC 29.9 g/dl (32-36); MONO % 7.5 %; MONO ABS # 0.86 K/uL (0.11-0.59); NEUT % 85.8 %; PLATELET COUNT 158 K/uL (130-400); RED CELL DISTRIBUTION WIDTH CV 15.4 % (11.5-14.5); RED CELL DISTRIBUTION WIDTH SD 57.1 fL (36.4-46.3); WHITE BLOOD COUNT 11.43 K/uL (4.8-10.8)
[2018-01-05] MEDS ORDERED: ERGO500037 PO (13:23)
[2018-01-05] MEDS ORDERED: IPRASOL4 INH (13:23)
[2018-01-05] MEDS ORDERED: IPRA1AER2 INH (13:23)
[2018-01-05] MEDS ORDERED: PLMINSR5 INH (13:23)
[2018-01-05] MEDS ORDERED: ARFO15NE INH (13:23)
[2018-01-05] MEDS ORDERED: BUPR-79 PO (13:23)
[2018-01-05] MEDS ORDERED: VENL225T27 PO (13:23)
[2018-01-05] MEDS ORDERED: B-COTAB18 PO (13:23)
[2018-01-05] MEDS ORDERED: CARV6.252 PO (13:23)
[2018-01-05 13:24] LABS: PTT PATIENT 25.4 SECONDS (21.0-31.0)
[2018-01-05 13:36] LABS: ALBUMIN 3.1 gm/dl (3.4-5.0); ALT/SGPT 17 U/L (12-78); BLOOD UREA NITROGEN 25 mg/dl (7-18); CREATININE 0.41 mg/dl (0.60-1.20); GLUCOSE 163 mg/dl (70-99); LIPASE 106 U/L (73-393); POTASSIUM 4.1 mmol/L (3.5-5.1); SODIUM 134 mmol/L (136-145)
[2018-01-05 13:44] LABS: ALKALINE PHOSPHATASE 77 U/L (45-117); AST/SGOT 13 U/L (15-37); CKMB 3.2 ng/ml (0.5-3.6); TOTAL PROTEIN 7.2 gm/dl (6.4-8.2)
[2018-01-05 14:00] LABS: CARBON DIOXIDE 48 mmol/L (21-32)
[2018-01-05] MEDS ORDERED: LEVOFLOXACIN 250 MG TAB PO STA (14:12)
[2018-01-05] MEDS ORDERED: LEVO-366 PO (14:18)
--- NOTE | 2018-01-05 14:18 | EMERGENCY ROOM VISIT NOTE ---
History Report prepared by Edwina: Philippe Mckay Under the Supervision of: Dr. Cristi Smith D.O. First contact with patient: 12:24 Chief Complaint: ILLNESS History of Present Illness The patient is a 67 year old female who presents to the Emergency Room by EMS with complaints of worsening shortness of breath beginning today. She also complains of a mildly productive cough. She has a history of COPD and is on 2.5 L of supplemental oxygen at all times. The patient lives at home with her . She denies any chest pain, abdominal pain or headache. She is reported to have not been eating or drinking much recently. The patient has a colostomy in place. She states that she has been ambulating at home normally. Source of History: patient Onset: Today Quality: other (shortness of breath) Timing: worsening Associated Symptoms: + cough, No headache, No chest pain, No abdominal pain Review of Systems See HPI for pertinent positives & negatives. A total of 10 systems reviewed and were otherwise negative. Past Medical & Surgical Medical Problems: (1) Ambulatory dysfunction (2) CAD (coronary artery disease) (3) Chronic obstructive lung disease (4) CO2 retention (5) COPD, severe (6) Depression (7) Diverticulosis of sigmoid colon (8) Fall (9) Hyperlipidemia (10) MRSA bacteremia (11) Paroxysmal a-fib (12) Respiratory failure Surgical Problems: (1) H/O ileostomy (2) History of cardiac catheterization (3) History of tonsillectomy (4) S/P partial colectomy (5) S/P splenectomy (6) Status post tracheostomy Family History FH: heart disease FATHER ([place] at age 47) FH: pulmonary embolism MOTHER (at age 48) Social History Smoking Status: Current Every Day Smoker Alcohol Use: occasionally Drug Use: none Marital Status: Housing Status: lives with significant other Occupation Status: retired Current/Historical Medications Scheduled Arformoterol Tartrate (Brovana), 15 MCG INH BID Ascorbic Acid (Vitamin C 500 mg), 1 TAB PO DAILY Aspirin (Aspirin Ec), 81 MG PO QAM Atorvastatin (Lipitor), 40 MG PO DAILY B-Complex Vitamins (Vitamin B Complex), 1 TAB PO DAILY Budesonide (Pulmicort Respules 0.5MG/2ML), 2 ML INH BID Bupropion (Wellbutrin Sr), 150 MG PO BID Calcium Carbonate (Caltrate 600), 1 TAB PO DAILY Carvedilol (Coreg), 6.25 MG PO BID Ergocalciferol (Vitamin D 40177 Unit), 50,000 UNIT PO WK Ipratropium-Albuterol (Duoneb), 1 TREATMENT INH QID Levalbuterol (Levalbuterol HCl), 1 DOSE INFIL Q6 Levofloxacin (Levaquin), 500 MG PO DAILY Multivitamin (Multivitamin), 1 TAB PO DAILY Omeprazole (Prilosec), 20 MG PO HS Tiotropium [place] (Spiriva Respimat), 2 PUFFS PO DAILY Venlafaxine Hcl (Venlafaxine Hcl Er), 225 MG PO DAILY Scheduled PRN Albuterol Hfa (Ventolin Hfa), 2 PUFFS INH Q6 PRN for SOB/Wheezing Ipratropium-Albuterol (Combivent Respimat), 1 PUFFS INH QID PRN for SOB/Wheezing Nitroglycerin (Nitrostat), 0.4 MG UT UD PRN for Chest Pain Allergies Coded Allergies: Penicillins (Verified Allergy, Intermediate, HIVES, 01/05/18) LIKELY TOLERATES CEFEPIME, IMIPENEM (SEE ADMISSION 08/13/15) Physical Exam Vital Signs Date Time Temp Pulse Resp B/P (MAP) Pulse Ox O2 Delivery O2 Flow Rate FiO2 01/05/18 14:05 80 16 154/66 97 Nasal Cannula 3.0 Humidified Air 01/05/18 12:44 79 16 117/64 99 Nasal Cannula 3.0 01/05/18 12:08 95 01/05/18 11:59 36.5 94 16 101/73 97 Nasal Cannula 3.0 Physical Exam CONSTITUTIONAL/VITAL SIGNS: Reviewed / noted above. GENERAL: Non-toxic in appearance. INTEGUMENTARY: Warm, dry, and [place]. HEAD: Normocephalic. EYES: without scleral icterus or trauma. ENT/OROPHARYNX: clear with dry mucous membranes. LYMPHADENOPATHY/NECK: Is supple without lymphadenopathy or meningismus. RESPIRATORY: Scattered wheezing throughout. Diminished breath sounds. CARDIOVASCULAR: Regular rate and rhythm. GI/ABDOMEN: Soft and nontender. No organomegaly or pulsatile mass. No rebound or guarding. Normal bowel sounds. EXTREMITIES: Warm and well perfused. BACK: No CVA tenderness. NEUROLOGICAL: Intact without focal deficits. PSYCHIATRIC: normal affect. MUSCULOSKELETAL: Normally developed with good muscle tone. Medical Decision & Procedures ER Provider Diagnostic Interpretation: Radiology results as stated below per my review and radiologist interpretation: CHEST ONE VIEW PORTABLE FINDINGS: Stable components of emphysematous change. Slight chronic blunting of costophrenic angles bilaterally. Potential minimal superimposed parenchymal infiltrate right base. Prominent central hilar shadows present most likely secondary to prominent hilar vasculature. IMPRESSION: Emphysematous change. Small superimposed parenchymal infiltrate right base. The above report was generated using voice recognition software. It may contain grammatical, syntax or spelling errors. Electronically signed by: Matheus Russell M.D. 01/05/2018 1:08 PM Laboratory Results 01/05/18 13:00 Red Blood Count 4.16, Mean Corpuscular Volume 101.4, Mean Corpuscular Hemoglobin 30.3, Mean Corpuscular Hemoglobin Concent 29.9, Mean Platelet Volume 10.0, Neutrophils (%) (Auto) 85.8, Lymphocytes (%) (Auto) 6.2, Monocytes (%) ( Auto) 7.5, Eosinophils (%) (Auto) 0.2, Basophils (%) (Auto) 0.0, Neutrophils # ( Auto) 9.80, Lymphocytes # (Auto) 0.71, Monocytes # (Auto) 0.86, Eosinophils # ( Auto) 0.02, Basophils # (Auto) 0.00 01/05/18 13:00 Test 01/05/18 13:00 White Blood Count 11.43 K/uL (4.8-10.8) Red Blood Count 4.16 M/uL (4.2-5.4) Hemoglobin 12.6 g/dL (12.0-16.0) Hematocrit 42.2 % (37-47) Mean Corpuscular Volume 101.4 fL (80-100) Mean Corpuscular Hemoglobin 30.3 pg (25-34) Mean Corpuscular Hemoglobin Concent 29.9 g/dl (32-36) Platelet Count 158 K/uL (130-400) Mean Platelet Volume 10.0 fL (7.4-10.4) Neutrophils (%) (Auto) 85.8 % Lymphocytes (%) (Auto) 6.2 % Monocytes (%) (Auto) 7.5 % Eosinophils (%) (Auto) 0.2 % Basophils (%) (Auto) 0.0 % Neutrophils # (Auto) 9.80 K/uL (1.4-6.5) Lymphocytes # (Auto) 0.71 K/uL (1.2-3.4) Monocytes # (Auto) 0.86 K/uL (0.11-0.59) Eosinophils # (Auto) 0.02 K/uL (0-0.5) Basophils # (Auto) 0.00 K/uL (0-0.2) RDW Standard Deviation 57.1 fL (36.4-46.3) RDW Coefficient of Variation 15.4 % (11.5-14.5) Immature Granulocyte % (Auto) 0.3 % Immature Granulocyte # (Auto) 0.04 K/uL (0.00-0.02) Prothrombin Time 10.2 SECONDS (9.0-12.0) Prothromb Time International Ratio 1.0 (0.9-1.1) Activated Partial Thromboplast Time 25.4 SECONDS (21.0-31.0) Partial Thromboplastin Ratio 1.0 Anion Gap 2.0 mmol/L (3-11) Est Creatinine Clear Calc Drug Dose 73.6 ml/min Estimated GFR () 122.2 Estimated GFR (Non- 105.4 BUN/Creatinine Ratio 60.2 (10-20) Calcium Level 9.0 mg/dl (8.5-10.1) Magnesium Level 1.9 mg/dl (1.8-2.4) Total Bilirubin 0.3 mg/dl (0.2-1) Direct Bilirubin < 0.1 mg/dl (0-0.2) Aspartate Amino Transf (AST/SGOT) 13 U/L (15-37) Alanine Aminotransferase (ALT/SGPT) 17 U/L (12-78) Alkaline Phosphatase 77 U/L (45-117) Total Creatine Kinase 43 U/L (26-192) Creatine Kinase MB 3.2 ng/ml (0.5-3.6) Creatine Kinase MB Ratio 7.4 (0-3.0) Troponin I < 0.015 ng/ml (0-0.045) Total Protein 7.2 gm/dl (6.4-8.2) Albumin 3.1 gm/dl (3.4-5.0) Lipase 106 U/L (73-393) Thyroid Stimulating Hormone (TSH) 1.020 uIu/ml (0.300-4.500) Laboratory results as stated above per my review. Medications Administered Medications (Trade) Dose Ordered Sig/José Miguel Route Start Time Stop Time Status Last Admin Dose Admin Sodium Chloride 1,000 ml @ 500 mls/hr Q2H STAT IV 01/05/18 12:34 01/05/18 14:33 DC 01/05/18 13:10 500 MLS/HR Albuterol/ Ipratropium (Duoneb) 3 ml NOW STAT INH 01/05/18 12:37 01/05/18 12:38 DC 01/05/18 13:11 3 ML ECG Per My Interpretation Indication: SOB/dyspnea Rate (beats per minute): 94 Rhythm: normal sinus Findings: no ectopy, other (No ST elevations. ) ED Course 1227: Previous medical records were reviewed. The patient was evaluated in room A12B. A complete history and physical examination was performed. 1234: Ordered Sodium Chloride 1000 ml @ 500 mls/hr IV. 1237: Ordered DuoNeb 3 mL INH. 1412: Ordered Levaquin Tab 500 mg PO. 1420: On reevaluation, the patient is resting comfortably. I discussed the results and findings with the patient. She verbalized agreement of the treatment plan. The patient was discharged home. Medical Decision the differential was considered includes acute myocardial infarction, acute coronary syndrome, myocarditis, pericarditis, pericardial effusions /tamponad, esophageal perforation, pulmonary embolism, pneumonia, pneumothorax, cardiomyopathy, congestive heart, anemia , COPD/asthma exacerbation. This is a 67-year-old female who presents to the ED with a chief complaint of some increased shortness of breath and decreased p.o. intake as well as an occasional productive cough. The patient uses 2-1/2 L nasal cannula oxygen at home for COPD. The patient denies any increased shortness of breath or weakness. She was sent in by her family for evaluation. The patient's vital signs here are stable. She is not hypoxic on her typical oxygen. Her physical exam reveals some scattered wheezes on expiration and diminished breath sounds. The patient's exam reveals some dry mucous membranes as well. She is talkative and not overly sedated. She does sleep when not stimulated but is able to awaken and answer all questions and carry on a conversation. The patient has an unremarkable CBC. The chemistry panel reveals an elevated bicarb of 48 likely related to chronic hypercarbia compensation related to her COPD. BUN is 25 chest x-ray reveals COPD and a right base infiltrate. The patient was given IV fluids and hydrated with this. She was given IV Rocephin as well as a DuoNeb treatment. She was also given a dose of p.o. Levaquin. Prior to the patient's come here, she was evaluated by [facility] watch caser and was felt to have failure to thrive in addition to her significant weakness. They did not feel that the patient should be discharged. I spoke with the [facility] hospitalist, who will see the patient for further inpatient evaluation and care. Medication Reconcilliation Current Medication List: was personally reviewed by me Blood Pressure Screening Patient's blood pressure: Normal blood pressure Blood pressure disposition: Did not require urgent referral Impression Primary Impression: Pneumonia Additional Impressions: Dehydration Weakness Scribe Attestation The scribe's documentation has been prepared under my direction and personally reviewed by me in its entirety. I confirm that the note above accurately reflects all work, treatment, procedures, and medical decision making performed by me. Departure Information Dispostion Being Evaluated By Hospitalist Prescriptions Levofloxacin (Levaquin) 500 Mg Tab 500 MG PO DAILY for 7 Days, #7 TAB Prov: Cristi Smith D.O. 01/05/18 Referrals Matheus Kirk M.D. (PCP) Patient Instructions My [facility] Problem Qualifiers
[2018-01-05] MEDS ORDERED: CEFTRIAXONE SOD INJ 1 GM ADDVIAL IV STA (14:38)
[2018-01-05] MEDS ORDERED: ACETAMINOPHEN 325 MG TAB PO PRN (15:15)
[2018-01-05] MEDS ORDERED: ONDANSETRON INJ 2 MG/ML 2 ML VIAL IV PRN (15:15)
[2018-01-05] MEDS ORDERED: ENOXAPARIN 30 MG/0.3 ML SYR SQ SCH (15:15)
[2018-01-05] MEDS ORDERED: PRED10TA PO (15:35)
[2018-01-05] MEDS ORDERED: CHOL1000 PO (15:35)
[2018-01-05] MEDS ORDERED: EFF75 PO (15:35)
[2018-01-05] MEDS ORDERED: CYAN10004 PO (15:35)
[2018-01-05] MEDS ORDERED: BUPRTAB51 PO (15:35)
[2018-01-05] MEDS ORDERED: CARV12.52 PO (15:35)
[2018-01-05] MEDS ORDERED: AZITTAB PO (15:35)
[2018-01-05] MEDS ORDERED: VENL150T33 PO (15:44)
[2018-01-05] MEDS ORDERED: LEVOFLOXACIN 250 MG TAB PO ONE (16:30)
[2018-01-05] MEDS: SODIUM CHLORIDE 0.9% 1000ML 1,000 ML IV SCH (16:58)
[2018-01-05 17:00] VITALS: BP 134/82; PULSE 94; TEMP 36.5; O2SAT 96
[2018-01-05 17:22] VITALS: BP 134/82; PULSE 94; TEMP 36.5; BMI 14.1
[2018-01-05] MEDS: ARFORMOTEROL TART 15MCG/2ML VIAL INH SCH (19:13)
[2018-01-05] MEDS: ALBUT/IPRATROP 3MG/0.5MG NEB 3 ML VIAL INH SCH (19:13)
[2018-01-05] MEDS: BUDESONIDE 0.5 MG/2 ML VIAL (PULMICORT) INH SCH (19:14)
[2018-01-05 19:15] VITALS: PULSE 92; O2SAT 96
--- NOTE | 2018-01-05 19:19 | History and Physical ---
History & Physical Date & Time of Service: Jan 05, 2018 ~ 14:30 Chief Complaint: Cough, Weakness Primary Care Physician: Matheus Kirk M.D. History of Present Illness 67-year-old female who presents to the ER with cough and weakness. History is limited from the patient. I attempted to call the patient's however was unable to reach him. Per review of outpatient case management notes, patient has been generally weak, coughing, poor appetite, and not taking her medications. Patient was started on COPD rescue kit with a azithromycin and prednisone 2 days ago. Patient reports a cough productive for yellow sputum at times. She denies fever or chills. She has oxygen dependent COPD, reports her breathing is at baseline. Patient has an ileostomy in place, denies any change in stool output. She denies chest pain, lightheadedness, dizziness, diaphoresis , and syncopal events. No abdominal pain, nausea, or vomiting. She denies urinary symptoms. In the ED, patient's chest x-ray shows a small infiltrate in the right base. She is saturating well on her chronic 3 L. Labs show chronic CO2 retention and mildly elevated WBC at 11K. Patient was given IV ceftriaxone , oral Levaquin, IVF, and DuoNeb. Past Medical/Surgical History Medical Problems: (1) CAD (coronary artery disease) Permanent Comment: s/p RCA stent 1998 cath 05/2011 - PDA stenosis 60% Status: Chronic (2) CO2 retention Status: Chronic (3) COPD, severe Permanent Comment: on chronic 4L O2 Status: Chronic (4) Depression Status: Chronic (5) Diverticulosis of sigmoid colon Permanent Comment: Noted on colonoscopy 2005. Status: Chronic (6) Hyperlipidemia Status: Chronic (7) MRSA bacteremia Status: Resolved (8) Paroxysmal a-fib Status: Chronic (9) Respiratory failure Status: Chronic Surgical Problems: (1) H/O ileostomy Status: Chronic (2) History of cardiac catheterization Status: Resolved (3) History of tonsillectomy Status: Resolved (4) S/P partial colectomy Permanent Comment: for ischemic bowel Status: Chronic (5) S/P splenectomy Status: Chronic (6) Status post tracheostomy Status: Chronic Family History FH: heart disease FATHER ([place] at age 47) FH: pulmonary embolism MOTHER (at age 48) Social History Smoking Status: Current Every Day Smoker Alcohol Use: none Marital Status: Immunizations History of Influenza Vaccine: Yes Influenza Vaccine Date: Jul 16, 2017 History of Tetanus Vaccine?: Yes Tetanus Immunization Date: Feb 10, 2014 History of Pneumococcal: Yes Pneumococcal Date: Jun 13, 2017 Allergies Coded Allergies: Penicillins (Verified Allergy, Intermediate, HIVES, 01/05/18) LIKELY TOLERATES CEFEPIME, IMIPENEM (SEE ADMISSION 08/13/15) Home Medications Scheduled Arformoterol Tartrate (Brovana), 15 MCG INH BID Ascorbic Acid (Vitamin C 500 mg), 1 TAB PO DAILY Aspirin (Aspirin Ec), 81 MG PO QAM Atorvastatin (Lipitor), 40 MG PO DAILY Budesonide (Pulmicort Respules 0.5MG/2ML), 2 ML INH BID Bupropion (Wellbutrin-Xl), 300 MG PO DAILY Calcium Carbonate (Caltrate 600), 1 TAB PO DAILY Carvedilol (Coreg), 1 TAB PO BID Cholecalciferol (Vitamin D3), 1 TAB PO DAILY Cyanocobalamin (Vitamin B-12 1000 Mcg), 1,000 MCG PO DAILY Multivitamin (Multivitamin), 1 TAB PO DAILY Omeprazole (Prilosec), 20 MG PO HS Tiotropium [place] (Spiriva Respimat), 2 PUFFS PO DAILY Venlafaxine Hcl (Venlafaxine Hcl Er), 1 TAB PO DAILY Scheduled PRN Albuterol Hfa (Ventolin Hfa), 2 PUFFS INH Q6 PRN for SOB/Wheezing Azithromycin (Zithromax Z-Romel), PO UD PRN for COPD rescue kit Ipratropium-Albuterol (Combivent Respimat), 1 PUFFS INH QID PRN for SOB/Wheezing Ipratropium-Albuterol (Duoneb), 1 TREATMENT INH QID PRN for SOB/Wheezing Levalbuterol (Levalbuterol HCl), 1 DOSE INH Q6 PRN for SOB/Wheezing Nitroglycerin (Nitrostat), 0.4 MG UT UD PRN for Chest Pain Prednisone Tab (Prednisone), 10 MG PO UD PRN for COPD rescue kit Review of Systems ROS per HPI, all other systems reviewed and negative Physical Exam Vital Signs Date Time Temp Pulse Resp B/P (MAP) Pulse Ox O2 Delivery O2 Flow Rate FiO2 01/05/18 17:22 36.5 94 16 134/82 Nasal Cannula 2.5 01/05/18 17:00 36.5 94 16 134/82 (99) 96 Nasal Cannula 3.0 01/05/18 16:05 83 16 153/79 98 18 15:43 83 16 153/79 98 Nasal Cannula 3.0 01/05/18 14:05 80 16 154/66 97 Nasal Cannula 3.0 Humidified Air 01/05/18 12:44 79 16 117/64 99 Nasal Cannula 3.0 01/05/18 12:08 95 01/05/18 11:59 36.5 94 16 101/73 97 Nasal Cannula 3.0 General Appearance: no apparent distress, + cachetic Head: normocephalic, atraumatic Eyes: normal inspection, EOMI, sclerae normal ENT: hearing grossly normal, + pertinent finding (Mucous membranes dry) Neck: supple, no JVD, trachea midline Respiratory/Chest: no respiratory distress, + decreased breath sounds, + wheezing (Faint, scattered, expiratory) Cardiovascular: regular rate, rhythm, no edema, normal peripheral pulses Abdomen/GI: normal bowel sounds, non tender, soft, no organomegaly, + pertinent finding (Ileostomy in place with large amount of liquid stool noted) Extremities/Musculoskelatal: normal inspection, no calf tenderness, normal capillary refill Neurologic/Psych: no motor/sensory deficits, alert, normal mood/affect, oriented x 3, + pertinent finding (Forgetful, poor insight) Skin: normal color, warm/dry Diagnostics Laboratory Results Results Past 24 Hours Test 01/05/18 13:00 Range/Units White Blood Count 11.43 4.8-10.8 K/uL Red Blood Count 4.16 4.2-5.4 M/uL Hemoglobin 12.6 12.0-16.0 g/dL Hematocrit 42.2 37-47 % Mean Corpuscular Volume 101.4 80-100 fL Mean Corpuscular Hemoglobin 30.3 25-34 pg Mean Corpuscular Hemoglobin Concent 29.9 32-36 g/dl Platelet Count 158 130-400 K/uL Mean Platelet Volume 10.0 7.4-10.4 fL Neutrophils (%) (Auto) 85.8 % Lymphocytes (%) (Auto) 6.2 % Monocytes (%) (Auto) 7.5 % Eosinophils (%) (Auto) 0.2 % Basophils (%) (Auto) 0.0 % Neutrophils # (Auto) 9.80 1.4-6.5 K/uL Lymphocytes # (Auto) 0.71 1.2-3.4 K/uL Monocytes # (Auto) 0.86 0.11-0.59 K/uL Eosinophils # (Auto) 0.02 0-0.5 K/uL Basophils # (Auto) 0.00 0-0.2 K/uL RDW Standard Deviation 57.1 36.4-46.3 fL RDW Coefficient of Variation 15.4 11.5-14.5 % Immature Granulocyte % (Auto) 0.3 % Immature Granulocyte # (Auto) 0.04 0.00-0.02 K/uL Prothrombin Time 10.2 9.0-12.0 SECONDS Prothromb Time International Ratio 1.0 0.9-1.1 Activated Partial Thromboplast Time 25.4 21.0-31.0 SECONDS Partial Thromboplastin Ratio 1.0 Sodium Level 134 136-145 mmol/L Potassium Level 4.1 3.5-5.1 mmol/L Chloride Level 84 98-107 mmol/L Carbon Dioxide Level 48 21-32 mmol/L Anion Gap 2.0 3-11 mmol/L Blood Urea Nitrogen 25 7-18 mg/dl Creatinine 0.41 0.60-1.20 mg/dl Est Creatinine Clear Calc Drug Dose 73.6 ml/min Estimated GFR () 122.2 Estimated GFR (Non- 105.4 BUN/Creatinine Ratio 60.2 10-20 Random Glucose 163 70-99 mg/dl Calcium Level 9.0 8.5-10.1 mg/dl Magnesium Level 1.9 1.8-2.4 mg/dl Total Bilirubin 0.3 0.2-1 mg/dl Direct Bilirubin < 0.1 0-0.2 mg/dl Aspartate Amino Transf (AST/SGOT) 13 15-37 U/L Alanine Aminotransferase (ALT/SGPT) 17 12-78 U/L Alkaline Phosphatase 77 45-117 U/L Total Creatine Kinase 43 26-192 U/L Creatine Kinase MB 3.2 0.5-3.6 ng/ml Creatine Kinase MB Ratio 7.4 0-3.0 Troponin I < 0.015 0-0.045 ng/ml Total Protein 7.2 6.4-8.2 gm/dl Albumin 3.1 3.4-5.0 gm/dl Lipase 106 73-393 U/L Thyroid Stimulating Hormone (TSH) 1.020 0.300-4.500 uIu/ml Diagnostic Radiology CXR IMPRESSION: Emphysematous change. Small superimposed parenchymal infiltrate right base. Impression Assessment and Plan COMMUNITY-ACQUIRED PNEUMONIA COPD EXACERBATION -Admit patient to [facility] -Patient presenting from home with generalized weakness and cough; in the ED, chest x-ray shows right basilar infiltrate -History does not suggest aspiration -Has history of COPD, saturating well on chronic 3 L; labs show chronic CO2 retention -S/P IV ceftriaxone and oral Levaquin in the ED; will continue with Levaquin, patient does have history of MRSA, will check nasal swab and if positive will add on vancomycin -No signs of sepsis -[id number] nebulizers, prednisone 40 mg X 5 days; continue inhaled corticosteroid HISTORY OF CAD -Appears stable, no reports of chest pain -Continue ASA, beta-maycol, and statin ANXIETY, DEPRESSION -Continue bupropion and venlafaxine DVT PROPHYLAXIS -SQ heparin CODE STATUS -Patient is a full code as per my discussion with her. DISPOSITION -In my clinical judgment this beneficiary meets acute admission criteria, established by [facility], that includes being hospitalized through two midnights. -Case management, PT/OT Attending addendum: The patient was seen and examined Admitted with generalized weakness secondary to CAP Denies any Chest pain or increase in SOB O/E NO apparent distress Chest-minimla crackles at the bases Heart-regular Abdomen-benign,no masses,bowel sound present Extremities-trace edema bilaterally Labs and Imaging studies were reviewed Agree with the assessment and plan. DR Audra Scott Advanced Directives Existing Living Will: No Existing Power of Industrial X Ray Operator: No Resuscitation Status VTE Prophylaxis Will order VTE Prophylaxis: Yes
[2018-01-05] MEDS: PANTOprazole SOD 40 MG TAB PO SCH (20:17)
[2018-01-05] MEDS: CARVEDILOL 12.5 MG TAB PO SCH (20:18)
[2018-01-05] MEDS: HEPARIN SOD 5000 UNIT/0.5 ML CARP SQ SCH (20:19)
[2018-01-05 23:45] VITALS: BP 106/70; PULSE 72; TEMP 36; O2SAT 99
[2018-01-06] VITALS (9 sets, daily range): BP systolic 115–146; BP diastolic 68–88; PULSE 76–98; TEMP 36.4–36.8; O2SAT 97–100; Ht 160 cm; Wt 36.0 kg
[2018-01-06] MEDS: SODIUM CHLORIDE 0.9% 1000ML 1,000 ML IV SCH ×2 (05:42→17:42)
[2018-01-06] MEDS: ARFORMOTEROL TART 15MCG/2ML VIAL INH SCH ×2 (07:34→19:23)
[2018-01-06] MEDS: BUDESONIDE 0.5 MG/2 ML VIAL (PULMICORT) INH SCH ×2 (07:34→19:24)
[2018-01-06] MEDS: ALBUT/IPRATROP 3MG/0.5MG NEB 3 ML VIAL INH SCH ×4 (07:34→20:00)
[2018-01-06] MEDS: BuPROPion XL 300 MG TABCR PO SCH (08:31)
[2018-01-06] MEDS: VENLAFAXINE HCL XR 150 MG CAPXR PO SCH (08:31)
[2018-01-06] MEDS: MULTIVITAMIN TAB PO SCH (08:31)
[2018-01-06] MEDS: CHOLECALCIFEROL 1000 INTER.UNIT TAB PO SCH (08:31)
[2018-01-06] MEDS: CARVEDILOL 12.5 MG TAB PO SCH ×2 (08:31→19:50)
[2018-01-06 08:32] LABS: HEMATOCRIT 37.8 % (37-47); HEMOGLOBIN 11.3 g/dL (12.0-16.0); IG# 0.03 K/uL (0.00-0.02); LYMPH % 7.2 %; MEAN CORPUSCULAR HEMOGLOBIN 29.9 pg (25-34); MEAN CORPUSCULAR HGB CONC 29.9 g/dl (32-36); MEAN PLATELET VOLUME 10.3 fL (7.4-10.4); MONO ABS # 0.55 K/uL (0.11-0.59); NEUT % 87.5 %; NEUT ABS # 9.68 K/uL (1.4-6.5); PLATELET COUNT 182 K/uL (130-400); RED CELL DISTRIBUTION WIDTH CV 15.4 % (11.5-14.5); WHITE BLOOD COUNT 11.06 K/uL (4.8-10.8)
[2018-01-06] MEDS: ATORVASTATIN 40 MG TAB PO SCH (08:32)
[2018-01-06] MEDS: ASPIRIN 81 MG ECTAB PO SCH (08:32)
[2018-01-06] MEDS: CYANOCOBALAMIN 500 MCG TAB (VIT B-12) PO SCH (08:32)
[2018-01-06] MEDS: HEPARIN SOD 5000 UNIT/0.5 ML CARP SQ SCH ×2 (08:52→20:00)
[2018-01-06 08:54] LABS: BLOOD UREA NITROGEN 12 mg/dl (7-18); CALCIUM 8.3 mg/dl (8.5-10.1); CREATININE 0.19 mg/dl (0.60-1.20); GLUCOSE 93 mg/dl (70-99); SODIUM 135 mmol/L (136-145)
[2018-01-06 09:06] LABS: CARBON DIOXIDE 47 mmol/L (21-32)
[2018-01-06] MEDS: LEVOFLOXACIN 750 MG TAB PO SCH (11:41)
[2018-01-06] MEDS ORDERED: BOOST VANILLA PO SCH (14:00)
[2018-01-06] MEDS ORDERED: VANCOMYCIN CONSULT ACTIVE PRN (14:15)
--- NOTE | 2018-01-06 14:37 | Progress Note ---
Progress Note Date of Service Jan 06, 2018. Progress Note ID Consult Dictated #[id number] A/P: 1. PNA -Continue levaquin, can add vanco pending sputum culture -Continue O2 -Thank you
--- NOTE | 2018-01-06 14:51 | INFECT. DISEASE CONSULTATION ---
DATE OF CONSULTATION: 01/06/2018 HISTORY OF PRESENT ILLNESS: This is a 67-year-old female who presents to the Emergency Room with a productive cough and increased weakness. She is awake on exam but unable to provide significant history secondary to lethargy. She does have a history of COPD and she was started on a Z-MIRIAN with prednisone 2 days ago. She did not have significant improvement and was subsequently sent to the Emergency Room. A sputum culture is pending at this time, but uncollected. A MRSA swab was done and is positive for MRSA, AND Infectious diseases was subsequently consulted for questionable MRSA pneumonia. She was started on ceftriaxone initially but does have a PENICILLIN ALLERGY and was subsequently changed to Levaquin. She has been afebrile since admission. Her white blood cell count is mildly elevated at 11. Her chest x-ray showed a right basilar infiltrate. She is on oxygen. On my examination, she does open her eyes and shakes her head yes to cough and no to fevers or chills. Her remaining review of systems is limited. PAST MEDICAL HISTORY: Significant for coronary artery disease with a history of stenting, COPD on chronic oxygen at home, depression, history of diverticulosis, and hyperlipidemia. PAST SURGICAL HISTORY: Significant for ileostomy, cardiac catheterization, tonsillectomy, partial colectomy, splenectomy, and tracheostomy, which has been reversed. FAMILY HISTORY: Noncontributory. SOCIAL HISTORY: Significant for daily tobacco use. ALLERGIES: SHE HAS ALLERGIES TO PENICILLIN WHICH IS LISTED HIVES; however, she has tolerated cephalosporins and imipenem in the past, per her H&P. MEDICATIONS: Include Boost, Levaquin, Ecotrin, Lipitor, Wellbutrin, vitamin D, vitamin B12, multivitamin, Effexor, Protonix, Brovana, Pulmicort, Coreg, subQ heparin, prednisone, DuoNebs, Zofran and Tylenol. PHYSICAL EXAMINATION: VITAL SIGNS: She is currently afebrile, pulse is 89, respiratory rate 18, blood pressure 143/88, oxygen saturation is 98% on 2-1/2 liters nasal cannula. GENERAL: She is awake and appropriate but lethargic. HEENT: Mucous membranes are dry. HEART: Regular. LUNGS: Decreased throughout. ABDOMEN: Nondistended. Ileostomy is noted. EXTREMITIES: There is no lower extremity edema bilaterally. SKIN: Without rash. LABORATORY STUDIES: CBC today reveals a white blood cell count of 11.0, hemoglobin 11.3, and platelets are 182. Chemistry panel reveals a sodium of 135, potassium 4.0, chloride 88, bicarb 47, BUN 12, creatinine 0.1, and glucose is 93. UA is negative. Hepatitis C screen is negative, MRSA swab is positive. Sputum culture is ordered but not collected. IMAGING DATA: A chest x-ray done shows a right basilar infiltrate. ASSESSMENT AND PLAN: Pneumonia. Certainly, methicillin-resistant staphylococcus aureus pneumonia could be suspected as it does appear she has had multiple comorbid issues in the past. Vancomycin could be added. I would avoid Zyvox as she is on Wellbutrin. Her Levaquin can be continued pending the results of cultures. Thank you for this consultation.
--- NOTE | 2018-01-06 15:18 | Pharmacy Progress Note ---
Pharmacy Abx Initial Consult Date of Service Jan 06, 2018. Pharmacy Dosing Scope Date of Consult: 01/06/18 Consultation requested by: Dr. Edmondson Pharmacy is consulted to initiate Vancomycin IV dosing therapy, order appropriate labs and adjust drug dose/frequency. Pt is also receiving Levquin 750mg PO daily. Subjective The patient is a 67 year old female admitted on Jan 05, 2018 at 15:03. Objective Height (Feet): 5 Height (Inches): 3.00 Weight (Kilograms): 36.000 Vital Signs (Past 12Hrs) Vital Signs Past 12 Hours Date Time Temp Pulse Resp B/P (MAP) Pulse Ox O2 Delivery O2 Flow Rate FiO2 01/06/18 11:10 89 18 98 Nasal Cannula 2.5 01/06/18 08:00 98 Nasal Cannula 2.5 01/06/18 07:35 76 18 98 Nasal Cannula 2.5 01/06/18 07:21 36.4 88 18 143/88 (106) 100 3.0 Lab Results (24Hrs) Laboratory Tests (24 Hours) Test 01/06/18 08:00 White Blood Count 11.06 K/uL (4.8-10.8) H Red Blood Count 3.78 M/uL (4.2-5.4) L Hemoglobin 11.3 g/dL (12.0-16.0) L Hematocrit 37.8 % (37-47) Mean Corpuscular Volume 100.0 fL (80-100) Mean Corpuscular Hemoglobin 29.9 pg (25-34) Mean Corpuscular Hemoglobin Concent 29.9 g/dl (32-36) L Platelet Count 182 K/uL (130-400) Mean Platelet Volume 10.3 fL (7.4-10.4) Neutrophils (%) (Auto) 87.5 % Lymphocytes (%) (Auto) 7.2 % Monocytes (%) (Auto) 5.0 % Eosinophils (%) (Auto) 0.0 % Basophils (%) (Auto) 0.0 % Neutrophils # (Auto) 9.68 K/uL (1.4-6.5) H Lymphocytes # (Auto) 0.80 K/uL (1.2-3.4) L Monocytes # (Auto) 0.55 K/uL (0.11-0.59) Eosinophils # (Auto) 0.00 K/uL (0-0.5) Basophils # (Auto) 0.00 K/uL (0-0.2) Micro Results Date/Time Source Procedure Growth Status 01/06/18 00:10 Nasal MRSA DNA Surveillance Screen - Final Specimen Positive for MRSA by DNA Probe Complete Risk Factors for Resistance * History of infection with a multidrug-resistant organism: MRSA bacteremia & PNA in 2016 * Antimicrobial use within the last 90 days: Zithromax x 2 days HEMODIALYSIS PATIENT CARE SPECIALIST Assessment & Plan Assessment 67 year old female with Pneumonia, possibly MRSA Pneumonia d/t history and positive nasal swab. Kinetics are difficult to calculate d/t low body weight and low muscle mass Pharmacy dosed IV Vanco in 2016 for MRSA pneumonia and yielded therapeutic troughs with dosing of ~ 20mg/kg IV Q8hrs Current weight is down ~15kg since that admission, therefore, will adjust dose accordingly. Plan Vancomycin + Levaquin for treatment of Pneumonia Vancomycin IV * Loading dose: 1,000 mg (27 mg/kg) * Maintenance dose: 750 mg IV (20 mg/kg) every 8 hours * Goal trough level for PNA : 15 to 20 mcg/mL & for adequate lung penetration * Trough level ordered for 01/08/18 @ 0730 Pharmacy will continue to follow and will adjust dose/frequency as necessary. Thank you.
[2018-01-06] MEDS ORDERED: VANCOMYCIN IV 1,000 MG in SODIUM CHLORIDE 0.9% 250ML 250 ML IV ONE (15:30)
--- NOTE | 2018-01-06 15:57 | DIAGNOSTIC IMAGING REPORT ---
(CHEST) THORAX WITHOUT CT DOSE: 160.10 mGycm CLINICAL HISTORY: 67 years-old Female with r/o lung mass. Acute altered mental status with weakness and dyspnea. Emphysema. Airspace disease of the right lower lobe seen on comparison chest radiograph TECHNIQUE: Multiaxial CT images of the chest were performed without contrast. A dose lowering technique was utilized adhering to the principles of ALARA. COMPARISON: Chest radiograph 01/05/2018, CT chest 07/07/2017. FINDINGS: Thyroid is homogeneous without dominant nodule identified. Evaluation for adenopathy is limited without the use of IV contrast. No definite pathologically enlarged lymph nodes identified. Heart is normal in size without pericardial effusion. Coronary arterial disease is noted along with calcifications of the aortic annulus and moderate calcifications of the thoracic aorta. No aortic aneurysm identified. The main pulmonary artery is mildly dilated, 3.0 cm which may reflect underlying pulmonary arterial hypertension within the appropriate clinical setting. Trace bilateral pleural effusions without pneumothorax. Severe emphysema with hyperinflation. Multifocal areas of chronic interstitial scarring redemonstrated. Subsegmental alveolar opacities of the right lower lobe greatest within the basal segments demonstrate central coursing air bronchograms. There is mild bilateral bronchial wall thickening with multifocal areas of mucous plugging, notably within the lung bases. Multifocal tree-in-bud nodules of the basal lower lobes are also appreciated, similar to slightly improved from comparison study 07/07/2017. Areas of probable scarring are noted involving the anterior aspects of the bilateral upper lobes, unchanged. No suspicious pulmonary nodules or masses are identified. 5 mm nodular opacity of the inferior segment lingula suggest area of confluence scarring. Subcentimeter calcified granuloma of the right upper lobe. No acute abnormality of the imaged upper abdomen. Soft tissues are unremarkable. Degenerative changes are noted throughout the spine. IMPRESSION: 1. Trace bilateral pleural effusions with alveolar opacities of the right lower lobe, greatest within the basal segments demonstrating central air bronchograms suggesting pneumonia or aspiration pneumonitis. 2. Subsegmental tree-in-bud nodules of the bilateral lower lobes are again seen compatible with infectious or inflammatory bronchiolitis. 3. Severe emphysema with bilateral bronchial wall thickening compatible with bronchitis containing moderate associated areas of mucous plugging. 4. No pathologic adenopathy identified. Electronically signed by: Reid Odell M.D. 01/06/2018 3:56 PM Dictated Date/Time: 01/06/2018 3:48 PM
--- NOTE | 2018-01-06 18:58 | Progress Note ---
Medicine Progress Note Date & Time of Visit: Jan 06, 2018 at 18:54. Subjective seen resting in bed, comfortable at 3 L NC states she feels the same as yesterday no dyspnea, has intermittent cough states her mood has been down the past few months, denies suicidal ideations no other symptoms Objective Last 8 Hrs Date Time Temp Pulse Resp B/P (MAP) Pulse Ox O2 Delivery O2 Flow Rate FiO2 01/06/18 15:47 36.8 98 18 115/68 (84) 98 3.0 01/06/18 15:30 96 98 01/06/18 11:10 89 18 98 Nasal Cannula 2.5 Physical Exam: General- oriented x 3, not in distress, speaks in sentences with no effort Head- atraumatic Eyes- PERRL, EOMI, anicteric ENT- oropharynx clear Neck- supple, no JVD, no adenopathy, no thyromegaly; carotids +2/2 Lungs- mild rhonchi, scattered, bilaterally Heart- regular rhythm; no murmur, normal rate Abdomen- normal bowel sounds, soft, nontender, no masses Extremities- no pretibial edema, no calf tenderness; peripheral pulses intact Neuro- alert, oriented x 3 no gross focal deficits Skin- warm & dry Laboratory Results: Last 24 Hours Test 01/06/18 08:00 White Blood Count 11.06 K/uL Red Blood Count 3.78 M/uL Hemoglobin 11.3 g/dL Hematocrit 37.8 % Mean Corpuscular Volume 100.0 fL Mean Corpuscular Hemoglobin 29.9 pg Mean Corpuscular Hemoglobin Concent 29.9 g/dl Platelet Count 182 K/uL Mean Platelet Volume 10.3 fL Neutrophils (%) (Auto) 87.5 % Lymphocytes (%) (Auto) 7.2 % Monocytes (%) (Auto) 5.0 % Eosinophils (%) (Auto) 0.0 % Basophils (%) (Auto) 0.0 % Neutrophils # (Auto) 9.68 K/uL Lymphocytes # (Auto) 0.80 K/uL Monocytes # (Auto) 0.55 K/uL Eosinophils # (Auto) 0.00 K/uL Basophils # (Auto) 0.00 K/uL RDW Standard Deviation 56.0 fL RDW Coefficient of Variation 15.4 % Immature Granulocyte % (Auto) 0.3 % Immature Granulocyte # (Auto) 0.03 K/uL Sodium Level 135 mmol/L Potassium Level 4.0 mmol/L Chloride Level 88 mmol/L Carbon Dioxide Level 47 mmol/L Anion Gap 0.0 mmol/L Blood Urea Nitrogen 12 mg/dl Creatinine 0.19 mg/dl Est Creatinine Clear Calc Drug Dose 158.8 ml/min Estimated GFR () > 150.0 Estimated GFR (Non- 135.8 BUN/Creatinine Ratio 64.2 Random Glucose 93 mg/dl Calcium Level 8.3 mg/dl Hepatitis C Antibody Screen NEG Date/Time Source Procedure Growth Status 01/06/18 00:10 Nasal MRSA DNA Surveillance Screen - Final Specimen Positive for MRSA by DNA Probe Complete Assessment & Plan COMMUNITY-ACQUIRED PNEUMONIA COPD EXACERBATION -Patient presenting from home with generalized weakness and cough; in the ED, chest x-ray shows right basilar infiltrate -History does not suggest aspiration -Has history of COPD, saturating well on chronic 3 L; labs show chronic CO2 retention - feels about the same remains at 3L NC - (+) nasal MRSA swab - add Vancomycin, ID consulted continue Levaquin Nebs, add mucomyst Prednisone HISTORY OF CAD - stable -Continue ASA, beta-maycol, and statin ANXIETY, DEPRESSION - patient reports worsening of depression within the past few months will consult Psych -Continue bupropion and venlafaxine DVT PROPHYLAXIS -SQ heparin CODE STATUS -Patient is a full code as per my discussion with her. DISPOSITION pending lives at home PT/OT ordered Current Inpatient Medications: Current Inpatient Medications Medications (Trade) Dose Ordered Sig/José Miguel Route Start Time Stop Time Status Last Admin Dose Admin Acetaminophen (Tylenol Tab) 650 mg Q4H PRN PO 01/05/18 15:15 02/04/18 15:14 Ondansetron HCl (Zofran Inj) 4 mg Q6H PRN IV 01/05/18 15:15 02/04/18 15:14 Sodium Chloride 1,000 ml @ 80 mls/hr [id number] IV 01/05/18 16:30 02/04/18 16:29 01/06/18 17:42 80 MLS/HR Levofloxacin (Levaquin Tab) 750 mg DAILY@11 PO 01/06/18 11:00 01/12/18 10:59 01/06/18 11:41 750 MG Prednisone (PredniSONE TAB) 40 mg DAILY PO 01/05/18 17:00 01/09/18 08:01 01/06/18 08:31 40 MG Albuterol/ Ipratropium (Duoneb) 3 ml QIDR INH 01/05/18 16:00 02/04/18 15:59 01/06/18 11:10 3 ML Arformoterol Tartrate (Brovana 15MCG/ 2ML Neb Soln) 15 mcg BID INH 01/05/18 20:00 02/04/18 20:59 01/06/18 07:34 15 MCG Aspirin (Ecotrin Tab) 81 mg QAM PO 01/06/18 08:00 02/05/18 08:59 01/06/18 08:32 81 MG Atorvastatin Calcium (Lipitor Tab) 40 mg DAILY PO 01/06/18 08:00 02/05/18 08:59 01/06/18 08:32 40 MG Budesonide (Pulmicort Respules 0.5MG/ 2ML Neb Soln) 1 mg BIDR INH 01/05/18 20:00 02/04/18 19:59 01/06/18 07:34 1 MG Bupropion HCl (Wellbutrin-Xl Tab) 300 mg DAILY PO 01/06/18 08:00 02/05/18 08:59 01/06/18 08:31 300 MG Carvedilol (Coreg Tab) 12.5 mg BID PO 01/05/18 20:00 02/04/18 20:59 01/06/18 08:31 12.5 MG Cholecalciferol (Vitamin D Tab) 1,000 inter.unit DAILY PO 01/06/18 08:00 02/05/18 08:59 01/06/18 08:31 1,000 INTER.UNIT Cyanocobalamin (Vitamin B-12 Tab) 1,000 mcg DAILY PO 01/06/18 08:00 02/05/18 08:59 01/06/18 08:32 1,000 MCG Multivitamins (Multivitamin Tab) 1 tab DAILY PO 01/06/18 08:00 02/05/18 08:59 01/06/18 08:31 1 TAB Venlafaxine HCl (effeXOR EXTENDED REL CAP) 150 mg DAILY PO 01/06/18 08:00 02/05/18 08:59 01/06/18 08:31 150 MG Pantoprazole Sodium (Protonix Tab) 40 mg HS PO 01/05/18 21:00 02/04/18 20:59 01/05/18 20:17 40 MG Heparin Sodium (Porcine) (Heparin Sq 5000 Unit/0.5ml) 5,000 unit BID SQ 01/05/18 20:00 02/04/18 19:59 01/06/18 08:52 5,000 UNIT Miscellaneous Information (Consult) 1 ea UD PRN N/A 01/06/18 14:15 02/05/18 14:14 Enteral Nutritional Formula (Boost Plus Vanilla) 1 can TID PO 01/06/18 20:00 02/05/18 19:59 Vancomycin HCl 750 mg/Sodium Chloride 265 ml @ 125 mls/hr Q8H IV 01/07/18 00:00 01/14/18 00:00
[2018-01-06] MEDS: ACETYLCYSTEINE 20% INHAL SOLN ***DISPENSED BY RESP. INH SCH (19:24)
[2018-01-06] MEDS: PANTOprazole SOD 40 MG TAB PO SCH (19:50)
[2018-01-06] MEDS: BOOST PLUS VANILLA PO SCH (20:00)
[2018-01-06] MEDS: VANCOMYCIN IV 750 MG in SODIUM CHLORIDE 0.9% 250ML 250 ML IV SCH (23:37)
[2018-01-07] VITALS (11 sets, daily range): BP systolic 109–164; BP diastolic 69–89; PULSE 90–113; TEMP 36.8–37; O2SAT 92–98
[2018-01-07] MEDS: BUDESONIDE 0.5 MG/2 ML VIAL (PULMICORT) INH SCH ×2 (07:06→19:10)
[2018-01-07] MEDS: ARFORMOTEROL TART 15MCG/2ML VIAL INH SCH ×2 (07:06→19:10)
[2018-01-07] MEDS: ACETYLCYSTEINE 20% INHAL SOLN ***DISPENSED BY RESP. INH SCH ×2 (07:06→19:10)
[2018-01-07] MEDS: ALBUT/IPRATROP 3MG/0.5MG NEB 3 ML VIAL INH SCH ×4 (07:09→19:05)
[2018-01-07 07:19] LABS: CREATININE 0.31 mg/dl (0.60-1.20)
[2018-01-07] MEDS: SODIUM CHLORIDE 0.9% 1000ML 1,000 ML IV SCH (08:31)
[2018-01-07] MEDS: CARVEDILOL 12.5 MG TAB PO SCH ×2 (08:32→20:16)
[2018-01-07] MEDS: BuPROPion XL 300 MG TABCR PO SCH (08:32)
[2018-01-07] MEDS: CYANOCOBALAMIN 500 MCG TAB (VIT B-12) PO SCH (08:32)
[2018-01-07] MEDS: MULTIVITAMIN TAB PO SCH (08:33)
[2018-01-07] MEDS: ASPIRIN 81 MG ECTAB PO SCH (08:33)
[2018-01-07] MEDS: VENLAFAXINE HCL XR 150 MG CAPXR PO SCH (08:33)
[2018-01-07] MEDS: CHOLECALCIFEROL 1000 INTER.UNIT TAB PO SCH (08:33)
[2018-01-07] MEDS: ATORVASTATIN 40 MG TAB PO SCH (08:33)
[2018-01-07] MEDS: BOOST PLUS VANILLA PO SCH ×3 (08:34→20:00)
[2018-01-07] MEDS: HEPARIN SOD 5000 UNIT/0.5 ML CARP SQ SCH ×2 (08:37→20:13)
[2018-01-07] MEDS: VANCOMYCIN IV 750 MG in SODIUM CHLORIDE 0.9% 250ML 250 ML IV SCH ×2 (08:38→15:20)
[2018-01-07 08:51] LABS: EOS % 0.1 %; EOS ABS # 0.01 K/uL (0-0.5); HEMATOCRIT 38.9 % (37-47); HEMOGLOBIN 11.9 g/dL (12.0-16.0); IG# 0.05 K/uL (0.00-0.02); LYMPH % 9.2 %; LYMPH ABS # 1.39 K/uL (1.2-3.4); MEAN CORPUSCULAR HGB CONC 30.6 g/dl (32-36); MEAN PLATELET VOLUME 10.2 fL (7.4-10.4); MONO % 8.3 %; MONO ABS # 1.25 K/uL (0.11-0.59); NEUT % 82.1 %; NEUT ABS # 12.41 K/uL (1.4-6.5); PLATELET COUNT 173 K/uL (130-400); RED CELL DISTRIBUTION WIDTH CV 15.3 % (11.5-14.5); RED CELL DISTRIBUTION WIDTH SD 55.2 fL (36.4-46.3); WHITE BLOOD COUNT 15.11 K/uL (4.8-10.8)
[2018-01-07 08:59] LABS: CALCIUM 8.6 mg/dl (8.5-10.1); CREATININE 0.3 mg/dl (0.60-1.20); POTASSIUM 3.8 mmol/L (3.5-5.1)
[2018-01-07] MEDS: LEVOFLOXACIN 750 MG TAB PO SCH (10:26)
--- NOTE | 2018-01-07 13:28 | Psychiatric Consultation ---
Consultation Date of Consultation Jan 07, 2018. Identifying Data 67-year-old female who presented to the emergency department with cough and weakness, found to have pneumonia. Admitted medically. We are consulted to evaluate depression. Information is gathered from the patient, the electronic medical record, and outpatient psychiatric notes and all considered to be reliable. Chief Complaint "I will do anything to get back to normal.". History of Present Illness This is a 67-year-old woman with COPD, O2 dependent, ileostomy since 2012, coronary artery disease, A. fib and history of depression, who presented to the emergency department with a worsening course of cough and weakness. She was noted to have a lower lobe infiltrate and admitted for medical treatment. Of note she has continued to lose weight over time and her current BMI is 14.1. At the time I see the patient today, she is lying in her bed on her back, but is easily awakened to verbal. Her lunch is sitting at the bedside untouched. I introduced myself and she agrees that she is depressed and needs some attention. Her ability to participate in the discussion however is limited by her memory impairment. She readily admits that she does not remember a lot of things. In orientation questions, she is able to state that she is in the hospital in [place], but is disoriented to year or month and day. She also has poor memory for any recent events and about medications. She does admit that her mood is depressed rating it a 5 out of 10. She denies any suicidal ideation. She reports that she sleeps well at night, waking sometimes once and occasionally naps during the day. She admits to having no appetite, attempts to eat 2 meals a day and thinks that she may use Ensure at home. She denies ever having had any auditory or visual hallucinations. She denies anxiety. Review of outpatient records from [facility] reveal that she was first seen by Maria Isabel Madrigal In 2007. At that time she had been depressed after quitting her job at the [employer] was feeling useless. She presented with impaired sleep, appetite and concentration. She had already been on Celexa 20 mg and this dosage was increased to 40 mg. She fell out of treatment after several months. She went back into treatment, this time with Dr. Odessa Coppola in 2015. She again presented with severe depression and at this point had worsening medical conditions including an TX and a fractured hip at some point. She was placed on Effexor and Wellbutrin at that time and these medications have been continued forward since that time without any change. A review of the notes indicate that she has consistently had impaired appetite and a consistent weight loss. She last saw Dr. Maradiaga in July 2017 at which point she agreed to mobile therapy with [facility], however the patient does not know whether or not this ever started. Office of aging has also been involved with the patient. Her diagnosis has consistently been major depressive disorder without psychotic features. Past Psychiatric History Current OP Treatment: psychiatrist (Dr. Odessa maradiaga) Prior OP Treatment: psychiatrist Prior Psych Hospitalizations: [place] Access to a Gun: Yes ( will secure, per the liaison nurse's notes) Past Medication Trials Celexa, Prozac Past Medical/Surgical History (1) CAD (coronary artery disease) (2) Hyperlipidemia (3) Paroxysmal a-fib (4) MRSA bacteremia (5) COPD, severe Allergies Allergies: Coded Allergies: Penicillins (Verified Allergy, Intermediate, HIVES, 01/05/18) LIKELY TOLERATES CEFEPIME, IMIPENEM (SEE ADMISSION 08/13/15) Home Medications Scheduled Arformoterol Tartrate (Brovana), 15 MCG INH BID Ascorbic Acid (Vitamin C 500 mg), 1 TAB PO DAILY Aspirin (Aspirin Ec), 81 MG PO QAM Atorvastatin (Lipitor), 40 MG PO DAILY Budesonide (Pulmicort Respules 0.5MG/2ML), 2 ML INH BID Bupropion (Wellbutrin-Xl), 300 MG PO DAILY Calcium Carbonate (Caltrate 600), 1 TAB PO DAILY Carvedilol (Coreg), 1 TAB PO BID Cholecalciferol (Vitamin D3), 1 TAB PO DAILY Cyanocobalamin (Vitamin B-12 1000 Mcg), 1,000 MCG PO DAILY Multivitamin (Multivitamin), 1 TAB PO DAILY Omeprazole (Prilosec), 20 MG PO HS Tiotropium Ariel (Spiriva Respimat), 2 PUFFS PO DAILY Venlafaxine Hcl (Venlafaxine Hcl Er), 1 TAB PO DAILY Scheduled PRN Albuterol Hfa (Ventolin Hfa), 2 PUFFS INH Q6 PRN for SOB/Wheezing Azithromycin (Zithromax Z-Romel), PO UD PRN for COPD rescue kit Ipratropium-Albuterol (Combivent Respimat), 1 PUFFS INH QID PRN for SOB/Wheezing Ipratropium-Albuterol (Duoneb), 1 TREATMENT INH QID PRN for SOB/Wheezing Levalbuterol (Levalbuterol HCl), 1 DOSE INH Q6 PRN for SOB/Wheezing Nitroglycerin (Nitrostat), 0.4 MG UT UD PRN for Chest Pain Prednisone Tab (Prednisone), 10 MG PO UD PRN for COPD rescue kit Family History FH: heart disease FATHER ([place] at age 47) FH: pulmonary embolism MOTHER (at age 48) History of Suicide: No History of Substance Abuse: No Psychiatric History: Yes (Uncle with depression) Alcohol Use Alcohol Use In Past 12 Months: No Smoking Use Smoking Status: Current Every Day Smoker Substance History Denies Personal History Childhood: Parents when she was very young Education: graduated from high school Work History: 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 Had 1 child her first relationship which ended in divorce) Children: 1 son Psychological Trauma History: Denies Hx Traumatic Event Review of Systems Constitutional: malaise, weakness Eyes: denies: no symptoms, as stated in HPI, eye pain, tearing, itching, redness, discharge, double vision, visual changes, blurred vision, photophobia, other ENT: denies: no symptoms reported, see HPI, ear pain, ear discharge, loss of hearing, tinnitus, nasal pain, nasal congestion, rhinorrhea, epistaxis, sore throat, stidor, throat swelling, mouth pain, mouth swelling, dental pain, gum swelling, other Cardiovascular: denies: no symptoms reported, see HPI, chest pain, chest tightness, chest pressure, diaphoresis, palpitations, syncope, other Respiratory: reports: short of breath, other (Wearing O2 by nasal cannula) Gastrointestinal: other (Low appetite) Genitourinary - Female: denies: no symptoms, see HPI, rash, amenorrhea, dysmenorrhea, menorrhagia, metrorrhagia, , vaginal bleeding, vaginal itching, vaginal discharge, vulvadynia, other Musculoskeletal: denies no symptoms reported, denies see HPI, denies back pain , denies gout, denies joint pain, denies joint swelling, denies muscle pain, denies muscle stiffness, denies neck pain, denies other Integumentary: denies no symptoms reported, denies see HPI, denies change in color, denies change in hair/nails, denies dryness, denies lesions, denies lumps , denies rash, denies other Neurologic: denies: no symptoms, see HPI, headache, numbness, paresthesias, pre -existing deficit, seizure, tingling, tremors, general weakness, tics, focal weakness, vertigo, lethargy, memory loss, dizziness, other Endocrine: denies: no symptoms, as stated in HPI, cold intolerance, heat intolerance, hair changes, goiter, polydipsia, polyuria, skin changes, other Hematologic / Lymphatic: denies: no symptoms, as stated in HPI, abnormal clotting, adenopathy, anemia, easy bleeding, easy bruising, gums bleeding, petechiae, other Examination Vital Signs Vital Signs Past 12 Hours Date Time Temp Pulse Resp B/P (MAP) Pulse Ox O2 Delivery O2 Flow Rate FiO2 01/07/18 11:14 103 18 92 Nasal Cannula 2.5 01/07/18 09:30 96 Nasal Cannula 2.0 01/07/18 08:30 Nasal Cannula 2.5 01/07/18 07:45 36.9 90 17 145/81 (102) 96 Nasal Cannula 2.0 01/07/18 07:09 113 18 94 Nasal Cannula 2.5 Laboratory Results Last 24 Hours Test 01/07/18 05:58 01/07/18 08:36 White Blood Count 15.11 K/uL Red Blood Count 3.97 M/uL Hemoglobin 11.9 g/dL Hematocrit 38.9 % Mean Corpuscular Volume 98.0 fL Mean Corpuscular Hemoglobin 30.0 pg Mean Corpuscular Hemoglobin Concent 30.6 g/dl Platelet Count 173 K/uL Mean Platelet Volume 10.2 fL Neutrophils (%) (Auto) 82.1 % Lymphocytes (%) (Auto) 9.2 % Monocytes (%) (Auto) 8.3 % Eosinophils (%) (Auto) 0.1 % Basophils (%) (Auto) 0.0 % Neutrophils # (Auto) 12.41 K/uL Lymphocytes # (Auto) 1.39 K/uL Monocytes # (Auto) 1.25 K/uL Eosinophils # (Auto) 0.01 K/uL Basophils # (Auto) 0.00 K/uL RDW Standard Deviation 55.2 fL RDW Coefficient of Variation 15.3 % Immature Granulocyte % (Auto) 0.3 % Immature Granulocyte # (Auto) 0.05 K/uL Creatinine 0.31 mg/dl 0.30 mg/dl Est Creatinine Clear Calc Drug Dose 97.3 ml/min 100.6 ml/min Estimated GFR () 134.0 135.4 Estimated GFR (Non- 115.6 116.8 Sodium Level 134 mmol/L Potassium Level 3.8 mmol/L Chloride Level 88 mmol/L Carbon Dioxide Level 47 mmol/L Anion Gap -1.0 mmol/L Blood Urea Nitrogen 11 mg/dl BUN/Creatinine Ratio 36.0 Random Glucose 69 mg/dl Calcium Level 8.6 mg/dl Mental Examination During interview pt is: cooperative Appearance: appropriately dressed, other (Frail and cachectic) Eye contact is: fair Motor behavior is: no abnormal motor movements Speech: normal in rate, rhythm & volume Affect: depressed, flat Mood is: depressed Thought process: goal directed Thought content: reality based without delusions, other (Disorientation to time parameters) Suicidal thought are: denied Homicidal thoughts are: denied Hallucinations: denies auditory, denies visual Cognition: attention grossly intact, language grossly intact Intelligence estimated to be: average Insight: limited Judgement: limited Impression / Recommendations Impression 67-year-old woman with multiple medical problems, admitted with progressive cough and weakness and found to have a lower lobe infiltrate. We are consulted to evaluate depression. In reviewing the records since 2007, the patient has been consistently depressed and has always had this component of weight loss. I am concerned about her having been on Wellbutrin for years which can certainly suppress appetite. I suggest we discontinue the Wellbutrin in favor of a trial of Remeron 15 mg at bedtime to target her impaired appetite. This may result in short-term loss of energy but given the fact that she is in the hospital with pneumonia I am not sure this will have much impact. She should be encouraged to get up and get mobile every day as she is depressed enough and amotivated enough that she will have a poor respiratory toilet. There is no indication in prior notes of any memory impairment or dementing process and so will attempt to get additional information from her . Her memory impairment could simply reflect her severe depression or perhaps a depressive pseudodementia. We will follow along. The patient ideally will have follow-up with at discharge. Risk Factors Assessment : Yes /single/: No Higher / Fall in social status: No Access to guns: Yes Health problems: Yes Mental Health Diagnoses: Yes Substance use disorders: No Previous psychiatric stay: Yes Smoker: Yes Protective Factors Assessment Restoration beliefs: No : Yes Responsible for young children: No Employed: No Recommendations (1) Major depressive disorder, recurrent severe without psychotic features 01/07 -Discontinue Wellbutrin due to concerns for dampening her appetite - add Remeron 15 mg at bedtime to target appetite -Continue Effexor XR 150 mg daily -Patient should follow-up with Dr. Maradiaga at discharge -Obtain supplemental information from to help tease out any dementing process Dr. Radha Mckay has personally been involved in the review of this case and development of these recommendations
--- NOTE | 2018-01-07 16:11 | Progress Note ---
Medicine Progress Note Date & Time of Visit: Jan 07, 2018 at 16:11. Subjective resting in bed, sleeping but easily rousable appears more alert, conversant today states she feels improved compared to yesterday less dyspnea and cough no chest pain, dizziness, nausea mood appears better denies other symptoms Objective Last 8 Hrs Date Time Temp Pulse Resp B/P (MAP) Pulse Ox O2 Delivery O2 Flow Rate FiO2 01/07/18 16:00 96 Nasal Cannula 2.0 01/07/18 15:32 36.8 95 18 134/78 (96) 96 Nasal Cannula 2.0 01/07/18 15:20 96 18 92 Nasal Cannula 2.0 01/07/18 11:14 103 18 92 Nasal Cannula 2.5 01/07/18 09:30 96 Nasal Cannula 2.0 01/07/18 08:30 Nasal Cannula 2.5 Physical Exam: General- oriented x 3, not in distress, speaks in sentences with no effort Eyes- anicteric Neck- supple, no JVD Lungs- no wheezing, no rhonchi, but diminished bilaterally Heart- regular rhythm; no murmur, normal rate Abdomen- normal bowel sounds, soft, nontender, no masses Extremities- no pretibial edema, no calf tenderness Neuro- alert, oriented x 3 no gross focal deficits Skin- warm & dry Laboratory Results: Last 24 Hours Test 01/07/18 05:58 01/07/18 08:36 White Blood Count 15.11 K/uL Red Blood Count 3.97 M/uL Hemoglobin 11.9 g/dL Hematocrit 38.9 % Mean Corpuscular Volume 98.0 fL Mean Corpuscular Hemoglobin 30.0 pg Mean Corpuscular Hemoglobin Concent 30.6 g/dl Platelet Count 173 K/uL Mean Platelet Volume 10.2 fL Neutrophils (%) (Auto) 82.1 % Lymphocytes (%) (Auto) 9.2 % Monocytes (%) (Auto) 8.3 % Eosinophils (%) (Auto) 0.1 % Basophils (%) (Auto) 0.0 % Neutrophils # (Auto) 12.41 K/uL Lymphocytes # (Auto) 1.39 K/uL Monocytes # (Auto) 1.25 K/uL Eosinophils # (Auto) 0.01 K/uL Basophils # (Auto) 0.00 K/uL RDW Standard Deviation 55.2 fL RDW Coefficient of Variation 15.3 % Immature Granulocyte % (Auto) 0.3 % Immature Granulocyte # (Auto) 0.05 K/uL Creatinine 0.31 mg/dl 0.30 mg/dl Est Creatinine Clear Calc Drug Dose 97.3 ml/min 100.6 ml/min Estimated GFR () 134.0 135.4 Estimated GFR (Non- 115.6 116.8 Sodium Level 134 mmol/L Potassium Level 3.8 mmol/L Chloride Level 88 mmol/L Carbon Dioxide Level 47 mmol/L Anion Gap -1.0 mmol/L Blood Urea Nitrogen 11 mg/dl BUN/Creatinine Ratio 36.0 Random Glucose 69 mg/dl Calcium Level 8.6 mg/dl Assessment & Plan COMMUNITY-ACQUIRED PNEUMONIA COPD EXACERBATION -Patient presenting from home with generalized weakness and cough; in the ED, chest x-ray shows right basilar infiltrate -History does not suggest aspiration -Has history of COPD, saturating well on chronic 3 L; labs show chronic CO2 retention - feels better today remains at 3L NC - (+) nasal MRSA swab - added Vancomycin, ID consulted continue Levaquin Nebs, added mucomyst Prednisone slow taper - improving clinically will discuss with ID re:antibiotic upon discharge HISTORY OF CAD - stable -Continue ASA, beta-maycol, and statin ANXIETY, DEPRESSION - patient reports worsening of depression within the past few months Psych consulted Wellbutrin discontinued, Remeron added -Continue venlafaxine DVT PROPHYLAXIS -SQ heparin CODE STATUS -Patient is a full code. DISPOSITION pending lives at home PT/OT ordered may need to transition to Rehab/SNF when medically stable Current Inpatient Medications: Current Inpatient Medications Medications (Trade) Dose Ordered Sig/José Miguel Route Start Time Stop Time Status Last Admin Dose Admin Acetaminophen (Tylenol Tab) 650 mg Q4H PRN PO 01/05/18 15:15 02/04/18 15:14 Ondansetron HCl (Zofran Inj) 4 mg Q6H PRN IV 01/05/18 15:15 02/04/18 15:14 Sodium Chloride 1,000 ml @ 80 mls/hr [id number] IV 01/05/18 16:30 02/04/18 16:29 01/07/18 08:31 80 MLS/HR Levofloxacin (Levaquin Tab) 750 mg DAILY@11 PO 01/06/18 11:00 01/12/18 10:59 01/07/18 10:26 750 MG Prednisone (PredniSONE TAB) 40 mg DAILY PO 01/05/18 17:00 01/09/18 08:01 01/07/18 08:33 40 MG Albuterol/ Ipratropium (Duoneb) 3 ml QIDR INH 01/05/18 16:00 02/04/18 15:59 01/07/18 15:20 3 ML Arformoterol Tartrate (Brovana 15MCG/ 2ML Neb Soln) 15 mcg BID INH 01/05/18 20:00 02/04/18 20:59 01/07/18 07:06 15 MCG Aspirin (Ecotrin Tab) 81 mg QAM PO 01/06/18 08:00 02/05/18 08:59 01/07/18 08:33 81 MG Atorvastatin Calcium (Lipitor Tab) 40 mg DAILY PO 01/06/18 08:00 02/05/18 08:59 01/07/18 08:33 40 MG Budesonide (Pulmicort Respules 0.5MG/ 2ML Neb Soln) 1 mg BIDR INH 01/05/18 20:00 02/04/18 19:59 01/07/18 07:06 1 MG Carvedilol (Coreg Tab) 12.5 mg BID PO 01/05/18 20:00 02/04/18 20:59 01/07/18 08:32 12.5 MG Cholecalciferol (Vitamin D Tab) 1,000 inter.unit DAILY PO 01/06/18 08:00 02/05/18 08:59 01/07/18 08:33 1,000 INTER.UNIT Cyanocobalamin (Vitamin B-12 Tab) 1,000 mcg DAILY PO 01/06/18 08:00 02/05/18 08:59 01/07/18 08:32 1,000 MCG Multivitamins (Multivitamin Tab) 1 tab DAILY PO 01/06/18 08:00 02/05/18 08:59 01/07/18 08:33 1 TAB Venlafaxine HCl (effeXOR EXTENDED REL CAP) 150 mg DAILY PO 01/06/18 08:00 02/05/18 08:59 01/07/18 08:33 150 MG Pantoprazole Sodium (Protonix Tab) 40 mg HS PO 01/05/18 21:00 02/04/18 20:59 01/06/18 19:50 40 MG Heparin Sodium (Porcine) (Heparin Sq 5000 Unit/0.5ml) 5,000 unit BID SQ 01/05/18 20:00 02/04/18 19:59 01/07/18 08:37 5,000 UNIT Miscellaneous Information (Consult) 1 ea UD PRN N/A 01/06/18 14:15 02/05/18 14:14 Enteral Nutritional Formula (Boost Plus Vanilla) 1 can TID PO 01/06/18 20:00 02/05/18 19:59 01/07/18 13:29 1 CAN Vancomycin HCl 750 mg/Sodium Chloride 265 ml @ 125 mls/hr Q8H IV 01/07/18 00:00 01/14/18 00:00 01/07/18 15:20 125 MLS/HR Acetylcysteine (Mucomyst 20% Inh Soln) 3 ml BIDR INH 01/06/18 20:00 02/05/18 19:59 01/07/18 07:06 3 ML Mirtazapine (Remeron Tab) 15 mg HS PO 01/07/18 21:00 02/06/18 20:59
[2018-01-07] MEDS: MIRTAZAPINE TAB 15 MG TAB PO SCH (20:15)
[2018-01-07] MEDS: PANTOprazole SOD 40 MG TAB PO SCH (20:16)
[2018-01-08] VITALS (8 sets, daily range): BP systolic 128–169; BP diastolic 79–94; PULSE 86–103; TEMP 36.8–37; O2SAT 91–99
[2018-01-08] MEDS: VANCOMYCIN IV 750 MG in SODIUM CHLORIDE 0.9% 250ML 250 ML IV SCH ×3 (03:37→15:42)
[2018-01-08] MEDS: ALBUT/IPRATROP 3MG/0.5MG NEB 3 ML VIAL INH SCH ×4 (07:22→19:27)
[2018-01-08] MEDS: ARFORMOTEROL TART 15MCG/2ML VIAL INH SCH ×2 (07:22→19:26)
[2018-01-08] MEDS: ACETYLCYSTEINE 20% INHAL SOLN ***DISPENSED BY RESP. INH SCH ×2 (07:22→19:26)
[2018-01-08] MEDS: BUDESONIDE 0.5 MG/2 ML VIAL (PULMICORT) INH SCH ×2 (07:22→19:26)
[2018-01-08] MEDS ORDERED: VANCOMYCIN TROUGH ONE (07:30)
[2018-01-08] MEDS: CARVEDILOL 12.5 MG TAB PO SCH ×2 (07:51→20:19)
[2018-01-08] MEDS: MULTIVITAMIN TAB PO SCH (07:51)
[2018-01-08] MEDS: CHOLECALCIFEROL 1000 INTER.UNIT TAB PO SCH (07:51)
[2018-01-08] MEDS: ATORVASTATIN 40 MG TAB PO SCH (07:52)
[2018-01-08] MEDS: VENLAFAXINE HCL XR 150 MG CAPXR PO SCH (07:52)
[2018-01-08] MEDS: CYANOCOBALAMIN 500 MCG TAB (VIT B-12) PO SCH (07:52)
[2018-01-08] MEDS: ASPIRIN 81 MG ECTAB PO SCH (07:52)
[2018-01-08] MEDS: BOOST PLUS VANILLA PO SCH ×3 (07:53→20:19)
[2018-01-08] MEDS: HEPARIN SOD 5000 UNIT/0.5 ML CARP SQ SCH ×2 (07:59→20:24)
[2018-01-08] MEDS: LEVOFLOXACIN 750 MG TAB PO SCH (08:04)
[2018-01-08 08:30] LABS: CREATININE 0.34 mg/dl (0.60-1.20)
--- NOTE | 2018-01-08 09:35 | Pharmacy Progress Note ---
Pharmacy Abx Dose Progress Nt Date of Service Jan 08, 2018. Pharmacy Dosing Scope The patient is currently receiving the following antimicrobial agents per Pharmacy consult: Vancomycin 750 mg IV every 8 hours Pt also on Levaquin 750mg PO Daily Objective Height (Feet): 5 Height (Inches): 3.00 Weight (Kilograms): 36.000 Vital Signs (Past 12Hrs) Vital Signs Past 12 Hours Date Time Temp Pulse Resp B/P (MAP) Pulse Ox O2 Delivery O2 Flow Rate FiO2 01/08/18 07:46 36.8 86 20 169/94 (119) 99 Nasal Cannula 2.0 01/08/18 07:22 96 16 92 Nasal Cannula 2.0 01/08/18 00:00 Nasal Cannula 2.0 01/07/18 23:38 37.0 97 19 164/89 (114) 92 Nasal Cannula 2.0 Lab Results (24Hrs) Item Value Date Time Creatinine 0.31 mg/dl L 01/07/18 0558 Creatinine 0.30 mg/dl L 01/07/18 0836 Creatinine 0.34 mg/dl L 01/08/18 0736 Est Creatinine Clear Calc Drug Dose 88.7 ml/min 01/08/18 0736 Est Creatinine Clear Calc Drug Dose 100.6 ml/min 01/07/18 0836 Est Creatinine Clear Calc Drug Dose 97.3 ml/min 01/07/18 0558 Vancomycin Level Trough 15.3 mcg/ml 01/08/18 0736 Micro Results Date/Time Source Procedure Growth Status 01/06/18 00:10 Nasal MRSA DNA Surveillance Screen - Final Specimen Positive for MRSA by DNA Probe Complete Risk Factors for Resistance * History of infection with a multidrug-resistant organism: pseudomonas & MRSA Pneumonia * Antimicrobial use within the last 90 days - Azithromycin + prednisone PO 2 days [employer]SPORT[employer] Assessment & Plan Assessment 67 year old female receiving IV Vancomycin and PO Levaquin for treatment of Pneumonia, possibly MRSA Pneumonia d/t history and positive nasal swab. Day # 3 of antimicrobial therapy Plan Vancomycin IV * Trough level of 15.3 mcg/mL is therapeutic * Continue dose of 750 mg IV every 8 hours * Goal trough level for pneumonia : 15 to 20 mcg/mL * Trough level ordered for: 01/11/18 prior to 0800 dose Pharmacy will continue to follow and will adjust dose/frequency as necessary. Thank you.
--- NOTE | 2018-01-08 14:17 | Progress Note ---
Subjective Date of Service: Jan 08, 2018. Subjective tolerating abx, no cultures done. afebrile. No am labs. tentative d/c to snf. Problem List Medical Problems: (1) Anemia Status: Acute (2) Closed head injury Status: Acute (3) Hip fracture, right Status: Acute (4) Hypercapnic respiratory failure Status: Acute (5) Nasal fracture Status: Acute (6) Pneumonia Status: Acute (7) Skin tear Status: Acute (8) Skin tear of right elbow without complication Status: Acute (9) UTI (urinary tract infection) Status: Acute Objective Vital Signs Date Time Temp Pulse Resp B/P (MAP) Pulse Ox O2 Delivery O2 Flow Rate FiO2 01/08/18 11:21 97 15 94 Nasal Cannula 2.0 01/08/18 08:00 Nasal Cannula 2.0 01/08/18 07:46 36.8 86 20 169/94 (119) 99 Nasal Cannula 2.0 01/08/18 07:22 96 16 92 Nasal Cannula 2.0 01/08/18 00:00 Nasal Cannula 2.0 01/07/18 23:38 37.0 97 19 164/89 (114) 92 Nasal Cannula 2.0 01/07/18 20:18 96 109/69 (82) 01/07/18 19:10 95 18 94 Nasal Cannula 2.0 01/07/18 16:00 96 Nasal Cannula 2.0 01/07/18 15:32 36.8 95 18 134/78 (96) 96 Nasal Cannula 2.0 01/07/18 15:20 96 18 92 Nasal Cannula 2.0 Laboratory Results Last 24 Hours Test 01/08/18 07:36 Creatinine 0.34 mg/dl Est Creatinine Clear Calc Drug Dose 88.7 ml/min Estimated GFR () 129.9 Estimated GFR (Non- 112.1 Vancomycin Level Trough 15.3 mcg/ml Assessment and Plan (1) COPD, severe Assessment & Plan: would continue current course of abx, would give 10 days total, if she is to be d/c to snf prior to completion, could change to po levaquin and doxy to complete course.
[2018-01-08 18:34] LABS: CALCIUM 8.7 mg/dl (8.5-10.1); CREATININE 0.46 mg/dl (0.60-1.20); POTASSIUM 4.1 mmol/L (3.5-5.1)
[2018-01-08] MEDS: PANTOprazole SOD 40 MG TAB PO SCH (20:20)
[2018-01-08] MEDS: MIRTAZAPINE TAB 15 MG TAB PO SCH (20:20)
--- NOTE | 2018-01-08 20:35 | Progress Note ---
Medicine Progress Note Date & Time of Visit: Jan 08, 2018 at 20:33. Subjective seen resting in bed, comfortable smiling more states she continues to feel improved no dyspnea less cough mood and appetite better no other symptoms Objective Last 8 Hrs Date Time Temp Pulse Resp B/P (MAP) Pulse Ox O2 Delivery O2 Flow Rate FiO2 01/08/18 20:19 103 132/81 (98) 01/08/18 19:27 101 16 95 Nasal Cannula 2.0 01/08/18 16:00 91 Nasal Cannula 2.0 01/08/18 15:42 37.0 95 18 128/79 (95) 91 Nasal Cannula 2.0 01/08/18 15:35 88 15 94 Nasal Cannula 2.0 Physical Exam: General- oriented x 3, not in distress, speaks in sentences with no effort Eyes- anicteric Neck- no JVD Lungs- diminished bilaterally, but clear, good air entry Heart- regular rhythm; no murmur, normal rate Abdomen- normal bowel sounds, soft, nontender, no masses Extremities- no pretibial edema, no calf tenderness Neuro- alert, oriented x 3 no gross focal deficits Skin- warm & dry Laboratory Results: Last 24 Hours Test 01/08/18 07:36 01/08/18 17:31 Creatinine 0.34 mg/dl 0.46 mg/dl Est Creatinine Clear Calc Drug Dose 88.7 ml/min 65.6 ml/min Estimated GFR () 129.9 117.6 Estimated GFR (Non- 112.1 101.5 Vancomycin Level Trough 15.3 mcg/ml Sodium Level 135 mmol/L Potassium Level 4.1 mmol/L Chloride Level 91 mmol/L Carbon Dioxide Level 41 mmol/L Anion Gap 3.0 mmol/L Blood Urea Nitrogen 20 mg/dl BUN/Creatinine Ratio 42.5 Random Glucose 167 mg/dl Calcium Level 8.7 mg/dl Assessment & Plan COMMUNITY-ACQUIRED PNEUMONIA COPD EXACERBATION -Patient presenting from home with generalized weakness and cough; in the ED, chest x-ray shows right basilar infiltrate -History does not suggest aspiration -Has history of COPD, saturating well on chronic 3 L; labs show chronic CO2 retention - improving daily remains at 3L NC - (+) nasal MRSA swab - added Vancomycin, ID consulted continue Levaquin Nebs, added mucomyst Prednisone slow taper - improving clinically -- transition to oral Levaquin and Doxy upon discharge appreciate ID SVC recommendations HISTORY OF CAD - stable -Continue ASA, beta-maycol, and statin ANXIETY, DEPRESSION - patient reports worsening of depression within the past few months Psych consulted Wellbutrin discontinued, Remeron added -Continue venlafaxine - improving DVT PROPHYLAXIS -SQ heparin CODE STATUS -Patient is a full code. DISPOSITION pending lives at home PT/OT ordered may need to transition to Rehab/SNF when medically stable Current Inpatient Medications: Current Inpatient Medications Medications (Trade) Dose Ordered Sig/José Miguel Route Start Time Stop Time Status Last Admin Dose Admin Acetaminophen (Tylenol Tab) 650 mg Q4H PRN PO 01/05/18 15:15 02/04/18 15:14 Ondansetron HCl (Zofran Inj) 4 mg Q6H PRN IV 01/05/18 15:15 02/04/18 15:14 Levofloxacin (Levaquin Tab) 750 mg DAILY@11 PO 01/06/18 11:00 01/12/18 10:59 01/08/18 08:04 750 MG Prednisone (PredniSONE TAB) 40 mg DAILY PO 01/05/18 17:00 01/09/18 08:01 01/08/18 07:51 40 MG Albuterol/ Ipratropium (Duoneb) 3 ml QIDR INH 01/05/18 16:00 02/04/18 15:59 01/08/18 15:35 3 ML Arformoterol Tartrate (Brovana 15MCG/ 2ML Neb Soln) 15 mcg BID INH 01/05/18 20:00 02/04/18 20:59 01/08/18 19:26 15 MCG Aspirin (Ecotrin Tab) 81 mg QAM PO 01/06/18 08:00 02/05/18 08:59 01/08/18 07:52 81 MG Atorvastatin Calcium (Lipitor Tab) 40 mg DAILY PO 01/06/18 08:00 02/05/18 08:59 01/08/18 07:52 40 MG Budesonide (Pulmicort Respules 0.5MG/ 2ML Neb Soln) 1 mg BIDR INH 01/05/18 20:00 02/04/18 19:59 01/08/18 19:26 1 MG Carvedilol (Coreg Tab) 12.5 mg BID PO 01/05/18 20:00 02/04/18 20:59 01/08/18 20:19 12.5 MG Cholecalciferol (Vitamin D Tab) 1,000 inter.unit DAILY PO 01/06/18 08:00 02/05/18 08:59 01/08/18 07:51 1,000 INTER.UNIT Cyanocobalamin (Vitamin B-12 Tab) 1,000 mcg DAILY PO 01/06/18 08:00 02/05/18 08:59 01/08/18 07:52 1,000 MCG Multivitamins (Multivitamin Tab) 1 tab DAILY PO 01/06/18 08:00 02/05/18 08:59 01/08/18 07:51 1 TAB Venlafaxine HCl (effeXOR EXTENDED REL CAP) 150 mg DAILY PO 01/06/18 08:00 02/05/18 08:59 01/08/18 07:52 150 MG Pantoprazole Sodium (Protonix Tab) 40 mg HS PO 01/05/18 21:00 02/04/18 20:59 01/08/18 20:20 40 MG Heparin Sodium (Porcine) (Heparin Sq 5000 Unit/0.5ml) 5,000 unit BID SQ 01/05/18 20:00 02/04/18 19:59 01/08/18 20:24 5,000 UNIT Miscellaneous Information (Consult) 1 ea UD PRN N/A 01/06/18 14:15 02/05/18 14:14 Enteral Nutritional Formula (Boost Plus Vanilla) 1 can TID PO 01/06/18 20:00 02/05/18 19:59 01/08/18 20:19 1 CAN Vancomycin HCl 750 mg/Sodium Chloride 265 ml @ 125 mls/hr Q8H IV 01/07/18 00:00 01/14/18 00:00 01/08/18 15:42 125 MLS/HR Acetylcysteine (Mucomyst 20% Inh Soln) 3 ml BIDR INH 01/06/18 20:00 02/05/18 19:59 01/08/18 19:26 3 ML Mirtazapine (Remeron Tab) 15 mg HS PO 01/07/18 21:00 02/06/18 20:59 01/08/18 20:20 15 MG
[2018-01-09] VITALS (8 sets, daily range): BP systolic 115–150; BP diastolic 75–88; PULSE 88–98; TEMP 36.6; O2SAT 94–96
[2018-01-09] MEDS: VANCOMYCIN IV 750 MG in SODIUM CHLORIDE 0.9% 250ML 250 ML IV SCH ×3 (00:13→17:19)
[2018-01-09] MEDS: ACETYLCYSTEINE 20% INHAL SOLN ***DISPENSED BY RESP. INH SCH (07:12)
[2018-01-09] MEDS: BUDESONIDE 0.5 MG/2 ML VIAL (PULMICORT) INH SCH (07:12)
[2018-01-09] MEDS: ARFORMOTEROL TART 15MCG/2ML VIAL INH SCH (07:12)
[2018-01-09] MEDS: ALBUT/IPRATROP 3MG/0.5MG NEB 3 ML VIAL INH SCH ×3 (07:12→14:58)
[2018-01-09 07:35] LABS: CREATININE 0.35 mg/dl (0.60-1.20)
[2018-01-09] MEDS: VENLAFAXINE HCL XR 150 MG CAPXR PO SCH (08:21)
[2018-01-09] MEDS: ASPIRIN 81 MG ECTAB PO SCH (08:22)
[2018-01-09] MEDS: ATORVASTATIN 40 MG TAB PO SCH (08:22)
[2018-01-09] MEDS: CARVEDILOL 12.5 MG TAB PO SCH ×2 (08:22→19:51)
[2018-01-09] MEDS: CYANOCOBALAMIN 500 MCG TAB (VIT B-12) PO SCH (08:22)
[2018-01-09] MEDS: CHOLECALCIFEROL 1000 INTER.UNIT TAB PO SCH (08:22)
[2018-01-09] MEDS: MULTIVITAMIN TAB PO SCH (08:22)
[2018-01-09] MEDS: BOOST PLUS VANILLA PO SCH ×3 (08:23→19:51)
[2018-01-09] MEDS: HEPARIN SOD 5000 UNIT/0.5 ML CARP SQ SCH ×2 (08:25→20:01)
[2018-01-09] MEDS: LEVOFLOXACIN 750 MG TAB PO SCH (10:46)
--- NOTE | 2018-01-09 13:13 | Psychiatric Progress Notes ---
Progress Note Date of Service Jan 09, 2018. Interval History 67 yo female with COPD admitted medically with progressive weakness, cough, found to have pneumonia. We are consulted to evaluate depression Chief Complaint "OK I guess.". Subjective Patient was seen & assessed interval progress reviewed. Patient is lying in bed with eyes closed, easlity arouses to verbal. Says her mood is "about the same" and continues to deny SI. Lunch tray at the bedside is 95% consumed and she reports that her appetite is better. She still spends a lot of time sleeping and says that she is cold. Is anticipating going to [facility] for rehab. I review the information from her that she has not been out of the house for the last 3 months or more, to which she responds, "I don't remember". Denies dizziness upon standing. Review of Systems Constitutional: + weakness, + fatigue ENT: No hearing loss, No unusual epistaxis, No nasal symptoms, No sore throat, No tinnitus, No dental problems, No trouble swallowing, No problem reported Respiratory: + shortness of breath Cardiovascular: No chest pain, No orthopnea, No PND, No edema, No claudication , No palpitations, No problem reported Abdomen: + problem reported (appetite improved. ) Musculoskeletal: No joint pain, No muscle pain, No swelling, No calf pain, No problem reported Neurologic: No memory loss, No paralysis, No weakness, No numbness/tingling, No vertigo, No balance problems, No problem reported Psychiatric: + depression symptoms Integumentary: No rash, No itch, No new/changing skin lesions, No color change , No bleeding, No problem reported Mental Status Exam During interview pt is: cooperative Appearance: appropriately dressed, other (Frail and cachectic) Eye contact is: fair Motor behavior is: no abnormal motor movements Speech: normal in rate, rhythm & volume Affect: depressed, flat Mood is: depressed Thought process: goal directed Thought content: reality based without delusions, other (Disorientation to time parameters) Suicidal thought are: denied Homicidal thoughts are: denied Hallucinations: denies auditory, denies visual Cognition: attention grossly intact, language grossly intact Intelligence estimated to be: average Insight: limited Judgement: limited Impression Appears much the same as on orginal assessment, but says that her appetite is improving. Will continue current meds. and I suggest that if she is going to [facility], that their psychiatrist, Dr. Daugherty, see her while she is there for medication adjustment. If she discharges to home, she should return to see Dr. Downing at [facility] for psychiatric care. Plan (1) Major depressive disorder, recurrent severe without psychotic features 01/07 -Discontinue Wellbutrin due to concerns for dampening her appetite - add Remeron 15 mg at bedtime to target appetite -Continue Effexor XR 150 mg daily -Patient should follow-up with Dr. Downing at discharge -Obtain supplemental information from to help tease out any dementing process 01/09 - Continue current meds - Recommend she be seen by Dr. Daugherty at [facility] Visit Code E&M Code: 59367 Risk Factors Assessment : Yes /single/: No Higher / Fall in social status: No Health problems: Yes Mental Health Diagnoses: Yes Substance use disorders: No Previous psychiatric stay: Yes Smoker: Yes Protective Factors Assessment Jehovah'S Witness beliefs: No : Yes Responsible for young children: No Employed: No Data Vital Signs Last 24 Hrs: Date Time Temp Pulse Resp B/P (MAP) Pulse Ox O2 Delivery O2 Flow Rate FiO2 01/09/18 11:35 90 16 95 Nasal Cannula 2.0 01/09/18 09:53 95 Room Air 01/09/18 08:20 Nasal Cannula 2.0 01/09/18 08:00 36.6 91 16 150/85 (106) 94 Room Air 01/09/18 07:13 88 16 95 Nasal Cannula 2.0 01/09/18 00:00 Nasal Cannula 2.0 01/08/18 20:19 103 132/81 (98) 01/08/18 19:27 101 16 95 Nasal Cannula 2.0 01/08/18 16:00 91 Nasal Cannula 2.0 01/08/18 15:42 37.0 95 18 128/79 (95) 91 Nasal Cannula 2.0 01/08/18 15:35 88 15 94 Nasal Cannula 2.0 Meds Administered Last 24 Hrs: Meds Administered (Past 24Hrs) Medications (Trade) Dose Ordered Sig/José Miguel Route Start Time Stop Time Status Last Admin Dose Admin Mirtazapine (Remeron Tab) 15 mg HS PO 01/07/18 21:00 02/06/18 20:59 01/08/18 20:20 15 MG Lab Results Last 24 Hrs: Last 24 Hours Test 01/08/18 17:31 01/09/18 06:48 Sodium Level 135 mmol/L Potassium Level 4.1 mmol/L Chloride Level 91 mmol/L Carbon Dioxide Level 41 mmol/L Anion Gap 3.0 mmol/L Blood Urea Nitrogen 20 mg/dl Creatinine 0.46 mg/dl 0.35 mg/dl Est Creatinine Clear Calc Drug Dose 65.6 ml/min 86.2 ml/min Estimated GFR () 117.6 128.7 Estimated GFR (Non- 101.5 111.0 BUN/Creatinine Ratio 42.5 Random Glucose 167 mg/dl Calcium Level 8.7 mg/dl
--- NOTE | 2018-01-09 18:50 | Progress Note ---
Medicine Progress Note Date & Time of Visit: Jan 09, 2018 at 18:50. Subjective Delayed entry date of service noted above Seen resting in bed comfortable Continues to feel improved Less dyspnea and cough Appetite improving Mood improving No other symptoms Objective Last 8 Hrs Date Time Temp Pulse Resp B/P (MAP) Pulse Ox O2 Delivery O2 Flow Rate FiO2 01/09/18 16:00 96 Nasal Cannula 2.0 01/09/18 15:26 36.6 98 20 115/75 (88) 96 2.0 01/09/18 14:58 98 16 94 Nasal Cannula 2.0 01/09/18 11:35 90 16 95 Nasal Cannula 2.0 Physical Exam: General- oriented x 3, not in distress, speaks in sentences with no effort Eyes- anicteric Neck- no JVD Lungs- diminished but clear, good air entry bilaterally Heart- regular rhythm; no murmur, normal rate Abdomen- normal bowel sounds, soft, nontender, no masses Extremities- no pretibial edema, no calf tenderness Neuro- alert, oriented x 3 no gross focal deficits Skin- warm & dry Laboratory Results: Last 24 Hours Test 01/09/18 06:48 Creatinine 0.35 mg/dl Est Creatinine Clear Calc Drug Dose 86.2 ml/min Estimated GFR () 128.7 Estimated GFR (Non- 111.0 Assessment & Plan COMMUNITY-ACQUIRED PNEUMONIA COPD EXACERBATION -Patient presenting from home with generalized weakness and cough; in the ED, chest x-ray shows right basilar infiltrate -History does not suggest aspiration -Has history of COPD, saturating well on chronic 3 L; labs show chronic CO2 retention - improving daily remains at 3L NC - (+) nasal MRSA swab -Continue vancomycin and Levaquin Continue nebulizations Prednisone slow taper Improving daily -- transition to oral Levaquin and Doxy upon discharge appreciate ID SVC recommendations HISTORY OF CAD - stable -Continue ASA, beta-maycol, and statin ANXIETY, DEPRESSION - patient reports worsening of depression within the past few months Psych consulted Wellbutrin discontinued, Remeron added tolerating well -Continue venlafaxine Seems to be improving DVT PROPHYLAXIS -SQ heparin CODE STATUS -Patient is a full code. DISPOSITION pending lives at home PT/OT ordered Current Inpatient Medications: Current Inpatient Medications Medications (Trade) Dose Ordered Sig/José Miguel Route Start Time Stop Time Status Last Admin Dose Admin Acetaminophen (Tylenol Tab) 650 mg Q4H PRN PO 01/05/18 15:15 02/04/18 15:14 Ondansetron HCl (Zofran Inj) 4 mg Q6H PRN IV 01/05/18 15:15 02/04/18 15:14 Levofloxacin (Levaquin Tab) 750 mg DAILY@11 PO 01/06/18 11:00 01/15/18 23:59 01/09/18 10:46 750 MG Albuterol/ Ipratropium (Duoneb) 3 ml QIDR INH 01/05/18 16:00 02/04/18 15:59 01/09/18 14:58 3 ML Arformoterol Tartrate (Brovana 15MCG/ 2ML Neb Soln) 15 mcg BID INH 01/05/18 20:00 02/04/18 20:59 01/09/18 07:12 15 MCG Aspirin (Ecotrin Tab) 81 mg QAM PO 01/06/18 08:00 02/05/18 08:59 01/09/18 08:22 81 MG Atorvastatin Calcium (Lipitor Tab) 40 mg DAILY PO 01/06/18 08:00 02/05/18 08:59 01/09/18 08:22 40 MG Budesonide (Pulmicort Respules 0.5MG/ 2ML Neb Soln) 1 mg BIDR INH 01/05/18 20:00 02/04/18 19:59 01/09/18 07:12 1 MG Carvedilol (Coreg Tab) 12.5 mg BID PO 01/05/18 20:00 02/04/18 20:59 01/09/18 08:22 12.5 MG Cholecalciferol (Vitamin D Tab) 1,000 inter.unit DAILY PO 01/06/18 08:00 02/05/18 08:59 01/09/18 08:22 1,000 INTER.UNIT Cyanocobalamin (Vitamin B-12 Tab) 1,000 mcg DAILY PO 01/06/18 08:00 02/05/18 08:59 01/09/18 08:22 1,000 MCG Multivitamins (Multivitamin Tab) 1 tab DAILY PO 01/06/18 08:00 02/05/18 08:59 01/09/18 08:22 1 TAB Venlafaxine HCl (effeXOR EXTENDED REL CAP) 150 mg DAILY PO 01/06/18 08:00 02/05/18 08:59 01/09/18 08:21 150 MG Pantoprazole Sodium (Protonix Tab) 40 mg HS PO 01/05/18 21:00 02/04/18 20:59 01/08/18 20:20 40 MG Heparin Sodium (Porcine) (Heparin Sq 5000 Unit/0.5ml) 5,000 unit BID SQ 01/05/18 20:00 02/04/18 19:59 01/09/18 08:25 5,000 UNIT Miscellaneous Information (Consult) 1 ea UD PRN N/A 01/06/18 14:15 01/15/18 23:59 Enteral Nutritional Formula (Boost Plus Vanilla) 1 can TID PO 01/06/18 20:00 02/05/18 19:59 01/09/18 14:00 1 CAN Vancomycin HCl 750 mg/Sodium Chloride 265 ml @ 125 mls/hr Q8H IV 01/07/18 00:00 01/15/18 23:59 01/09/18 17:19 125 MLS/HR Mirtazapine (Remeron Tab) 15 mg HS PO 01/07/18 21:00 02/06/18 20:59 01/08/18 20:20 15 MG Prednisone (PredniSONE TAB) 30 mg DAILY PO 01/10/18 08:00 02/09/18 07:59
[2018-01-09] MEDS: PANTOprazole SOD 40 MG TAB PO SCH (19:53)
[2018-01-09] MEDS: MIRTAZAPINE TAB 15 MG TAB PO SCH (19:54)
[2018-01-10] VITALS (7 sets, daily range): BP systolic 119–149; BP diastolic 74–84; PULSE 87–104; TEMP 36.3–37.5; O2SAT 92–100
[2018-01-10] MEDS: VANCOMYCIN IV 750 MG in SODIUM CHLORIDE 0.9% 250ML 250 ML IV SCH ×4 (00:08→23:45)
[2018-01-10] MEDS: BUDESONIDE 0.5 MG/2 ML VIAL (PULMICORT) INH SCH ×3 (07:00→19:39)
[2018-01-10] MEDS: ARFORMOTEROL TART 15MCG/2ML VIAL INH SCH ×3 (07:00→19:39)
[2018-01-10] MEDS: ALBUT/IPRATROP 3MG/0.5MG NEB 3 ML VIAL INH SCH ×4 (07:06→19:39)
[2018-01-10] MEDS: CHOLECALCIFEROL 1000 INTER.UNIT TAB PO SCH (08:22)
[2018-01-10] MEDS: ATORVASTATIN 40 MG TAB PO SCH (08:22)
[2018-01-10] MEDS: ASPIRIN 81 MG ECTAB PO SCH (08:22)
[2018-01-10] MEDS: CYANOCOBALAMIN 500 MCG TAB (VIT B-12) PO SCH (08:22)
[2018-01-10] MEDS: CARVEDILOL 12.5 MG TAB PO SCH ×2 (08:22→21:26)
[2018-01-10] MEDS: VENLAFAXINE HCL XR 150 MG CAPXR PO SCH (08:22)
[2018-01-10] MEDS: MULTIVITAMIN TAB PO SCH (08:22)
[2018-01-10] MEDS: BOOST PLUS VANILLA PO SCH ×3 (08:23→21:24)
[2018-01-10] MEDS: HEPARIN SOD 5000 UNIT/0.5 ML CARP SQ SCH ×2 (08:33→21:29)
[2018-01-10] MEDS: LEVOFLOXACIN 750 MG TAB PO SCH (10:57)
--- NOTE | 2018-01-10 19:43 | Progress Note ---
Medicine Progress Note Date & Time of Visit: Jan 10, 2018 at 19:42. Subjective Seen resting in bed comfortable not in distress States she feels fine overall Breathing and cough continues to improve No other symptoms Appetite good Objective Last 8 Hrs Date Time Temp Pulse Resp B/P (MAP) Pulse Ox O2 Delivery O2 Flow Rate FiO2 01/10/18 16:10 Nasal Cannula 2.0 01/10/18 15:44 36.5 104 18 119/77 (91) 92 01/10/18 15:38 97 16 92 Nasal Cannula 2.0 Physical Exam: General- oriented x 3, not in distress, speaks in sentences with no effort Eyes- anicteric Neck- no JVD Lungs-slightly diminished but clear improved compared to yesterday Heart- regular rhythm; no murmur, normal rate Abdomen- normal bowel sounds, soft, nontender, no masses Extremities- no pretibial edema, no calf tenderness Neuro- alert, oriented x 3 no gross focal deficits Skin- warm & dry Assessment & Plan COMMUNITY-ACQUIRED PNEUMONIA COPD EXACERBATION -Patient presenting from home with generalized weakness and cough; in the ED, chest x-ray shows right basilar infiltrate -History does not suggest aspiration -Has history of COPD, saturating well on chronic 3 L; labs show chronic CO2 retention - improving daily remains at 3L NC - (+) nasal MRSA swab -Continue vancomycin and Levaquin Continue nebulizations Prednisone slow taper Continues to improve -- transition to oral Levaquin and Doxy upon discharge appreciate ID SVC recommendations HISTORY OF CAD - stable -Continue ASA, beta-maycol, and statin ANXIETY, DEPRESSION - patient reports worsening of depression within the past few months Psych consulted Wellbutrin discontinued, Remeron added tolerating well -Continue venlafaxine Continues to improve DVT PROPHYLAXIS -SQ heparin CODE STATUS -Patient is a full code. DISPOSITION pending lives at home PT/OT ordered Current Inpatient Medications: Current Inpatient Medications Medications (Trade) Dose Ordered Sig/José Miguel Route Start Time Stop Time Status Last Admin Dose Admin Acetaminophen (Tylenol Tab) 650 mg Q4H PRN PO 01/05/18 15:15 02/04/18 15:14 Ondansetron HCl (Zofran Inj) 4 mg Q6H PRN IV 01/05/18 15:15 02/04/18 15:14 Levofloxacin (Levaquin Tab) 750 mg DAILY@11 PO 01/06/18 11:00 01/15/18 23:59 01/10/18 10:57 750 MG Albuterol/ Ipratropium (Duoneb) 3 ml QIDR INH 01/05/18 16:00 02/04/18 15:59 01/10/18 15:38 3 ML Arformoterol Tartrate (Brovana 15MCG/ 2ML Neb Soln) 15 mcg BID INH 01/05/18 20:00 02/04/18 20:59 01/10/18 07:00 700 MCG Aspirin (Ecotrin Tab) 81 mg QAM PO 01/06/18 08:00 02/05/18 08:59 01/10/18 08:22 81 MG Atorvastatin Calcium (Lipitor Tab) 40 mg DAILY PO 01/06/18 08:00 02/05/18 08:59 01/10/18 08:22 40 MG Budesonide (Pulmicort Respules 0.5MG/ 2ML Neb Soln) 1 mg BIDR INH 01/05/18 20:00 02/04/18 19:59 01/10/18 07:00 1 MG Carvedilol (Coreg Tab) 12.5 mg BID PO 01/05/18 20:00 02/04/18 20:59 01/10/18 08:22 12.5 MG Cholecalciferol (Vitamin D Tab) 1,000 inter.unit DAILY PO 01/06/18 08:00 02/05/18 08:59 01/10/18 08:22 1,000 INTER.UNIT Cyanocobalamin (Vitamin B-12 Tab) 1,000 mcg DAILY PO 01/06/18 08:00 02/05/18 08:59 01/10/18 08:22 1,000 MCG Multivitamins (Multivitamin Tab) 1 tab DAILY PO 01/06/18 08:00 02/05/18 08:59 01/10/18 08:22 1 TAB Venlafaxine HCl (effeXOR EXTENDED REL CAP) 150 mg DAILY PO 01/06/18 08:00 02/05/18 08:59 01/10/18 08:22 150 MG Pantoprazole Sodium (Protonix Tab) 40 mg HS PO 01/05/18 21:00 02/04/18 20:59 01/09/18 19:53 40 MG Heparin Sodium (Porcine) (Heparin Sq 5000 Unit/0.5ml) 5,000 unit BID SQ 01/05/18 20:00 02/04/18 19:59 01/10/18 08:33 5,000 UNIT Miscellaneous Information (Consult) 1 ea UD PRN N/A 01/06/18 14:15 01/15/18 23:59 Enteral Nutritional Formula (Boost Plus Vanilla) 1 can TID PO 01/06/18 20:00 02/05/18 19:59 01/10/18 14:23 1 CAN Vancomycin HCl 750 mg/Sodium Chloride 265 ml @ 125 mls/hr Q8H IV 01/07/18 00:00 01/15/18 23:59 01/10/18 16:01 125 MLS/HR Mirtazapine (Remeron Tab) 15 mg HS PO 01/07/18 21:00 02/06/18 20:59 01/09/18 19:54 15 MG Prednisone (PredniSONE TAB) 30 mg DAILY PO 01/10/18 08:00 02/09/18 07:59 01/10/18 08:22 30 MG
[2018-01-10] MEDS: MIRTAZAPINE TAB 15 MG TAB PO SCH (21:25)
[2018-01-10] MEDS: PANTOprazole SOD 40 MG TAB PO SCH (21:26)
[2018-01-11] VITALS (7 sets, daily range): BP systolic 123–125; BP diastolic 76–81; PULSE 91–113; TEMP 36.5–36.9; O2SAT 90–99
[2018-01-11] MEDS: BUDESONIDE 0.5 MG/2 ML VIAL (PULMICORT) INH SCH ×2 (07:21→19:08)
[2018-01-11] MEDS: ARFORMOTEROL TART 15MCG/2ML VIAL INH SCH ×2 (07:21→19:08)
[2018-01-11] MEDS: ALBUT/IPRATROP 3MG/0.5MG NEB 3 ML VIAL INH SCH ×4 (07:21→19:08)
[2018-01-11] MEDS ORDERED: VANCOMYCIN TROUGH ONE ×2 (07:30→15:30)
[2018-01-11] MEDS: CARVEDILOL 12.5 MG TAB PO SCH ×2 (07:44→21:41)
[2018-01-11] MEDS: CYANOCOBALAMIN 500 MCG TAB (VIT B-12) PO SCH (07:44)
[2018-01-11] MEDS: BOOST PLUS VANILLA PO SCH ×3 (07:44→21:39)
[2018-01-11] MEDS: ATORVASTATIN 40 MG TAB PO SCH (07:44)
[2018-01-11] MEDS: VANCOMYCIN IV 750 MG in SODIUM CHLORIDE 0.9% 250ML 250 ML IV SCH ×3 (07:44→23:59)
[2018-01-11] MEDS: MULTIVITAMIN TAB PO SCH (07:45)
[2018-01-11] MEDS: VENLAFAXINE HCL XR 150 MG CAPXR PO SCH (07:45)
[2018-01-11] MEDS: CHOLECALCIFEROL 1000 INTER.UNIT TAB PO SCH (07:45)
[2018-01-11] MEDS: ASPIRIN 81 MG ECTAB PO SCH (07:45)
[2018-01-11] MEDS: HEPARIN SOD 5000 UNIT/0.5 ML CARP SQ SCH ×2 (07:58→21:44)
[2018-01-11 09:02] LABS: CREATININE 0.42 mg/dl (0.60-1.20)
--- NOTE | 2018-01-11 09:49 | Pharmacy Progress Note ---
Pharmacy Abx Dose Short Note Date of Service Jan 11, 2018. Assessment & Plan Assessment 67 year old female receiving vancomycin for treatment of a pulmonary process. Trough level of 21.4 mcg/mL is supratherapeutic. However, nurse did confirm that the new bag had been running and paused when the level was taken. To ensure this is a true level (and since the 0800 dose has already been given), I will repeat a level before this afternoon's dose. I will also place the next dose on hold pending this level Day # 03/29 of antimicrobial therapy. Plan Vancomycin * Continue/change dose pending results of repeat level * Goal trough level for PNA : 15 to 20 mcg/mL * Trough or random level ordered for: 01/11/18 @ 1530 Pharmacy will continue to follow and will adjust dose/frequency as necessary. Thank you.
[2018-01-11] MEDS: LEVOFLOXACIN 750 MG TAB PO SCH (11:31)
--- NOTE | 2018-01-11 13:14 | Progress Note ---
Medicine Progress Note Date & Time of Visit: Jan 11, 2018 at 13:11. Subjective seen resting in bed, comfortable states she feels continued improvement no dyspnea, cough very minimal smiling more mood better appetite improving Objective Last 8 Hrs Date Time Temp Pulse Resp B/P (MAP) Pulse Ox O2 Delivery O2 Flow Rate FiO2 01/11/18 11:31 36.7 100 18 125/78 (94) 99 2.0 01/11/18 11:15 106 16 90 Nasal Cannula 2.0 01/11/18 08:00 Nasal Cannula 2.0 01/11/18 07:21 98 16 96 Nasal Cannula 2.0 Physical Exam: General- oriented x 3, not in distress, speaks in sentences with no effort Eyes- anicteric Neck- no JVD Lungs-clear breath sounds bilaterally, distant breath sounds Heart- regular rhythm; no murmur, normal rate Abdomen- normal bowel sounds, soft, nontender, no masses Extremities- no pretibial edema, no calf tenderness Neuro- alert, oriented x 3 no gross focal deficits Skin- warm & dry Laboratory Results: Last 24 Hours Test 01/11/18 08:05 Creatinine 0.42 mg/dl Est Creatinine Clear Calc Drug Dose 71.8 ml/min Estimated GFR () 121.2 Estimated GFR (Non- 104.6 Vancomycin Level Trough 21.4 mcg/ml Assessment & Plan COMMUNITY-ACQUIRED PNEUMONIA COPD EXACERBATION -Patient presenting from home with generalized weakness and cough; in the ED, chest x-ray shows right basilar infiltrate -History does not suggest aspiration -Has history of COPD, saturating well on chronic 3 L; labs show chronic CO2 retention - improving daily remains at 3L NC - (+) nasal MRSA swab -Continue vancomycin and Levaquin Continue nebulizations Prednisone slow taper -- improving daily -- transition to oral Levaquin and Doxy upon discharge , 2 more days Xopenex and Atrovent TID upon discharge Prednisone taper upon discharge appreciate ID SVC recommendations HISTORY OF CAD - stable -Continue ASA, beta-maycol, and statin ANXIETY, DEPRESSION - patient reports worsening of depression within the past few months Psych consulted Wellbutrin discontinued, Remeron added tolerating well -Continue venlafaxine mood improving DVT PROPHYLAXIS -SQ heparin CODE STATUS -Patient is a full code. DISPOSITION pending lives at home anticipate d/c home tomorrow Current Inpatient Medications: Current Inpatient Medications Medications (Trade) Dose Ordered Sig/José Miguel Route Start Time Stop Time Status Last Admin Dose Admin Acetaminophen (Tylenol Tab) 650 mg Q4H PRN PO 01/05/18 15:15 02/04/18 15:14 Ondansetron HCl (Zofran Inj) 4 mg Q6H PRN IV 01/05/18 15:15 02/04/18 15:14 Levofloxacin (Levaquin Tab) 750 mg DAILY@11 PO 01/06/18 11:00 01/15/18 23:59 01/11/18 11:31 750 MG Albuterol/ Ipratropium (Duoneb) 3 ml QIDR INH 01/05/18 16:00 02/04/18 15:59 01/11/18 11:15 3 ML Arformoterol Tartrate (Brovana 15MCG/ 2ML Neb Soln) 15 mcg BID INH 01/05/18 20:00 02/04/18 20:59 01/11/18 07:21 15 MCG Aspirin (Ecotrin Tab) 81 mg QAM PO 01/06/18 08:00 02/05/18 08:59 01/11/18 07:45 81 MG Atorvastatin Calcium (Lipitor Tab) 40 mg DAILY PO 01/06/18 08:00 02/05/18 08:59 01/11/18 07:44 40 MG Budesonide (Pulmicort Respules 0.5MG/ 2ML Neb Soln) 1 mg BIDR INH 01/05/18 20:00 02/04/18 19:59 01/11/18 07:21 1 MG Carvedilol (Coreg Tab) 12.5 mg BID PO 01/05/18 20:00 02/04/18 20:59 01/11/18 07:44 12.5 MG Cholecalciferol (Vitamin D Tab) 1,000 inter.unit DAILY PO 01/06/18 08:00 02/05/18 08:59 01/11/18 07:45 1,000 INTER.UNIT Cyanocobalamin (Vitamin B-12 Tab) 1,000 mcg DAILY PO 01/06/18 08:00 02/05/18 08:59 01/11/18 07:44 1,000 MCG Multivitamins (Multivitamin Tab) 1 tab DAILY PO 01/06/18 08:00 02/05/18 08:59 01/11/18 07:45 1 TAB Venlafaxine HCl (effeXOR EXTENDED REL CAP) 150 mg DAILY PO 01/06/18 08:00 02/05/18 08:59 01/11/18 07:45 150 MG Pantoprazole Sodium (Protonix Tab) 40 mg HS PO 01/05/18 21:00 02/04/18 20:59 01/10/18 21:26 40 MG Heparin Sodium (Porcine) (Heparin Sq 5000 Unit/0.5ml) 5,000 unit BID SQ 01/05/18 20:00 02/04/18 19:59 01/11/18 07:58 5,000 UNIT Miscellaneous Information (Consult) 1 ea UD PRN N/A 01/06/18 14:15 01/15/18 23:59 Enteral Nutritional Formula (Boost Plus Vanilla) 1 can TID PO 01/06/18 20:00 02/05/18 19:59 01/11/18 07:44 1 CAN Vancomycin HCl 750 mg/Sodium Chloride 265 ml @ 125 mls/hr Q8H IV 01/07/18 00:00 01/15/18 23:59 01/11/18 07:44 125 MLS/HR Mirtazapine (Remeron Tab) 15 mg HS PO 01/07/18 21:00 02/06/18 20:59 01/10/18 21:25 15 MG Prednisone (PredniSONE TAB) 30 mg DAILY PO 01/10/18 08:00 02/09/18 07:59 01/11/18 07:44 30 MG
[2018-01-11] MEDS: MIRTAZAPINE TAB 15 MG TAB PO SCH (21:40)
[2018-01-11] MEDS: PANTOprazole SOD 40 MG TAB PO SCH (21:41)
[2018-01-12] VITALS: O2SAT 95
[2018-01-12] MEDS: BUDESONIDE 0.5 MG/2 ML VIAL (PULMICORT) INH SCH (06:56)
[2018-01-12] MEDS: ARFORMOTEROL TART 15MCG/2ML VIAL INH SCH (06:56)
[2018-01-12 06:58] VITALS: PULSE 90; O2SAT 98
[2018-01-12] MEDS: ALBUT/IPRATROP 3MG/0.5MG NEB 3 ML VIAL INH SCH ×2 (06:58→11:15)
[2018-01-12 07:45] VITALS: BP 122/76; PULSE 94; TEMP 36.4; O2SAT 96
[2018-01-12] MEDS: LEVOFLOXACIN 750 MG TAB PO SCH (08:19)
[2018-01-12] MEDS: MULTIVITAMIN TAB PO SCH (08:19)
[2018-01-12] MEDS: ATORVASTATIN 40 MG TAB PO SCH (08:19)
[2018-01-12] MEDS: CARVEDILOL 12.5 MG TAB PO SCH (08:20)
[2018-01-12] MEDS: CHOLECALCIFEROL 1000 INTER.UNIT TAB PO SCH (08:20)
[2018-01-12] MEDS: VENLAFAXINE HCL XR 150 MG CAPXR PO SCH (08:20)
[2018-01-12] MEDS: VANCOMYCIN IV 750 MG in SODIUM CHLORIDE 0.9% 250ML 250 ML IV SCH (08:20)
[2018-01-12] MEDS: CYANOCOBALAMIN 500 MCG TAB (VIT B-12) PO SCH (08:20)
[2018-01-12] MEDS: ASPIRIN 81 MG ECTAB PO SCH (08:20)
[2018-01-12] MEDS: BOOST PLUS VANILLA PO SCH ×2 (08:20→12:13)
[2018-01-12] MEDS: HEPARIN SOD 5000 UNIT/0.5 ML CARP SQ SCH (08:22)
[2018-01-12 09:07] VITALS: O2SAT 96
[2018-01-12 11:16] VITALS: PULSE 96; O2SAT 94
--- NOTE | 2018-01-12 13:13 | Progress Note ---
Medicine Progress Note Date & Time of Visit: Jan 12, 2018 at 13:10. Subjective Seen resting in bed having lunch Allow me to examine Alert pleasant not in distress States she feels somewhat weak today Appetite fair Denies shortness of breath or cough Almost back to baseline No other symptoms Objective Last 8 Hrs Date Time Temp Pulse Resp B/P (MAP) Pulse Ox O2 Delivery O2 Flow Rate FiO2 01/12/18 11:16 96 16 94 Nasal Cannula 2.0 01/12/18 10:00 Nasal Cannula 2.0 01/12/18 09:07 96 Nasal Cannula 2.0 01/12/18 07:45 36.4 94 14 122/76 (91) 96 Nasal Cannula 2.0 01/12/18 06:58 90 16 98 Nasal Cannula 2.0 Physical Exam: General- oriented x 3, not in distress, speaks in sentences with no effort Eyes- anicteric Neck- no JVD Lungs-clear. Breath sounds bilaterally No rales no wheezes Heart- regular rhythm; no murmur, normal rate Abdomen- normal bowel sounds, soft, nontender Extremities- no pretibial edema, no calf tenderness Neuro- alert, oriented x 3 no gross focal deficits Skin- warm & dry Laboratory Results: Last 24 Hours Test 01/11/18 15:17 Vancomycin Level Trough 16.5 mcg/ml Assessment & Plan COMMUNITY-ACQUIRED PNEUMONIA COPD EXACERBATION -Patient presenting from home with generalized weakness and cough; in the ED, chest x-ray shows right basilar infiltrate -History does not suggest aspiration -Has history of COPD, saturating well on chronic 3 L; labs show chronic CO2 retention - continues to improve remains at 3L NC - (+) nasal MRSA swab -Continue vancomycin and Levaquin Continue nebulizations Prednisone slow taper -- transition to oral Levaquin and Doxy upon discharge , 1 more day Xopenex and Atrovent TID upon discharge Prednisone taper upon discharge appreciate ID SVC recommendations HISTORY OF CAD - stable -Continue ASA, beta-maycol, and statin ANXIETY, DEPRESSION - patient reports worsening of depression within the past few months Psych consulted Wellbutrin discontinued, Remeron added tolerating well -Continue venlafaxine mood continues to improve DVT PROPHYLAXIS -SQ heparin CODE STATUS -Patient is a full code. DISPOSITION pending lives at home anticipate d/c home tomorrow Current Inpatient Medications: Current Inpatient Medications Medications (Trade) Dose Ordered Sig/José Miguel Route Start Time Stop Time Status Last Admin Dose Admin Acetaminophen (Tylenol Tab) 650 mg Q4H PRN PO 01/05/18 15:15 02/04/18 15:14 Ondansetron HCl (Zofran Inj) 4 mg Q6H PRN IV 01/05/18 15:15 02/04/18 15:14 Levofloxacin (Levaquin Tab) 750 mg DAILY@11 PO 01/06/18 11:00 01/15/18 23:59 01/12/18 08:19 750 MG Albuterol/ Ipratropium (Duoneb) 3 ml QIDR INH 01/05/18 16:00 02/04/18 15:59 01/12/18 11:15 3 ML Arformoterol Tartrate (Brovana 15MCG/ 2ML Neb Soln) 15 mcg BID INH 01/05/18 20:00 02/04/18 20:59 01/12/18 06:56 15 MCG Aspirin (Ecotrin Tab) 81 mg QAM PO 01/06/18 08:00 02/05/18 08:59 01/12/18 08:20 81 MG Atorvastatin Calcium (Lipitor Tab) 40 mg DAILY PO 01/06/18 08:00 02/05/18 08:59 01/12/18 08:19 40 MG Budesonide (Pulmicort Respules 0.5MG/ 2ML Neb Soln) 1 mg BIDR INH 01/05/18 20:00 02/04/18 19:59 01/12/18 06:56 1 MG Carvedilol (Coreg Tab) 12.5 mg BID PO 01/05/18 20:00 02/04/18 20:59 01/12/18 08:20 12.5 MG Cholecalciferol (Vitamin D Tab) 1,000 inter.unit DAILY PO 01/06/18 08:00 02/05/18 08:59 01/12/18 08:20 1,000 INTER.UNIT Cyanocobalamin (Vitamin B-12 Tab) 1,000 mcg DAILY PO 01/06/18 08:00 02/05/18 08:59 01/12/18 08:20 1,000 MCG Multivitamins (Multivitamin Tab) 1 tab DAILY PO 01/06/18 08:00 02/05/18 08:59 01/12/18 08:19 1 TAB Venlafaxine HCl (effeXOR EXTENDED REL CAP) 150 mg DAILY PO 01/06/18 08:00 02/05/18 08:59 01/12/18 08:20 150 MG Pantoprazole Sodium (Protonix Tab) 40 mg HS PO 01/05/18 21:00 02/04/18 20:59 01/11/18 21:41 40 MG Heparin Sodium (Porcine) (Heparin Sq 5000 Unit/0.5ml) 5,000 unit BID SQ 01/05/18 20:00 02/04/18 19:59 01/12/18 08:22 5,000 UNIT Miscellaneous Information (Consult) 1 ea UD PRN N/A 01/06/18 14:15 01/15/18 23:59 Enteral Nutritional Formula (Boost Plus Vanilla) 1 can TID PO 01/06/18 20:00 02/05/18 19:59 01/12/18 12:13 1 CAN Vancomycin HCl 750 mg/Sodium Chloride 265 ml @ 125 mls/hr Q8H IV 01/07/18 00:00 01/15/18 23:59 01/12/18 08:20 125 MLS/HR Mirtazapine (Remeron Tab) 15 mg HS PO 01/07/18 21:00 02/06/18 20:59 01/11/18 21:40 15 MG Prednisone (PredniSONE TAB) 30 mg DAILY PO 01/10/18 08:00 02/09/18 07:59 01/12/18 08:20 30 MG
[2018-01-12 14:21] VITALS: BP 122/76; PULSE 96; TEMP 36.4; O2SAT 94
[2018-01-12] MEDS ORDERED: IPRASOL4 INH ×2 (14:24→14:46)
[2018-01-12] MEDS ORDERED: NUTR-977 PO (14:24)
[2018-01-12] MEDS ORDERED: RMR15 PO (14:24)
[2018-01-12] MEDS ORDERED: LEVO1TAB34 PO (14:24)
[2018-01-12] MEDS ORDERED: DXY100 PO (14:24)
[2018-01-12] MEDS ORDERED: PRED10TA PO (14:24)
--- NOTE | 2018-01-12 14:29 | Discharge Instructions ---
Discharge Instructions Date of Service Jan 12, 2018. Admission Reason for Admission: Pneumonia Discharge Discharge Diagnosis / Problem: COPD EXACERBATION SECONDARY TO PNEUMONIA Discharge Goals Goal(s): Diagnostic testing, Therapeutic intervention Activity Recommendations Activity Limitations: as noted below (NO HEAVY EXERTION UNTIL RE-EVALUATED BY PRIMARY CARE PHYSICIAN.) Lifting Limitations: until after follow-up appointment Exercise/Sports Limitations: until after follow-up appointment Driving or Machine Use: NO DRIVING UNTIL RE-EVALUATED BY PRIMARY CARE PHYSICIAN . Instructions / Follow-Up Instructions / Follow-Up PLEASE REFER TO YOUR NEW MEDICATION LIST AND FOLLOW INSTRUCTIONS CAREFULLY. CALL PRIMARY CARE PHYSICIAN OR RETURN TO ER IMMEDIATELY IF WITH RECURRENCE OF SYMPTOMS, INCREASING COUGH, PHLEGM, SHORTNESS OF BREATH, FEVER/CHILLS. FOLLOW UP WITH PRIMARY CARE PHYSICIAN- DR. VELA ON FridayJANUARY 16 AT 1: 55 PM. Current Hospital Diet Patient's current hospital diet: Regular Diet Discharge Diet Recommended Diet: Regular Diet Pending Studies Studies pending at discharge: no Medical Emergencies . Who to Call and When: Medical Emergencies: If at any time you feel your situation is an emergency, please call 911 immediately. . Non-Emergent Contact Non-Emergency issues call your: Primary Care Provider Call Non-Emergent contact if: you have a fever, you have any medication questions . . "Provider Documentation" section prepared by Yaw Edmondson. .
--- NOTE | 2018-01-12 14:36 | Discharge Summary ---
Discharge Summary Date of Service Jan 12, 2018. Discharge Summary Admission Date: Jan 05, 2018 at 15:03 Discharge Date: Jan 12, 2018 Discharge Disposition: Home with services Principal Diagnosis: COMMUNITY-ACQUIRED PNEUMONIA- COPD EXACERBATION Secondary Diagnoses/Problems: PLEASE REFER TO HOSPITAL COURSE BELOW. Procedures: (CHEST) THORAX WITHOUT CT DOSE: 160.10 mGycm CLINICAL HISTORY: 67 years-old Female with r/o lung mass. Acute altered mental status with weakness and dyspnea. Emphysema. Airspace disease of the right lower lobe seen on comparison chest radiograph TECHNIQUE: Multiaxial CT images of the chest were performed without contrast. A dose lowering technique was utilized adhering to the principles of ALARA. COMPARISON: Chest radiograph 01/05/2018, CT chest 07/07/2017. FINDINGS: Thyroid is homogeneous without dominant nodule identified. Evaluation for adenopathy is limited without the use of IV contrast. No definite pathologically enlarged lymph nodes identified. Heart is normal in size without pericardial effusion. Coronary arterial disease is noted along with calcifications of the aortic annulus and moderate calcifications of the thoracic aorta. No aortic aneurysm identified. The main pulmonary artery is mildly dilated, 3.0 cm which may reflect underlying pulmonary arterial hypertension within the appropriate clinical setting. Trace bilateral pleural effusions without pneumothorax. Severe emphysema with hyperinflation. Multifocal areas of chronic interstitial scarring redemonstrated. Subsegmental alveolar opacities of the right lower lobe greatest within the basal segments demonstrate central coursing air bronchograms. There is mild bilateral bronchial wall thickening with multifocal areas of mucous plugging, notably within the lung bases. Multifocal tree-in-bud nodules of the basal lower lobes are also appreciated, similar to slightly improved from comparison study 07/07/2017. Areas of probable scarring are noted involving the anterior aspects of the bilateral upper lobes, unchanged. No suspicious pulmonary nodules or masses are identified. 5 mm nodular opacity of the inferior segment lingula suggest area of confluence scarring. Subcentimeter calcified granuloma of the right upper lobe. No acute abnormality of the imaged upper abdomen. Soft tissues are unremarkable. Degenerative changes are noted throughout the spine. IMPRESSION: 1. Trace bilateral pleural effusions with alveolar opacities of the right lower lobe, greatest within the basal segments demonstrating central air bronchograms suggesting pneumonia or aspiration pneumonitis. 2. Subsegmental tree-in-bud nodules of the bilateral lower lobes are again seen compatible with infectious or inflammatory bronchiolitis. 3. Severe emphysema with bilateral bronchial wall thickening compatible with bronchitis containing moderate associated areas of mucous plugging. 4. No pathologic adenopathy identified. Pending Studies/Follow-Up: PLEASE REFER TO HOSPITAL COURSE BELOW. Medication Reconciliation New Medications: Doxycycline Hyclate (Doxycycline Hyclate) 100 Mg Cap 1 CAP PO BID for 2 Days, #4 CAP 0 Refills Levofloxacin (Levaquin) 500 Mg Tab 1 TAB PO DAILY for 2 Days, #2 TAB 0 Refills Prednisone Tab (Prednisone) 10 Mg Tab 10 MG PO UD for 9 Days, #18 TAB take 3 tabs po daily x 3 days, then take 2 tabs po daily x 3 days, then take 1 tab po daily x 3 days, then STOP Enteral Nutrition Formula (Ensure Plus Vanilla) 1 Can Liqd 1 CAN PO TID for 30 Days Mirtazapine (Mirtazapine) 15 Mg Tab 15 MG PO HS for 10 Days, #10 TAB 0 Refills Changed Medications: Ipratropium-Albuterol (Duoneb) 3 Ml Nebu 1 TREATMENT INH Q4H PRN for SOB/Wheezing for 30 Days, INHA (Changed from: QID) Continued Medications: Arformoterol Tartrate (Brovana) 15 Mcg/2 Ml Neb 15 MCG INH BID, INHALER Ascorbic Acid (Vitamin C 500 mg) 1 Chw Chw 1 TAB PO DAILY Aspirin (Aspirin Ec) 81 Mg Tab 81 MG PO QAM Atorvastatin (Lipitor) 40 Mg Tab 40 MG PO DAILY Azithromycin (Zithromax Z-Romel) 250 Mg Tab PO UD PRN for COPD rescue kit, #1 PKT Budesonide (Pulmicort Respules 0.5MG/2ML) 0.5 Mg/2 Ml Nebu 2 ML INH BID, EA Calcium Carbonate (Caltrate 600) 1,500 Mg Tab 1 TAB PO DAILY Carvedilol (Coreg) 12.5 Mg Tab 1 TAB PO BID for 90 Days, #180 TAB 1 Refill Cholecalciferol (Vitamin D3) 1,000 Unit Tab 1 TAB PO DAILY for 30 Days, #30 TAB 5 Refills Cyanocobalamin (Vitamin B-12 1000 Mcg) 1,000 Mcg Tab 1000 MCG PO DAILY, TAB Ipratropium-Albuterol (Combivent Respimat) 1 Aer Aer 1 PUFFS INH QID PRN for SOB/Wheezing, INH Multivitamin (Multivitamin) Tab 1 TAB PO DAILY, TAB Nitroglycerin (Nitrostat) 0.4 Mg Sub 0.4 MG UT UD PRN for Chest Pain, BTL Omeprazole (Prilosec) 20 Mg Cap 20 MG PO HS Prednisone Tab (Prednisone) 10 Mg Tab 10 MG PO UD PRN for COPD rescue kit, TAB Tiotropium [place] (Spiriva Respimat) 2.5 Mcg/Act Spr 2 PUFFS PO DAILY Venlafaxine Hcl (Venlafaxine Hcl Er) 150 Mg Tab 1 TAB PO DAILY for 30 Days, #30 TAB 1 Refill Discontinued Medications: Albuterol Hfa (Ventolin Hfa) 200 Puffs/15593 Mcg Aers 2 PUFFS INH Q6 PRN for SOB/Wheezing, #1 INHALER Bupropion (Wellbutrin-Xl) 300 Mg Tabcr 300 MG PO DAILY, TAB Levalbuterol (Levalbuterol HCl) 1.25 Mg/3 Ml Nebu 1 DOSE INH Q6 PRN for SOB/Wheezing Admission Information HPI (per Admitting provider): 67-year-old female who presents to the ER with cough and weakness. History is limited from the patient. I attempted to call the patient's however was unable to reach him. Per review of outpatient case management notes, patient has been generally weak, coughing, poor appetite, and not taking her medications. Patient was started on COPD rescue kit with a azithromycin and prednisone 2 days ago. Patient reports a cough productive for yellow sputum at times. She denies fever or chills. She has oxygen dependent COPD, reports her breathing is at baseline. Patient has an ileostomy in place, denies any change in stool output. She denies chest pain, lightheadedness, dizziness, diaphoresis , and syncopal events. No abdominal pain, nausea, or vomiting. She denies urinary symptoms. In the ED, patient's chest x-ray shows a small infiltrate in the right base. She is saturating well on her chronic 3 L. Labs show chronic CO2 retention and mildly elevated WBC at 11K. Patient was given IV ceftriaxone , oral Levaquin, IVF, and DuoNeb. Physical Exam (per Admitting): General Appearance: no apparent distress, + cachetic Head: normocephalic, atraumatic Eyes: normal inspection, EOMI, sclerae normal ENT: hearing grossly normal, + pertinent finding (Mucous membranes dry) Neck: supple, no JVD, trachea midline Respiratory/Chest: no respiratory distress, + decreased breath sounds, + wheezing (Faint, scattered, expiratory) Cardiovascular: regular rate, rhythm, no edema, normal peripheral pulses Abdomen/GI: normal bowel sounds, non tender, soft, no organomegaly, + pertinent finding (Ileostomy in place with large amount of liquid stool noted) Extremities/Musculoskelatal: normal inspection, no calf tenderness, normal capillary refill Neurologic/Psych: no motor/sensory deficits, alert, normal mood/affect, oriented x 3, + pertinent finding (Forgetful, poor insight) Skin: normal color, warm/dry Hospital Course COMMUNITY-ACQUIRED PNEUMONIA- COPD EXACERBATION -Patient presenting from home with generalized weakness and cough; in the ED, chest x-ray shows right basilar infiltrate -History does not suggest aspiration -Has history of COPD, saturating well on chronic 3 L; labs show chronic CO2 retention - (+) nasal MRSA swab - given IV vancomycin and Levaquin x 8 days given scheduled nebulizations Prednisone slowly tapered - continued to improve remains at 3L NC -- transition to oral Levaquin and Doxy upon discharge x 3 more days to complete 10 days antibiotic course continue usual bronchodilators Prednisone taper upon discharge appreciate ID SVC recommendations HISTORY OF CAD - stable -Continue ASA, beta-maycol, and statin ANXIETY, DEPRESSION - patient reports worsening of depression within the past few months Psych consulted Wellbutrin discontinued, Remeron added and tolerating well - prescription given for 10 days, please renew accordingly -Continue venlafaxine mood continues to improve - follow up with Psych as outpatient DISPOSITION d/c home with home health ff up with PCP in 3-5 days ff up with Psych in 1-2 weeks Total time spent on discharge = 30 minutes This includes examination of the patient, discharge planning, medication reconciliation, and communication with other providers. Discharge Instructions Discharge Instructions Date of Service Jan 12, 2018. Admission Reason for Admission: Pneumonia Discharge Discharge Diagnosis / Problem: COPD EXACERBATION SECONDARY TO PNEUMONIA Discharge Goals Goal(s): Diagnostic testing, Therapeutic intervention Activity Recommendations Activity Limitations: as noted below (NO HEAVY EXERTION UNTIL RE-EVALUATED BY PRIMARY CARE PHYSICIAN.) Lifting Limitations: until after follow-up appointment Exercise/Sports Limitations: until after follow-up appointment Driving or Machine Use: NO DRIVING UNTIL RE-EVALUATED BY PRIMARY CARE PHYSICIAN . Instructions / Follow-Up Instructions / Follow-Up PLEASE REFER TO YOUR NEW MEDICATION LIST AND FOLLOW INSTRUCTIONS CAREFULLY. CALL PRIMARY CARE PHYSICIAN OR RETURN TO ER IMMEDIATELY IF WITH RECURRENCE OF SYMPTOMS, INCREASING COUGH, PHLEGM, SHORTNESS OF BREATH, FEVER/CHILLS. FOLLOW UP WITH PRIMARY CARE PHYSICIAN- DR. VELA ON FridayJANUARY 16 AT 1: 55 PM. Current Hospital Diet Patient's current hospital diet: Regular Diet Discharge Diet Recommended Diet: Regular Diet Pending Studies Studies pending at discharge: no Medical Emergencies . Who to Call and When: Medical Emergencies: If at any time you feel your situation is an emergency, please call 911 immediately. . Non-Emergent Contact Non-Emergency issues call your: Primary Care Provider Call Non-Emergent contact if: you have a fever, you have any medication questions . . "Provider Documentation" section prepared by Yaw Edmondson. .
--- NOTE | 2018-01-15 20:13 | EDITING REQUIRED CODING QUERY ---
CODING QUERY To promote full compliance with coding requirements relating to patient care, provider participation is requested in all cases of transferrer uncertainty. Please assist us with the question(s) below: Coding Question(s): Patient admitted with Pneumonia. Nasal swab positive for MRSA. 's Consult states possible MRSA Pneumonia. Please check below the phrase that describes the diagnosis you treated . Thank you. Juan Hawkins SYSTEM SPECIALIST [facility] Physician's Response(s): The patient has Pneumonia, unknown organism The patient has MRSA Pneumonia Cannot Clinically determine ____X____ Other/ Please document: patient has possible MRSA pneumonia Principal Diagnosis: "_that condition established after study, to be chiefly responsible for occasioning the admission of the patient to the hospital for care." Co-Existing Principal Diagnosis: "_when two or more diagnoses equally meet the criteria for principal diagnosis as determined by the circumstances of admission, diagnostic work up, and/or therapy provided, and the Alphabetic Index, Tabular List, or another coding guideline does not provide sequencing direction, any one of the diagnoses may be sequenced first." "When the physician has documented what appears to be a current diagnosis in the body of the record, but has not included the diagnosis in the final diagnostic statement, the physician should be asked whether the diagnosis should be added." (Source Coding Clinic 2 QTR90. p3-4)
== END 2018-01-12 15:01 | disposition home health service (06) | DRG 177 ==
LOC: EDBD 11:50 → EDSEX 11:50 → C.EDA 11:51 → C.4E 15:03 → UNDOADMIN 15:03 → ENRESERV 15:21
PROVIDERS: ADMIT Internal Medicine; ATTEND Internal Medicine
DX: J15.212 Pneumonia due to Methicillin resistant Staphylococcus aureus (principal); J44.1 Chronic obstructive pulmonary disease with (acute) exacerbation; J96.90 Respiratory failure, unspecified, unspecified whether with hypoxia or hypercapnia; F33.2 Major depressive disorder, recurrent severe without psychotic features; I25.10 Atherosclerotic heart disease of native coronary artery without angina pectoris; E78.5 Hyperlipidemia, unspecified; I48.0 Paroxysmal atrial fibrillation; Z93.2 Ileostomy status; F17.200 Nicotine dependence, unspecified, uncomplicated; Z88.0 Allergy status to penicillin; E86.0 Dehydration; K57.90 Diverticulosis of intestine, part unspecified, without perforation or abscess without bleeding; Z90.81 Acquired absence of spleen; Z79.82 Long term (current) use of aspirin; Z86.14 Personal history of Methicillin resistant Staphylococcus aureus infection; Z99.81 Dependence on supplemental oxygen

== ENCOUNTER 2018-02-22 21:05 | Inpatient (IN) | payer OTHER ==
[~2018-02-22] VITALS: Ht 157.5 cm; Wt 40.1 kg
[~2018-02-22 21:05] MED LIST changes: +ARFO15NE INH; -ATRINSX INH; +AZITTAB PO; -BUPRTAB51 PO; -CARV12.5 PO; +CARV12.52 PO; +CHOL1000 PO; -CHOL100027 PO; +CYAN10004 PO; -CYAN100T6 PO; +DXY100 PO; -FLUT1INH7 PO; +IPRA1AER2 INH; +IPRASOL4 INH; +LEVO1TAB34 PO; +NUTR-977 PO; +PLMINSR5 INH; -PRD10 OR; +PRED10TA PO; +RMR15 PO; -VENL150C56 PO; +VENL150T33 PO; -VNTHFA/IN INH; -XPNINS125 INH
[2018-02-22] MEDS ORDERED: METHYLPREDNISOLONE 125 MG VIAL IV STA (21:19)
--- NOTE | 2018-02-22 21:27 | EMERGENCY ROOM VISIT NOTE ---
History Report prepared by Edwina: Apple Gomes Under the Supervision of: Dr. Dallin Brady M.D. First contact with patient: 21:11 Chief Complaint: ALTERED MENTAL STATUS Stated Complaint: ALTERED MENTAL STATUS History of Present Illness The patient is a 67 year old female who presents to the Emergency Room with complaints of worsening lethargy and weakness beginning this morning. Per nursing, the patient has been refusing to eat and drink today. The patient has a history of CVA and COPD. The patient wears 3 L of oxygen at baseline. The patient has a colostomy. Per nursing, the patient's was drinking alcohol tonight so he is not planning on coming into the ED. History limited secondary to the patient's AMS. Source of History: nursing staff History Limited By: AMS Onset: this morning Position: other (generalized) Quality: other (lethargy) Timing: worsening Review of Systems ROS limited secondary to AMS. Past Medical & Surgical Medical Problems: (1) CAD (coronary artery disease) (2) CO2 retention (3) COPD, severe (4) Depression (5) Diverticulosis of sigmoid colon (6) Hyperlipidemia (7) Major depressive disorder, recurrent severe without psychotic features (8) MRSA bacteremia (9) Paroxysmal a-fib (10) Respiratory failure Surgical Problems: (1) H/O ileostomy (2) History of cardiac catheterization (3) History of tonsillectomy (4) S/P partial colectomy (5) S/P splenectomy (6) Status post tracheostomy Family History FH: heart disease FATHER (ID at age 47) FH: pulmonary embolism MOTHER (at age 48) Social History Smoking Status: Current Every Day Smoker Alcohol Use: occasionally Marital Status: Housing Status: lives with significant other Current/Historical Medications Scheduled Arformoterol Tartrate (Brovana), 15 MCG INH BID Ascorbic Acid (Vitamin C 500 mg), 1 TAB PO DAILY Aspirin (Aspirin Ec), 81 MG PO QAM Atorvastatin (Lipitor), 40 MG PO DAILY Budesonide (Pulmicort Respules 0.5MG/2ML), 2 ML INH BID Calcium Carbonate (Caltrate 600), 1 TAB PO DAILY Carvedilol (Coreg), 12.5 MG PO BID Cholecalciferol (Vitamin D3), 1,000 UNITS PO DAILY Enteral Nutrition Formula (Ensure Plus Vanilla), 1 CAN PO TID Mirtazapine (Mirtazapine), 15 MG PO HS Multivitamin (Multivitamin), 1 TAB PO DAILY Omeprazole (Prilosec), 20 MG PO HS Tiotropium [place] (Spiriva Respimat), 2 PUFFS PO DAILY Venlafaxine Hcl (Venlafaxine Hcl Er), 1 TAB PO DAILY Scheduled PRN Ipratropium-Albuterol (Combivent Respimat), 1 PUFFS INH QID PRN for SOB/Wheezing Ipratropium-Albuterol (Duoneb), 1 TREATMENT INH Q4H PRN for SOB/Wheezing Levalbuterol Hcl (Levalbuterol Hcl), 1 VIAL NEB Q6H PRN for SOB/Wheezing Nitroglycerin (Nitrostat), 0.4 MG UT UD PRN for Chest Pain Prednisone Tab (Prednisone), 10 MG PO UD PRN for COPD rescue kit Allergies Coded Allergies: Penicillins (Verified Allergy, Intermediate, HIVES, 01/05/18) LIKELY TOLERATES CEFEPIME, IMIPENEM (SEE ADMISSION 08/13/15) Physical Exam Vital Signs Date Time Temp Pulse Resp B/P (MAP) Pulse Ox O2 Delivery O2 Flow Rate FiO2 02/23/18 01:01 91/68 02/23/18 00:56 95 BiPAP 28 02/23/18 00:40 90 30 93 02/23/18 00:35 90 14 97 Nasal Cannula 2.5 02/23/18 00:30 86 22 99 Nasal Cannula 2.5 02/23/18 00:00 94 20 89 Nasal Cannula 2.5 02/22/18 23:31 116/88 02/22/18 23:30 93 20 92 BiPAP 02/22/18 23:24 117/85 02/22/18 23:16 28 02/22/18 23:14 85 100 35 02/22/18 22:36 80 18 118/68 100 Nasal Cannula 2.5 02/22/18 21:26 73 02/22/18 21:26 100 Nasal Cannula 2.5 02/22/18 21:23 100 Nasal Cannula 2.5 02/22/18 21:19 111/47 02/22/18 21:12 36.5 65 22 131/118 100 Nasal Cannula 3.0 Physical Exam GENERAL: Awake, alert, ill and cachetic-appearing, in no distress HENT: Normocephalic, atraumatic. Oropharynx unremarkable. Dry cracked MM. EYES: Normal conjunctiva. Sclera non-icteric. NECK: Supple. No nuchal rigidity. FROM. No JVD. RESPIRATORY: Clear to auscultation. CARDIAC: Regular rate, normal rhythm. Extremities warm and well perfused. Pulses equal. ABDOMEN: Lower abdominal ostomy site, clean, dry and intact. Soft, non- distended. No tenderness to palpation. No rebound or guarding. No masses. RECTAL: Deferred. MUSCULOSKELETAL: Chest examination reveals no tenderness. The back is symmetrical on inspection without obvious abnormality. There is no CVA tenderness to palpation. No joint edema. LOWER EXTREMITIES: Calves are equal size bilaterally and non-tender. No edema. No discoloration. NEURO: Normal sensorium. No sensory or motor deficits noted. SKIN: No rash or jaundice noted. Medical Decision & Procedures ER Provider Diagnostic Interpretation: Radiology results as stated below per my review and radiologist interpretation: CHEST ONE VIEW PORTABLE FINDINGS: Cardiac silhouette is within normal limits in size. Patient is slightly rotated to the right. No pneumothorax. Advanced emphysema with hyperinflation and chronic interstitial coarsening. Small bilateral pleural effusions with bibasilar and right perihilar opacities. No overt pulmonary edema. Degenerative changes of the shoulders and spine. IMPRESSION: 1. Small bilateral pleural effusions with right perihilar and bibasilar opacities suspicious for pneumonia. 2. Advanced emphysema with chronic interstitial coarsening. The above report was generated using voice recognition software. It may contain grammatical, syntax or spelling errors. Electronically signed by: Reid Odell M.D. HEAD WITHOUT CONTRAST (CT) FINDINGS: Motion degraded exam. No acute intracranial hemorrhage, midline shift, intracranial mass, hydrocephalus, territorial ischemia or abnormal extra-axial collection. Mild low-attenuation within the periventricular white matter is unchanged suggesting chronic microvascular ischemic changes. Low attenuation within the occipital lobes appears to be artifactual. The calvarium is intact. Mastoid air cells are clear. Mild mucosal thickening of the ethmoid air cells. Orbits are symmetric. IMPRESSION: Motion degraded exam without acute intracranial abnormality. The above report was generated using voice recognition software. It may contain grammatical, syntax or spelling errors. Electronically signed by: Reid Odell M.D. Laboratory Results Test 02/22/18 21:33 02/22/18 21:48 02/22/18 22:40 02/22/18 23:03 Influenza Type A (RT-PCR) Neg for Influ A (NEG) Influenza Type B (RT-PCR) Neg for Influ B (NEG) Prothrombin Time 10.0 SECONDS (9.0-12.0) Prothromb Time International Ratio 1.0 (0.9-1.1) Venous Blood pH 7.17 (7.36-7.41) Venous Blood Partial Pressure CO2 163 mmHg (38.0-50.0) Venous Blood Partial Pressure O2 31 mmHg Venous Blood HCO3 58 mmol/L Venous Blood Oxygen Saturation < 60.0 % Venous Blood Base Excess 23.1 mEq/L Lactic Acid Level 0.6 mmol/L (0.4-2.0) Phosphorus Level 3.9 mg/dl (2.5-4.9) Total Bilirubin 0.3 mg/dl (0.2-1) Alanine Aminotransferase (ALT/SGPT) 18 U/L (12-78) Alkaline Phosphatase 70 U/L (45-117) Troponin I < 0.015 ng/ml (0-0.045) Pro-B-Type Natriuretic Peptide 193 pg/ml (0-900) Total Protein 7.2 gm/dl (6.4-8.2) Albumin 2.8 gm/dl (3.4-5.0) Lipase 232 U/L (73-393) Urine Color YELLOW Urine Appearance CLEAR (CLEAR) Urine pH 5.5 (4.5-7.5) Urine Specific [place] 1.021 (1.000-1.030) Urine Protein TRACE (NEG) Urine Glucose (UA) NEG (NEG) Urine Ketones NEG (NEG) Urine Occult Blood 3+ (NEG) Urine Nitrite NEG (NEG) Urine Bilirubin NEG (NEG) Urine Urobilinogen NEG (NEG) Urine Leukocyte Esterase NEG (NEG) Urine WBC (Auto) 1-5 /hpf (0-5) Urine RBC (Auto) >30 /hpf (0-4) Urine Hyaline Casts (Auto) 1-5 /lpf (0-5) Urine Epithelial Cells (Auto) >30 /lpf (0-5) Urine Bacteria (Auto) NEG (NEG) Magnesium Level 1.8 mg/dl (1.8-2.4) Direct Bilirubin 0.1 mg/dl (0-0.2) Aspartate Amino Transf (AST/SGOT) 17 U/L (15-37) Thyroid Stimulating Hormone (TSH) 0.863 uIu/ml (0.300-4.500) Test 02/22/18 23:44 02/23/18 00:20 Arterial Blood pH 7.34 (7.35-7.45) Arterial Blood Partial Pressure CO2 91 mmHg (35-46) Arterial Blood Partial Pressure O2 44 mm/Hg (80-95) Arterial Blood HCO3 48 mmol/L (19-24) Arterial Blood Oxygen Saturation 81.1 % (90-95) Arterial Blood Base Excess 18.7 mEq/L (-9-1.8) Arterial Blood Gas Delivery 2.5 L Tristan Test POS (POS) Procalcitonin < 0.05 ng/ml (0-0.5) Laboratory results reviewed by me Medications Administered Medications (Trade) Dose Ordered Sig/José Miguel Route Start Time Stop Time Status Last Admin Dose Admin Albuterol/ Ipratropium (Duoneb) 12 ml ONE ONCE INH 02/22/18 21:30 02/22/18 21:40 DC 02/22/18 21:28 12 ML Methylprednisolone Sodium Succinate (Solu-Medrol IV) 125 mg NOW STAT IV 02/22/18 21:19 02/22/18 21:23 DC 02/22/18 21:44 125 MG Vancomycin HCl (Vancomycin 1gm Ed/Asu Omnicell) 1 gm NOW STAT IV 02/22/18 21:56 02/22/18 21:59 DC 02/22/18 22:35 1 GM Cefepime HCl 1000 mg/Dextrose 111 ml @ 200 mls/hr NOW STAT IV 02/22/18 21:56 02/22/18 22:29 DC 02/22/18 22:35 200 MLS/HR Azithromycin 500 mg/Dextrose 255 ml @ 125 mls/hr ONE STAT IV 02/22/18 21:56 02/22/18 23:58 DC 02/22/18 22:34 125 MLS/HR Sodium Chloride 1,000 ml @ 999 mls/hr Q1H1M STAT IV 02/22/18 22:47 02/22/18 23:47 DC 02/22/18 23:08 999 MLS/HR ECG Per My Interpretation Indication: altered mental status Rate (beats per minute): 65 Rhythm: normal sinus Findings: no acute ischemic change, other (normal axis) ED Course 2114: The patient was evaluated in room A11B. A complete history and physical exam was performed. 2210: On reassessment, the patient is resting. 2224: I discussed the patient with Dr. Ayala - He will evaluate the patient for further treatment. Medical Decision I reviewed the patient's past medical history, medications, and the nursing notes as described above. Differential diagnosis: Etiologies such as viral syndrome, otitis, pharyngitis, pneumonia, influenza, meningitis, urinary tract infection, sepsis, bacteremia, as well as others were entertained. The patient is a 67-year-old woman with a past medical history of COPD on 3L recent admission last month for pneumonia who presents emergency department with worsening mental status and shortness of breath per hpi. On arrival the patient is fatigued and ill-appearing but no acute distress, afebrile, with stable vital signs. EKG unremarkable. Labs notable for significant hypercapnia with CO2 160s and pH of 7.1. Patient was treated with continuous neb, Solu-Medrol and given significant hypercapnia placed on BiPAP. Chest x- ray concerning for pneumonia and thus covered with broad-spectrum antibiotics including azithromycin for atypical coverage. Case discussed with Dr. García, [place] hospitalist, who will admit the patient for further management. Medication Reconcilliation Current Medication List: was personally reviewed by me Blood Pressure Screening Patient's blood pressure: Normal blood pressure Consults Time Called: 2220 Consulting Physician: Dr. Ayala Returned Call: 2224 I discussed the patient with Dr. Ayala - He will evaluate the patient for further treatment. Impression Primary Impression: Acute on chronic respiratory failure with hypoxia and hypercapnia Additional Impressions: Pneumonia Sepsis Critical Care I have personally spent greater than 45 minutes of critical care time in the direct management of this patient. This includes bedside care, interpretation of diagnostic studies, and testing, discussion with consultants, patient, and family members, and other required patient management activities. This 45 minutes is in excess of all separately billable procedures. Scribe Attestation The scribe's documentation has been prepared under my direction and personally reviewed by me in its entirety. I confirm that the note above accurately reflects all work, treatment, procedures, and medical decision making performed by me. Departure Information Dispostion Being Evaluated By Hospitalist Referrals Matheus Kirk M.D. (PCP) Patient Instructions My [facility] Problem Qualifiers
[2018-02-22] MEDS ORDERED: ALBUT/IPRATROP 3MG/0.5MG NEB 3 ML VIAL INH ONE (21:30)
--- NOTE | 2018-02-22 21:38 | DIAGNOSTIC IMAGING REPORT ---
CHEST ONE VIEW PORTABLE HISTORY: 67 years-old Female Evaluate Fever/Sepsis acute fever and sepsis COMPARISON: Chest radiograph 01/05/2018, chest CT 01/06/2018 TECHNIQUE: Portable AP view of the chest FINDINGS: Cardiac silhouette is within normal limits in size. Patient is slightly rotated to the right. No pneumothorax. Advanced emphysema with hyperinflation and chronic interstitial coarsening. Small bilateral pleural effusions with bibasilar and right perihilar opacities. No overt pulmonary edema. Degenerative changes of the shoulders and spine. IMPRESSION: 1. Small bilateral pleural effusions with right perihilar and bibasilar opacities suspicious for pneumonia. 2. Advanced emphysema with chronic interstitial coarsening. The above report was generated using voice recognition software. It may contain grammatical, syntax or spelling errors. Electronically signed by: Reid Odell M.D. 02/22/2018 9:37 PM Dictated Date/Time: 02/22/2018 9:35 PM
[2018-02-22] MEDS ORDERED: AZITHROMYCIN IV 500 MG in DEXTROSE 5% 250ML 250 ML IV STA (21:56)
[2018-02-22] MEDS ORDERED: VANCOMYCIN 1GM ED/ASU OMNICELL IV STA (21:56)
[2018-02-22] MEDS ORDERED: CEFEPIME IV 1,000 MG in DEXTROSE 5% 100ML 100 ML IV STA (21:56)
[2018-02-22 22:40] LABS: ALBUMIN 2.8 gm/dl (3.4-5.0); ALKALINE PHOSPHATASE 70 U/L (45-117); ALT/SGPT 18 U/L (12-78); BLOOD UREA NITROGEN 18 mg/dl (7-18); CALCIUM 9.6 mg/dl (8.5-10.1); CREATININE 0.32 mg/dl (0.60-1.20); GLUCOSE 83 mg/dl (70-99); LIPASE 232 U/L (73-393); PHOSPHORUS 3.9 mg/dl (2.5-4.9); SODIUM 139 mmol/L (136-145); TOTAL PROTEIN 7.2 gm/dl (6.4-8.2)
[2018-02-22] MEDS ORDERED: SODIUM CHLORIDE 0.9% 1000ML 1,000 ML IV STA (22:47)
[2018-02-22] MEDS ORDERED: RMR15 PO (22:47)
[2018-02-22] MEDS ORDERED: NUTR-977 PO (22:47)
[2018-02-22] MEDS ORDERED: LEVA1.258 NEB (22:47)
[2018-02-22] MEDS ORDERED: IPRASOL4 INH (22:47)
[2018-02-22 22:50] LABS: CARBON DIOXIDE 24 mmol/L (21-32)
[2018-02-22 22:58] LABS: INFLUENZA A PCR Neg for Influ A (NEG); INFLUENZA B PCR Neg for Influ B (NEG)
[2018-02-22 23:03] LABS: BASO % 0.1 %; BASO ABS # 0.01 K/uL (0-0.2); EOS % 0.7 %; EOS ABS # 0.06 K/uL (0-0.5); HEMATOCRIT 39.7 % (37-47); HEMOGLOBIN 11.6 g/dL (12.0-16.0); IG# 0.02 K/uL (0.00-0.02); LYMPH % 17.7 %; MEAN CELL VOLUME 105.9 fL (80-100); MEAN CORPUSCULAR HEMOGLOBIN 30.9 pg (25-34); MEAN CORPUSCULAR HGB CONC 29.2 g/dl (32-36); MEAN PLATELET VOLUME 11.8 fL (7.4-10.4); MONO ABS # 0.85 K/uL (0.11-0.59); NEUT % 71.3 %; NEUT ABS # 6.03 K/uL (1.4-6.5); PLATELET COUNT 142 K/uL (130-400); RED CELL DISTRIBUTION WIDTH CV 15.4 % (11.5-14.5); RED CELL DISTRIBUTION WIDTH SD 59.5 fL (36.4-46.3); WHITE BLOOD COUNT 8.47 K/uL (4.8-10.8)
--- NOTE | 2018-02-22 23:06 | DIAGNOSTIC IMAGING REPORT ---
HEAD WITHOUT CONTRAST (CT) CLINICAL HISTORY: 67 years-old Female with Altered mental status. Acutely altered mental status TECHNIQUE: Multiple axial CT images of the head were obtained without contrast. A dose lowering technique was utilized adhering to the principles of ALARA. CT DOSE: 1683.09 mGy.cm COMPARISON: CT head 09/17/2017. FINDINGS: Motion degraded exam. No acute intracranial hemorrhage, midline shift, intracranial mass, hydrocephalus, territorial ischemia or abnormal extra-axial collection. Mild low-attenuation within the periventricular white matter is unchanged suggesting chronic microvascular ischemic changes. Low attenuation within the occipital lobes appears to be artifactual. The calvarium is intact. Mastoid air cells are clear. Mild mucosal thickening of the ethmoid air cells. Orbits are symmetric. IMPRESSION: Motion degraded exam without acute intracranial abnormality. The above report was generated using voice recognition software. It may contain grammatical, syntax or spelling errors. Electronically signed by: Reid Odell M.D. 02/22/2018 11:04 PM Dictated Date/Time: 02/22/2018 10:59 PM
[2018-02-22 23:14] VITALS: PULSE 85; O2SAT 100
[2018-02-22 23:23] LABS: POTASSIUM 4.4 mmol/L (3.5-5.1)
[2018-02-23] VITALS (10 sets, daily range): BP systolic 110–150; BP diastolic 68–82; PULSE 74–105; TEMP 36.3–36.6; O2SAT 94–98; Ht 157.5 cm; Wt 40.1 kg
[2018-02-23] MEDS ORDERED: HALOPERIDOL 1 MG TAB PO PRN (01:30)
[2018-02-23] MEDS ORDERED: ENOXAPARIN 40 MG/0.4 ML SYR SQ SCH (01:30)
[2018-02-23] MEDS ORDERED: TRAMADOL HCL 50 MG TAB PO PRN (01:30)
[2018-02-23] MEDS ORDERED: PROCHLORPERAZINE INJ 5 MG in SYRINGE 4 ML IV PRN (01:30)
[2018-02-23] MEDS ORDERED: LEVALBUTEROL/IPRATROPIUM NEB INH PRN (01:30)
[2018-02-23] MEDS ORDERED: CEFTRIAXONE SOD INJ 1 GM in DEXTROSE 5% ADD-VANTAGE 50ML 50 ML IV SCH (01:30)
[2018-02-23] MEDS ORDERED: ACETAMINOPHEN 325 MG TAB PO PRN (01:30)
[2018-02-23] MEDS ORDERED: HALOPERIDOL LACTATE 5 MG/ML 1 ML VIAL IM PRN (01:30)
[2018-02-23] MEDS ORDERED: DOXYCYCLINE IV 100 MG in DEXTROSE 5% 100ML 100 ML IV STA (01:32)
[2018-02-23] MEDS ORDERED: LEVALBUTEROL 1.25MG/0.5ML NEB INH PRN (01:45)
[2018-02-23] MEDS ORDERED: IPRATROPIUM BROMIDE NEB SOLN 0.02% 2.5 ML VIAL INH PRN (01:45)
[2018-02-23] MEDS ORDERED: LACTOBACILLUS ACIDOPHILUS (FLORANEX) TAB PO ONE (02:09)
[2018-02-23] MEDS ORDERED: CLINDAMYCIN IV 600 MG in DEXTROSE 5% 50ML 50 ML IV ONE (02:15)
[2018-02-23] MEDS: IPRATROPIUM BROMIDE NEB SOLN 0.02% 2.5 ML VIAL INH SCH ×4 (03:00→19:31)
[2018-02-23] MEDS: LEVALBUTEROL 1.25MG/0.5ML NEB INH SCH ×4 (03:00→19:31)
[2018-02-23] MEDS ORDERED: SODIUM CHLORIDE 0.9% 1000ML 1,000 ML IV ONE (03:00)
[2018-02-23] MEDS ORDERED: LEVALBUTEROL/IPRATROPIUM NEB INH SCH (03:00)
[2018-02-23] MEDS ORDERED: MAGNESIUM SULFATE 1GM / D5W 100 ML IV STA (03:18)
--- NOTE | 2018-02-23 05:14 | HISTORY & PHYSICAL EXAMINATION ---
DATE OF ADMISSION: 02/23/2018 PRIMARY CARE DOCTOR: Matheus Kirk MD CHIEF COMPLAINT: I don't know. Altered mental status per records. HISTORY OF PRESENT ILLNESS: History obtained from patient, , and records. Patient is a poor historian secondary to chronic disorientation. Medical history is significant for chronic respiratory failure secondary to COPD, on home O2, BiPAP intolerance, ongoing tobacco abuse, chronic anemia, baseline hemoglobin 11, chronic diastolic heart HF EF 60%, CAD status post stenting, mood disorder, ischemic colitis status post surgery, history of MRSA as per records. Recent confinement last December 2017 for R pneumonia, COPD exacerbation. As per patient's , patient has worsening lethargy, weakness in the yesterday morning, refusing to eat and drink. Patient is losing weight as per as per outpatient notes. Patient brought to the Emergency Room. VBG, pH 7.17, pCO2 163. Chest x-ray showed bilateral pleural effusion, COPD, right perihilar bibasilar opacities, pneumonia. BiPAP started. Patient received Solu-Medrol, DuoNebs, cefepime, azithromycin, and vancomycin. Patient noted to be more awake and agitated. Refusing to wear BiPAP. MEDICAL HISTORY: As above. 2D echo from October of 2016 showed EF of 55% to 60%, aortic valve sclerosis, trace MR, TR, evidence of pulmonary hypertension Inpatient swallow eval in February 2016 deemed patient high risk for aspiration. Mechanical soft diet, aspiration precautions recommended. Surgeries as follows : She has had bowel surgery, tonsillectomy, tracheostomy. HOME MEDICATIONS: Include mirtazapine, multivitamins, Nitrostat, Prilosec, prednisone, Spiriva, venlafaxine, Brovana, aspirin, Lipitor, vitamin C, Pulmicort, Coreg, vitamin D3, Caltrate, Ensure, Combivent, DuoNebs, albuterol. ALLERGIES: PENICILLIN. FAMILY HISTORY: could not be obtained. PERSONAL AND SOCIAL HISTORY: half packs daily. No chronic intake of alcoholic beverages. Lives with . REVIEW OF SYSTEMS: Could not be reliably obtained. PHYSICAL EXAMINATION: VITAL SIGNS: Blood pressure noted to be 111/47, pulse rate 65, respiratory rate 22, temperature 36.5, sats 94 on 2 liters. GENERAL: Noted to be hyposthenic, chronically ill, minimal respiratory distress. Disoriented. SKIN: Pallor, warm. HEENT: Pale palpebral conjunctivae. No ptosis. Dry mucosa. Nasal cannula in place NECK: Supple, nontender. CHEST: Decreased breath sounds. No wheezes. HEART: RRR, systolic murmur. ABDOMEN: Ostomy noted. No tenderness. EXTREMITIES: No edema. No bruising noted. No tenderness. NEUROLOGIC: Coherent, but disoriented. No facial asymmetry. Gait and stance not assessed. LABORATORY DATA: Hemoglobin was noted to be 11.6, hematocrit 39.7, white cells 8.47, platelets 142. Sodium noted to 139, potassium 4.4, chloride 88, CO2 of 24, BUN 18, creatinine 0.32, glucose noted to be 83. VBG, pH 7.17, pCO2 of 163. Chest x-ray as above. CT head, no acute pathology. ASSESSMENT: 1. [id number] hypoxemic, hypercapnic respiratory failure secondary to chronic obstructive pulmonary disease exacerbation secondary to recurrent right-sided pneumonia possible aspiration (patient deemed aspiration risk as of 2015 swallow evaluation) History of BiPAP intolerance/noncompliance no sepsis. 2. Encephalopathy secondary to respiratory acidosis secondary to above Improved after BiPAP intervention at the ER 3. chronic disorientation. Possible dementia, no previous diagnosis 4. Chronic diastolic heart failure, patient euvolemic 5. CAD status post stenting 6. ongoing tobacco abuse 7. ischemic bowel status post surgery, 8. malnutrition (low BMI) 9. chronic anemia, hemoglobin at baseline. 10. History of MRSA. PLAN: GMF supplemental O2. BiPAP if patient cooperates. Follow up ABG. Clindamycin for now for aspiration pneumonia. Prednisone course, nebs RTC, prn Follow-up swallow eval. Nicotine patch. Pulmonary consult for respiratory failure. Nutrition consult, low BMI PT, OT eval. DNR as per , Mr. Christoph Ventura (He requests updates from providers at [phone].) Patient's was earlier updated on situation where the patient refuses to wear BiPAP. He understands that patient condition can deteriorate w/ her refusal to wear BiPAP. [facility]
[2018-02-23 06:38] LABS: HEMATOCRIT 36.6 % (37-47); HEMOGLOBIN 10.4 g/dL (12.0-16.0); IG# 0.01 K/uL (0.00-0.02); LYMPH % 5.7 %; LYMPH ABS # 0.44 K/uL (1.2-3.4); MEAN CELL VOLUME 106.1 fL (80-100); MEAN CORPUSCULAR HEMOGLOBIN 30.1 pg (25-34); MEAN CORPUSCULAR HGB CONC 28.4 g/dl (32-36); MEAN PLATELET VOLUME 11.1 fL (7.4-10.4); MONO % 1.3 %; NEUT % 92.9 %; NEUT ABS # 7.22 K/uL (1.4-6.5); PLATELET COUNT 133 K/uL (130-400); RED CELL DISTRIBUTION WIDTH CV 15.2 % (11.5-14.5); RED CELL DISTRIBUTION WIDTH SD 58.8 fL (36.4-46.3); WHITE BLOOD COUNT 7.77 K/uL (4.8-10.8)
[2018-02-23] MEDS ORDERED: HEPARIN SOD 5000 UNIT/0.5 ML CARP SQ STA (06:48)
[2018-02-23 06:55] LABS: CALCIUM 8.7 mg/dl (8.5-10.1); CREATININE 0.42 mg/dl (0.60-1.20); POTASSIUM 4.7 mmol/L (3.5-5.1)
[2018-02-23] MEDS: BUDESONIDE 0.5 MG/2 ML VIAL (PULMICORT) INH SCH ×2 (06:58→19:31)
[2018-02-23] MEDS ORDERED: NICOTINE 14 MG/24 HR TDSY TD SCH (08:00)
[2018-02-23] MEDS ORDERED: CLINDAMYCIN CONSULT ACTIVE PRN (08:00)
[2018-02-23] MEDS ORDERED: HEPARIN SOD 5000 UNIT/0.5 ML CARP SQ SCH (08:00)
[2018-02-23] MEDS: MULTIVITAMIN TAB PO SCH (08:00)
[2018-02-23] MEDS: VENLAFAXINE HCL XR 150 MG CAPXR PO SCH (08:25)
[2018-02-23] MEDS: NICOTINE 14 MG/24 HR TDSY TD SCH (08:25)
[2018-02-23] MEDS: ASPIRIN 81 MG ECTAB PO SCH (08:26)
[2018-02-23] MEDS: CARVEDILOL 12.5 MG TAB PO SCH ×2 (08:26→20:38)
[2018-02-23] MEDS: ATORVASTATIN 40 MG TAB PO SCH (08:27)
[2018-02-23] MEDS: BOOST PLUS VANILLA PO SCH ×2 (08:28→13:29)
[2018-02-23] MEDS: CLINDAMYCIN HCL 150 MG CAP PO SCH ×2 (13:27→20:33)
[2018-02-23] MEDS: LACTOBACILLUS ACIDOPHILUS (FLORANEX) TAB PO SCH ×2 (13:27→17:07)
[2018-02-23] MEDS: HEPARIN SOD 5000 UNIT/0.5 ML CARP SQ SCH ×2 (13:28→20:40)
[2018-02-23] MEDS: METHYLPREDNISOLONE IV 40 MG in SYRINGE 0 ML IV SCH (16:09)
[2018-02-23] MEDS: BOOST VANILLA PO SCH (20:32)
[2018-02-23] MEDS: PANTOprazole SOD 40 MG TAB PO SCH (20:34)
[2018-02-23] MEDS: MIRTAZAPINE TAB 15 MG TAB PO SCH (20:35)
[2018-02-23] MEDS ORDERED: DOXYCYCLINE HYCLATE 100 MG CAP PO SCH (21:00)
[2018-02-24] VITALS (9 sets, daily range): BP systolic 116–166; BP diastolic 70–86; PULSE 75–106; TEMP 36.8–37; O2SAT 94–98
[2018-02-24] MEDS: METHYLPREDNISOLONE IV 40 MG in SYRINGE 0 ML IV SCH ×4 (00:51→23:43)
[2018-02-24] MEDS: IPRATROPIUM BROMIDE NEB SOLN 0.02% 2.5 ML VIAL INH SCH ×4 (02:52→19:15)
[2018-02-24] MEDS: LEVALBUTEROL 1.25MG/0.5ML NEB INH SCH ×4 (02:52→19:15)
[2018-02-24] MEDS: CLINDAMYCIN HCL 150 MG CAP PO SCH ×3 (06:10→20:45)
[2018-02-24] MEDS: HEPARIN SOD 5000 UNIT/0.5 ML CARP SQ SCH ×3 (06:12→20:48)
[2018-02-24] MEDS: BUDESONIDE 0.5 MG/2 ML VIAL (PULMICORT) INH SCH ×2 (07:08→19:43)
[2018-02-24] MEDS: ATORVASTATIN 40 MG TAB PO SCH (08:10)
[2018-02-24] MEDS: VENLAFAXINE HCL XR 150 MG CAPXR PO SCH (08:10)
[2018-02-24] MEDS: MULTIVITAMIN TAB PO SCH (08:10)
[2018-02-24] MEDS: NICOTINE 14 MG/24 HR TDSY TD SCH (08:10)
[2018-02-24] MEDS: BOOST VANILLA PO SCH ×3 (08:11→19:16)
[2018-02-24] MEDS: CARVEDILOL 12.5 MG TAB PO SCH ×2 (08:11→20:44)
[2018-02-24] MEDS: ASPIRIN 81 MG ECTAB PO SCH (08:11)
[2018-02-24] MEDS: LACTOBACILLUS ACIDOPHILUS (FLORANEX) TAB PO SCH ×3 (08:12→16:58)
[2018-02-24 11:01] LABS: HEMATOCRIT 35.1 % (37-47); HEMOGLOBIN 10.6 g/dL (12.0-16.0); IG# 0.07 K/uL (0.00-0.02); LYMPH % 2.9 %; LYMPH ABS # 0.59 K/uL (1.2-3.4); MEAN CELL VOLUME 99.7 fL (80-100); MEAN CORPUSCULAR HEMOGLOBIN 30.1 pg (25-34); MEAN CORPUSCULAR HGB CONC 30.2 g/dl (32-36); MEAN PLATELET VOLUME 10.4 fL (7.4-10.4); MONO % 5.6 %; MONO ABS # 1.12 K/uL (0.11-0.59); NEUT % 91.2 %; NEUT ABS # 18.27 K/uL (1.4-6.5); PLATELET COUNT 141 K/uL (130-400); RED CELL DISTRIBUTION WIDTH CV 16.1 % (11.5-14.5); RED CELL DISTRIBUTION WIDTH SD 58.2 fL (36.4-46.3); WHITE BLOOD COUNT 20.05 K/uL (4.8-10.8)
[2018-02-24 11:02] LABS: CALCIUM 8.3 mg/dl (8.5-10.1); CREATININE 0.46 mg/dl (0.60-1.20); POTASSIUM 4.1 mmol/L (3.5-5.1)
--- NOTE | 2018-02-24 11:33 | Pulmonology Progress Note ---
Pulmonary Progress Note Date of Service February 24, 2018. Attending Dr. Cerda Subjective Patient notably still fatigue as well as having dyspnea with exertion and intermittently at rest Objective Patient is mildly confused but is it oriented to person place at this time and she notes dyspnea with exertion and intermittently at rest: She currently denies productive sputum hemoptysis fevers or chills Vital signs: Stable on 2 liters nasal cannula Respiratory: Decreased breath sounds globally Cardiac: S1-S2 regular rate and rhythm but distant heart sounds Abdomen: Positive bowel sounds soft nontender General: Cachectic female PMHx includes: oxygen dependant (baseline 2.5-3LPM) COPD/emphsyema (FEV1: 19%), CAD h/o anterior UT (1999 - cath w/ RCA stent), cardiomyopathy, DLD, depression , tobacco use (40-50pack year), GIB, ischemic bowel s/p colectomy 2015, paroxysmal atrial fibrillation, h/o respiratory failure requiring intubation and tracheostomy, h/o respiratory pseudomonas (BAL 01/2015, sputum: 07/2015, trach wash 08/2015, trach wash 10/2015: quinolone R, sputum 10/2015) and MRSA respiratory (blood/BAL: 08/2015, 10/2015, sputum 02/2016), She has been admitted in the past for acute on chronic hypoxic hypercarbic respiratory failure 12/2014 , 09/2015, 02/2016, 02/2017, 08/2017, 12/2017). Assessment & Plan 67-year-old female who admitted for acute on chronic respiratory failure with end-stage COPD: 1. End-stage COPD: Patient has an FEV1 of 19 % and has had recurrent hospitalization secondary to respiratory insufficiency with associated hypoxemia as well as history of being up time did and notable aspiration via previous swallow evaluations. At this time is highly likely the patient continues to have recurrent hypercapnic episodes and aspiration episodes as there is no signs on ultrasound of pleural effusions just consolidation in the lower lobes. Also of note the patient via the records is poorly compliant with her chronic pulmonary regimen is including BiPAP which has been stressed to on multiple occasions. This is a very ill woman who was in stage pulmonary disease and hospice consult is warranted in this patient. I will initiate her on oral prednisone starting 02/25/2018. Data Medications: Current Inpatient Medications Medications (Trade) Dose Ordered Sig/José Miguel Route Start Time Stop Time Status Last Admin Dose Admin Haloperidol (Haldol Tab) 2 mg Q4H PRN PO 02/23/18 01:30 03/25/18 01:29 Haloperidol Lactate (Haldol Inj) 2 mg Q2H PRN IM 02/23/18 01:30 03/25/18 01:29 Acetaminophen (Tylenol Tab) 650 mg Q4H PRN PO 02/23/18 01:30 03/25/18 01:29 02/23/18 17:06 650 MG Tramadol HCl (Ultram Tab) 25 mg Q6H PRN PO 02/23/18 01:30 03/25/18 01:29 Prochlorperazine Edisylate 5 mg/ Syringe 5 ml @ 5 mls/min Q6H PRN IV 02/23/18 01:30 03/25/18 01:29 Aspirin (Ecotrin Tab) 81 mg QAM PO 02/23/18 08:00 03/25/18 08:59 02/24/18 08:11 81 MG Budesonide (Pulmicort Respules 0.5MG/ 2ML Neb Soln) 1 mg BIDR INH 02/23/18 08:00 03/25/18 07:59 02/24/18 07:08 1 MG Carvedilol (Coreg Tab) 12.5 mg BID PO 02/23/18 08:00 03/25/18 08:59 02/24/18 08:11 12.5 MG Mirtazapine (Remeron Tab) 15 mg HS PO 02/23/18 21:00 03/25/18 20:59 02/23/18 20:35 15 MG Multivitamins (Multivitamin Tab) 1 tab DAILY PO 02/23/18 08:00 03/25/18 08:59 02/24/18 08:10 1 TAB Venlafaxine HCl (effeXOR EXTENDED REL CAP) 150 mg DAILY PO 02/23/18 08:00 03/25/18 08:59 02/24/18 08:10 150 MG Pantoprazole Sodium (Protonix Tab) 40 mg HS PO 02/23/18 21:00 03/25/18 20:59 02/23/18 20:34 40 MG Nicotine (Nicoderm Cq 14MG Patch) 1 patch QAM TD 02/23/18 08:00 03/25/18 08:59 02/24/18 08:10 1 PATCH Miscellaneous (Remove Nicoderm Patch) 1 ea HS N/A 02/23/18 21:00 03/25/18 20:59 02/23/18 20:37 1 EA Atorvastatin Calcium (Lipitor Tab) 40 mg DAILY PO 02/23/18 08:00 03/25/18 08:59 02/24/18 08:10 40 MG Ipratropium [place] (Atrovent 0.02% 0.5MG/2.5ML Neb) 0.5 mg Q6R INH 02/23/18 03:00 03/25/18 02:59 02/24/18 07:07 0.5 MG Levalbuterol (Xopenex 1.25MG/ 0.5ML Neb) 1.25 mg Q6R INH 02/23/18 03:00 03/25/18 02:59 02/24/18 07:07 1.25 MG Ipratropium [place] (Atrovent 0.02% 0.5MG/2.5ML Neb) 0.5 mg Q4H PRN INH 02/23/18 01:45 03/25/18 01:44 Levalbuterol (Xopenex 1.25MG/ 0.5ML Neb) 1.25 mg Q4H PRN INH 02/23/18 01:45 03/25/18 01:44 Clindamycin Phosphate (Consult) 1 ea DAILY PRN N/A 02/23/18 08:00 03/25/18 08:59 Lactobacillus Acidophilus (Floranex Tab) 4 tab TIDM PO 02/23/18 14:00 03/25/18 13:59 02/24/18 08:12 4 TAB Clindamycin HCl (Cleocin Cap) 600 mg Q8H PO 02/23/18 14:00 03/02/18 13:59 02/24/18 06:10 600 MG Heparin Sodium (Porcine) (Heparin Sq 5000 Unit/0.5ml) 5,000 unit Q8 SQ 02/23/18 14:00 03/25/18 13:59 02/24/18 06:12 5,000 UNIT Methylprednisolone Sodium Succinate 40 mg/Syringe 0.64 ml @ 1.5 mls/min Q8H IV 02/23/18 16:00 03/25/18 15:59 02/24/18 08:12 1.5 MLS/MIN Enteral Nutritional Formula (Boost) 1 can TID PO 02/23/18 20:00 03/25/18 19:59 02/24/18 08:11 1 CAN Vital Signs: Date Time Temp Pulse Resp B/P (MAP) Pulse Ox O2 Delivery O2 Flow Rate FiO2 02/24/18 08:09 93 154/86 (108) 02/24/18 08:00 Nasal Cannula 2.0 02/24/18 07:10 36.8 95 17 166/84 (111) 96 Nasal Cannula 2.0 02/24/18 07:08 94 16 96 Nasal Cannula 2.0 02/24/18 00:00 Nasal Cannula 2.0 02/23/18 23:12 36.3 97 18 146/76 (99) 95 Nasal Cannula 2.0 02/23/18 22:01 77 98 2.0 02/23/18 20:36 100 147/82 (103) 02/23/18 19:31 95 16 95 Nasal Cannula 2.0 02/23/18 16:00 Nasal Cannula 2.0 02/23/18 15:50 36.4 96 24 150/73 (98) 97 Nasal Cannula 2.0 02/23/18 14:27 91 16 98 Nasal Cannula 3.0 Laboratory Results: Last 24 Hours Test 02/24/18 10:27 White Blood Count 20.05 K/uL Red Blood Count 3.52 M/uL Hemoglobin 10.6 g/dL Hematocrit 35.1 % Mean Corpuscular Volume 99.7 fL Mean Corpuscular Hemoglobin 30.1 pg Mean Corpuscular Hemoglobin Concent 30.2 g/dl Platelet Count 141 K/uL Mean Platelet Volume 10.4 fL Neutrophils (%) (Auto) 91.2 % Lymphocytes (%) (Auto) 2.9 % Monocytes (%) (Auto) 5.6 % Eosinophils (%) (Auto) 0.0 % Basophils (%) (Auto) 0.0 % Neutrophils # (Auto) 18.27 K/uL Lymphocytes # (Auto) 0.59 K/uL Monocytes # (Auto) 1.12 K/uL Eosinophils # (Auto) 0.00 K/uL Basophils # (Auto) 0.00 K/uL RDW Standard Deviation 58.2 fL RDW Coefficient of Variation 16.1 % Immature Granulocyte % (Auto) 0.3 % Immature Granulocyte # (Auto) 0.07 K/uL Sodium Level 135 mmol/L Potassium Level 4.1 mmol/L Chloride Level 90 mmol/L Carbon Dioxide Level 43 mmol/L Anion Gap 2.0 mmol/L Blood Urea Nitrogen 15 mg/dl Creatinine 0.46 mg/dl Est Creatinine Clear Calc Drug Dose 73.1 ml/min Estimated GFR () 117.6 Estimated GFR (Non- 101.5 BUN/Creatinine Ratio 32.0 Random Glucose 260 mg/dl Calcium Level 8.3 mg/dl
--- NOTE | 2018-02-24 17:04 | Progress Note ---
Subjective Date of Service: February 24, 2018. Subjective Pt evaluation today including: conversation w/ patient, physical exam, lab review, review of studies, review of inpatient medication list Saw/examined the patient in room 455 she is resting, wakes up to stimuli, states she has no complaints +thin, +cachectic one to one observation at bedside Problem List Medical Problems: (1) Acute on chronic respiratory failure with hypoxia and hypercapnia Status: Acute (2) Anemia Status: Acute (3) Closed head injury Status: Acute (4) Hip fracture, right Status: Acute (5) Hypercapnic respiratory failure Status: Acute (6) Nasal fracture Status: Acute (7) Pneumonia Status: Acute (8) Pneumonia Status: Acute (9) Sepsis Status: Acute (10) Skin tear Status: Acute (11) Skin tear of right elbow without complication Status: Acute (12) UTI (urinary tract infection) Status: Acute Medications Current Inpatient Medications Medications (Trade) Dose Ordered Sig/José Miguel Route Start Time Stop Time Status Last Admin Dose Admin Haloperidol (Haldol Tab) 2 mg Q4H PRN PO 02/23/18 01:30 03/25/18 01:29 Haloperidol Lactate (Haldol Inj) 2 mg Q2H PRN IM 02/23/18 01:30 03/25/18 01:29 Acetaminophen (Tylenol Tab) 650 mg Q4H PRN PO 02/23/18 01:30 03/25/18 01:29 02/23/18 17:06 650 MG Tramadol HCl (Ultram Tab) 25 mg Q6H PRN PO 02/23/18 01:30 03/25/18 01:29 Prochlorperazine Edisylate 5 mg/ Syringe 5 ml @ 5 mls/min Q6H PRN IV 02/23/18 01:30 03/25/18 01:29 Aspirin (Ecotrin Tab) 81 mg QAM PO 02/23/18 08:00 03/25/18 08:59 02/24/18 08:11 81 MG Budesonide (Pulmicort Respules 0.5MG/ 2ML Neb Soln) 1 mg BIDR INH 02/23/18 08:00 03/25/18 07:59 02/24/18 07:08 1 MG Carvedilol (Coreg Tab) 12.5 mg BID PO 02/23/18 08:00 03/25/18 08:59 5/8/18 08:11 12.5 MG Mirtazapine (Remeron Tab) 15 mg HS PO 02/23/18 21:00 03/25/18 20:59 02/23/18 20:35 15 MG Multivitamins (Multivitamin Tab) 1 tab DAILY PO 02/23/18 08:00 03/25/18 08:59 02/24/18 08:10 1 TAB Venlafaxine HCl (effeXOR EXTENDED REL CAP) 150 mg DAILY PO 02/23/18 08:00 03/25/18 08:59 02/24/18 08:10 150 MG Pantoprazole Sodium (Protonix Tab) 40 mg HS PO 02/23/18 21:00 03/25/18 20:59 02/23/18 20:34 40 MG Nicotine (Nicoderm Cq 14MG Patch) 1 patch QAM TD 02/23/18 08:00 03/25/18 08:59 02/24/18 08:10 1 PATCH Miscellaneous (Remove Nicoderm Patch) 1 ea HS N/A 02/23/18 21:00 03/25/18 20:59 02/23/18 20:37 1 EA Atorvastatin Calcium (Lipitor Tab) 40 mg DAILY PO 02/23/18 08:00 03/25/18 08:59 02/24/18 08:10 40 MG Ipratropium [place] (Atrovent 0.02% 0.5MG/2.5ML Neb) 0.5 mg Q6R INH 02/23/18 03:00 03/25/18 02:59 02/24/18 14:26 0.5 MG Levalbuterol (Xopenex 1.25MG/ 0.5ML Neb) 1.25 mg Q6R INH 02/23/18 03:00 03/25/18 02:59 02/24/18 14:26 1.25 MG Ipratropium [place] (Atrovent 0.02% 0.5MG/2.5ML Neb) 0.5 mg Q4H PRN INH 02/23/18 01:45 03/25/18 01:44 Levalbuterol (Xopenex 1.25MG/ 0.5ML Neb) 1.25 mg Q4H PRN INH 02/23/18 01:45 03/25/18 01:44 Clindamycin Phosphate (Consult) 1 ea DAILY PRN N/A 02/23/18 08:00 03/25/18 08:59 Lactobacillus Acidophilus (Floranex Tab) 4 tab TIDM PO 02/23/18 14:00 03/25/18 13:59 02/24/18 12:31 4 TAB Clindamycin HCl (Cleocin Cap) 600 mg Q8H PO 02/23/18 14:00 03/02/18 13:59 02/24/18 14:01 600 MG Heparin Sodium (Porcine) (Heparin Sq 5000 Unit/0.5ml) 5,000 unit Q8 SQ 02/23/18 14:00 03/25/18 13:59 02/24/18 14:03 5,000 UNIT Methylprednisolone Sodium Succinate 40 mg/Syringe 0.64 ml @ 1.5 mls/min Q8H IV 02/23/18 16:00 02/25/18 06:00 02/24/18 08:12 1.5 MLS/MIN Enteral Nutritional Formula (Boost) 1 can TID PO 02/23/18 20:00 03/25/18 19:59 02/24/18 14:03 1 CAN Prednisone (PredniSONE TAB) 40 mg DAILY PO 02/25/18 08:00 03/12/18 07:59 Objective Vital Signs Date Time Temp Pulse Resp B/P (MAP) Pulse Ox O2 Delivery O2 Flow Rate FiO2 02/24/18 15:04 36.8 89 20 119/73 (88) 98 Nasal Cannula 2.0 02/24/18 15:00 96 02/24/18 14:29 95 17 94 Nasal Cannula 2.0 02/24/18 08:09 93 154/86 (108) 02/24/18 08:00 Nasal Cannula 2.0 02/24/18 07:10 36.8 95 17 166/84 (111) 96 Nasal Cannula 2.0 02/24/18 07:08 94 16 96 Nasal Cannula 2.0 02/24/18 00:00 Nasal Cannula 2.0 02/23/18 23:12 36.3 97 18 146/76 (99) 95 Nasal Cannula 2.0 02/23/18 22:01 77 98 2.0 02/23/18 20:36 100 147/82 (103) 02/23/18 19:31 95 16 95 Nasal Cannula 2.0 Physical Exam General Appearance: + cachetic, + thin Respiratory/Chest: no respiratory distress, no accessory muscle use, + decreased breath sounds, + wheezing Cardiovascular: regular rate, rhythm Neurologic/Psychiatric: alert, + pertinent finding (+lethargic/somnolent) Laboratory Results Last 24 Hours Test 02/24/18 10:27 White Blood Count 20.05 K/uL Red Blood Count 3.52 M/uL Hemoglobin 10.6 g/dL Hematocrit 35.1 % Mean Corpuscular Volume 99.7 fL Mean Corpuscular Hemoglobin 30.1 pg Mean Corpuscular Hemoglobin Concent 30.2 g/dl Platelet Count 141 K/uL Mean Platelet Volume 10.4 fL Neutrophils (%) (Auto) 91.2 % Lymphocytes (%) (Auto) 2.9 % Monocytes (%) (Auto) 5.6 % Eosinophils (%) (Auto) 0.0 % Basophils (%) (Auto) 0.0 % Neutrophils # (Auto) 18.27 K/uL Lymphocytes # (Auto) 0.59 K/uL Monocytes # (Auto) 1.12 K/uL Eosinophils # (Auto) 0.00 K/uL Basophils # (Auto) 0.00 K/uL RDW Standard Deviation 58.2 fL RDW Coefficient of Variation 16.1 % Immature Granulocyte % (Auto) 0.3 % Immature Granulocyte # (Auto) 0.07 K/uL Sodium Level 135 mmol/L Potassium Level 4.1 mmol/L Chloride Level 90 mmol/L Carbon Dioxide Level 43 mmol/L Anion Gap 2.0 mmol/L Blood Urea Nitrogen 15 mg/dl Creatinine 0.46 mg/dl Est Creatinine Clear Calc Drug Dose 73.1 ml/min Estimated GFR () 117.6 Estimated GFR (Non- 101.5 BUN/Creatinine Ratio 32.0 Random Glucose 260 mg/dl Calcium Level 8.3 mg/dl Assessment and Plan This is a 67 year old female with a past medical history of severe, end stage COPD, chronic respiratory failure, anxiety/depression, CAD - presents with altered mental status Altered Mental Status Likely CO2 Narcosis - patient has severe COPD - CO2 Narcosis is likely the culprit for encephalopathy - does not use bipap, non-compliant - palliative care consulted due to the end-stage, severe nature of COPD Acute on Chronic Hypoxic, Hypercapnic Respiratory Failure Acute COPD Exacerbation/End-Stage COPD in the setting of R sided Pneumonia, likely Recurrent Aspiration - appreciate pulmonary input; patient with end stage COPD - currently on Solu-medrol, which we will continue - on chronic O2 - will need bipap, but is not compliant - nebs as needed - on Clindamycin for aspiration pneumonia - consulted palliative care due to severe, end stage nature of her disease CAD - continue aspirin, b-maycol, statin DVT ppx - subq heparin DNR/DNI
[2018-02-24] MEDS: MIRTAZAPINE TAB 15 MG TAB PO SCH (20:46)
[2018-02-24] MEDS: PANTOprazole SOD 40 MG TAB PO SCH (20:46)
[2018-02-25] VITALS (9 sets, daily range): BP systolic 116–165; BP diastolic 73–90; PULSE 78–95; TEMP 36.6; O2SAT 95–98
[2018-02-25] MEDS: IPRATROPIUM BROMIDE NEB SOLN 0.02% 2.5 ML VIAL INH SCH ×4 (01:41→19:03)
[2018-02-25] MEDS: LEVALBUTEROL 1.25MG/0.5ML NEB INH SCH ×4 (01:41→19:03)
[2018-02-25] MEDS: CLINDAMYCIN HCL 150 MG CAP PO SCH ×3 (05:52→20:16)
[2018-02-25] MEDS: HEPARIN SOD 5000 UNIT/0.5 ML CARP SQ SCH ×3 (05:53→20:23)
[2018-02-25] MEDS: BUDESONIDE 0.5 MG/2 ML VIAL (PULMICORT) INH SCH ×2 (07:02→19:03)
--- NOTE | 2018-02-25 07:49 | Pulmonology Progress Note ---
Pulmonary Progress Note Date of Service February 25, 2018. Attending Dr. Cerda Subjective Patient more difficult to arouse this morning but was orientated to person and place: She notes no change in her respiratory status and continues to be dyspneic at rest. She also continues to refuse BiPAP supplementation. 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 1. Prednisone 40mg #2 budesonide nebulized twice daily 3. Nicotine patch 14 4. Xopenex/ipratropium nebulizer #5 clindamycin Assessment & Plan 67-year-old female who admitted for acute on chronic respiratory failure with end-stage COPD: 1. End-stage COPD: Patient is end-stage COPD with an FEV1 of 19%. At this time she is more fatigued and I will order chest x-ray as well as ABG at this time. Patient is noncompliant with her medical regimen especially with the BiPAP machine as she finds this uncomfortable. I have tried to educate her on the importance of BiPAP and the decreased work of breathing but she still refuses at this time. #2 end-of-life care: I do believe this patient is an appropriate hospice candidate. Data Medications: Current Inpatient Medications Medications (Trade) Dose Ordered Sig/José Miguel Route Start Time Stop Time Status Last Admin Dose Admin Haloperidol (Haldol Tab) 2 mg Q4H PRN PO 02/23/18 01:30 03/25/18 01:29 Haloperidol Lactate (Haldol Inj) 2 mg Q2H PRN IM 02/23/18 01:30 03/25/18 01:29 Acetaminophen (Tylenol Tab) 650 mg Q4H PRN PO 02/23/18 01:30 03/25/18 01:29 02/23/18 17:06 650 MG Tramadol HCl (Ultram Tab) 25 mg Q6H PRN PO 02/23/18 01:30 03/25/18 01:29 Prochlorperazine Edisylate 5 mg/ Syringe 5 ml @ 5 mls/min Q6H PRN IV 02/23/18 01:30 03/25/18 01:29 Aspirin (Ecotrin Tab) 81 mg QAM PO 02/23/18 08:00 03/25/18 08:59 02/24/18 08:11 81 MG Budesonide (Pulmicort Respules 0.5MG/ 2ML Neb Soln) 1 mg BIDR INH 02/23/18 08:00 03/25/18 07:59 02/25/18 07:02 1 MG Carvedilol (Coreg Tab) 12.5 mg BID PO 02/23/18 08:00 03/25/18 08:59 02/24/18 20:44 12.5 MG Mirtazapine (Remeron Tab) 15 mg HS PO 02/23/18 21:00 03/25/18 20:59 02/24/18 20:46 15 MG Multivitamins (Multivitamin Tab) 1 tab DAILY PO 02/23/18 08:00 03/25/18 08:59 02/24/18 08:10 1 TAB Venlafaxine HCl (effeXOR EXTENDED REL CAP) 150 mg DAILY PO 02/23/18 08:00 03/25/18 08:59 02/24/18 08:10 150 MG Pantoprazole Sodium (Protonix Tab) 40 mg HS PO 02/23/18 21:00 03/25/18 20:59 02/24/18 20:46 40 MG Nicotine (Nicoderm Cq 14MG Patch) 1 patch QAM TD 02/23/18 08:00 6/6/18 08:59 02/24/18 08:10 1 PATCH Miscellaneous (Remove Nicoderm Patch) 1 ea HS N/A 02/23/18 21:00 03/25/18 20:59 02/24/18 20:48 1 EA Atorvastatin Calcium (Lipitor Tab) 40 mg DAILY PO 02/23/18 08:00 03/25/18 08:59 02/24/18 08:10 40 MG Ipratropium [place] (Atrovent 0.02% 0.5MG/2.5ML Neb) 0.5 mg Q6R INH 02/23/18 03:00 03/25/18 02:59 02/25/18 07:02 0.5 MG Levalbuterol (Xopenex 1.25MG/ 0.5ML Neb) 1.25 mg Q6R INH 02/23/18 03:00 03/25/18 02:59 02/25/18 07:02 1.25 MG Ipratropium [place] (Atrovent 0.02% 0.5MG/2.5ML Neb) 0.5 mg Q4H PRN INH 02/23/18 01:45 03/25/18 01:44 Levalbuterol (Xopenex 1.25MG/ 0.5ML Neb) 1.25 mg Q4H PRN INH 02/23/18 01:45 03/25/18 01:44 Clindamycin Phosphate (Consult) 1 ea DAILY PRN N/A 02/23/18 08:00 03/25/18 08:59 Lactobacillus Acidophilus (Floranex Tab) 4 tab TIDM PO 02/23/18 14:00 03/25/18 13:59 02/24/18 16:58 4 TAB Clindamycin HCl (Cleocin Cap) 600 mg Q8H PO 02/23/18 14:00 03/02/18 13:59 02/25/18 05:52 600 MG Heparin Sodium (Porcine) (Heparin Sq 5000 Unit/0.5ml) 5,000 unit Q8 SQ 02/23/18 14:00 03/25/18 13:59 02/25/18 05:53 5,000 UNIT Enteral Nutritional Formula (Boost) 1 can TID PO 02/23/18 20:00 03/25/18 19:59 02/24/18 19:16 1 CAN Prednisone (PredniSONE TAB) 40 mg DAILY PO 02/25/18 08:00 03/12/18 07:59 Vital Signs: Date Time Temp Pulse Resp B/P (MAP) Pulse Ox O2 Delivery O2 Flow Rate FiO2 02/25/18 07:36 36.6 88 16 165/90 (115) 98 2.0 02/25/18 07:02 78 16 98 Nasal Cannula 2.0 02/25/18 02:42 98 Nasal Cannula 2.0 02/25/18 01:41 81 16 98 Nasal Cannula 2.0 02/24/18 23:02 37.0 75 20 116/70 (85) 98 Nasal Cannula 2.0 02/24/18 19:15 106 16 96 Nasal Cannula 2.0 02/24/18 16:00 98 Nasal Cannula 2.0 28 02/24/18 15:04 36.8 89 20 119/73 (88) 98 Nasal Cannula 2.0 02/24/18 15:00 96 02/24/18 14:29 95 17 94 Nasal Cannula 2.0 02/24/18 08:09 93 154/86 (108) 02/24/18 08:00 Nasal Cannula 2.0 Laboratory Results: Last 24 Hours Test 02/24/18 10:27 02/25/18 04:44 02/25/18 07:42 White Blood Count 20.05 K/uL Red Blood Count 3.52 M/uL Hemoglobin 10.6 g/dL Hematocrit 35.1 % Mean Corpuscular Volume 99.7 fL Mean Corpuscular Hemoglobin 30.1 pg Mean Corpuscular Hemoglobin Concent 30.2 g/dl Platelet Count 141 K/uL Mean Platelet Volume 10.4 fL Neutrophils (%) (Auto) 91.2 % Lymphocytes (%) (Auto) 2.9 % Monocytes (%) (Auto) 5.6 % Eosinophils (%) (Auto) 0.0 % Basophils (%) (Auto) 0.0 % Neutrophils # (Auto) 18.27 K/uL Lymphocytes # (Auto) 0.59 K/uL Monocytes # (Auto) 1.12 K/uL Eosinophils # (Auto) 0.00 K/uL Basophils # (Auto) 0.00 K/uL RDW Standard Deviation 58.2 fL RDW Coefficient of Variation 16.1 % Immature Granulocyte % (Auto) 0.3 % Immature Granulocyte # (Auto) 0.07 K/uL Sodium Level 135 mmol/L Potassium Level 4.1 mmol/L Chloride Level 90 mmol/L Carbon Dioxide Level 43 mmol/L Anion Gap 2.0 mmol/L Blood Urea Nitrogen 15 mg/dl Creatinine 0.46 mg/dl Est Creatinine Clear Calc Drug Dose 73.1 ml/min Estimated GFR () 117.6 Estimated GFR (Non- 101.5 BUN/Creatinine Ratio 32.0 Random Glucose 260 mg/dl Calcium Level 8.3 mg/dl
[2018-02-25] MEDS: CARVEDILOL 12.5 MG TAB PO SCH ×2 (07:51→20:16)
[2018-02-25] MEDS: MULTIVITAMIN TAB PO SCH (07:51)
[2018-02-25] MEDS: LACTOBACILLUS ACIDOPHILUS (FLORANEX) TAB PO SCH ×3 (07:51→16:54)
[2018-02-25] MEDS: NICOTINE 14 MG/24 HR TDSY TD SCH (07:51)
[2018-02-25] MEDS: ATORVASTATIN 40 MG TAB PO SCH (07:51)
[2018-02-25] MEDS: VENLAFAXINE HCL XR 150 MG CAPXR PO SCH (07:51)
[2018-02-25] MEDS: ASPIRIN 81 MG ECTAB PO SCH (07:51)
[2018-02-25] MEDS: BOOST VANILLA PO SCH ×3 (07:52→19:32)
--- NOTE | 2018-02-25 09:07 | DIAGNOSTIC IMAGING REPORT ---
CHEST ONE VIEW PORTABLE CLINICAL HISTORY: pneumonia dyspnea COMPARISON STUDY: 02/22/2018 FINDINGS: Decrease in volume of the bilateral pleural effusions procedure described. Stable emphysematous change. Persistent prominence of the basilar parenchymal markings. IMPRESSION: Improving bilateral pleural effusions. Stable emphysematous change. Mild nonspecific parenchymal prominence both lung bases The above report was generated using voice recognition software. It may contain grammatical, syntax or spelling errors. Electronically signed by: Matheus Russell M.D. 02/25/2018 9:05 AM Dictated Date/Time: 02/25/2018 9:05 AM
[2018-02-25 09:17] LABS: CALCIUM 8.4 mg/dl (8.5-10.1); CREATININE 0.38 mg/dl (0.60-1.20); POTASSIUM 4.6 mmol/L (3.5-5.1)
--- NOTE | 2018-02-25 11:59 | Progress Note ---
Subjective Date of Service: February 25, 2018. Subjective Pt evaluation today including: conversation w/ patient, conversation w/ family , physical exam, lab review, review of studies, review of inpatient medication list Saw/examined the patient in room 455 Feeling better today less confused, though does not recall some things Family at bedside Patient denies shortness of breath/chest pain Agreeable to speak with hospice Problem List Medical Problems: (1) Acute on chronic respiratory failure with hypoxia and hypercapnia Status: Acute (2) Anemia Status: Acute (3) Closed head injury Status: Acute (4) Hip fracture, right Status: Acute (5) Hypercapnic respiratory failure Status: Acute (6) Nasal fracture Status: Acute (7) Pneumonia Status: Acute (8) Pneumonia Status: Acute (9) Sepsis Status: Acute (10) Skin tear Status: Acute (11) Skin tear of right elbow without complication Status: Acute (12) UTI (urinary tract infection) Status: Acute Review of Systems Constitutional: + weakness Respiratory: No cough, No sputum, No wheezing, No shortness of breath, No dyspnea on exertion Cardiac: No chest pain, No edema, No palpitations Medications Current Inpatient Medications Medications (Trade) Dose Ordered Sig/José Miguel Route Start Time Stop Time Status Last Admin Dose Admin Haloperidol (Haldol Tab) 2 mg Q4H PRN PO 02/23/18 01:30 03/25/18 01:29 Haloperidol Lactate (Haldol Inj) 2 mg Q2H PRN IM 02/23/18 01:30 03/25/18 01:29 Acetaminophen (Tylenol Tab) 650 mg Q4H PRN PO 02/23/18 01:30 03/25/18 01:29 02/23/18 17:06 650 MG Tramadol HCl (Ultram Tab) 25 mg Q6H PRN PO 02/23/18 01:30 03/25/18 01:29 Prochlorperazine Edisylate 5 mg/ Syringe 5 ml @ 5 mls/min Q6H PRN IV 02/23/18 01:30 03/25/18 01:29 Aspirin (Ecotrin Tab) 81 mg QAM PO 02/23/18 08:00 03/25/18 08:59 02/25/18 07:51 81 MG Budesonide (Pulmicort Respules 0.5MG/ 2ML Neb Soln) 1 mg BIDR INH 02/23/18 08:00 03/25/18 07:59 02/25/18 07:02 1 MG Carvedilol (Coreg Tab) 12.5 mg BID PO 02/23/18 08:00 03/25/18 08:59 02/25/18 07:51 12.5 MG Mirtazapine (Remeron Tab) 15 mg HS PO 02/23/18 21:00 03/25/18 20:59 02/24/18 20:46 15 MG Multivitamins (Multivitamin Tab) 1 tab DAILY PO 02/23/18 08:00 03/25/18 08:59 02/25/18 07:51 1 TAB Venlafaxine HCl (effeXOR EXTENDED REL CAP) 150 mg DAILY PO 02/23/18 08:00 03/25/18 08:59 02/25/18 07:51 150 MG Pantoprazole Sodium (Protonix Tab) 40 mg HS PO 02/23/18 21:00 03/25/18 20:59 02/24/18 20:46 40 MG Nicotine (Nicoderm Cq 14MG Patch) 1 patch QAM TD 02/23/18 08:00 03/25/18 08:59 02/25/18 07:51 1 PATCH Miscellaneous (Remove Nicoderm Patch) 1 ea HS N/A 02/23/18 21:00 03/25/18 20:59 02/24/18 20:48 1 EA Atorvastatin Calcium (Lipitor Tab) 40 mg DAILY PO 02/23/18 08:00 03/25/18 08:59 02/25/18 07:51 40 MG Ipratropium [place] (Atrovent 0.02% 0.5MG/2.5ML Neb) 0.5 mg Q6R INH 02/23/18 03:00 03/25/18 02:59 02/25/18 07:02 0.5 MG Levalbuterol (Xopenex 1.25MG/ 0.5ML Neb) 1.25 mg Q6R INH 02/23/18 03:00 03/25/18 02:59 02/25/18 07:02 1.25 MG Ipratropium [place] (Atrovent 0.02% 0.5MG/2.5ML Neb) 0.5 mg Q4H PRN INH 02/23/18 01:45 6/6/18 01:44 Levalbuterol (Xopenex 1.25MG/ 0.5ML Neb) 1.25 mg Q4H PRN INH 02/23/18 01:45 03/25/18 01:44 Clindamycin Phosphate (Consult) 1 ea DAILY PRN N/A 02/23/18 08:00 03/25/18 08:59 Lactobacillus Acidophilus (Floranex Tab) 4 tab TIDM PO 02/23/18 14:00 03/25/18 13:59 02/25/18 11:32 4 TAB Clindamycin HCl (Cleocin Cap) 600 mg Q8H PO 02/23/18 14:00 03/02/18 13:59 02/25/18 05:52 600 MG Heparin Sodium (Porcine) (Heparin Sq 5000 Unit/0.5ml) 5,000 unit Q8 SQ 02/23/18 14:00 03/25/18 13:59 02/25/18 05:53 5,000 UNIT Enteral Nutritional Formula (Boost) 1 can TID PO 02/23/18 20:00 03/25/18 19:59 02/25/18 07:52 1 CAN Prednisone (PredniSONE TAB) 40 mg DAILY PO 02/25/18 08:00 03/12/18 07:59 02/25/18 07:51 40 MG Objective Vital Signs Date Time Temp Pulse Resp B/P (MAP) Pulse Ox O2 Delivery O2 Flow Rate FiO2 02/25/18 08:00 Nasal Cannula 2.0 02/25/18 07:48 88 154/87 (109) 02/25/18 07:36 36.6 88 16 165/90 (115) 98 2.0 02/25/18 07:02 78 16 98 Nasal Cannula 2.0 02/25/18 02:42 98 Nasal Cannula 2.0 02/25/18 01:41 81 16 98 Nasal Cannula 2.0 02/24/18 23:02 37.0 75 20 116/70 (85) 98 Nasal Cannula 2.0 02/24/18 19:15 106 16 96 Nasal Cannula 2.0 02/24/18 16:00 98 Nasal Cannula 2.0 28 02/24/18 15:04 36.8 89 20 119/73 (88) 98 Nasal Cannula 2.0 02/24/18 15:00 96 02/24/18 14:29 95 17 94 Nasal Cannula 2.0 Physical Exam General Appearance: no apparent distress, + cachetic, + thin Respiratory/Chest: no respiratory distress, no accessory muscle use, + decreased breath sounds Cardiovascular: regular rate, rhythm, no edema, no murmur Neurologic/Psychiatric: no motor/sensory deficits, alert, + disoriented ( improving) Laboratory Results Last 24 Hours Test 02/25/18 08:19 Arterial Blood pH 7.43 Arterial Blood Partial Pressure CO2 65 mmHg Arterial Blood Partial Pressure O2 115 mm/Hg Arterial Blood HCO3 42 mmol/L Arterial Blood Oxygen Saturation 97.7 % Arterial Blood Base Excess 14.9 mEq/L Arterial Blood Gas Delivery 2 L Tristan Test POS Sodium Level 135 mmol/L Potassium Level 4.6 mmol/L Chloride Level 93 mmol/L Carbon Dioxide Level 40 mmol/L Anion Gap 1.0 mmol/L Blood Urea Nitrogen 20 mg/dl Creatinine 0.38 mg/dl Est Creatinine Clear Calc Drug Dose 88.5 ml/min Estimated GFR () 125.3 Estimated GFR (Non- 108.1 BUN/Creatinine Ratio 51.0 Random Glucose 92 mg/dl Calcium Level 8.4 mg/dl Assessment and Plan This is a 67 year old female with a past medical history of severe, end stage COPD, chronic respiratory failure, anxiety/depression, CAD - presents with altered mental status Altered Mental Status Likely CO2 Narcosis 02/25 - improving, ABG performed today - CO2 improving, pH improving - CXR shows some clearing - will continue clindamycin for now - IV solumedrol has been changed to prednisone appropriately - hospice consulted; palliative care 02/24 - patient has severe COPD - CO2 Narcosis is likely the culprit for encephalopathy - does not use bipap, non-compliant - palliative care consulted due to the end-stage, severe nature of COPD Acute on Chronic Hypoxic, Hypercapnic Respiratory Failure Acute COPD Exacerbation/End-Stage COPD in the setting of R sided Pneumonia, likely Recurrent Aspiration - appreciate pulmonary input; patient with end stage COPD - currently on Solu-medrol, which we will continue - on chronic O2 - will need bipap, but is not compliant - nebs as needed - on Clindamycin for aspiration pneumonia - consulted palliative care due to severe, end stage nature of her disease CAD - continue aspirin, b-maycol, statin DVT ppx - subq heparin DNR/DNI
--- NOTE | 2018-02-25 17:26 | Palliative Care Consultation ---
Consultation Date of Consultation: February 25, 2018. Requesting Physician: Dr. Mendes Attending Physician: Dr. Mendes Reason for Consultation: Goals of Care History of Present Illness This patient is a 67 year old female who presented to the hospital on 02/23/18 with altered mental status from home. The patient was diagnosed with hypercapnic respiratory failure and has a PMH of COPD/emphysema. Per her medical records, she has an FEV1 of 19% and is poorly compliant at home with her medications and oxygen use. The patient has an additional PMH that includes CHF, chronic anemia, CAD s/p stent placement (location unknown to me), ischemic colitis. In the ED, her ABG revealed: pH 7.17, pCO2 163, HCO3 58. She intermittently allowed the BiPAP on, but tends to refuse it, although her ABG is showing some improvement back to what I believe is probably her baseline over the past few days with most recent results today: pH 7.43 PCO2 65 HCO3 42. Overall, this patient is showing decline with how little lung reserve she has. Her WBC is also trending up from 7.77 to 20.05. The patient has overall poor prognosis and a GOALS OF CARE discussion is warrented. Upon assessment of the patient, she was awake, sitting up in her bed, able to answer simple questions. She could not describe her home for me and was unable to state if it was one or two stories. She was unable to tell me what brought her into the hospital; however, when I asked if breathing trouble brought her in she said "That's what they tell me". She did confirm that her , Christoph, would be helpful to talk to. I phoned her and left a VM. Thank you kindly for including us with this consult. We will follow accordingly Past Medical/Surgical History Medical History: CAD Ch. anemia CHF ischemic colitis hypercapnic respiratory failure Social History Smoking Status: Current Every Day Smoker History of Alcohol Use: No Marital Status: Review of Systems Patient denies pain, CP, palpitations, SOB, N/V/D, swelling Allergies Coded Allergies: Penicillins (Verified Allergy, Intermediate, HIVES, 01/05/18) LIKELY TOLERATES CEFEPIME, IMIPENEM (SEE ADMISSION 08/13/15) Medications Current Inpatient Medications Medications (Trade) Dose Ordered Sig/José Miguel Route Start Time Stop Time Status Last Admin Dose Admin Haloperidol (Haldol Tab) 2 mg Q4H PRN PO 02/23/18 01:30 03/25/18 01:29 Haloperidol Lactate (Haldol Inj) 2 mg Q2H PRN IM 02/23/18 01:30 03/25/18 01:29 Acetaminophen (Tylenol Tab) 650 mg Q4H PRN PO 02/23/18 01:30 03/25/18 01:29 02/23/18 17:06 650 MG Tramadol HCl (Ultram Tab) 25 mg Q6H PRN PO 02/23/18 01:30 03/25/18 01:29 Prochlorperazine Edisylate 5 mg/ Syringe 5 ml @ 5 mls/min Q6H PRN IV 02/23/18 01:30 03/25/18 01:29 Aspirin (Ecotrin Tab) 81 mg QAM PO 02/23/18 08:00 03/25/18 08:59 02/25/18 07:51 81 MG Budesonide (Pulmicort Respules 0.5MG/ 2ML Neb Soln) 1 mg BIDR INH 02/23/18 08:00 03/25/18 07:59 02/25/18 07:02 1 MG Carvedilol (Coreg Tab) 12.5 mg BID PO 02/23/18 08:00 03/25/18 08:59 02/25/18 07:51 12.5 MG Mirtazapine (Remeron Tab) 15 mg HS PO 02/23/18 21:00 03/25/18 20:59 02/24/18 20:46 15 MG Multivitamins (Multivitamin Tab) 1 tab DAILY PO 02/23/18 08:00 03/25/18 08:59 02/25/18 07:51 1 TAB Venlafaxine HCl (effeXOR EXTENDED REL CAP) 150 mg DAILY PO 02/23/18 08:00 03/25/18 08:59 02/25/18 07:51 150 MG Pantoprazole Sodium (Protonix Tab) 40 mg HS PO 02/23/18 21:00 03/25/18 20:59 02/24/18 20:46 40 MG Nicotine (Nicoderm Cq 14MG Patch) 1 patch QAM TD 02/23/18 08:00 03/25/18 08:59 02/25/18 07:51 1 PATCH Miscellaneous (Remove Nicoderm Patch) 1 ea HS N/A 02/23/18 21:00 03/25/18 20:59 02/24/18 20:48 1 EA Atorvastatin Calcium (Lipitor Tab) 40 mg DAILY PO 02/23/18 08:00 03/25/18 08:59 02/25/18 07:51 40 MG Ipratropium [place] (Atrovent 0.02% 0.5MG/2.5ML Neb) 0.5 mg Q6R INH 02/23/18 03:00 03/25/18 02:59 02/25/18 14:14 0.5 MG Levalbuterol (Xopenex 1.25MG/ 0.5ML Neb) 1.25 mg Q6R INH 02/23/18 03:00 03/25/18 02:59 02/25/18 14:15 1.25 MG Ipratropium [place] (Atrovent 0.02% 0.5MG/2.5ML Neb) 0.5 mg Q4H PRN INH 02/23/18 01:45 03/25/18 01:44 Levalbuterol (Xopenex 1.25MG/ 0.5ML Neb) 1.25 mg Q4H PRN INH 02/23/18 01:45 03/25/18 01:44 Clindamycin Phosphate (Consult) 1 ea DAILY PRN N/A 02/23/18 08:00 03/25/18 08:59 Lactobacillus Acidophilus (Floranex Tab) 4 tab TIDM PO 02/23/18 14:00 03/25/18 13:59 02/25/18 16:54 4 TAB Clindamycin HCl (Cleocin Cap) 600 mg Q8H PO 02/23/18 14:00 03/02/18 13:59 02/25/18 13:54 600 MG Heparin Sodium (Porcine) (Heparin Sq 5000 Unit/0.5ml) 5,000 unit Q8 SQ 02/23/18 14:00 03/25/18 13:59 02/25/18 13:54 5,000 UNIT Enteral Nutritional Formula (Boost) 1 can TID PO 02/23/18 20:00 03/25/18 19:59 02/25/18 13:55 1 CAN Prednisone (PredniSONE TAB) 40 mg DAILY PO 02/25/18 08:00 03/12/18 07:59 02/25/18 07:51 40 MG Physical Exam Date Time Temp Pulse Resp B/P (MAP) Pulse Ox O2 Delivery O2 Flow Rate FiO2 02/25/18 15:55 96 Nasal Cannula 2.0 28 02/25/18 15:43 36.6 94 16 116/73 (87) 96 Room Air 02/25/18 14:15 95 16 95 Nasal Cannula 2.0 02/25/18 08:00 Nasal Cannula 2.0 02/25/18 07:48 88 154/87 (109) 02/25/18 07:36 36.6 88 16 165/90 (115) 98 2.0 02/25/18 07:02 78 16 98 Nasal Cannula 2.0 02/25/18 02:42 98 Nasal Cannula 2.0 02/25/18 01:41 81 16 98 Nasal Cannula 2.0 02/24/18 23:02 37.0 75 20 116/70 (85) 98 Nasal Cannula 2.0 02/24/18 19:15 106 16 96 Nasal Cannula 2.0 General Appearance: no apparent distress (sitting up in her bed), + cachetic Respiratory: no respiratory distress, no accessory muscle use, + pertinent finding (expiratory wheezes) Cardiovascular: regular rate, rhythm, no edema, no gallop, no JVD, no murmur Abdomen: normal bowel sounds, non tender, soft Neurologic/Psychiatric: + pertinent finding (oriented to self and location. confused about current medical situation and the complexity of it) Laboratory Results Last 24 Hours Test 02/25/18 08:19 Arterial Blood pH 7.43 Arterial Blood Partial Pressure CO2 65 mmHg Arterial Blood Partial Pressure O2 115 mm/Hg Arterial Blood HCO3 42 mmol/L Arterial Blood Oxygen Saturation 97.7 % Arterial Blood Base Excess 14.9 mEq/L Arterial Blood Gas Delivery 2 L Tristan Test POS Sodium Level 135 mmol/L Potassium Level 4.6 mmol/L Chloride Level 93 mmol/L Carbon Dioxide Level 40 mmol/L Anion Gap 1.0 mmol/L Blood Urea Nitrogen 20 mg/dl Creatinine 0.38 mg/dl Est Creatinine Clear Calc Drug Dose 88.5 ml/min Estimated GFR () 125.3 Estimated GFR (Non- 108.1 BUN/Creatinine Ratio 51.0 Random Glucose 92 mg/dl Calcium Level 8.4 mg/dl Assessment & Plan Palliative Performance Scale: 30 % CAD Ch. anemia CHF ischemic colitis hypercapnic respiratory failure Palliative Care Recommendations: -Patient to remain DNR/DNI -It appears Hospice has been brought up to the family - I called the patient's and left a VM. Will follow up tomorrow to discuss GOALS OF CARE and fill out a POLST form to reflect our discussion. Counseling and Coordination Total time spent 50 minutes with > 50% of that time spent reviewing the chart, assessing the patient and discussing her current medical condition, along with arranging a time to meet with family to discuss GOALS OF CARE and fill out a POLST form
[2018-02-25] MEDS: PANTOprazole SOD 40 MG TAB PO SCH (20:16)
[2018-02-25] MEDS: MIRTAZAPINE TAB 15 MG TAB PO SCH (20:17)
[2018-02-26] VITALS (9 sets, daily range): BP systolic 116–148; BP diastolic 59–80; PULSE 86–106; TEMP 36.5–36.8; O2SAT 92–100
[2018-02-26] MEDS: IPRATROPIUM BROMIDE NEB SOLN 0.02% 2.5 ML VIAL INH SCH ×4 (01:59→18:46)
[2018-02-26] MEDS: LEVALBUTEROL 1.25MG/0.5ML NEB INH SCH ×4 (01:59→18:46)
[2018-02-26] MEDS: CLINDAMYCIN HCL 150 MG CAP PO SCH ×3 (06:39→21:20)
[2018-02-26] MEDS: HEPARIN SOD 5000 UNIT/0.5 ML CARP SQ SCH ×3 (06:40→21:22)
[2018-02-26 06:45] LABS: EOS % 0.1 %; EOS ABS # 0.02 K/uL (0-0.5); HEMATOCRIT 34.7 % (37-47); HEMOGLOBIN 10.5 g/dL (12.0-16.0); IG# 0.05 K/uL (0.00-0.02); LYMPH % 10.9 %; LYMPH ABS # 1.64 K/uL (1.2-3.4); MEAN CELL VOLUME 98.9 fL (80-100); MEAN CORPUSCULAR HEMOGLOBIN 29.9 pg (25-34); MEAN CORPUSCULAR HGB CONC 30.3 g/dl (32-36); MEAN PLATELET VOLUME 10.5 fL (7.4-10.4); MONO % 12.3 %; MONO ABS # 1.85 K/uL (0.11-0.59); NEUT % 76.4 %; NEUT ABS # 11.51 K/uL (1.4-6.5); NUCLEATED RED BLOOD CELL ABS 0.04 K/uL (0-0); PLATELET COUNT 152 K/uL (130-400); RED CELL DISTRIBUTION WIDTH CV 16.4 % (11.5-14.5); RED CELL DISTRIBUTION WIDTH SD 59.7 fL (36.4-46.3); WHITE BLOOD COUNT 15.07 K/uL (4.8-10.8)
[2018-02-26] MEDS: BUDESONIDE 0.5 MG/2 ML VIAL (PULMICORT) INH SCH ×2 (07:09→18:46)
[2018-02-26 07:25] LABS: CALCIUM 8.3 mg/dl (8.5-10.1); CREATININE 0.35 mg/dl (0.60-1.20); POTASSIUM 4.3 mmol/L (3.5-5.1)
[2018-02-26] MEDS: NICOTINE 14 MG/24 HR TDSY TD SCH (07:56)
[2018-02-26] MEDS: CARVEDILOL 12.5 MG TAB PO SCH ×2 (07:56→19:46)
[2018-02-26] MEDS: VENLAFAXINE HCL XR 150 MG CAPXR PO SCH (07:56)
[2018-02-26] MEDS: ASPIRIN 81 MG ECTAB PO SCH (07:56)
[2018-02-26] MEDS: LACTOBACILLUS ACIDOPHILUS (FLORANEX) TAB PO SCH ×3 (07:57→17:10)
[2018-02-26] MEDS: BOOST VANILLA PO SCH ×3 (07:57→21:33)
[2018-02-26] MEDS: MULTIVITAMIN TAB PO SCH (07:57)
[2018-02-26] MEDS: ATORVASTATIN 40 MG TAB PO SCH (07:57)
--- NOTE | 2018-02-26 11:42 | Pulmonology Progress Note ---
Pulmonary Progress Note Date of Service February 26, 2018. Attending Dr. Cerda Subjective Patient notes she continues to be fatigue with some dyspnea even at rest but notes stability over the last 24 hours in her pulmonary status Objective Patient was fatigue but arousable this morning by voice and was orientated to person but once again had difficulty with place and time. Patient once again refuses her BiPAP overnight. 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%), CAD h/o anterior ND (1999 - cath w/ RCA stent), cardiomyopathy, DLD, depression , tobacco use (40-50pack year), GIB, ischemic bowel s/p colectomy 2015, paroxysmal atrial fibrillation, h/o respiratory failure requiring intubation and tracheostomy, h/o respiratory pseudomonas (BAL 01/2015, sputum: 07/2015, trach wash 08/2015, trach wash 10/2015: quinolone R, sputum 10/2015) and MRSA respiratory (blood/BAL: 08/2015, 10/2015, sputum 02/2016), She has been admitted in the past for acute on chronic hypoxic hypercarbic respiratory failure 12/2014 , 09/2015, 02/2016, 02/2017, 08/2017, 12/2017) Assessment & Plan 67-year-old female who admitted for acute on chronic respiratory failure with end-stage COPD: 1. End-stage COPD: Patient is end-stage COPD with an FEV1 of 19%. No acute changes in the CXR in her ABG appeared to have be back to her baseline. Patient continues to be fatigued and once again is refusing to use BiPAP. The patient is currently on maximal medical therapy but will most likely have elevation in her CO2 become obtunded in high risk of aspiration and repeat cycles will continue. This is a very difficult situation as the patient refuses multiple times to use her BiPAP which would help decrease the risk of this cycle from occurring. 2. End-of-Life Care: I do believe this patient is an appropriate hospice candidate. 3. Sign off: At this time pulmonary will sign office SI do not believe we can add any clinical benefit. Please contact the team if the clinical situation changes. Data Medications: Current Inpatient Medications Medications (Trade) Dose Ordered Sig/José Miguel Route Start Time Stop Time Status Last Admin Dose Admin Haloperidol (Haldol Tab) 2 mg Q4H PRN PO 02/23/18 01:30 03/25/18 01:29 Haloperidol Lactate (Haldol Inj) 2 mg Q2H PRN IM 02/23/18 01:30 03/25/18 01:29 Acetaminophen (Tylenol Tab) 650 mg Q4H PRN PO 02/23/18 01:30 03/25/18 01:29 02/23/18 17:06 650 MG Tramadol HCl (Ultram Tab) 25 mg Q6H PRN PO 02/23/18 01:30 03/25/18 01:29 Prochlorperazine Edisylate 5 mg/ Syringe 5 ml @ 5 mls/min Q6H PRN IV 02/23/18 01:30 03/25/18 01:29 Aspirin (Ecotrin Tab) 81 mg QAM PO 02/23/18 08:00 03/25/18 08:59 02/26/18 07:56 81 MG Budesonide (Pulmicort Respules 0.5MG/ 2ML Neb Soln) 1 mg BIDR INH 02/23/18 08:00 03/25/18 07:59 02/26/18 07:09 1 MG Carvedilol (Coreg Tab) 12.5 mg BID PO 02/23/18 08:00 03/25/18 08:59 02/26/18 07:56 12.5 MG Mirtazapine (Remeron Tab) 15 mg HS PO 02/23/18 21:00 03/25/18 20:59 02/25/18 20:17 15 MG Multivitamins (Multivitamin Tab) 1 tab DAILY PO 02/23/18 08:00 03/25/18 08:59 02/26/18 07:57 1 TAB Venlafaxine HCl (effeXOR EXTENDED REL CAP) 150 mg DAILY PO 02/23/18 08:00 03/25/18 08:59 02/26/18 07:56 150 MG Pantoprazole Sodium (Protonix Tab) 40 mg HS PO 02/23/18 21:00 03/25/18 20:59 02/25/18 20:16 40 MG Nicotine (Nicoderm Cq 14MG Patch) 1 patch QAM TD 02/23/18 08:00 03/25/18 08:59 02/26/18 07:56 1 PATCH Miscellaneous (Remove Nicoderm Patch) 1 ea HS N/A 02/23/18 21:00 03/25/18 20:59 02/25/18 20:17 1 EA Atorvastatin Calcium (Lipitor Tab) 40 mg DAILY PO 02/23/18 08:00 03/25/18 08:59 02/26/18 07:57 40 MG Ipratropium [place] (Atrovent 0.02% 0.5MG/2.5ML Neb) 0.5 mg Q6R INH 02/23/18 03:00 03/25/18 02:59 02/26/18 07:09 0.5 MG Levalbuterol (Xopenex 1.25MG/ 0.5ML Neb) 1.25 mg Q6R INH 02/23/18 03:00 03/25/18 02:59 02/26/18 07:09 1.25 MG Ipratropium [place] (Atrovent 0.02% 0.5MG/2.5ML Neb) 0.5 mg Q4H PRN INH 02/23/18 01:45 03/25/18 01:44 Levalbuterol (Xopenex 1.25MG/ 0.5ML Neb) 1.25 mg Q4H PRN INH 02/23/18 01:45 03/25/18 01:44 Clindamycin Phosphate (Consult) 1 ea DAILY PRN N/A 02/23/18 08:00 03/25/18 08:59 Lactobacillus Acidophilus (Floranex Tab) 4 tab TIDM PO 02/23/18 14:00 03/25/18 13:59 02/26/18 07:57 4 TAB Clindamycin HCl (Cleocin Cap) 600 mg Q8H PO 02/23/18 14:00 03/02/18 13:59 02/26/18 06:39 600 MG Heparin Sodium (Porcine) (Heparin Sq 5000 Unit/0.5ml) 5,000 unit Q8 SQ 02/23/18 14:00 03/25/18 13:59 02/26/18 06:40 5,000 UNIT Enteral Nutritional Formula (Boost) 1 can TID PO 02/23/18 20:00 03/25/18 19:59 02/26/18 07:57 1 CAN Prednisone (PredniSONE TAB) 40 mg DAILY PO 02/25/18 08:00 03/12/18 07:59 02/26/18 07:57 40 MG Vital Signs: Date Time Temp Pulse Resp B/P (MAP) Pulse Ox O2 Delivery O2 Flow Rate FiO2 02/26/18 08:12 36.8 87 16 148/77 (100) 100 Nasal Cannula 3.0 02/26/18 08:00 Nasal Cannula 2.0 02/26/18 07:54 90 132/80 (97) 02/26/18 07:11 86 16 100 Nasal Cannula 3.0 02/26/18 02:02 Nasal Cannula 2.0 02/26/18 00:28 36.5 92 16 116/73 (87) 98 2.0 02/25/18 19:03 91 16 96 Nasal Cannula 2.0 02/25/18 15:55 96 Nasal Cannula 2.0 28 02/25/18 15:43 36.6 94 16 116/73 (87) 96 Room Air 02/25/18 14:15 95 16 95 Nasal Cannula 2.0 Laboratory Results: Last 24 Hours Test 02/26/18 06:02 White Blood Count 15.07 K/uL Red Blood Count 3.51 M/uL Hemoglobin 10.5 g/dL Hematocrit 34.7 % Mean Corpuscular Volume 98.9 fL Mean Corpuscular Hemoglobin 29.9 pg Mean Corpuscular Hemoglobin Concent 30.3 g/dl Platelet Count 152 K/uL Mean Platelet Volume 10.5 fL Neutrophils (%) (Auto) 76.4 % Lymphocytes (%) (Auto) 10.9 % Monocytes (%) (Auto) 12.3 % Eosinophils (%) (Auto) 0.1 % Basophils (%) (Auto) 0.0 % Neutrophils # (Auto) 11.51 K/uL Lymphocytes # (Auto) 1.64 K/uL Monocytes # (Auto) 1.85 K/uL Eosinophils # (Auto) 0.02 K/uL Basophils # (Auto) 0.00 K/uL RDW Standard Deviation 59.7 fL RDW Coefficient of Variation 16.4 % Immature Granulocyte % (Auto) 0.3 % Immature Granulocyte # (Auto) 0.05 K/uL Nucleated RBC Absolute Count (auto) 0.04 K/uL Nucleated Red Blood Cells % 0.3 % Sodium Level 140 mmol/L Potassium Level 4.3 mmol/L Chloride Level 97 mmol/L Carbon Dioxide Level 41 mmol/L Anion Gap 2.0 mmol/L Blood Urea Nitrogen 22 mg/dl Creatinine 0.35 mg/dl Est Creatinine Clear Calc Drug Dose 96.0 ml/min Estimated GFR () 128.7 Estimated GFR (Non- 111.0 BUN/Creatinine Ratio 62.9 Random Glucose 67 mg/dl Calcium Level 8.3 mg/dl Magnesium Level 1.9 mg/dl
--- NOTE | 2018-02-26 12:29 | Progress Note ---
Subjective Date of Service: February 26, 2018. Subjective Pt evaluation today including: conversation w/ patient, physical exam, lab review, review of studies, conversation w/ documentation consultant, review of inpatient medication list Saw/examined the patient in room 455 She's awake/alert somewhat confused at times, disoriented Denies chest pain Breathing status back to baseline Problem List Medical Problems: (1) Acute on chronic respiratory failure with hypoxia and hypercapnia Status: Acute (2) Anemia Status: Acute (3) Closed head injury Status: Acute (4) Hip fracture, right Status: Acute (5) Hypercapnic respiratory failure Status: Acute (6) Nasal fracture Status: Acute (7) Pneumonia Status: Acute (8) Pneumonia Status: Acute (9) Sepsis Status: Acute (10) Skin tear Status: Acute (11) Skin tear of right elbow without complication Status: Acute (12) UTI (urinary tract infection) Status: Acute Review of Systems Constitutional: No fever, No chills Respiratory: + shortness of breath, + dyspnea on exertion, + dyspnea at rest, No cough, No sputum, No wheezing, No hemoptysis Cardiac: No chest pain, No edema, No palpitations Medications Current Inpatient Medications Medications (Trade) Dose Ordered Sig/José Miguel Route Start Time Stop Time Status Last Admin Dose Admin Haloperidol (Haldol Tab) 2 mg Q4H PRN PO 02/23/18 01:30 03/25/18 01:29 Haloperidol Lactate (Haldol Inj) 2 mg Q2H PRN IM 02/23/18 01:30 03/25/18 01:29 Acetaminophen (Tylenol Tab) 650 mg Q4H PRN PO 02/23/18 01:30 03/25/18 01:29 02/23/18 17:06 650 MG Tramadol HCl (Ultram Tab) 25 mg Q6H PRN PO 02/23/18 01:30 03/25/18 01:29 Prochlorperazine Edisylate 5 mg/ Syringe 5 ml @ 5 mls/min Q6H PRN IV 02/23/18 01:30 03/25/18 01:29 Aspirin (Ecotrin Tab) 81 mg QAM PO 02/23/18 08:00 03/25/18 08:59 02/26/18 07:56 81 MG Budesonide (Pulmicort Respules 0.5MG/ 2ML Neb Soln) 1 mg BIDR INH 02/23/18 08:00 03/25/18 07:59 02/26/18 07:09 1 MG Carvedilol (Coreg Tab) 12.5 mg BID PO 02/23/18 08:00 03/25/18 08:59 02/26/18 07:56 12.5 MG Mirtazapine (Remeron Tab) 15 mg HS PO 02/23/18 21:00 03/25/18 20:59 02/25/18 20:17 15 MG Multivitamins (Multivitamin Tab) 1 tab DAILY PO 02/23/18 08:00 03/25/18 08:59 02/26/18 07:57 1 TAB Venlafaxine HCl (effeXOR EXTENDED REL CAP) 150 mg DAILY PO 02/23/18 08:00 03/25/18 08:59 02/26/18 07:56 150 MG Pantoprazole Sodium (Protonix Tab) 40 mg HS PO 02/23/18 21:00 03/25/18 20:59 02/25/18 20:16 40 MG Nicotine (Nicoderm Cq 14MG Patch) 1 patch QAM TD 02/23/18 08:00 03/25/18 08:59 02/26/18 07:56 1 PATCH Miscellaneous (Remove Nicoderm Patch) 1 ea HS N/A 02/23/18 21:00 03/25/18 20:59 02/25/18 20:17 1 EA Atorvastatin Calcium (Lipitor Tab) 40 mg DAILY PO 02/23/18 08:00 03/25/18 08:59 02/26/18 07:57 40 MG Ipratropium [place] (Atrovent 0.02% 0.5MG/2.5ML Neb) 0.5 mg Q6R INH 02/23/18 03:00 03/25/18 02:59 02/26/18 07:09 0.5 MG Levalbuterol (Xopenex 1.25MG/ 0.5ML Neb) 1.25 mg Q6R INH 02/23/18 03:00 03/25/18 02:59 02/26/18 07:09 1.25 MG Ipratropium [place] (Atrovent 0.02% 0.5MG/2.5ML Neb) 0.5 mg Q4H PRN INH 02/23/18 01:45 03/25/18 01:44 Levalbuterol (Xopenex 1.25MG/ 0.5ML Neb) 1.25 mg Q4H PRN INH 02/23/18 01:45 03/25/18 01:44 Clindamycin Phosphate (Consult) 1 ea DAILY PRN N/A 02/23/18 08:00 03/25/18 08:59 Lactobacillus Acidophilus (Floranex Tab) 4 tab TIDM PO 02/23/18 14:00 03/25/18 13:59 02/26/18 11:59 4 TAB Clindamycin HCl (Cleocin Cap) 600 mg Q8H PO 02/23/18 14:00 03/02/18 13:59 02/26/18 06:39 600 MG Heparin Sodium (Porcine) (Heparin Sq 5000 Unit/0.5ml) 5,000 unit Q8 SQ 02/23/18 14:00 03/25/18 13:59 02/26/18 06:40 5,000 UNIT Enteral Nutritional Formula (Boost) 1 can TID PO 02/23/18 20:00 03/25/18 19:59 02/26/18 07:57 1 CAN Prednisone (PredniSONE TAB) 40 mg DAILY PO 02/25/18 08:00 03/12/18 07:59 02/26/18 07:57 40 MG Objective Vital Signs Date Time Temp Pulse Resp B/P (MAP) Pulse Ox O2 Delivery O2 Flow Rate FiO2 02/26/18 08:12 36.8 87 16 148/77 (100) 100 Nasal Cannula 3.0 02/26/18 08:00 Nasal Cannula 2.0 02/26/18 07:54 90 132/80 (97) 02/26/18 07:11 86 16 100 Nasal Cannula 3.0 02/26/18 02:02 Nasal Cannula 2.0 02/26/18 00:28 36.5 92 16 116/73 (87) 98 2.0 02/25/18 19:03 91 16 96 Nasal Cannula 2.0 02/25/18 15:55 96 Nasal Cannula 2.0 28 02/25/18 15:43 36.6 94 16 116/73 (87) 96 Room Air 02/25/18 14:15 95 16 95 Nasal Cannula 2.0 Physical Exam General Appearance: + cachetic, + thin Respiratory/Chest: no respiratory distress, no accessory muscle use, + decreased breath sounds Cardiovascular: regular rate, rhythm, no edema, no murmur Extremities: normal inspection, no pedal edema Neurologic/Psychiatric: alert, + disoriented Laboratory Results Last 24 Hours Test 02/26/18 06:02 White Blood Count 15.07 K/uL Red Blood Count 3.51 M/uL Hemoglobin 10.5 g/dL Hematocrit 34.7 % Mean Corpuscular Volume 98.9 fL Mean Corpuscular Hemoglobin 29.9 pg Mean Corpuscular Hemoglobin Concent 30.3 g/dl Platelet Count 152 K/uL Mean Platelet Volume 10.5 fL Neutrophils (%) (Auto) 76.4 % Lymphocytes (%) (Auto) 10.9 % Monocytes (%) (Auto) 12.3 % Eosinophils (%) (Auto) 0.1 % Basophils (%) (Auto) 0.0 % Neutrophils # (Auto) 11.51 K/uL Lymphocytes # (Auto) 1.64 K/uL Monocytes # (Auto) 1.85 K/uL Eosinophils # (Auto) 0.02 K/uL Basophils # (Auto) 0.00 K/uL RDW Standard Deviation 59.7 fL RDW Coefficient of Variation 16.4 % Immature Granulocyte % (Auto) 0.3 % Immature Granulocyte # (Auto) 0.05 K/uL Nucleated RBC Absolute Count (auto) 0.04 K/uL Nucleated Red Blood Cells % 0.3 % Sodium Level 140 mmol/L Potassium Level 4.3 mmol/L Chloride Level 97 mmol/L Carbon Dioxide Level 41 mmol/L Anion Gap 2.0 mmol/L Blood Urea Nitrogen 22 mg/dl Creatinine 0.35 mg/dl Est Creatinine Clear Calc Drug Dose 96.0 ml/min Estimated GFR () 128.7 Estimated GFR (Non- 111.0 BUN/Creatinine Ratio 62.9 Random Glucose 67 mg/dl Calcium Level 8.3 mg/dl Magnesium Level 1.9 mg/dl Assessment and Plan This is a 67 year old female with a past medical history of severe, end stage COPD, chronic respiratory failure, anxiety/depression, CAD - presents with altered mental status Altered Mental Status Likely CO2 Narcosis 02/26 - continue prednisone for now - continue bipap and oxygen - palliative care consulted - will discuss home hospice with 02/25 - improving, ABG performed today - CO2 improving, pH improving - CXR shows some clearing - will continue clindamycin for now - IV solumedrol has been changed to prednisone appropriately - hospice consulted; palliative care 02/24 - patient has severe COPD - CO2 Narcosis is likely the culprit for encephalopathy - does not use bipap, non-compliant - palliative care consulted due to the end-stage, severe nature of COPD Acute on Chronic Hypoxic, Hypercapnic Respiratory Failure Acute COPD Exacerbation/End-Stage COPD in the setting of R sided Pneumonia, likely Recurrent Aspiration - appreciate pulmonary input; patient with end stage COPD - currently on Solu-medrol, which we will continue - on chronic O2 - will need bipap, but is not compliant - nebs as needed - on Clindamycin for aspiration pneumonia - consulted palliative care due to severe, end stage nature of her disease CAD - continue aspirin, b-maycol, statin DVT ppx - subq heparin DNR/DNI
[2018-02-26] MEDS: PANTOprazole SOD 40 MG TAB PO SCH (21:20)
[2018-02-26] MEDS: MIRTAZAPINE TAB 15 MG TAB PO SCH (21:21)
[2018-02-27 01:51] VITALS: PULSE 87; O2SAT 95
[2018-02-27] MEDS: IPRATROPIUM BROMIDE NEB SOLN 0.02% 2.5 ML VIAL INH SCH ×4 (01:51→19:03)
[2018-02-27] MEDS: LEVALBUTEROL 1.25MG/0.5ML NEB INH SCH ×4 (01:51→19:03)
[2018-02-27] MEDS: HEPARIN SOD 5000 UNIT/0.5 ML CARP SQ SCH ×3 (05:57→21:00)
[2018-02-27] MEDS: CLINDAMYCIN HCL 150 MG CAP PO SCH ×3 (05:57→20:59)
[2018-02-27 07:38] VITALS: BP 146/80; PULSE 98; TEMP 36.9; O2SAT 96
[2018-02-27] MEDS: BUDESONIDE 0.5 MG/2 ML VIAL (PULMICORT) INH SCH ×2 (07:38→19:03)
[2018-02-27 07:39] VITALS: PULSE 88; O2SAT 96
[2018-02-27] MEDS: CARVEDILOL 12.5 MG TAB PO SCH ×2 (08:18→20:57)
[2018-02-27] MEDS: NICOTINE 14 MG/24 HR TDSY TD SCH (08:18)
[2018-02-27] MEDS: ASPIRIN 81 MG ECTAB PO SCH (08:18)
[2018-02-27] MEDS: LACTOBACILLUS ACIDOPHILUS (FLORANEX) TAB PO SCH ×3 (08:18→17:57)
[2018-02-27] MEDS: ATORVASTATIN 40 MG TAB PO SCH ×2 (08:18→20:58)
[2018-02-27] MEDS: MULTIVITAMIN TAB PO SCH (08:19)
[2018-02-27] MEDS: VENLAFAXINE HCL XR 150 MG CAPXR PO SCH (08:19)
[2018-02-27] MEDS: BOOST VANILLA PO SCH ×3 (08:19→20:00)
[2018-02-27 08:37] LABS: HEMOGLOBIN 10.6 g/dL (12.0-16.0); MEAN CELL VOLUME 99.2 fL (80-100); MEAN CORPUSCULAR HGB CONC 30.3 g/dl (32-36); MEAN PLATELET VOLUME 10.1 fL (7.4-10.4); PLATELET COUNT 149 K/uL (130-400); RED CELL DISTRIBUTION WIDTH CV 16.6 % (11.5-14.5); RED CELL DISTRIBUTION WIDTH SD 59.9 fL (36.4-46.3); WHITE BLOOD COUNT 16.24 K/uL (4.8-10.8)
[2018-02-27 09:17] LABS: CALCIUM 8.6 mg/dl (8.5-10.1); CREATININE 0.38 mg/dl (0.60-1.20); POTASSIUM 4.7 mmol/L (3.5-5.1)
[2018-02-27 14:10] VITALS: PULSE 96; O2SAT 95
[2018-02-27 15:52] VITALS: BP 157/75; PULSE 96; TEMP 36.8; O2SAT 95
--- NOTE | 2018-02-27 18:31 | Progress Note ---
Subjective Date of Service: February 27, 2018. Subjective Pt evaluation today including: conversation w/ patient, physical exam, lab review, review of studies, review of inpatient medication list Saw/examined the patient in room 455 She's doing well No shortness of breath supplemental O2 via nasal cannula Denies any other symptoms; good PO intake Problem List Medical Problems: (1) Acute on chronic respiratory failure with hypoxia and hypercapnia Status: Acute (2) Anemia Status: Acute (3) Closed head injury Status: Acute (4) Hip fracture, right Status: Acute (5) Hypercapnic respiratory failure Status: Acute (6) Nasal fracture Status: Acute (7) Pneumonia Status: Acute (8) Pneumonia Status: Acute (9) Sepsis Status: Acute (10) Skin tear Status: Acute (11) Skin tear of right elbow without complication Status: Acute (12) UTI (urinary tract infection) Status: Acute Review of Systems Constitutional: No fever, No chills, No weakness Respiratory: No cough, No sputum, No wheezing, No shortness of breath, No dyspnea on exertion, No dyspnea at rest, No hemoptysis Cardiac: No chest pain Medications Current Inpatient Medications Medications (Trade) Dose Ordered Sig/José Miguel Route Start Time Stop Time Status Last Admin Dose Admin Haloperidol (Haldol Tab) 2 mg Q4H PRN PO 02/23/18 01:30 03/25/18 01:29 Haloperidol Lactate (Haldol Inj) 2 mg Q2H PRN IM 02/23/18 01:30 03/25/18 01:29 Acetaminophen (Tylenol Tab) 650 mg Q4H PRN PO 02/23/18 01:30 03/25/18 01:29 02/23/18 17:06 650 MG Tramadol HCl (Ultram Tab) 25 mg Q6H PRN PO 02/23/18 01:30 03/25/18 01:29 Prochlorperazine Edisylate 5 mg/ Syringe 5 ml @ 5 mls/min Q6H PRN IV 02/23/18 01:30 03/25/18 01:29 Aspirin (Ecotrin Tab) 81 mg QAM PO 02/23/18 08:00 03/25/18 08:59 02/27/18 08:18 81 MG Budesonide (Pulmicort Respules 0.5MG/ 2ML Neb Soln) 1 mg BIDR INH 02/23/18 08:00 03/25/18 07:59 02/27/18 07:38 1 MG Carvedilol (Coreg Tab) 12.5 mg BID PO 02/23/18 08:00 03/25/18 08:59 02/27/18 08:18 12.5 MG Mirtazapine (Remeron Tab) 15 mg HS PO 02/23/18 21:00 03/25/18 20:59 02/26/18 21:21 15 MG Multivitamins (Multivitamin Tab) 1 tab DAILY PO 02/23/18 08:00 03/25/18 08:59 02/27/18 08:19 1 TAB Venlafaxine HCl (effeXOR EXTENDED REL CAP) 150 mg DAILY PO 02/23/18 08:00 03/25/18 08:59 02/27/18 08:19 150 MG Pantoprazole Sodium (Protonix Tab) 40 mg HS PO 02/23/18 21:00 03/25/18 20:59 02/26/18 21:20 40 MG Nicotine (Nicoderm Cq 14MG Patch) 1 patch QAM TD 02/23/18 08:00 03/25/18 08:59 02/27/18 08:18 1 PATCH Miscellaneous (Remove Nicoderm Patch) 1 ea HS N/A 02/23/18 21:00 03/25/18 20:59 02/26/18 21:20 1 EA Atorvastatin Calcium (Lipitor Tab) 40 mg DAILY PO 02/23/18 08:00 03/25/18 08:59 02/27/18 08:18 40 MG Ipratropium [place] (Atrovent 0.02% 0.5MG/2.5ML Neb) 0.5 mg Q6R INH 02/23/18 03:00 03/25/18 02:59 02/27/18 14:10 0.5 MG Levalbuterol (Xopenex 1.25MG/ 0.5ML Neb) 1.25 mg Q6R INH 02/23/18 03:00 03/25/18 02:59 02/27/18 14:10 1.25 MG Ipratropium [place] (Atrovent 0.02% 0.5MG/2.5ML Neb) 0.5 mg Q4H PRN INH 02/23/18 01:45 03/25/18 01:44 Levalbuterol (Xopenex 1.25MG/ 0.5ML Neb) 1.25 mg Q4H PRN INH 02/23/18 01:45 03/25/18 01:44 Clindamycin Phosphate (Consult) 1 ea DAILY PRN N/A 02/23/18 08:00 03/25/18 08:59 Lactobacillus Acidophilus (Floranex Tab) 4 tab TIDM PO 02/23/18 14:00 03/25/18 13:59 02/27/18 17:57 4 TAB Clindamycin HCl (Cleocin Cap) 600 mg Q8H PO 02/23/18 14:00 03/02/18 13:59 02/27/18 14:45 600 MG Heparin Sodium (Porcine) (Heparin Sq 5000 Unit/0.5ml) 5,000 unit Q8 SQ 02/23/18 14:00 03/25/18 13:59 02/27/18 14:45 5,000 UNIT Enteral Nutritional Formula (Boost) 1 can TID PO 02/23/18 20:00 03/25/18 19:59 02/27/18 12:23 1 CAN Prednisone (PredniSONE TAB) 40 mg DAILY PO 02/25/18 08:00 03/12/18 07:59 02/27/18 08:18 40 MG Objective Vital Signs Date Time Temp Pulse Resp B/P (MAP) Pulse Ox O2 Delivery O2 Flow Rate FiO2 02/27/18 16:00 Nasal Cannula 2.0 02/27/18 15:52 36.8 96 16 157/75 (102) 95 Nasal Cannula 2.0 02/27/18 14:10 96 16 95 Nasal Cannula 2.0 02/27/18 09:20 Nasal Cannula 2.0 02/27/18 07:39 88 16 96 Nasal Cannula 2.0 02/27/18 07:38 36.9 98 16 146/80 (102) 96 Nasal Cannula 2.0 02/27/18 01:51 87 16 95 Nasal Cannula 2.0 02/27/18 00:00 Nasal Cannula 2.0 02/26/18 23:35 36.8 106 16 127/59 (81) 92 Nasal Cannula 3.0 02/26/18 19:39 36.7 103 18 138/77 (97) 98 Nasal Cannula 2.0 28 02/26/18 18:47 94 16 95 Nasal Cannula 2.0 Physical Exam General Appearance: no apparent distress Respiratory/Chest: no respiratory distress, no accessory muscle use, + decreased breath sounds Cardiovascular: regular rate, rhythm, no edema, no murmur Laboratory Results Last 24 Hours Test 02/27/18 08:20 White Blood Count 16.24 K/uL Red Blood Count 3.53 M/uL Hemoglobin 10.6 g/dL Hematocrit 35.0 % Mean Corpuscular Volume 99.2 fL Mean Corpuscular Hemoglobin 30.0 pg Mean Corpuscular Hemoglobin Concent 30.3 g/dl RDW Standard Deviation 59.9 fL RDW Coefficient of Variation 16.6 % Platelet Count 149 K/uL Mean Platelet Volume 10.1 fL Sodium Level 137 mmol/L Potassium Level 4.7 mmol/L Chloride Level 94 mmol/L Carbon Dioxide Level 44 mmol/L Anion Gap -1.0 mmol/L Blood Urea Nitrogen 21 mg/dl Creatinine 0.38 mg/dl Est Creatinine Clear Calc Drug Dose 88.5 ml/min Estimated GFR () 125.3 Estimated GFR (Non- 108.1 BUN/Creatinine Ratio 55.8 Random Glucose 77 mg/dl Calcium Level 8.6 mg/dl Assessment and Plan This is a 67 year old female with a past medical history of severe, end stage COPD, chronic respiratory failure, anxiety/depression, CAD - presents with altered mental status Altered Mental Status Likely CO2 Narcosis 02/27 - doing well - prednisone x5 days - plan to d/c to SNF 02/26 - continue prednisone for now - continue bipap and oxygen - palliative care consulted - will discuss home hospice with 02/25 - improving, ABG performed today - CO2 improving, pH improving - CXR shows some clearing - will continue clindamycin for now - IV solumedrol has been changed to prednisone appropriately - hospice consulted; palliative care 02/24 - patient has severe COPD - CO2 Narcosis is likely the culprit for encephalopathy - does not use bipap, non-compliant - palliative care consulted due to the end-stage, severe nature of COPD Acute on Chronic Hypoxic, Hypercapnic Respiratory Failure Acute COPD Exacerbation/End-Stage COPD in the setting of R sided Pneumonia, likely Recurrent Aspiration - appreciate pulmonary input; patient with end stage COPD - currently on Solu-medrol, which we will continue - on chronic O2 - will need bipap, but is not compliant - nebs as needed - on Clindamycin for aspiration pneumonia - consulted palliative care due to severe, end stage nature of her disease CAD - continue aspirin, b-maycol, statin DVT ppx - subq heparin DNR/DNI
[2018-02-27 19:08] VITALS: PULSE 89; O2SAT 97
[2018-02-27] MEDS: PANTOprazole SOD 40 MG TAB PO SCH (20:58)
[2018-02-27] MEDS: MIRTAZAPINE TAB 15 MG TAB PO SCH (21:01)
[2018-02-28] VITALS (7 sets, daily range): BP systolic 108–120; BP diastolic 67–75; PULSE 86–106; TEMP 36.4–36.7; O2SAT 95–98
[2018-02-28] MEDS: IPRATROPIUM BROMIDE NEB SOLN 0.02% 2.5 ML VIAL INH SCH ×4 (02:14→19:10)
[2018-02-28] MEDS: LEVALBUTEROL 1.25MG/0.5ML NEB INH SCH ×4 (02:14→19:10)
[2018-02-28] MEDS: CLINDAMYCIN HCL 150 MG CAP PO SCH ×4 (05:36→21:31)
[2018-02-28] MEDS: HEPARIN SOD 5000 UNIT/0.5 ML CARP SQ SCH ×3 (05:44→21:37)
[2018-02-28] MEDS: BUDESONIDE 0.5 MG/2 ML VIAL (PULMICORT) INH SCH ×2 (06:59→19:11)
[2018-02-28] MEDS: BOOST VANILLA PO SCH ×3 (08:00→21:30)
[2018-02-28 08:50] LABS: CALCIUM 8.1 mg/dl (8.5-10.1); CREATININE 0.37 mg/dl (0.60-1.20); POTASSIUM 4.3 mmol/L (3.5-5.1)
[2018-02-28] MEDS: CARVEDILOL 12.5 MG TAB PO SCH ×2 (09:14→21:35)
[2018-02-28] MEDS: VENLAFAXINE HCL XR 150 MG CAPXR PO SCH (09:15)
[2018-02-28] MEDS: ASPIRIN 81 MG ECTAB PO SCH (09:15)
[2018-02-28] MEDS: LACTOBACILLUS ACIDOPHILUS (FLORANEX) TAB PO SCH ×3 (09:16→18:17)
[2018-02-28] MEDS: MULTIVITAMIN TAB PO SCH (09:18)
[2018-02-28] MEDS: NICOTINE 14 MG/24 HR TDSY TD SCH (09:19)
--- NOTE | 2018-02-28 16:41 | Progress Note ---
Subjective Date of Service: February 28, 2018. Subjective Pt evaluation today including: conversation w/ patient, physical exam, lab review, review of studies, review of inpatient medication list Saw/examined the patient in room 455 No problems/issues today, she feels fine at this time Problem List Medical Problems: (1) Acute on chronic respiratory failure with hypoxia and hypercapnia Status: Acute (2) Anemia Status: Acute (3) Closed head injury Status: Acute (4) Hip fracture, right Status: Acute (5) Hypercapnic respiratory failure Status: Acute (6) Nasal fracture Status: Acute (7) Pneumonia Status: Acute (8) Pneumonia Status: Acute (9) Sepsis Status: Acute (10) Skin tear Status: Acute (11) Skin tear of right elbow without complication Status: Acute (12) UTI (urinary tract infection) Status: Acute Review of Systems Constitutional: No fever, No chills Respiratory: No cough, No sputum, No shortness of breath Cardiac: No chest pain, No edema, No palpitations Medications Current Inpatient Medications Medications (Trade) Dose Ordered Sig/José Miguel Route Start Time Stop Time Status Last Admin Dose Admin Haloperidol (Haldol Tab) 2 mg Q4H PRN PO 02/23/18 01:30 03/25/18 01:29 Haloperidol Lactate (Haldol Inj) 2 mg Q2H PRN IM 02/23/18 01:30 03/25/18 01:29 Acetaminophen (Tylenol Tab) 650 mg Q4H PRN PO 02/23/18 01:30 03/25/18 01:29 02/23/18 17:06 650 MG Tramadol HCl (Ultram Tab) 25 mg Q6H PRN PO 02/23/18 01:30 03/25/18 01:29 Prochlorperazine Edisylate 5 mg/ Syringe 5 ml @ 5 mls/min Q6H PRN IV 02/23/18 01:30 03/25/18 01:29 Aspirin (Ecotrin Tab) 81 mg QAM PO 02/23/18 08:00 03/25/18 08:59 02/28/18 09:15 81 MG Budesonide (Pulmicort Respules 0.5MG/ 2ML Neb Soln) 1 mg BIDR INH 02/23/18 08:00 03/25/18 07:59 02/28/18 06:59 1 MG Carvedilol (Coreg Tab) 12.5 mg BID PO 02/23/18 08:00 03/25/18 08:59 02/28/18 09:14 12.5 MG Mirtazapine (Remeron Tab) 15 mg HS PO 02/23/18 21:00 03/25/18 20:59 02/27/18 21:01 15 MG Multivitamins (Multivitamin Tab) 1 tab DAILY PO 02/23/18 08:00 03/25/18 08:59 02/28/18 09:18 1 TAB Venlafaxine HCl (effeXOR EXTENDED REL CAP) 150 mg DAILY PO 02/23/18 08:00 03/25/18 08:59 02/28/18 09:15 150 MG Pantoprazole Sodium (Protonix Tab) 40 mg HS PO 02/23/18 21:00 03/25/18 20:59 02/27/18 20:58 40 MG Nicotine (Nicoderm Cq 14MG Patch) 1 patch QAM TD 02/23/18 08:00 03/25/18 08:59 02/28/18 09:19 1 PATCH Miscellaneous (Remove Nicoderm Patch) 1 ea HS N/A 02/23/18 21:00 03/25/18 20:59 02/27/18 20:58 1 EA Atorvastatin Calcium (Lipitor Tab) 40 mg DAILY PO 02/23/18 08:00 03/25/18 08:59 02/27/18 20:58 40 MG Ipratropium [place] (Atrovent 0.02% 0.5MG/2.5ML Neb) 0.5 mg Q6R INH 02/23/18 03:00 03/25/18 02:59 02/28/18 15:01 0.5 MG Levalbuterol (Xopenex 1.25MG/ 0.5ML Neb) 1.25 mg Q6R INH 02/23/18 03:00 03/25/18 02:59 02/28/18 15:01 1.25 MG Ipratropium [place] (Atrovent 0.02% 0.5MG/2.5ML Neb) 0.5 mg Q4H PRN INH 02/23/18 01:45 03/25/18 01:44 Levalbuterol (Xopenex 1.25MG/ 0.5ML Neb) 1.25 mg Q4H PRN INH 02/23/18 01:45 03/25/18 01:44 Clindamycin Phosphate (Consult) 1 ea DAILY PRN N/A 02/23/18 08:00 03/25/18 08:59 Lactobacillus Acidophilus (Floranex Tab) 4 tab TIDM PO 02/23/18 14:00 03/25/18 13:59 02/28/18 12:47 4 TAB Clindamycin HCl (Cleocin Cap) 600 mg Q8H PO 02/23/18 14:00 03/02/18 13:59 02/28/18 14:50 300 MG Heparin Sodium (Porcine) (Heparin Sq 5000 Unit/0.5ml) 5,000 unit Q8 SQ 02/23/18 14:00 03/25/18 13:59 02/28/18 14:42 5,000 UNIT Enteral Nutritional Formula (Boost) 1 can TID PO 02/23/18 20:00 03/25/18 19:59 02/28/18 08:00 1 CAN Prednisone (PredniSONE TAB) 40 mg DAILY PO 02/25/18 08:00 03/12/18 07:59 02/28/18 09:18 40 MG Objective Vital Signs Date Time Temp Pulse Resp B/P (MAP) Pulse Ox O2 Delivery O2 Flow Rate FiO2 02/28/18 16:35 Nasal Cannula 2.0 02/28/18 15:52 36.5 86 16 115/73 (87) 96 Nasal Cannula 2.0 02/28/18 15:01 97 16 98 Nasal Cannula 2.0 02/28/18 09:00 98 Nasal Cannula 2.0 28 02/28/18 07:32 36.7 97 16 120/75 (90) 98 Nasal Cannula 2.0 02/28/18 07:03 97 16 98 Nasal Cannula 2.0 02/28/18 00:40 36.4 89 18 108/67 (81) 96 2.0 02/28/18 00:00 Nasal Cannula 2.0 02/27/18 20:31 Nasal Cannula 2.0 02/27/18 19:08 89 16 97 Nasal Cannula 2.0 Physical Exam General Appearance: no apparent distress, + cachetic, + thin Respiratory/Chest: no respiratory distress, no accessory muscle use, + decreased breath sounds Cardiovascular: regular rate, rhythm, no edema, no murmur Abdomen: + pertinent finding (+ostomy) Laboratory Results Last 24 Hours Test 02/28/18 07:12 Sodium Level 136 mmol/L Potassium Level 4.3 mmol/L Chloride Level 95 mmol/L Carbon Dioxide Level 40 mmol/L Anion Gap -1.0 mmol/L Blood Urea Nitrogen 19 mg/dl Creatinine 0.37 mg/dl Est Creatinine Clear Calc Drug Dose 90.8 ml/min Estimated GFR () 126.4 Estimated GFR (Non- 109.0 BUN/Creatinine Ratio 50.6 Random Glucose 78 mg/dl Calcium Level 8.1 mg/dl Magnesium Level 2.0 mg/dl Assessment and Plan This is a 67 year old female with a past medical history of severe, end stage COPD, chronic respiratory failure, anxiety/depression, CAD - presents with altered mental status Altered Mental Status Likely CO2 Narcosis 02/28 - one more dose of prednisone - continue oxygen, does not want to use bipap - plan to d/c when able to SNF 02/27 - doing well - prednisone x5 days - plan to d/c to SNF 02/26 - continue prednisone for now - continue bipap and oxygen - palliative care consulted - will discuss home hospice with 02/25 - improving, ABG performed today - CO2 improving, pH improving - CXR shows some clearing - will continue clindamycin for now - IV solumedrol has been changed to prednisone appropriately - hospice consulted; palliative care 02/24 - patient has severe COPD - CO2 Narcosis is likely the culprit for encephalopathy - does not use bipap, non-compliant - palliative care consulted due to the end-stage, severe nature of COPD Acute on Chronic Hypoxic, Hypercapnic Respiratory Failure Acute COPD Exacerbation/End-Stage COPD in the setting of R sided Pneumonia, likely Recurrent Aspiration - appreciate pulmonary input; patient with end stage COPD - currently on Solu-medrol, which we will continue - on chronic O2 - will need bipap, but is not compliant - nebs as needed - on Clindamycin for aspiration pneumonia - consulted palliative care due to severe, end stage nature of her disease CAD - continue aspirin, b-maycol, statin DVT ppx - subq heparin DNR/DNI
[2018-02-28] MEDS: MIRTAZAPINE TAB 15 MG TAB PO SCH (21:31)
[2018-02-28] MEDS: PANTOprazole SOD 40 MG TAB PO SCH (21:36)
[2018-03-01] VITALS (9 sets, daily range): BP systolic 113–152; BP diastolic 65–89; PULSE 86–105; TEMP 36.7–36.9; O2SAT 94–99
[2018-03-01] MEDS: IPRATROPIUM BROMIDE NEB SOLN 0.02% 2.5 ML VIAL INH SCH ×4 (01:42→19:08)
[2018-03-01] MEDS: LEVALBUTEROL 1.25MG/0.5ML NEB INH SCH ×4 (01:43→19:08)
[2018-03-01] MEDS: HEPARIN SOD 5000 UNIT/0.5 ML CARP SQ SCH ×3 (06:00→20:51)
[2018-03-01] MEDS: CLINDAMYCIN HCL 150 MG CAP PO SCH ×2 (06:08→13:32)
[2018-03-01] MEDS: BUDESONIDE 0.5 MG/2 ML VIAL (PULMICORT) INH SCH ×2 (07:09→19:09)
[2018-03-01 07:19] LABS: BASO % 0.1 %; BASO ABS # 0.01 K/uL (0-0.2); EOS % 1.7 %; EOS ABS # 0.27 K/uL (0-0.5); HEMATOCRIT 33.2 % (37-47); HEMOGLOBIN 10.2 g/dL (12.0-16.0); IG# 0.07 K/uL (0.00-0.02); LYMPH % 12.3 %; LYMPH ABS # 1.95 K/uL (1.2-3.4); MEAN CELL VOLUME 97.6 fL (80-100); MEAN CORPUSCULAR HGB CONC 30.7 g/dl (32-36); MEAN PLATELET VOLUME 9.9 fL (7.4-10.4); MONO % 14.4 %; MONO ABS # 2.29 K/uL (0.11-0.59); NEUT % 71.1 %; NEUT ABS # 11.28 K/uL (1.4-6.5); NUCLEATED RED BLOOD CELL ABS 0.06 K/uL (0-0); PLATELET COUNT 212 K/uL (130-400); RED CELL DISTRIBUTION WIDTH CV 16.4 % (11.5-14.5); RED CELL DISTRIBUTION WIDTH SD 57.9 fL (36.4-46.3); WHITE BLOOD COUNT 15.87 K/uL (4.8-10.8)
[2018-03-01] MEDS: ASPIRIN 81 MG ECTAB PO SCH (07:58)
[2018-03-01] MEDS: VENLAFAXINE HCL XR 150 MG CAPXR PO SCH (07:58)
[2018-03-01] MEDS: CARVEDILOL 12.5 MG TAB PO SCH ×2 (07:58→20:46)
[2018-03-01] MEDS: ATORVASTATIN 40 MG TAB PO SCH (07:59)
[2018-03-01] MEDS: LACTOBACILLUS ACIDOPHILUS (FLORANEX) TAB PO SCH ×3 (07:59→16:32)
[2018-03-01] MEDS: MULTIVITAMIN TAB PO SCH (08:00)
[2018-03-01] MEDS: NICOTINE 14 MG/24 HR TDSY TD SCH (08:01)
[2018-03-01] MEDS: BOOST VANILLA PO SCH ×3 (08:15→20:00)
--- NOTE | 2018-03-01 13:38 | Progress Note ---
Subjective Date of Service: March 01, 2018. Subjective Pt evaluation today including: conversation w/ patient, conversation w/ family , physical exam, lab review, review of studies, review of inpatient medication list Saw/examined the patient in room 455 She's laying comfortably, son and [id number] in the room No problems/issues - she is eager to get out of the hospital Problem List Medical Problems: (1) Acute on chronic respiratory failure with hypoxia and hypercapnia Status: Acute (2) Anemia Status: Acute (3) Closed head injury Status: Acute (4) Hip fracture, right Status: Acute (5) Hypercapnic respiratory failure Status: Acute (6) Nasal fracture Status: Acute (7) Pneumonia Status: Acute (8) Pneumonia Status: Acute (9) Sepsis Status: Acute (10) Skin tear Status: Acute (11) Skin tear of right elbow without complication Status: Acute (12) UTI (urinary tract infection) Status: Acute Review of Systems Constitutional: No weakness Respiratory: No shortness of breath Cardiac: No chest pain Heme: No abnormal bleeding/bruising Medications Current Inpatient Medications Medications (Trade) Dose Ordered Sig/José Miguel Route Start Time Stop Time Status Last Admin Dose Admin Haloperidol (Haldol Tab) 2 mg Q4H PRN PO 02/23/18 01:30 03/25/18 01:29 Haloperidol Lactate (Haldol Inj) 2 mg Q2H PRN IM 02/23/18 01:30 03/25/18 01:29 Acetaminophen (Tylenol Tab) 650 mg Q4H PRN PO 02/23/18 01:30 03/25/18 01:29 02/23/18 17:06 650 MG Tramadol HCl (Ultram Tab) 25 mg Q6H PRN PO 02/23/18 01:30 03/25/18 01:29 Prochlorperazine Edisylate 5 mg/ Syringe 5 ml @ 5 mls/min Q6H PRN IV 02/23/18 01:30 03/25/18 01:29 Aspirin (Ecotrin Tab) 81 mg QAM PO 02/23/18 08:00 03/25/18 08:59 03/01/18 07:58 81 MG Budesonide (Pulmicort Respules 0.5MG/ 2ML Neb Soln) 1 mg BIDR INH 02/23/18 08:00 03/25/18 07:59 03/01/18 07:09 1 MG Carvedilol (Coreg Tab) 12.5 mg BID PO 02/23/18 08:00 03/25/18 08:59 03/01/18 07:58 12.5 MG Mirtazapine (Remeron Tab) 15 mg HS PO 02/23/18 21:00 03/25/18 20:59 02/28/18 21:31 15 MG Multivitamins (Multivitamin Tab) 1 tab DAILY PO 02/23/18 08:00 03/25/18 08:59 03/01/18 08:00 1 TAB Venlafaxine HCl (effeXOR EXTENDED REL CAP) 150 mg DAILY PO 02/23/18 08:00 03/25/18 08:59 03/01/18 07:58 150 MG Pantoprazole Sodium (Protonix Tab) 40 mg HS PO 02/23/18 21:00 03/25/18 20:59 02/28/18 21:36 40 MG Nicotine (Nicoderm Cq 14MG Patch) 1 patch QAM TD 02/23/18 08:00 03/25/18 08:59 03/01/18 08:01 1 PATCH Miscellaneous (Remove Nicoderm Patch) 1 ea HS N/A 02/23/18 21:00 03/25/18 20:59 02/28/18 21:38 1 EA Atorvastatin Calcium (Lipitor Tab) 40 mg DAILY PO 02/23/18 08:00 03/25/18 08:59 03/01/18 07:59 40 MG Ipratropium [place] (Atrovent 0.02% 0.5MG/2.5ML Neb) 0.5 mg Q6R INH 02/23/18 03:00 03/25/18 02:59 03/01/18 07:09 0.5 MG Levalbuterol (Xopenex 1.25MG/ 0.5ML Neb) 1.25 mg Q6R INH 02/23/18 03:00 03/25/18 02:59 03/01/18 07:09 1.25 MG Ipratropium [place] (Atrovent 0.02% 0.5MG/2.5ML Neb) 0.5 mg Q4H PRN INH 02/23/18 01:45 03/25/18 01:44 Levalbuterol (Xopenex 1.25MG/ 0.5ML Neb) 1.25 mg Q4H PRN INH 02/23/18 01:45 03/25/18 01:44 Clindamycin Phosphate (Consult) 1 ea DAILY PRN N/A 02/23/18 08:00 03/25/18 08:59 Lactobacillus Acidophilus (Floranex Tab) 4 tab TIDM PO 02/23/18 14:00 03/25/18 13:59 03/01/18 12:27 4 TAB Clindamycin HCl (Cleocin Cap) 600 mg Q8H PO 02/23/18 14:00 03/02/18 13:59 03/01/18 06:08 600 MG Heparin Sodium (Porcine) (Heparin Sq 5000 Unit/0.5ml) 5,000 unit Q8 SQ 02/23/18 14:00 03/25/18 13:59 02/28/18 14:42 5,000 UNIT Enteral Nutritional Formula (Boost) 1 can TID PO 02/23/18 20:00 03/25/18 19:59 03/01/18 12:27 1 CAN Prednisone (PredniSONE TAB) 40 mg DAILY PO 02/25/18 08:00 03/12/18 07:59 03/01/18 08:00 40 MG Objective Vital Signs Date Time Temp Pulse Resp B/P (MAP) Pulse Ox O2 Delivery O2 Flow Rate FiO2 03/01/18 10:34 99 Nasal Cannula 2.0 28 03/01/18 07:13 86 16 99 Nasal Cannula 2.0 03/01/18 07:12 36.8 88 18 152/89 (110) 99 Room Air 03/01/18 00:20 36.8 95 20 121/69 (86) 94 2.0 03/01/18 00:00 Nasal Cannula 2.0 02/28/18 20:00 Nasal Cannula 2.0 02/28/18 19:10 106 16 95 Nasal Cannula 2.0 02/28/18 16:35 Nasal Cannula 2.0 02/28/18 15:52 36.5 86 16 115/73 (87) 96 Nasal Cannula 2.0 02/28/18 15:01 97 16 98 Nasal Cannula 2.0 Physical Exam General Appearance: no apparent distress, + cachetic, + thin Respiratory/Chest: no respiratory distress, no accessory muscle use, + decreased breath sounds Cardiovascular: regular rate, rhythm, no edema, no murmur Abdomen: + pertinent finding (+ostomy) Extremities: normal inspection, no pedal edema Neurologic/Psychiatric: no motor/sensory deficits, alert, normal mood/affect Laboratory Results Last 24 Hours Test 03/01/18 07:00 White Blood Count 15.87 K/uL Red Blood Count 3.40 M/uL Hemoglobin 10.2 g/dL Hematocrit 33.2 % Mean Corpuscular Volume 97.6 fL Mean Corpuscular Hemoglobin 30.0 pg Mean Corpuscular Hemoglobin Concent 30.7 g/dl Platelet Count 212 K/uL Mean Platelet Volume 9.9 fL Neutrophils (%) (Auto) 71.1 % Lymphocytes (%) (Auto) 12.3 % Monocytes (%) (Auto) 14.4 % Eosinophils (%) (Auto) 1.7 % Basophils (%) (Auto) 0.1 % Neutrophils # (Auto) 11.28 K/uL Lymphocytes # (Auto) 1.95 K/uL Monocytes # (Auto) 2.29 K/uL Eosinophils # (Auto) 0.27 K/uL Basophils # (Auto) 0.01 K/uL RDW Standard Deviation 57.9 fL RDW Coefficient of Variation 16.4 % Immature Granulocyte % (Auto) 0.4 % Immature Granulocyte # (Auto) 0.07 K/uL Nucleated RBC Absolute Count (auto) 0.06 K/uL Nucleated Red Blood Cells % 0.4 % Assessment and Plan This is a 67 year old female with a past medical history of severe, end stage COPD, chronic respiratory failure, anxiety/depression, CAD - presents with altered mental status Altered Mental Status Likely CO2 Narcosis 03/01 - continue O2 and bipap - planning for SNF discharge - may need bipap on discharge if she stays compliant - hospice discussion taking place; should be on home hospice at the very least - poor prognosis 02/28 - one more dose of prednisone - continue oxygen, does not want to use bipap - plan to d/c when able to SNF 02/27 - doing well - prednisone x5 days - plan to d/c to SNF 02/26 - continue prednisone for now - continue bipap and oxygen - palliative care consulted - will discuss home hospice with 02/25 - improving, ABG performed today - CO2 improving, pH improving - CXR shows some clearing - will continue clindamycin for now - IV solumedrol has been changed to prednisone appropriately - hospice consulted; palliative care 02/24 - patient has severe COPD - CO2 Narcosis is likely the culprit for encephalopathy - does not use bipap, non-compliant - palliative care consulted due to the end-stage, severe nature of COPD Acute on Chronic Hypoxic, Hypercapnic Respiratory Failure Acute COPD Exacerbation/End-Stage COPD in the setting of R sided Pneumonia, likely Recurrent Aspiration - appreciate pulmonary input; patient with end stage COPD - currently on Solu-medrol, which we will continue - on chronic O2 - will need bipap, but is not compliant - nebs as needed - on Clindamycin for aspiration pneumonia - consulted palliative care due to severe, end stage nature of her disease CAD - continue aspirin, b-maycol, statin DVT ppx - subq heparin DNR/DNI
[2018-03-01] MEDS: MIRTAZAPINE TAB 15 MG TAB PO SCH (20:46)
[2018-03-01] MEDS: PANTOprazole SOD 40 MG TAB PO SCH (20:47)
[2018-03-02] MEDS: IPRATROPIUM BROMIDE NEB SOLN 0.02% 2.5 ML VIAL INH SCH ×4 (01:18→19:04)
[2018-03-02] MEDS: LEVALBUTEROL 1.25MG/0.5ML NEB INH SCH ×4 (01:18→19:04)
[2018-03-02] MEDS: HEPARIN SOD 5000 UNIT/0.5 ML CARP SQ SCH ×3 (06:30→20:38)
[2018-03-02] MEDS: BUDESONIDE 0.5 MG/2 ML VIAL (PULMICORT) INH SCH ×2 (07:07→19:04)
[2018-03-02 07:16] VITALS: PULSE 98; O2SAT 98
[2018-03-02 08:56] VITALS: BP 121/72; PULSE 83; TEMP 36.8; O2SAT 97
--- NOTE | 2018-03-02 09:00 | Palliative Care Progress Note ---
Palliative Care Progress Note Date of Service March 02, 2018. Subjective Pt evaluation today including: conversation w/ patient, conversation w/ family , physical exam Pain: appears comfortable PO Intake: minimal This patient was seen for follow up. The patient has hypercapnic respiratory failure and has a PMH of COPD/emphysema. Per her medical records, she has an FEV1 of 19% and is poorly compliant at home with her medications and oxygen use. This patient is showing improving from this exacerbation; however, flares have been more frequent and more difficult to control. I did discuss GOALS OF CARE at length with her , Christoph over the phone the complexity and true end stage of her disease process. He is on board with her being transferred to [facility] with the goal of remaining comfortable when the next exacerbation occurs. He did come in to the hospital at 10Am this morning and we filled out a POLST form at the bedside, reflecting comfort as the main focus. Upon assessment of the patient, she was awake, sitting up in her bed, able to answer simple questions. She did say "I'm in the hospital and ready to go home" . I did say we were hoping to get her out of the hospital into a safer, more appropriate environment for her to get the nursing help she needs. She shrugged her shoulders. Review of Systems Pt confused at the bedside Pt denies pain, SOB, CP, swelling, N/V/D Objective Vital Signs Date Time Temp Pulse Resp B/P (MAP) Pulse Ox O2 Delivery O2 Flow Rate FiO2 03/02/18 08:56 36.8 83 121/72 (88) 97 Nasal Cannula 2.0 03/02/18 07:16 98 16 98 Nasal Cannula 2.0 03/01/18 23:59 Nasal Cannula 2.0 03/01/18 23:55 36.9 97 16 136/70 (92) 94 2.0 03/01/18 20:45 99 119/65 (83) 03/01/18 19:09 105 16 98 Nasal Cannula 2.0 03/01/18 16:00 Nasal Cannula 2.0 03/01/18 15:05 36.7 93 20 113/71 (85) 99 Nasal Cannula 2.0 03/01/18 14:52 99 16 95 Nasal Cannula 2.0 03/01/18 10:34 99 Nasal Cannula 2.0 28 Physical Exam General Appearance: no apparent distress, + cachetic Respiratory/Chest: chest non-tender, lungs clear, normal breath sounds, no respiratory distress, no accessory muscle use Cardiovascular: regular rate, rhythm, no edema, no gallop, no JVD, no murmur Abdomen: normal bowel sounds, non tender, soft Extremities: no pedal edema Neurologic/Psychiatric: + pertinent finding (oriented to self and location - pt does not understand the complexity of her condition) Skin: normal color, warm/dry, no rash Assessment and Plan CAD Ch. anemia CHF ischemic colitis hypercapnic respiratory failure Palliative Care Recommendations: -Patient to remain DNR/DNI -Discharge planning includes [facility], possibly tomorrow 03/03 - Case management arranging -POLST form completed with the patients and placed on the chart. Palliative Performance Scale: 30 % Discharge planning: residential facility (possibly skill with transition to hospice) Counseling and Coordination Total time spent 35 minutes with > 50% of that time spent assessing the patient and completing a POLST form at the bedside with the patients .
[2018-03-02] MEDS: BOOST VANILLA PO SCH ×3 (09:02→20:00)
[2018-03-02] MEDS: ATORVASTATIN 40 MG TAB PO SCH (09:10)
[2018-03-02] MEDS: ASPIRIN 81 MG ECTAB PO SCH (09:10)
[2018-03-02] MEDS: LACTOBACILLUS ACIDOPHILUS (FLORANEX) TAB PO SCH ×3 (09:10→16:50)
[2018-03-02] MEDS: CARVEDILOL 12.5 MG TAB PO SCH ×2 (09:10→20:36)
[2018-03-02] MEDS: MULTIVITAMIN TAB PO SCH (09:10)
[2018-03-02] MEDS: VENLAFAXINE HCL XR 150 MG CAPXR PO SCH (09:10)
[2018-03-02] MEDS: NICOTINE 14 MG/24 HR TDSY TD SCH (09:11)
--- NOTE | 2018-03-02 12:55 | Progress Note ---
Subjective Date of Service: March 02, 2018. Subjective Pt evaluation today including: conversation w/ patient, physical exam, lab review, review of studies, review of inpatient medication list Saw/examined the patient in room 455 She's doing well, intermittent disorientation Denies chest pain, shortness of breath Problem List Medical Problems: (1) Acute on chronic respiratory failure with hypoxia and hypercapnia Status: Acute (2) Anemia Status: Acute (3) Closed head injury Status: Acute (4) Hip fracture, right Status: Acute (5) Hypercapnic respiratory failure Status: Acute (6) Nasal fracture Status: Acute (7) Pneumonia Status: Acute (8) Pneumonia Status: Acute (9) Sepsis Status: Acute (10) Skin tear Status: Acute (11) Skin tear of right elbow without complication Status: Acute (12) UTI (urinary tract infection) Status: Acute Review of Systems Constitutional: + weakness, No fever, No chills Respiratory: + shortness of breath, + dyspnea on exertion, No cough, No sputum , No wheezing, No dyspnea at rest, No hemoptysis Cardiac: No chest pain, No edema, No palpitations Medications Current Inpatient Medications Medications (Trade) Dose Ordered Sig/José Miguel Route Start Time Stop Time Status Last Admin Dose Admin Haloperidol (Haldol Tab) 2 mg Q4H PRN PO 02/23/18 01:30 03/25/18 01:29 Haloperidol Lactate (Haldol Inj) 2 mg Q2H PRN IM 02/23/18 01:30 03/25/18 01:29 Acetaminophen (Tylenol Tab) 650 mg Q4H PRN PO 02/23/18 01:30 03/25/18 01:29 02/23/18 17:06 650 MG Tramadol HCl (Ultram Tab) 25 mg Q6H PRN PO 02/23/18 01:30 03/25/18 01:29 Prochlorperazine Edisylate 5 mg/ Syringe 5 ml @ 5 mls/min Q6H PRN IV 02/23/18 01:30 03/25/18 01:29 Aspirin (Ecotrin Tab) 81 mg QAM PO 02/23/18 08:00 03/25/18 08:59 03/02/18 09:10 81 MG Budesonide (Pulmicort Respules 0.5MG/ 2ML Neb Soln) 1 mg BIDR INH 02/23/18 08:00 03/25/18 07:59 03/02/18 07:07 1 MG Carvedilol (Coreg Tab) 12.5 mg BID PO 02/23/18 08:00 03/25/18 08:59 03/02/18 09:10 12.5 MG Mirtazapine (Remeron Tab) 15 mg HS PO 02/23/18 21:00 03/25/18 20:59 03/01/18 20:46 15 MG Multivitamins (Multivitamin Tab) 1 tab DAILY PO 02/23/18 08:00 03/25/18 08:59 03/02/18 09:10 1 TAB Venlafaxine HCl (effeXOR EXTENDED REL CAP) 150 mg DAILY PO 02/23/18 08:00 03/25/18 08:59 03/02/18 09:10 150 MG Pantoprazole Sodium (Protonix Tab) 40 mg HS PO 02/23/18 21:00 03/25/18 20:59 03/01/18 20:47 40 MG Nicotine (Nicoderm Cq 14MG Patch) 1 patch QAM TD 02/23/18 08:00 03/25/18 08:59 03/02/18 09:11 1 PATCH Miscellaneous (Remove Nicoderm Patch) 1 ea HS N/A 02/23/18 21:00 03/25/18 20:59 03/01/18 20:46 1 EA Atorvastatin [place]cium (Lipitor Tab) 40 mg DAILY PO 02/23/18 08:00 03/25/18 08:59 03/02/18 09:10 40 MG Ipratropium [place] (Atrovent 0.02% 0.5MG/2.5ML Neb) 0.5 mg Q6R INH 02/23/18 03:00 03/25/18 02:59 03/02/18 07:07 0.5 MG Levalbuterol (Xopenex 1.25MG/ 0.5ML Neb) 1.25 mg Q6R INH 02/23/18 03:00 03/25/18 02:59 03/02/18 07:07 1.25 MG Ipratropium [place] (Atrovent 0.02% 0.5MG/2.5ML Neb) 0.5 mg Q4H PRN INH 02/23/18 01:45 6/6/18 01:44 Levalbuterol (Xopenex 1.25MG/ 0.5ML Neb) 1.25 mg Q4H PRN INH 02/23/18 01:45 03/25/18 01:44 Lactobacillus Acidophilus (Floranex Tab) 4 tab TIDM PO 02/23/18 14:00 03/25/18 13:59 03/02/18 12:24 4 TAB Heparin Sodium (Porcine) (Heparin Sq 5000 Unit/0.5ml) 5,000 unit Q8 SQ 02/23/18 14:00 03/25/18 13:59 03/02/18 06:30 5,000 UNIT Enteral Nutritional Formula (Boost) 1 can TID PO 02/23/18 20:00 03/25/18 19:59 03/02/18 12:23 1 CAN Objective Vital Signs Date Time Temp Pulse Resp B/P (MAP) Pulse Ox O2 Delivery O2 Flow Rate FiO2 03/02/18 10:38 Nasal Cannula 2.0 03/02/18 08:56 36.8 83 121/72 (88) 97 Nasal Cannula 2.0 03/02/18 07:16 98 16 98 Nasal Cannula 2.0 03/01/18 23:59 Nasal Cannula 2.0 03/01/18 23:55 36.9 97 16 136/70 (92) 94 2.0 03/01/18 20:45 99 119/65 (83) 03/01/18 19:09 105 16 98 Nasal Cannula 2.0 03/01/18 16:00 Nasal Cannula 2.0 03/01/18 15:05 36.7 93 20 113/71 (85) 99 Nasal Cannula 2.0 03/01/18 14:52 99 16 95 Nasal Cannula 2.0 Physical Exam General Appearance: no apparent distress Respiratory/Chest: no respiratory distress, no accessory muscle use, + decreased breath sounds Cardiovascular: regular rate, rhythm, no edema, no murmur Extremities: normal inspection, no pedal edema Neurologic/Psychiatric: no motor/sensory deficits, alert, normal mood/affect Assessment and Plan This is a 67 year old female with a past medical history of severe, end stage COPD, chronic respiratory failure, anxiety/depression, CAD - presents with altered mental status Altered Mental Status Likely CO2 Narcosis 03/02 - plan to d/c to SNF when able - will write a script for bipap on discharge 03/01 - continue O2 and bipap - planning for SNF discharge - may need bipap on discharge if she stays compliant - hospice discussion taking place; should be on home hospice at the very least - poor prognosis 02/28 - one more dose of prednisone - continue oxygen, does not want to use bipap - plan to d/c when able to SNF 02/27 - doing well - prednisone x5 days - plan to d/c to SNF 02/26 - continue prednisone for now - continue bipap and oxygen - palliative care consulted - will discuss home hospice with 02/25 - improving, ABG performed today - CO2 improving, pH improving - CXR shows some clearing - will continue clindamycin for now - IV solumedrol has been changed to prednisone appropriately - hospice consulted; palliative care 02/24 - patient has severe COPD - CO2 Narcosis is likely the culprit for encephalopathy - does not use bipap, non-compliant - palliative care consulted due to the end-stage, severe nature of COPD Acute on Chronic Hypoxic, Hypercapnic Respiratory Failure Acute COPD Exacerbation/End-Stage COPD in the setting of R sided Pneumonia, likely Recurrent Aspiration - appreciate pulmonary input; patient with end stage COPD - currently on Solu-medrol, which we will continue - on chronic O2 - will need bipap, but is not compliant - nebs as needed - on Clindamycin for aspiration pneumonia - consulted palliative care due to severe, end stage nature of her disease CAD - continue aspirin, b-maycol, statin DVT ppx - subq heparin DNR/DNI Discharge planning: [facility] facility (possibly skill with transition to hospice)
[2018-03-02 14:08] VITALS: PULSE 101; O2SAT 99
[2018-03-02 15:05] VITALS: BP 104/67; PULSE 98; TEMP 36.7; O2SAT 97
[2018-03-02 15:40] VITALS: O2SAT 97
[2018-03-02 19:04] VITALS: PULSE 96; O2SAT 98
[2018-03-02] MEDS: MIRTAZAPINE TAB 15 MG TAB PO SCH (20:35)
[2018-03-02] MEDS: PANTOprazole SOD 40 MG TAB PO SCH (20:36)
[2018-03-03] MEDS: IPRATROPIUM BROMIDE NEB SOLN 0.02% 2.5 ML VIAL INH SCH ×3 (02:01→14:09)
[2018-03-03] MEDS: LEVALBUTEROL 1.25MG/0.5ML NEB INH SCH ×3 (02:01→14:09)
[2018-03-03] MEDS: HEPARIN SOD 5000 UNIT/0.5 ML CARP SQ SCH ×2 (05:35→12:24)
[2018-03-03] MEDS: BUDESONIDE 0.5 MG/2 ML VIAL (PULMICORT) INH SCH (07:13)
[2018-03-03 07:17] VITALS: PULSE 90; O2SAT 100
[2018-03-03 07:25] VITALS: BP 117/69; PULSE 97; TEMP 36.5; O2SAT 99
[2018-03-03] MEDS: MULTIVITAMIN TAB PO SCH (09:32)
[2018-03-03] MEDS: ASPIRIN 81 MG ECTAB PO SCH (09:32)
[2018-03-03] MEDS: ATORVASTATIN 40 MG TAB PO SCH (09:32)
[2018-03-03] MEDS: CARVEDILOL 12.5 MG TAB PO SCH (09:32)
[2018-03-03] MEDS: VENLAFAXINE HCL XR 150 MG CAPXR PO SCH (09:32)
[2018-03-03] MEDS: NICOTINE 14 MG/24 HR TDSY TD SCH (09:33)
[2018-03-03] MEDS: LACTOBACILLUS ACIDOPHILUS (FLORANEX) TAB PO SCH ×2 (09:33→12:24)
[2018-03-03] MEDS: BOOST VANILLA PO SCH ×2 (09:33→12:24)
--- NOTE | 2018-03-03 11:26 | Progress Note ---
Subjective Date of Service: March 03, 2018. Subjective Pt evaluation today including: conversation w/ patient, physical exam, lab review, review of studies, review of inpatient medication list Saw/examined the patient in room 455 She's doing well, slightly disoriented this morning I let her know about the discharge to home and she is agreeable Denies shortness of breath/chest pain Problem List Medical Problems: (1) Acute on chronic respiratory failure with hypoxia and hypercapnia Status: Acute (2) Anemia Status: Acute (3) Closed head injury Status: Acute (4) Hip fracture, right Status: Acute (5) Hypercapnic respiratory failure Status: Acute (6) Nasal fracture Status: Acute (7) Pneumonia Status: Acute (8) Pneumonia Status: Acute (9) Sepsis Status: Acute (10) Skin tear Status: Acute (11) Skin tear of right elbow without complication Status: Acute (12) UTI (urinary tract infection) Status: Acute Review of Systems Respiratory: + cough, + sputum, No wheezing, No shortness of breath, No dyspnea on exertion, No dyspnea at rest, No hemoptysis Cardiac: No chest pain, No edema, No palpitations Medications Current Inpatient Medications Medications (Trade) Dose Ordered Sig/José Miguel Route Start Time Stop Time Status Last Admin Dose Admin Haloperidol (Haldol Tab) 2 mg Q4H PRN PO 02/23/18 01:30 03/25/18 01:29 Haloperidol Lactate (Haldol Inj) 2 mg Q2H PRN IM 02/23/18 01:30 03/25/18 01:29 Acetaminophen (Tylenol Tab) 650 mg Q4H PRN PO 02/23/18 01:30 03/25/18 01:29 02/23/18 17:06 650 MG Tramadol HCl (Ultram Tab) 25 mg Q6H PRN PO 02/23/18 01:30 03/25/18 01:29 Prochlorperazine Edisylate 5 mg/ Syringe 5 ml @ 5 mls/min Q6H PRN IV 02/23/18 01:30 03/25/18 01:29 Aspirin (Ecotrin Tab) 81 mg QAM PO 02/23/18 08:00 03/25/18 08:59 03/03/18 09:32 81 MG Budesonide (Pulmicort Respules 0.5MG/ 2ML Neb Soln) 1 mg BIDR INH 02/23/18 08:00 03/25/18 07:59 03/03/18 07:13 1 MG Carvedilol (Coreg Tab) 12.5 mg BID PO 02/23/18 08:00 03/25/18 08:59 03/03/18 09:32 12.5 MG Mirtazapine (Remeron Tab) 15 mg HS PO 02/23/18 21:00 03/25/18 20:59 03/02/18 20:35 15 MG Multivitamins (Multivitamin Tab) 1 tab DAILY PO 02/23/18 08:00 03/25/18 08:59 03/03/18 09:32 1 TAB Venlafaxine HCl (effeXOR EXTENDED REL CAP) 150 mg DAILY PO 02/23/18 08:00 03/25/18 08:59 03/03/18 09:32 150 MG Pantoprazole Sodium (Protonix Tab) 40 mg HS PO 02/23/18 21:00 03/25/18 20:59 03/02/18 20:36 40 MG Nicotine (Nicoderm Cq 14MG Patch) 1 patch QAM TD 02/23/18 08:00 03/25/18 08:59 03/03/18 09:33 1 PATCH Miscellaneous (Remove Nicoderm Patch) 1 ea HS N/A 02/23/18 21:00 03/25/18 20:59 03/02/18 20:36 1 EA Atorvastatin Calcium (Lipitor Tab) 40 mg DAILY PO 02/23/18 08:00 03/25/18 08:59 03/03/18 09:32 40 MG Ipratropium [place] (Atrovent 0.02% 0.5MG/2.5ML Neb) 0.5 mg Q6R INH 02/23/18 03:00 03/25/18 02:59 03/03/18 07:13 0.5 MG Levalbuterol (Xopenex 1.25MG/ 0.5ML Neb) 1.25 mg Q6R INH 02/23/18 03:00 03/25/18 02:59 03/03/18 07:13 1.25 MG Ipratropium [place] (Atrovent 0.02% 0.5MG/2.5ML Neb) 0.5 mg Q4H PRN INH 02/23/18 01:45 03/25/18 01:44 Levalbuterol (Xopenex 1.25MG/ 0.5ML Neb) 1.25 mg Q4H PRN INH 02/23/18 01:45 03/25/18 01:44 Lactobacillus Acidophilus (Floranex Tab) 4 tab TIDM PO 02/23/18 14:00 03/25/18 13:59 03/03/18 09:33 4 TAB Heparin Sodium (Porcine) (Heparin Sq 5000 Unit/0.5ml) 5,000 unit Q8 SQ 02/23/18 14:00 03/25/18 13:59 03/02/18 06:30 5,000 UNIT Enteral Nutritional Formula (Boost) 1 can TID PO 02/23/18 20:00 03/25/18 19:59 03/03/18 09:33 1 CAN Objective Vital Signs Date Time Temp Pulse Resp B/P (MAP) Pulse Ox O2 Delivery O2 Flow Rate FiO2 03/03/18 07:25 36.5 97 16 117/69 (85) 99 3.0 03/03/18 07:17 90 18 100 Nasal Cannula 2.0 03/02/18 19:04 96 16 98 Nasal Cannula 2.0 03/02/18 15:40 97 Nasal Cannula 2.0 03/02/18 15:05 36.7 98 16 104/67 (79) 97 2.0 03/02/18 14:08 101 18 99 Nasal Cannula 2.0 Physical Exam General Appearance: no apparent distress, + cachetic, + thin Respiratory/Chest: no respiratory distress, no accessory muscle use, + decreased breath sounds Cardiovascular: regular rate, rhythm, no edema, no murmur Abdomen: normal bowel sounds, non tender, soft Extremities: normal inspection, no pedal edema Neurologic/Psychiatric: no motor/sensory deficits, alert, normal mood/affect, + disoriented Assessment and Plan This is a 67 year old female with a past medical history of severe, end stage COPD, chronic respiratory failure, anxiety/depression, CAD - presents with altered mental status Altered Mental Status Likely CO2 Narcosis 03/03 - plan to d/c home as [facility] discharged was denied - she is to use oxygen at all times; around 2-3L - will need outpatient pulm input for possible nocturnal bipap; will need sleep study to get approved - off of prednisone and abx. at this time - monitor for aspiration issues at home 03/02 - plan to d/c to SNF when able - will write a script for bipap on discharge 03/01 - continue O2 and bipap - planning for SNF discharge - may need bipap on discharge if she stays compliant - hospice discussion taking place; should be on home hospice at the very least - poor prognosis 02/28 - one more dose of prednisone - continue oxygen, does not want to use bipap - plan to d/c when able to SNF 02/27 - doing well - prednisone x5 days - plan to d/c to SNF 02/26 - continue prednisone for now - continue bipap and oxygen - palliative care consulted - will discuss home hospice with 02/25 - improving, ABG performed today - CO2 improving, pH improving - CXR shows some clearing - will continue clindamycin for now - IV solumedrol has been changed to prednisone appropriately - hospice consulted; palliative care 02/24 - patient has severe COPD - CO2 Narcosis is likely the culprit for encephalopathy - does not use bipap, non-compliant - palliative care consulted due to the end-stage, severe nature of COPD Acute on Chronic Hypoxic, Hypercapnic Respiratory Failure Acute COPD Exacerbation/End-Stage COPD in the setting of R sided Pneumonia, likely Recurrent Aspiration - appreciate pulmonary input; patient with end stage COPD - currently on Solu-medrol, which we will continue - on chronic O2 - will need bipap, but is not compliant - nebs as needed - on Clindamycin for aspiration pneumonia - consulted palliative care due to severe, end stage nature of her disease CAD - continue aspirin, b-maycol, statin DVT ppx - subq heparin DNR/DNI Discharge planning: [facility] facility (possibly [facility] with transition to hospice)
[2018-03-03] MEDS ORDERED: OXGN (11:28)
--- NOTE | 2018-03-03 11:35 | Discharge Instructions ---
Discharge Instructions Date of Service March 03, 2018. Admission Reason for Admission: Acute On Chronic Resp Failure W Hypoxia & Hypercap Discharge Discharge Diagnosis / Problem: Chronic respiratory failure; CO2 Narcosis Discharge Goals Goal(s): Decrease discomfort, Improve function, Diagnostic testing, Therapeutic intervention Activity Recommendations Activity Limitations: resume your previous activity . Instructions / Follow-Up Instructions / Follow-Up Please follow-up with Dr. Kirk on March 09 at 2:55PM * Please use the oxygen at all times, you should use about 2 to 3L of O2 continuously * You will be discharged with home health, home nursing and therapy * Consider transition to home hospice for this end stage lung disease Current Hospital Diet Patient's current hospital diet: Regular Diet Discharge Diet Recommended Diet: Regular Diet Pending Studies Studies pending at discharge: no Medical Emergencies . Who to Call and When: Medical Emergencies: If at any time you feel your situation is an emergency, please call 911 immediately. . Non-Emergent Contact Non-Emergency issues call your: Primary Care Provider, Associate Professor [employer] . . "Provider Documentation" section prepared by Stefano Mendes. .
--- NOTE | 2018-03-03 11:40 | Discharge Summary ---
Discharge Summary Date of Service March 03, 2018. Discharge Summary Admission Date: February 23, 2018 at 01:01 Discharge Date: March 03, 2018 Discharge Disposition: Home with services Principal Diagnosis: Altered Mental Status Likely CO2 Narcosis Acute on Chronic Hypoxic, Hypercapnic Respiratory Failure Acute COPD Exacerbation/End-Stage COPD in the setting of R sided Pneumonia, likely Recurrent Aspiration CAD Medication Reconciliation New Medications: Home O2 Therapy (Oxygen) Gas 2 LITERS NA PRN for 30 Days Continued Medications: Arformoterol Tartrate (Brovana) 15 Mcg/2 Ml Neb 15 MCG INH BID, INHALER Ascorbic Acid (Vitamin C 500 mg) 1 Chw Chw 1 TAB PO DAILY Aspirin (Aspirin Ec) 81 Mg Tab 81 MG PO QAM Atorvastatin (Lipitor) 40 Mg Tab 40 MG PO DAILY Budesonide (Pulmicort Respules 0.5MG/2ML) 0.5 Mg/2 Ml Nebu 2 ML INH BID, EA Calcium Carbonate (Caltrate 600) 1,500 Mg Tab 1 TAB PO DAILY Carvedilol (Coreg) 12.5 Mg Tab 12.5 MG PO BID Cholecalciferol (Vitamin D3) 1,000 Unit Tab 1000 UNITS PO DAILY Enteral Nutrition Formula (Ensure Plus Vanilla) 1 Can Liqd 1 CAN PO TID Ipratropium-Albuterol (Combivent Respimat) 1 Aer Aer 1 PUFFS INH QID PRN for SOB/Wheezing, INH Ipratropium-Albuterol (Duoneb) 3 Ml Nebu 1 TREATMENT INH Q4H PRN for SOB/Wheezing Levalbuterol Hcl (Levalbuterol Hcl) 1.25 Mg/3 Ml Neb 1 VIAL NEB Q6H PRN for SOB/Wheezing Mirtazapine (Mirtazapine) 15 Mg Tab 15 MG PO HS Multivitamin (Multivitamin) Tab 1 TAB PO DAILY, TAB Nitroglycerin (Nitrostat) 0.4 Mg Sub 0.4 MG UT UD PRN for Chest Pain, BTL Omeprazole (Prilosec) 20 Mg Cap 20 MG PO HS Prednisone Tab (Prednisone) 10 Mg Tab 10 MG PO UD PRN for COPD rescue kit, TAB Tiotropium [place] (Spiriva Respimat) 2.5 Mcg/Act Spr 2 PUFFS PO DAILY Venlafaxine Hcl (Venlafaxine Hcl Er) 150 Mg Tab 1 TAB PO DAILY for 30 Days, #30 TAB 1 Refill Admission Information HPI (per Admitting provider): DATE OF ADMISSION: 02/23/2018 PRIMARY CARE DOCTOR: Matheus Kirk MD CHIEF COMPLAINT: I don't know. Altered mental status per records. HISTORY OF PRESENT ILLNESS: History obtained from patient, , and records. Patient is a poor historian secondary to chronic disorientation. Medical history is significant for chronic respiratory failure secondary to COPD, on home O2, BiPAP intolerance, ongoing tobacco abuse, chronic anemia, baseline hemoglobin 11, chronic diastolic heart HF EF 60%, CAD status post stenting, mood disorder, ischemic colitis status post surgery, history of MRSA as per records. Recent confinement last December 2017 for R pneumonia, COPD exacerbation. As per patient's , patient has worsening lethargy, weakness in the yesterday morning, refusing to eat and drink. Patient is losing weight as per as per outpatient notes. Patient brought to the Emergency Room. VBG, pH 7.17, pCO2 163. Chest x-ray showed bilateral pleural effusion, COPD, right perihilar bibasilar opacities, pneumonia. BiPAP started. Patient received Solu-Medrol, DuoNebs, cefepime, azithromycin, and vancomycin. Patient noted to be more awake and agitated. Refusing to wear BiPAP. MEDICAL HISTORY: As above. 2D echo from October of 2016 showed EF of 55% to 60%, aortic valve sclerosis, trace MR, TR, evidence of pulmonary hypertension Inpatient swallow eval in February 2016 deemed patient high risk for aspiration. Mechanical soft diet, aspiration precautions recommended. Surgeries as follows : She has had bowel surgery, tonsillectomy, tracheostomy. HOME MEDICATIONS: Include mirtazapine, multivitamins, Nitrostat, Prilosec, prednisone, Spiriva, venlafaxine, Brovana, aspirin, Lipitor, vitamin C, Pulmicort, Coreg, vitamin D3, Caltrate, Ensure, Combivent, DuoNebs, albuterol. ALLERGIES: PENICILLIN. FAMILY HISTORY: could not be obtained. PERSONAL AND SOCIAL HISTORY: half packs daily. No chronic intake of alcoholic beverages. Lives with . REVIEW OF SYSTEMS: Could not be reliably obtained. PHYSICAL EXAMINATION: VITAL SIGNS: Blood pressure noted to be 111/47, pulse rate 65, respiratory rate 22, temperature 36.5, sats 94 on 2 liters. GENERAL: Noted to be hyposthenic, chronically ill, minimal respiratory distress. Disoriented. SKIN: Pallor, warm. HEENT: Pale palpebral conjunctivae. No ptosis. Dry mucosa. Nasal cannula in place NECK: Supple, nontender. CHEST: Decreased breath sounds. No wheezes. HEART: RRR, systolic murmur. ABDOMEN: Ostomy noted. No tenderness. EXTREMITIES: No edema. No bruising noted. No tenderness. NEUROLOGIC: Coherent, but disoriented. No facial asymmetry. Gait and stance not assessed. LABORATORY DATA: Hemoglobin was noted to be 11.6, hematocrit 39.7, white cells 8.47, platelets 142. Sodium noted to 139, potassium 4.4, chloride 88, CO2 of 24, BUN 18, creatinine 0.32, glucose noted to be 83. VBG, pH 7.17, pCO2 of 163. Chest x-ray as above. CT head, no acute pathology. ASSESSMENT: 1. [id number] hypoxemic, hypercapnic respiratory failure secondary to chronic obstructive pulmonary disease exacerbation secondary to recurrent right-sided pneumonia possible aspiration (patient deemed aspiration risk as of 2015 swallow evaluation) History of BiPAP intolerance/noncompliance no sepsis. 2. Encephalopathy secondary to respiratory acidosis secondary to above Improved after BiPAP intervention at the ER 3. chronic disorientation. Possible dementia, no previous diagnosis 4. Chronic diastolic heart failure, patient euvolemic 5. CAD status post stenting 6. ongoing tobacco abuse 7. ischemic bowel status post surgery, 8. malnutrition (low BMI) 9. chronic anemia, hemoglobin at baseline. 10. History of MRSA. PLAN: [facility] supplemental O2. BiPAP if patient cooperates. Follow up ABG. Clindamycin for now for aspiration pneumonia. Prednisone course, nebs RTC, prn Follow-up swallow eval. Nicotine patch. Pulmonary consult for respiratory failure. Nutrition consult, low BMI PT, OT eval. DNR as per , Mr. Christoph Ventura (He requests updates from providers at [phone].) Patient's was earlier updated on situation where the patient refuses to wear BiPAP. He understands that patient condition can deteriorate w/ her refusal to wear BiPAP Hospital Course This is a 67 year old female with a past medical history of severe, end stage COPD, chronic respiratory failure, anxiety/depression, CAD - presents with altered mental status Altered Mental Status Likely CO2 Narcosis 03/03 - plan to d/c home as [facility] discharged was denied - she is to use oxygen at all times; around 2-3L - will need outpatient pulm input for possible nocturnal bipap; will need sleep study to get approved - off of prednisone and abx. at this time - monitor for aspiration issues at home 03/02 - plan to d/c to SNF when able - will write a script for bipap on discharge 03/01 - continue O2 and bipap - planning for SNF discharge - may need bipap on discharge if she stays compliant - hospice discussion taking place; should be on home hospice at the very least - poor prognosis 02/28 - one more dose of prednisone - continue oxygen, does not want to use bipap - plan to d/c when able to SNF 02/27 - doing well - prednisone x5 days - plan to d/c to SNF 02/26 - continue prednisone for now - continue bipap and oxygen - palliative care consulted - will discuss home hospice with 02/25 - improving, ABG performed today - CO2 improving, pH improving - CXR shows some clearing - will continue clindamycin for now - IV solumedrol has been changed to prednisone appropriately - hospice consulted; palliative care 02/24 - patient has severe COPD - CO2 Narcosis is likely the culprit for encephalopathy - does not use bipap, non-compliant - palliative care consulted due to the end-stage, severe nature of COPD Acute on Chronic Hypoxic, Hypercapnic Respiratory Failure Acute COPD Exacerbation/End-Stage COPD in the setting of R sided Pneumonia, likely Recurrent Aspiration - appreciate pulmonary input; patient with end stage COPD - currently on Solu-medrol, which we will continue - on chronic O2 - will need bipap, but is not compliant - nebs as needed - on Clindamycin for aspiration pneumonia - consulted palliative care due to severe, end stage nature of her disease CAD - continue aspirin, b-maycol, statin DVT ppx - subq heparin DNR/DNI Discharge planning: [facility] facility (possibly [facility] with transition to hospice) Total time spent on discharge = 45 minutes This includes examination of the patient, discharge planning, medication reconciliation, and communication with other providers. Discharge Instructions Please follow-up with Dr. Kirk on March 09 at 2:55PM * Please use the oxygen at all times, you should use about 2 to 3L of O2 continuously * You will be discharged with home health, home nursing and therapy * Consider transition to home hospice for this end stage lung disease
[2018-03-03 14:02] VITALS: BP 117/69; PULSE 97; TEMP 36.5; O2SAT 99
[2018-03-03 14:12] VITALS: PULSE 102; O2SAT 97
== END 2018-03-03 15:53 | disposition home or self-care (01) | DRG 177 ==
LOC: EDBD 21:05 → C.EDA 21:06 → C.MS4W 02-23 01:01 → ENRESERV 02-23 01:42
PROVIDERS: ADMIT Internal Medicine; ATTEND Family Medicine
DX: J69.0 Pneumonitis due to inhalation of food and vomit (principal); J96.22 Acute and chronic respiratory failure with hypercapnia; J44.1 Chronic obstructive pulmonary disease with (acute) exacerbation; G93.40 Encephalopathy, unspecified; E87.2 Acidosis; I50.32 Chronic diastolic (congestive) heart failure; E46 Unspecified protein-calorie malnutrition; J96.21 Acute and chronic respiratory failure with hypoxia; Z86.73 Personal history of transient ischemic attack (TIA), and cerebral infarction without residual deficits; Z68.1 Body mass index [BMI] 19.9 or less, adult; Z99.81 Dependence on supplemental oxygen; I25.10 Atherosclerotic heart disease of native coronary artery without angina pectoris; F32.9 Major depressive disorder, single episode, unspecified; Z86.14 Personal history of Methicillin resistant Staphylococcus aureus infection; I48.0 Paroxysmal atrial fibrillation; F17.200 Nicotine dependence, unspecified, uncomplicated; Z88.0 Allergy status to penicillin; Z95.5 Presence of coronary angioplasty implant and graft; D64.9 Anemia, unspecified; F03.90 Unspecified dementia, unspecified severity, without behavioral disturbance, psychotic disturbance, mood disturbance, and anxiety; Z66 Do not resuscitate; Z91.19 Patient's noncompliance with other medical treatment and regimen